=== PATIENT | male | born 1940 | race Caucasian/White ===

== ENCOUNTER 2017-07-15 12:56 | Inpatient (IN) | payer MEDICARE, OTHER, SELFPAY ==
[2017-07-15] VITALS (9 sets, daily range): BP systolic 109–180; BP diastolic 78–113; PULSE 48–106; RESP 16–20; TEMP 36.5–36.9; O2SAT 91–97; BMI 23.6; BMI 24.3
--- NOTE | 2017-07-15 13:27 | EKG12_ITS ---
Test Reason : EPIGASTRIC PAIN Blood Pressure : / mmHG Vent. Rate : 065 BPM Atrial Rate : 065 BPM P-R Int : 174 ms QRS Dur : 076 ms QT Int : 410 ms P-R-T Axes : 029 -06 023 degrees QTc Int : 426 ms Normal sinus rhythm Septal infarct , age undetermined Abnormal ECG Confirmed by KRISHNA HDEZ ([id number]), make up editor PAUL BEAUCHAMP ([id number]) on 07/29/2017 5:22:03 PM Referred By: ENDER/CHAVO Confirmed By:KRISHNA HDEZ
--- NOTE | 2017-07-15 13:27 | CT_ITS ---
STUDY: CT ANGIOGRAM OF THE ABDOMEN AND CT ANGIOGRAM OF THE PELVIS WITHOUT AND WITH IV CONTRAST. REASON FOR EXAM: Male, 76 years old. Severe abdominal pain. Nausea. History of coronary artery disease, hypertension, GERD, abdominal aortic aneurysm, cardiac stent. RADIATION DOSAGE (If Supplied By Facility): CTDIvol = ( 28.5+18.95 ) mGy, DLP = ( 998.86 ) mGycm. Thank you Individualized dose optimization techniques were used for this CT.? TECHNIQUE: Arterial phase contrast bolus Isovue 300 [address] mL. Thin slice helical [address] angiogram was performed from the lung bases through the ischial tuberosities with paracoronal and parasagittal 2-D MPR, and 3-D volume rendered and MIP reformatted images. COMPARISON: None. FINDINGS: Body wall soft tissues: No acute process. Osseous structures: No acute process. Mild lumbar scoliosis and multilevel mild lumbar degenerative disease without high-grade stenosis. Disc degeneration is most notable at L2-L3. Chronic appearing superior plate compression deformity likely associated with Schmorl's nodes at T11. Of note, the patient has transitional lumbosacral vertebral anatomy, as counted from the last rib-bearing vertebral body T12, hemisacralization of L5. Lung bases: Hyperlucency consistent with underlying COPD. There is a solid round pulmonary nodule at the right lung base medial basilar segment, in the sulcus, measuring approximately 8 mm. Nonspecific. Distal esophagus: Normal. Hepatobiliary: No acute process. Pancreas: There is acute inflammatory stranding and edema surrounding the head, body and majority of the proximal tail of the pancreas in a pattern most consistent with acute pancreatitis. Stranding extends downward into the root of the small bowel mesentery. This is associated with mild circumferential thickening of the 2nd and 3rd portion of duodenum, vicarious inflammation due to the pancreatitis. There is no focal suspicious pancreatic lesion. There is only very minimal ductal ectasia up to 3 mm. There are several scattered punctate calcifications of the pancreas suggesting sequela from prior inflammation. Spleen: Punctate calcifications consistent with old granulomatous disease. Adrenal glands: Normal. Urogenital: Symmetric nephrograms. No significant renal atrophy. Normal collecting systems, ureters. Urinary bladder is quite distended, extending upward in the abdomen, measuring up to 17.6 cm craniocaudal, 16.3 cm anterior-posterior, and 14.2 cm transverse. This could reflect partial bladder outlet obstruction. Correlate for appropriate urination. Urinary bladder wall is unremarkable. The prostate is mildly enlarged. Symmetric and normal seminal vesicles. Pelvic floor and sidewalls and retroperitoneum: No pelvic lymphadenopathy. Multiple partially confluent mildly enlarged lymph nodes are present left periaortic, just distal to the left renal vein, the largest individual lymph node measuring approximately 13 mm. These may be chronic but could also be acutely reactive in the setting of pancreatitis. Vasculature: There is mild to moderate atherosclerotic calcification of the wall of the abdominal aorta, iliac vessels and proximal femoral vessels without stenosis or dissection. There is fusiform aneurysmal ectasia of the infrarenal abdominal aorta measuring up to 4.4 x 4.2 cm. There is no evidence of retroperitoneal fibrosis, aortitis, or rupture. Stomach: No acute process. Small bowel and mesentery: Other than mild duodenal inflammation from the pancreatitis, the small bowel is unremarkable. Appendix: Normal. Large bowel: No acute process. There is mild sigmoid diverticulosis without diverticulitis. Normal rectum. CT/CTA Abdomen W/WO Contrast IMPRESSION: Acute pancreatitis. Abdominal aortic aneurysm without complication. Prominent distention of the urinary bladder requires clinical correlation. Electronically Signed: Jorge Nielson, at 15:23 EDT Tel , Service support ,
[2017-07-15] MEDS: Morphine 4 MG/ML Syringe IV (13:32)
[2017-07-15] MEDS: Ondansetron 4 MG/2 ML Vial IV (13:32)
[2017-07-15] MEDS: 0.9% Normal Saline 1,000 ML 1000 ML IV (13:32)
[2017-07-15 13:43] LABS: Basophil# 0.03 X10^3/uL; Basophil% 0.4 % (0-1); Eosinophil# 0.05 X10^3/uL; Eosinophils% 0.6 % (0-5); Hematocrit 38.9 % (40-54); Hemoglobin 13.3 g/dl (13.0-16.5); Lymphocyte % 12.8 % (19-41); Mean Corp Hgb Conc 34.2 g/gl (32-36); Mean Corpuscular Hgb 33.3 pg (27.0-32.0); Mean Corpuscular Volume 97.3 fL (80-94); Mean Platelet Vol. 9.1 fl (6.2-12.0); Neutrophil # 6.01 X10^3/uL (2.7-7.7); Neutrophil % 76.9 % (47-70); POSITIVE COUNT NO; POSITIVE DIFFERENTIAL NO; POSITIVE MORPHOLOGY NO; Platelet Count 253 K/mm3 (150-450); RBC Distribution Width CV 13.4 % (11.6-14.6); RBC Distribution Width SD 46.8 fl (35.1-43.9); White Blood Count 7.8 K/mm3 (4.4-11.0)
[2017-07-15 14:00] LABS: AST(SGOT) 21 U/L (15-37); Alanine Aminotransfer ALT/SGPT 16 U/L (16-61); Albumin, Serum 3.5 g/dL (3.2-5.0); Alkaline Phosphatase 80 U/L (45-117); Anion Gap 8 (5-15); BUN 16 mg/dL (7-18); BUN/Creat Ratio 14.3 RATIO (10-20); Bilirubin, Direct 0.13 mg/dL (0.00-0.30); Calcium,Total 9.2 mg/dL (8.5-10.1); Chloride 105 mmol/L (98-107); Creatinine, Serum 1.12 mg/dL (0.70-1.30); EST Glomerular Filtration Rate 68 mL/min (>60); Est Glom Filt Rate - Afr Amer 82 mL/min (>60); Estimated Creatinine Clearance 66.26 ml/min; Globulin 3.8 g/dL (2.2-4.2); Glucose 134 mg/dL (74-106); Lipase 19319 U/L (73-393); Potassium 4.1 mmol/L (3.5-5.1); Protein, Total 7.3 g/dL (6.4-8.2); Sodium Level 138 mmol/L (136-145)
[2017-07-15] MEDS: HYDROmorphone 0.5 MG/0.5 ML SYRINGE IV ×2 (14:23→16:21)
--- NOTE | 2017-07-15 15:18 | ED.VISSUMM ---
- ER Visit Summary Date of Service: 07/15/17 Chief Complaint: Abdominal pain, nausea History of Present Illness: The patient is a 76 M who noted upper abdominal pain and nausea that started around 10 AM this morning. He describes it as sharp and aching in sensation. He has not had diarrhea. He has not had fever. Patient does drink alcohol regularly and did drink last night. He has never had pancreatitis. Past history significant for coronary disease, hypertension, high cholesterol, and reflux disease. Past surgical history is significant only for cardiac stent. He has had no prior abdominal surgeries. does state the patient has an abdominal aneurysm that is been monitored to the [facility]. Physical Examination: Blood pressure is 109/83, temperature 97.7, heart rate 68, respiratory rate 18, pulse ox 97% on room air. Head and neck examination is unremarkable. Heart is regular rate and rhythm. Lung sounds are clear. Abdomen is soft with focal tenderness in epigastric region along with voluntary guarding. He has hypoactive bowel sounds throughout. Test Results: CBC and chemistry studies are unremarkable. LFTs normal. Lipase is 19,319. Troponin is less than 0.015. EKG is sinus at 65 with no sign of acute ischemia. CTA of the abdomen and pelvis reveals acute pancreatitis. There is a abdominal aortic aneurysm appreciated without complication. Emergency Department Course and Treatment: Patient was given morphine, Zofran, and IV fluids. He noted significant pain with no improvement with morphine. He was given 0.5 mg of IV Dilaudid. On repeat evaluation patient states pain was improved to about a 5, but is now starting to worsen again. He has had 2 L of IV fluid. Maintenance IV fluids will be run and he will receive an additional dose of Dilaudid. Hospitalist has been called for admission. As advised by nursing staff that patient has not been able to provide a urine sample. Bladder scan was performed at bedside and appears to have over a liter of urine. Order for Webber catheter has been placed. Treatment Plan: [] Disposition: Admit Impression: 1. Acute pancreatitis 2. Urinary retention This note was generated with [email or web address] dictation software. It may contain incorrect words, spelling, and punctuation that were not noted in review of the chart prior to signing ED Disposition - Plan for ED Patient: Chief Complaint: Abd Pain Referrals: Jaden Monterroso DO [Primary Care Provider] -
[2017-07-15] MEDS: 0.9% Normal Saline 1,000 ML 150 ML IV (15:24)
[2017-07-15] MEDS: 0.9% Normal Saline 1,000 ML 200 ML IV (16:21)
--- NOTE | 2017-07-15 16:29 | NURSING ---
DR ROWE FOR DR SANDHU
--- NOTE | 2017-07-15 16:38 | NURSING ---
PCU ABD PAIN PAINTSIL
--- NOTE | 2017-07-15 17:00 | PCM.HP.STD ---
Problem List (1) Acute pancreatitis Status: Acute Qualifiers: Pancreatitis type: alcohol induced Acute pancreatitis complication: no infection or necrosis Qualified Code(s): K85.20 - Alcohol induced acute pancreatitis without necrosis or infection (2) CAD (coronary artery disease) Status: Chronic Qualifiers: Coronary Disease-Associated Artery/Lesion type: [place] artery Associated angina: without angina (3) Hypertension Status: Chronic Qualifiers: Hypertension type: essential hypertension Qualified Code(s): I10 - Essential (primary) hypertension (4) Hyperlipidemia Status: Chronic Qualifiers: Hyperlipidemia type: unspecified Qualified Code(s): E78.5 - Hyperlipidemia, unspecified History of Present Illness Date of Admission: 07/15/17 Chief Complaint: Abdominal pain - 1 day The patient is a 76 year old M with past medical history of CAD status post stents, chronic abdominal aortic aneurysm, chronic alcohol abuse, comes in with complaints of abdominal pain of one day duration. He complains of gradual onset of abdominal discomfort that is described as sharp, nonradiating, associated with nausea but no vomiting. Pain was so severe more than 10 out of 10 that he had to come into the ED. He denied any diarrhea, dizziness, fever, chills, dysuria, hesitancy, strangury. In the ED show blood pressure 109/83, temperature of 97.7, heart rate of 68, SPO2 was 97% on room air. Admitting blood work was unremarkable except for elevated lipase of more than 19,000. CT scan of the abdomen and pelvis showed acute pancreatitis, abdominal aortic aneurysm without complication, prominent distention of the urinary bladder. Patient had a Webber catheter inserted in the ED and drained more than 1500mls of urine. Past Medical History Past Medical History (Chronic Problems): Chronic Problems CAD (coronary artery disease) (Chronic) Hypertension (Chronic) Hyperlipidemia (Chronic) Allergies erythromycin base Allergy (Verified 07/15/17 12:57) Unknown Sulfa (Sulfonamide Antibiotics) Allergy (Verified 07/15/17 12:57) Unknown Home Medications: Ambulatory Orders Medication Instructions Recorded Atorvastatin Calcium [Lipitor] 80 mg PO QHS 04/23/15 Clopidogrel Bisulfate [Clopidogrel] 75 mg PO DAILY 04/23/15 Flunisolide [Flunisolide] 2 sprays NASAL DAILY 04/23/15 Isosorbide Dinitrate 30 mg PO DAILY 04/23/15 Lisinopril [Lisinopril] 5 mg PO DAILY 04/23/15 Meloxicam [Meloxicam] 15 mg PO DAILY 04/23/15 Metoprolol Tartrate [Metoprolol 50 mg PO DAILY 04/23/15 Tartrate] Omeprazole [Omeprazole] 20 mg PO DAILY 04/23/15 Cholecalciferol (Vitamin D3) 2,000 unit PO DAILY 07/15/17 [Vitamin D3] Surgical History: tonsillectomy Psychiatric History: No pertinent psych hx Smoking Status: Heavy Smoker (>10/day) Tobacco Use: Cigarettes Alcohol: Heavy Drugs: None - *Family History Maternal History Items: Stroke - of stroke Paternal History Items: - - arthritis Sibling History Items: Heart Disease - s/p CABG in 2 brothers Review of Systems Constitutional: Reports: Anorexia. Denies: Chills, Fever, Night Sweats, Malaise, Weakness, Weight Change Eyes: Denies: Blurred vision, Cataracts, Conjunctivae Inflammation, Double vision, Pain, Redness, Vision Change HEENT: Denies: Difficulty Hearing, Difficulty Swallowing, Dysphasia, Head Aches, Hearing Changes, Sinus Congestion, Sinus Drainage Cardiovascular: Denies: Chest Pain, Claudication, Chest Pressure, Chest Tightness, Edema, Orthopnea, Palpitations, Paroxysmal Noc. Dyspnea, Syncope Respiratory: Denies: Cough, Hemoptysis, Pleuritic Pain, Shortness of Breath, Shortness of breath at rest, Shortness of breath upon exertion, Sputum production Gastrointestinal: Reports: Abdominal Pain - epigastric. Denies: Constipation, Hematochezia, Nausea, Vomiting Genitourinary: Denies: Dysuria, Frequency Musculoskeletal: Denies: Joint Pain, Joint stiffness, Joint swelling, Joint Tenderness Skin: Denies: Rash, Wounds Neurological: Denies: Difficulty swallowing, Focal weakness, Numbness, Tingling Psychiatric: Denies: Anxiety, Depression, Homicidal Ideations, Suicidal Ideations Endocrine: Denies: Change in Body Habitus, Heat/ Cold Intolerance, Polydipsia Hematologic/ Lymphatic: Denies: Easy Bruising, Easy Bleeding VTE Information - Inpt Only VTE Present on Admission: No VTE Pharm Prophylaxis ordered?: Yes Patient Problems: Active and Suspected Problems Acute pancreatitis (Acute) - Physical Exam General: Alert, Oriented x3, Cooperative HEENT: Atraumatic, PERRLA, EOMI, Normocephalic Oral: Moist Mucosa Neck: Supple Lungs: Clear to auscultation, Normal air movement Cardiovascular: Regular rate, Regular Rhythm, Normal S1, Normal S2, No murmurs Abdomen: Bowel Sounds Present, Soft, Non Tender, Non-Distended, No Hepato-splenomegaly Extremities: No edema Skin: No rashes, No breakdown Musculoskeletal: No Tenderness to Palpation of Joints or Extremities Lymphatic: No Cervical, Supraclavicular, or Inguinal Adenopathy Neurological: Cranial nerves II-XII grossly intact, Neuro grossly intact, Motor Exam 5/5 strength throughout Psych/Mental Status: Normal Affect, Appropriate Vital Signs Temp Pulse Resp BP Pulse Ox 97.7 F L 80 18 151/82 H 97 07/15/17 12:56 07/15/17 16:56 07/15/17 16:56 07/15/17 16:56 07/15/17 16:56 Oxygen Delivery Method Room Air Weight: 83.552 kg Body Mass Index (BMI) 23.6 Laboratory Tests Past 24 Hrs 07/15/17 07/15/17 13:25 13:25 WBC 7.8 RBC 4.00 L Hgb 13.3 Hct 38.9 L MCV 97.3 H MCH 33.3 H MCHC 34.2 RDW 13.4 RDW Differential 46.8 H Plt Count 253 MPV 9.1 Immature Gran % (Auto) 0.300 Neut % (Auto) 76.9 H Lymph % (Auto) 12.8 L [place] % (Auto) 9.0 Eos % (Auto) 0.6 Baso % (Auto) 0.4 Absolute Neuts (auto) 6.0 Absolute Lymphs (auto) 1.00 Total Counted Not Reportable Sodium 138 Potassium 4.1 Chloride 105 Carbon Dioxide 25.0 Anion Gap 8 BUN 16 Creatinine 1.12 Estim Creat Clear Calc 66.26 Est GFR (MDRD) Af Amer 82 Est GFR (MDRD) Non-Af 68 BUN/Creatinine Ratio 14.3 Glucose 134 H Calcium 9.2 Total Bilirubin 0.40 Direct Bilirubin 0.13 AST 21 ALT 16 Alkaline Phosphatase 80 Troponin I < 0.015 Total Protein 7.3 Albumin 3.5 Globulin 3.8 Lipase 47012 H Assessment/Plan Active and Suspected Problems Acute pancreatitis (Acute) 76 year old M with past medical history of CAD status post stents, chronic abdominal aortic aneurysm, chronic alcohol abuse, comes in with complaints of abdominal pain of one day duration. He complains of gradual onset of abdominal discomfort that is described as sharp, nonradiating, associated with nausea but no vomiting. 1. Acute pancreatitis, likely secondary to alcohol use, admitting lipase 19,319, admitting CT scan of abd/pelvis showed acute pancreatitis 2. CAD s/p stents, stable, on statin, plavix, isosorbide dinitrate, lisinopril, metoprolol 3. Abdominal aneurysm, CTA abd/pelvis showed 4.4 x 4.2cm, will control blood pressure aggressively. 4. Chronic alcohol abuse, heavy drinker, >4-5 bers daily, mixed drinks, liquor, will start on alcohol withdrawal with ativan prn. 5. Nicotine use disorder, will put on nicotine patch and gum. 6. DVT PPx - Heparin SC Code Visit Inpatient E&M: 15856 Init Hosp L3
--- NOTE | 2017-07-15 17:03 | HP.PCM_ITS ---
Problem List (1) Acute pancreatitis Status: Acute Qualifiers: Pancreatitis type: alcohol induced Acute pancreatitis complication: no infection or necrosis Qualified Code(s): K85.20 - Alcohol induced acute pancreatitis without necrosis or infection (2) CAD (coronary artery disease) Status: Chronic Qualifiers: Coronary Disease-Associated Artery/Lesion type: [place] artery Associated angina: without angina (3) Hypertension Status: Chronic Qualifiers: Hypertension type: essential hypertension Qualified Code(s): I10 - Essential (primary) hypertension (4) Hyperlipidemia Status: Chronic Qualifiers: Hyperlipidemia type: unspecified Qualified Code(s): E78.5 - Hyperlipidemia , unspecified History of Present Illness Date of Admission: 07/15/17 Chief Complaint: Abdominal pain - 1 day The patient is a 76 year old M with past medical history of CAD status post stents, chronic abdominal aortic aneurysm, chronic alcohol abuse, comes in with complaints of abdominal pain of one day duration. He complains of gradual onset of abdominal discomfort that is described as sharp, nonradiating, associated with nausea but no vomiting. Pain was so severe more than 10 out of 10 that he had to come into the ED. He denied any diarrhea, dizziness, fever, chills, dysuria, hesitancy, strangury. In the ED show blood pressure 109/83, temperature of 97.7, heart rate of 68, SPO2 was 97% on room air. Admitting blood work was unremarkable except for elevated lipase of more than 19,000. CT scan of the abdomen and pelvis showed acute pancreatitis, abdominal aortic aneurysm without complication, prominent distention of the urinary bladder. Patient had a Webber catheter inserted in the ED and drained more than 1500mls of urine. Past Medical History Past Medical History (Chronic Problems): Chronic Problems CAD (coronary artery disease) (Chronic) Hypertension (Chronic) Hyperlipidemia (Chronic) Allergies erythromycin base Allergy (Verified 07/15/17 12:57) Unknown Sulfa (Sulfonamide Antibiotics) Allergy (Verified 07/15/17 12:57) Unknown Home Medications: Ambulatory Orders Medication Instructions Recorded Atorvastatin Calcium [Lipitor] 80 mg PO QHS 04/23/15 Clopidogrel Bisulfate [Clopidogrel] 75 mg PO DAILY 04/23/15 Flunisolide [Flunisolide] 2 sprays NASAL DAILY 04/23/15 Isosorbide Dinitrate 30 mg PO DAILY 04/23/15 Lisinopril [Lisinopril] 5 mg PO DAILY 04/23/15 Meloxicam [Meloxicam] 15 mg PO DAILY 04/23/15 Metoprolol Tartrate [Metoprolol 50 mg PO DAILY 04/23/15 Tartrate] Omeprazole [Omeprazole] 20 mg PO DAILY 04/23/15 Cholecalciferol (Vitamin D3) 2,000 unit PO DAILY 07/15/17 [Vitamin D3] Surgical History: tonsillectomy Psychiatric History: No pertinent psych hx Smoking Status: Heavy Smoker (>10/day) Tobacco Use: Cigarettes Alcohol: Heavy Drugs: None - *Family History Maternal History Items: Stroke - of stroke Paternal History Items: - - arthritis Sibling History Items: Heart Disease - s/p CABG in 2 brothers Review of Systems Constitutional: Reports: Anorexia. Denies: Chills, Fever, Night Sweats, Malaise , Weakness, Weight Change Eyes: Denies: Blurred vision, Cataracts, Conjunctivae Inflammation, Double vision, Pain, Redness, Vision Change HEENT: Denies: Difficulty Hearing, Difficulty Swallowing, Dysphasia, Head Aches , Hearing Changes, Sinus Congestion, Sinus Drainage Cardiovascular: Denies: Chest Pain, Claudication, Chest Pressure, Chest Tightness, Edema, Orthopnea, Palpitations, Paroxysmal Noc. Dyspnea, Syncope Respiratory: Denies: Cough, Hemoptysis, Pleuritic Pain, Shortness of Breath, Shortness of breath at rest, Shortness of breath upon exertion, Sputum production Gastrointestinal: Reports: Abdominal Pain - epigastric. Denies: Constipation, Hematochezia, Nausea, Vomiting Genitourinary: Denies: Dysuria, Frequency Musculoskeletal: Denies: Joint Pain, Joint stiffness, Joint swelling, Joint Tenderness Skin: Denies: Rash, Wounds Neurological: Denies: Difficulty swallowing, Focal weakness, Numbness, Tingling Psychiatric: Denies: Anxiety, Depression, Homicidal Ideations, Suicidal Ideations Endocrine: Denies: Change in Body Habitus, Heat/ Cold Intolerance, Polydipsia Hematologic/ Lymphatic: Denies: Easy Bruising, Easy Bleeding VTE Information - Inpt Only VTE Present on Admission: No VTE Pharm Prophylaxis ordered?: Yes Patient Problems: Active and Suspected Problems Acute pancreatitis (Acute) - Physical Exam General: Alert, Oriented x3, Cooperative HEENT: Atraumatic, PERRLA, EOMI, Normocephalic Oral: Moist Mucosa Neck: Supple Lungs: Clear to auscultation, Normal air movement Cardiovascular: Regular rate, Regular Rhythm, Normal S1, Normal S2, No murmurs Abdomen: Bowel Sounds Present, Soft, Non Tender, Non-Distended, No Hepato- splenomegaly Extremities: No edema Skin: No rashes, No breakdown Musculoskeletal: No Tenderness to Palpation of Joints or Extremities Lymphatic: No Cervical, Supraclavicular, or Inguinal Adenopathy Neurological: Cranial nerves II-XII grossly intact, Neuro grossly intact, Motor Exam 5/5 strength throughout Psych/Mental Status: Normal Affect, Appropriate Vital Signs Temp Pulse Resp BP Pulse Ox 97.7 F L 80 18 151/82 H 97 07/15/17 12:56 07/15/17 16:56 07/15/17 16:56 07/15/17 16:56 07/15/17 16:56 Oxygen Delivery Method Room Air Weight: 83.552 kg Body Mass Index (BMI) 23.6 Laboratory Tests Past 24 Hrs 07/15/17 07/15/17 13:25 13:25 WBC 7.8 RBC 4.00 L Hgb 13.3 Hct 38.9 L MCV 97.3 H MCH 33.3 H MCHC 34.2 RDW 13.4 RDW Differential 46.8 H Plt Count 253 MPV 9.1 Immature Gran % (Auto) 0.300 Neut % (Auto) 76.9 H Lymph % (Auto) 12.8 L [place] % (Auto) 9.0 Eos % (Auto) 0.6 Baso % (Auto) 0.4 Absolute Neuts (auto) 6.0 Absolute Lymphs (auto) 1.00 Total Counted Not Reportable Sodium 138 Potassium 4.1 Chloride 105 Carbon Dioxide 25.0 Anion Gap 8 BUN 16 Creatinine 1.12 Estim Creat Clear Calc 66.26 Est GFR (MDRD) Af Amer 82 Est GFR (MDRD) Non-Af 68 BUN/Creatinine Ratio 14.3 Glucose 134 H Calcium 9.2 Total Bilirubin 0.40 Direct Bilirubin 0.13 AST 21 ALT 16 Alkaline Phosphatase 80 Troponin I < 0.015 Total Protein 7.3 Albumin 3.5 Globulin 3.8 Lipase 71852 H Assessment/Plan Active and Suspected Problems Acute pancreatitis (Acute) 76 year old M with past medical history of CAD status post stents, chronic abdominal aortic aneurysm, chronic alcohol abuse, comes in with complaints of abdominal pain of one day duration. He complains of gradual onset of abdominal discomfort that is described as sharp, nonradiating, associated with nausea but no vomiting. 1. Acute pancreatitis, likely secondary to alcohol use, admitting lipase 19,319 , admitting CT scan of abd/pelvis showed acute pancreatitis 2. CAD s/p stents, stable, on statin, plavix, isosorbide dinitrate, lisinopril, metoprolol 3. Abdominal aneurysm, CTA abd/pelvis showed 4.4 x 4.2cm, will control blood pressure aggressively. 4. Chronic alcohol abuse, heavy drinker, >4-5 bers daily, mixed drinks, liquor, will start on alcohol withdrawal with ativan prn. 5. Nicotine use disorder, will put on nicotine patch and gum. 6. DVT PPx - Heparin SC Code Visit Inpatient E&M: 58109 Init Hosp L3
--- NOTE | 2017-07-15 17:45 | US_ITS ---
STUDY: ABDOMINAL ULTRASOUND - RIGHT UPPER QUADRANT REASON FOR VISIT: Male, 76 years old. Epigastric pain and nausea, TECHNIQUE: Ultrasound evaluation of the right upper quadrant was performed with real-time and static tejada-scale imaging. TECHNICAL QUALITY: Adequate. COMPARISON: CT from earlier today FINDINGS: Liver: The liver measures 18.0 cm. There is normal echogenicity of the liver. The bile ducts are within normal limits. There is hepatic color flow. The direction of portal flow is hepatopetal. There is no demonstrated mass lesion. Gallbladder: Normal distended gallbladder. The gallbladder wall measures 2.9 mm. There is a negative sonographic Ojeda's sign. There is no pericholecystic fluid. There are no gallstones. Common Bile Duct (C.B.D.): The common bile duct measures 2.8 mm. Pancreas: Normal size of the head, body and tail of the pancreas. There is increased echogenicity of the pancreas. There is no demonstrated pancreatic mass or cyst. Right Kidney: Normal size of the right kidney. The right kidney measures 10.1 x 5.9 x 5.8 cm. Normal renal cortex. The right cortex measures 1.5 cm. There is no demonstrated renal mass or cyst. There is no right hydronephrosis. US/Gallbladder IMPRESSION: Mild hepatomegaly, no discrete lesion Nonspecific echogenic pancreas Sonographically normal gallbladder Electronically Signed: Glenn Corrigan MD at 23:23 EDT , Service support ,
[2017-07-15] MEDS: Morphine 4 MG/ML Syringe 1 MG IV (19:43)
--- NOTE | 2017-07-15 20:00 | NURSING ---
Pt. being taken off floor by [facility] to go for US gallbladder and prostate.
[2017-07-15] MEDS: Heparin Injection (Vial) 5,000 UNIT/ML VIAL 5000 UNIT SC (22:28)
[2017-07-15] MEDS: Famotidine 20 MG Tablet PO (22:28)
[2017-07-15] MEDS: Thiamine Hydrochloride 100 MG Tablet PO (22:28)
[2017-07-15] MEDS: HYDROmorphone 1 MG/ML Syringe IV (22:38)
[2017-07-15] MEDS: Lisinopril 5 MG Tablet 2.5 MG PO (22:38)
[2017-07-16] VITALS (13 sets, daily range): BP systolic 127–185; BP diastolic 74–103; PULSE 55–119; RESP 16–20; TEMP 36.7–37.4; O2SAT 92–94
[2017-07-16] MEDS: HYDROmorphone 1 MG/ML Syringe IV ×7 (03:23→21:53)
[2017-07-16] MEDS: 0.9% Normal Saline 1,000 ML 100 ML IV ×2 (03:44→12:53)
[2017-07-16] MEDS: hydrALAZINE 20 MG/ML Vial 10 MG IV (04:27)
[2017-07-16 05:35] LABS: Hematocrit 41.7 % (40-54); Hemoglobin 13.8 g/dl (13.0-16.5); Mean Corp Hgb Conc 33.1 g/gl (32-36); Mean Corpuscular Hgb 31.9 pg (27.0-32.0); Mean Corpuscular Volume 96.5 fL (80-94); Mean Platelet Vol. 8.9 fl (6.2-12.0); Platelet Count 208 K/mm3 (150-450); RBC Distribution Width CV 13.7 % (11.6-14.6); RBC Distribution Width SD 48.9 fl (35.1-43.9); Red Blood Count 4.32 M/mm3 (4.6-6.2); White Blood Count 8.7 K/mm3 (4.4-11.0)
[2017-07-16 06:13] LABS: Scan Indicated on CBC? Y/N NO
[2017-07-16 06:37] LABS: Anion Gap 10 (5-15); BUN 13 mg/dL (7-18); BUN/Creat Ratio 16.1 RATIO (10-20); Calcium,Total 8.8 mg/dL (8.5-10.1); Chloride 104 mmol/L (98-107); Creatinine, Serum 0.81 mg/dL (0.70-1.30); EST Glomerular Filtration Rate 99 mL/min (>60); Est Glom Filt Rate - Afr Amer 120 mL/min (>60); Estimated Creatinine Clearance 91.62 ml/min; Glucose 102 mg/dL (74-106); Lipase 6049 U/L (73-393); Potassium 4.1 mmol/L (3.5-5.1); Sodium Level 140 mmol/L (136-145)
--- NOTE | 2017-07-16 08:11 | PN_ITS ---
Patient Problems: Active and Suspected Problems Acute pancreatitis (Acute) Subjective: Mr. Ying is a 76-year-old male with a past medical history of coronary artery disease, PTCA with stents, abdominal aortic aneurysm, hyperlipidemia, hypertension, chronic alcohol abuse and tobacco dependence who presented to the emergency department at [facility] on 07/15/2017 complaining of abdominal pain. He had no vomiting. He takes meloxicam 15 mg daily. Vital signs upon presentation to the emergency room were temperature 97.7, pulse rate 68, blood pressure 109/83, respiratory rate 18 and he was 97% saturated on room air. CBC was unremarkable. BMP was unremarkable. Random blood sugar was 134 and he has no history of diabetes mellitus. LFTs were within normal limits. Lipase was 19,319. A CTA of the abdomen was done because of history of aortic aneurysm and it showed acute pancreatitis, infrarenal abdominal aortic aneurysm measuring 4.4 x 4.2 cm and a distended bladder. Gallbladder ultrasound showed mild hepatomegaly, nonspecific echogenic pancreas and a normal gallbladder with no cholelithiasis. There was a negative sonographic Ojeda sign. All events of the past 24 hours of been reviewed. Afebrile since admission. His last 2 heart rates were 112 119 bpm. Blood pressures have been high. Pulse ox is 91-97% on room air. He is on a CIWA protocol but has not received any Ativan. Fluid balance since admission is -100. All lab was personally reviewed. White blood cell count, hemoglobin and platelets remain within normal limits. Electrolytes are normal and the BUN is 13 with a creatinine of 0.81. Lipase is 6049 today. He denies any hx of pancreatitis in the past. No recent no medications or antibiotics. Pain started on Saturday. No vomiting. He admits to drinking beer....not every day but, 3-4 times a week. Also has mixed drinks at night but , not every day. No suspicious masses of the pancreas on the CT scan. Has not required any Ativan today. No hx of DT's. - Physical Exam General: Alert, Oriented x3, Cooperative, Well developed, Well nourished HEENT: Atraumatic, PERRLA, EOMI, Normocephalic Oral: No Gingival or Mucosal Lesions/ Ulcerations, Dry Mucosa Neck: Supple, No JVD, Negative Carotid Bruits, No Nuchal Rigidity, Trachea Midline Lungs: - - few persistent coarse crackles in the left base, rare wheeze. Cardiovascular: Normal S1, Normal S2, No murmurs, No rub noted, No Gallop, - - increased resting heart rate. Abdomen: Soft, Hypoactive Bowel Sounds, Distended - tucker in the upper abdomen, Tender - LUQ and the epigastric area Extremities: No clubbing, No cyanosis, No edema, No Calf Tenderness, Peripheral Pulses Normal Skin: No rashes, No breakdown Musculoskeletal: No Muscle Wasting Neurological: Cranial nerves II-XII grossly intact, Neuro grossly intact Psych/Mental Status: Normal Affect, Appropriate Vital Signs Temp Pulse Resp BP Pulse Ox 98.6 F 112 H 20 H 148/92 H 94 07/16/17 04:40 07/16/17 07:21 07/16/17 04:40 07/16/17 04:40 07/16/17 04:40 Oxygen Delivery Method Room Air Weight: 189 lb 13.088 oz Body Mass Index (BMI) 24.3 Intake and Output for Last 24 Hours 07/14/17 07/15/17 07/16/17 23:59 23:59 23:59 Intake Total 642 / 642 683 / 683 Output Total 1100 / 1100 325 / 325 Balance -458 / -458 358 / 358 Laboratory Tests Past 24 Hrs 07/16/17 07/16/17 05:02 05:02 WBC 8.7 RBC 4.32 L Hgb 13.8 Hct 41.7 MCV 96.5 H MCH 31.9 MCHC 33.1 RDW 13.7 RDW Differential 48.9 H Plt Count 208 MPV 8.9 Sodium 140 Potassium 4.1 Chloride 104 Carbon Dioxide 26.0 Anion Gap 10 BUN 13 Creatinine 0.81 Estim Creat Clear Calc 91.62 Est GFR (MDRD) Af Amer 120 Est GFR (MDRD) Non-Af 99 BUN/Creatinine Ratio 16.1 Glucose 102 Calcium 8.8 Lipase 6049 H Medical Necessity - Tobacco Use Smoking Status: Heavy Smoker (>10/day) Tobacco Use: Cigarettes Assessment/Plan Active and Suspected Problems Acute pancreatitis (Acute) Impressions 1. Acute severe pancreatitis -suspect secondary to alcohol 2. Nicotine dependence 3. Chronic alcohol abuse 4. Coronary artery disease with history of coronary artery stents 5. Abdominal aortic aneurysm-4.4 x 4.2 cm 6. Hypertension make him NPO except for sips and chips Start Protnoix 40 mg IV daily hold all the PO meds except the Metoprolol IV thiamine and folic acid Continue heparin for DVT prophylaxis Ambulate ad daniel. Continue IV Dilaudid for pain control-patient is requiring frequent medication. I suspect that he is narcotic tolerance is going to be increased secondary to the history of alcohol abuse. Check lab in the a.m. Code Visit Inpatient E&M: 08118 Subs Hosp L2
[2017-07-16] MEDS: Folic Acid 1 MG Tablet PO (09:40)
[2017-07-16] MEDS: Heparin Injection (Vial) 5,000 UNIT/ML VIAL 5000 UNIT SC ×2 (09:41→21:57)
[2017-07-16] MEDS: Multivitamins,Ther W-Minerals Tablet 1 TABLET PO (09:41)
[2017-07-16] MEDS: Thiamine Hydrochloride 100 MG Tablet PO ×2 (09:41→16:01)
[2017-07-16] MEDS: Famotidine 20 MG Tablet PO (09:42)
[2017-07-16] MEDS: Clopidogrel Bisulfate 75 MG Tablet PO (09:42)
[2017-07-16] MEDS: Pantoprazole Sodium 20 MG Tablet PO (09:42)
[2017-07-16] MEDS: Lisinopril 5 MG Tablet 2.5 MG PO (09:45)
[2017-07-16] MEDS: Metoprolol Tartrate 50 MG Tablet PO (09:45)
--- NOTE | 2017-07-16 11:51 | CASEMGMT ---
Face to Face with patient for initial transition planning/care coordination assessment. RN REYNA introduced self and role at [facility], pt voices understanding and consents to assessment at this time. Pt is sitting up in bed in no distress at this time. Pt is A/Ox 4 at this time and answers all questions appropriately at this time. Care providers, pharmacy, and demographics verified. See CM link. Pt voices no further concerns/needs at this time. Advised pt to ask for CM if any further questions/concerns/needs arise, voices understanding. CM to follow for any further discharge planning/needs. [place]
[2017-07-16] MEDS: Isosorbide Mononitrate 30 MG Tablet PO (16:01)
[2017-07-16] MEDS: 0.9% Normal Saline 1,000 ML 150 ML IV (19:48)
[2017-07-16] MEDS: Ondansetron 4 MG/2 ML Vial IV (21:54)
[2017-07-16] MEDS: Nitroglycerin Oint 1 INCH PACKET TRANSDERM. (22:00)
[2017-07-16] MEDS: 0.9% NaCl Peripheral Flush Adult/Peds IV (22:09)
[2017-07-17] VITALS (14 sets, daily range): BP systolic 114–147; BP diastolic 65–85; PULSE 71–115; RESP 16–18; TEMP 36.7–37.4; O2SAT 92–93
[2017-07-17] MEDS: HYDROmorphone 1 MG/ML Syringe IV ×6 (00:16→20:14)
[2017-07-17] MEDS: Enalaprilat 1.25 MG/ML Vial IV ×4 (00:17→18:05)
[2017-07-17] MEDS: 0.9% NaCl Peripheral Flush Adult/Peds IV ×4 (00:17→20:15)
[2017-07-17 06:12] LABS: Absolute Neutrophil Count 3.3 X10^3/uL (2.0-7.7); Basophil# 0.01 X10^3/uL; Basophil% 0.2 % (0-1); Eosinophil# 0.05 X10^3/uL; Eosinophils% 1.2 % (0-5); Hematocrit 36.7 % (40-54); Hemoglobin 11.9 g/dl (13.0-16.5); Lymphocyte % 9.6 % (19-41); Mean Corp Hgb Conc 32.4 g/gl (32-36); Mean Corpuscular Hgb 31.6 pg (27.0-32.0); Mean Corpuscular Volume 97.6 fL (80-94); Mean Platelet Vol. 9.2 fl (6.2-12.0); Monocyte% 9.6 % (0-10); Neutrophil # 3.29 X10^3/uL (2.7-7.7); Neutrophil % 79.4 % (47-70); Platelet Count 173 K/mm3 (150-450); RBC Distribution Width SD 50.2 fl (35.1-43.9); Red Blood Count 3.76 M/mm3 (4.6-6.2); White Blood Count 4.2 K/mm3 (4.4-11.0)
[2017-07-17] MEDS: 0.9% Normal Saline 1,000 ML 150 ML IV ×3 (06:17→22:25)
[2017-07-17 06:18] LABS: Differential Indicated SCAN CRITERIA MET; POSITIVE COUNT NO; POSITIVE DIFFERENTIAL YES; POSITIVE MORPHOLOGY NO
[2017-07-17] MEDS: Nitroglycerin Oint 1 INCH PACKET TRANSDERM. ×3 (06:18→22:22)
[2017-07-17 06:33] LABS: Anion Gap 9 (5-15); BUN 14 mg/dL (7-18); BUN/Creat Ratio 17.1 RATIO (10-20); Calcium,Total 7.9 mg/dL (8.5-10.1); Chloride 106 mmol/L (98-107); Creatinine, Serum 0.82 mg/dL (0.70-1.30); EST Glomerular Filtration Rate 98 mL/min (>60); Est Glom Filt Rate - Afr Amer 118 mL/min (>60); Glucose 74 mg/dL (74-106); Lipase 1636 U/L (73-393); Magnesium 1.5 mg/dL (1.6-2.6); Phosphorus 1.7 mg/dL (2.5-4.9); Sodium Level 141 mmol/L (136-145); Triglycerides 115 mg/dL
[2017-07-17 07:16] LABS: Differential Comment SCANNED
--- NOTE | 2017-07-17 07:46 | PCM.PROGNOTE ---
Patient Problems: Active and Suspected Problems Acute pancreatitis (Acute) Subjective: All events of the past 24 hours of been reviewed. T-max is 99.3. He is still mildly tachycardic with heart rate over the past 12 hours ranging from 96-115 bpm. He has been restarted on his beta-marianna. Blood pressure is now well controlled. Fluid balance since admission is +2073. CBC today shows a white blood cell count of 4.2 with 79% neutrophils. Hemoglobin is 11.9 and platelets are within normal limits. BMP is unremarkable. Phosphorus is low at 1.7 and magnesium is low at 1.5. Lipase continues to improve and today is 1636, down from 19,319 at admission. The pain is less today and he is taking less pain medication. Denies nausea and also has had no emesis. No CP and no SOB. No cough Objective: PHYSICAL EXAM: GENERAL: alert, oriented X 3, Cooperative, NAD ORAL: moist mucosa, no mucosal lesions NECK: No JVD, supple, trachea midline LUNGS: few coarse crackles in the left base only, no wheezing, symmetric chest expansion HEART: RRR, Normal S1 and S2, no rub, no gallop, No MM ABDOMEN: soft, mildly distended, low frequency BS's present, no guarding with palpation today, no back pain, mild tenderness in the upper mid abdomen EXTREMITIES: no edema, no cyanosis, no calf tenderness SKIN: No rashes, no breakdown NEUROLOGIC: no focal neurologic deficits PSYCH: appropriate, normal affect, pleasant - Physical Exam Vital Signs Temp Pulse Resp BP Pulse Ox 99.3 F H 110 H 16 125/70 H 92 07/17/17 04:00 07/17/17 07:30 07/17/17 04:00 07/17/17 06:18 07/17/17 04:00 Oxygen Flow Rate (L/min) 2 Oxygen Delivery Method Room Air Weight: 189 lb 13.088 oz Body Mass Index (BMI) 24.3 Intake and Output for Last 24 Hours 07/15/17 07/16/17 07/17/17 23:59 23:59 23:59 Intake Total 642 / 642 2742 / 2742 914 / 914 Output Total 1100 / 1100 925 / 925 200 / 200 Balance -458 / -458 1817 / 1817 714 / 714 Laboratory Tests Past 24 Hrs 07/17/17 07/17/17 05:25 05:25 WBC 4.2 L RBC 3.76 L Hgb 11.9 L Hct 36.7 L MCV 97.6 H MCH 31.6 MCHC 32.4 RDW 14.0 RDW Differential 50.2 H Plt Count 173 MPV 9.2 Immature Gran % (Auto) 0.000 Neut % (Auto) 79.4 H Lymph % (Auto) 9.6 L [place] % (Auto) 9.6 Eos % (Auto) 1.2 Baso % (Auto) 0.2 Absolute Neuts (auto) 3.3 Absolute Lymphs (auto) 0.40 L Total Counted Not Reportable Differential Comment SCANNED Sodium 141 Potassium 4.0 Chloride 106 Carbon Dioxide 26.0 Anion Gap 9 BUN 14 Creatinine 0.82 Estim Creat Clear Calc 90.50 Est GFR (MDRD) Af Amer 118 Est GFR (MDRD) Non-Af 98 BUN/Creatinine Ratio 17.1 Glucose 74 Calcium 7.9 L Phosphorus 1.7 L Magnesium 1.5 L Triglycerides 115 Lipase 1636 H Medical Necessity - Tobacco Use Smoking Status: Heavy Smoker (>10/day) Tobacco Use: Cigarettes Assessment/Plan All Active Problems Acute pancreatitis (Acute) Impressions 1. Acute severe pancreatitis -suspect secondary to alcohol. He does have calcifications in the pancreas that indicates that he has had pancreatitis in the past. 2. Nicotine dependence 3. Chronic alcohol abuse 4. Coronary artery disease with history of coronary artery stents 5. Abdominal aortic aneurysm-4.4 x 4.2 cm 6. Hypertension 7. Hypophosphatemia 8. Hypomagnesemia recheck the lab in the AM Advance the diet to clear liquids Code Visit Inpatient E&M: 60954 Subs Hosp L2
[2017-07-17] MEDS: Heparin Injection (Vial) 5,000 UNIT/ML VIAL 5000 UNIT SC ×2 (08:01→22:23)
[2017-07-17] MEDS: Metoprolol Tartrate 50 MG Tablet PO (08:01)
[2017-07-17] MEDS: Multivitamins,Ther W-Minerals Tablet 1 TABLET PO (08:02)
[2017-07-18] VITALS (9 sets, daily range): BP systolic 110–139; BP diastolic 70–81; PULSE 68–105; RESP 18; TEMP 36.8–37.1; O2SAT 92–94
[2017-07-18] MEDS: oxyCODONE 5 MG Tablet PO ×4 (00:29→16:19)
[2017-07-18] MEDS: Enalaprilat 1.25 MG/ML Vial IV ×3 (00:30→11:38)
[2017-07-18] MEDS: 0.9% NaCl Peripheral Flush Adult/Peds IV ×3 (00:30→11:39)
[2017-07-18] MEDS: 0.9% Normal Saline 1,000 ML 150 ML IV ×2 (00:36→06:36)
[2017-07-18] MEDS: Nitroglycerin Oint 1 INCH PACKET TRANSDERM. ×2 (06:28→13:20)
[2017-07-18 06:36] LABS: Absolute Lymphocyte Count 0.39 X10^3/ul (0.83-4.51); Absolute Neutrophil Count 3.1 X10^3/uL (2.0-7.7); Basophil# 0.01 X10^3/uL; Basophil% 0.2 % (0-1); Eosinophil# 0.13 X10^3/uL; Eosinophils% 3.1 % (0-5); Hematocrit 33.9 % (40-54); Lymphocyte # 0.39 X10^3/ul (4.0); Lymphocyte % 9.4 % (19-41); Mean Corp Hgb Conc 32.4 g/gl (32-36); Mean Corpuscular Volume 98.5 fL (80-94); Mean Platelet Vol. 9.2 fl (6.2-12.0); Monocyte# 0.48 X10^3/uL; Monocyte% 11.6 % (0-10); Neutrophil # 3.11 X10^3/uL (2.7-7.7); Neutrophil % 75.5 % (47-70); Platelet Count 148 K/mm3 (150-450); RBC Distribution Width CV 13.6 % (11.6-14.6); RBC Distribution Width SD 47.9 fl (35.1-43.9); Red Blood Count 3.44 M/mm3 (4.6-6.2); White Blood Count 4.1 K/mm3 (4.4-11.0)
[2017-07-18 06:37] LABS: Differential Indicated SCAN CRITERIA MET; POSITIVE COUNT NO; POSITIVE DIFFERENTIAL YES; POSITIVE MORPHOLOGY NO
[2017-07-18 06:42] LABS: ALB/GLOB Ratio 0.7 RATIO (0.9-2.4); AST(SGOT) 18 U/L (15-37); Alanine Aminotransfer ALT/SGPT 8 U/L (16-61); Albumin, Serum 2.4 g/dL (3.2-5.0); Alkaline Phosphatase 67 U/L (45-117); Anion Gap 10 (5-15); BUN 8 mg/dL (7-18); BUN/Creat Ratio 12.3 RATIO (10-20); Chloride 106 mmol/L (98-107); Creatinine, Serum 0.65 mg/dL (0.70-1.30); EST Glomerular Filtration Rate 126 mL/min (>60); Est Glom Filt Rate - Afr Amer 153 mL/min (>60); Estimated Creatinine Clearance 74.21 ml/min; Globulin 3.3 g/dL (2.2-4.2); Glucose 73 mg/dL (74-106); Lipase 158 U/L (73-393); Magnesium 2.3 mg/dL (1.6-2.6); Phosphorus 1.4 mg/dL (2.5-4.9); Potassium 3.6 mmol/L (3.5-5.1); Protein, Total 5.7 g/dL (6.4-8.2); Sodium Level 136 mmol/L (136-145)
[2017-07-18 06:58] LABS: Differential Comment SCANNED
[2017-07-18] MEDS: Multivitamins,Ther W-Minerals Tablet 1 TABLET PO (08:50)
[2017-07-18] MEDS: Metoprolol Tartrate 50 MG Tablet PO (08:51)
[2017-07-18] MEDS: Heparin Injection (Vial) 5,000 UNIT/ML VIAL 5000 UNIT SC (10:43)
--- NOTE | 2017-07-18 15:54 | PCM.DC ---
- Discharge Diagnoses Current Active Problems: Current Active and Chronic Problems Acute pancreatitis (Acute) CAD (coronary artery disease) (Chronic) Hypertension (Chronic) Hyperlipidemia (Chronic) You will use the following diet at home:: Other - low fat diet with no caffeine for the next 2 weeks. Your food should be the consistency of: Regular Your liquids should be the consistency of: Regular/Thin Discharge Activity: May not drive while taking narcotic pain medications. May resume sexual activity in: No Restrictions Call your doctor if you observe: Fever of 101 or Higher, Inability to urinate, Inability to have a bowel movement, Shortness of breath, Dizziness, Fainting spells, Chest pain, Uncontrolled pain, - - Nausea/vomiting/diarrhea Instructions: Understanding Pancreatitis Additional Instructions: 1. No Meloxicam for the next 2 weeks at least. 2. Take it easy with the diet and stick to bland low fat foods for at least a week. If you find that you are bloated or nauseated after eating you may nee to get a prescription for pancreatitic enzymes to take with meals from your PCP. 3. No Alcohol........it is likely the alcohol caused the pancreatitis. There were no masses in the pancreas on the CT scan and you do not have gallstones. There are calcifications within the pancreas did indicate that you have had pancreatitis in the past. Pancreatitis can become chronic if you continue to drink and have recurring episodes of acute pancreatitis. Pending Tests on Discharge: none Allergies/Adverse Reactions: Allergies erythromycin base Allergy (Verified 07/15/17 12:57) Unknown Sulfa (Sulfonamide Antibiotics) Allergy (Verified 07/15/17 12:57) Unknown Medications to take at Discharge Atorvastatin Calcium [Lipitor] 80 mg PO QHS 04/23/15 Clopidogrel Bisulfate [Clopidogrel] 75 mg PO DAILY 04/23/15 Flunisolide 2 sprays NASAL DAILY 04/23/15 Lisinopril 2.5 mg PO BID 04/23/15 Metoprolol Tartrate 50 mg PO DAILY 04/23/15 Omeprazole 20 mg PO DAILY 04/23/15 Cholecalciferol (Vitamin D3) [Vitamin D3] 2,000 unit PO DAILY 07/15/17 Isosorbide Mononitrate [Isosorbide Mononitrate ER] 30 mg PO DAILY 07/16/17 Oxycodone HCl/Acetaminophen [Percocet 10-325 mg Tablet] 1 tab PO Q6H PRN PRN 7 Days #28 tab 07/18/17 Potassium Phosphate,Monobasic [K-Phos Original] 500 mg PO BID #6 tablet.viviana 07/18/17 The following prescriptions were given: Oxycodone HCl/Acetaminophen [Percocet 10-325 mg Tablet] 1 tab PO Q6H PRN PRN 7 Days #28 tab PRN Reason: Pain Potassium Phosphate,Monobasic [K-Phos Original] 500 mg PO BID #6 tablet.viviana Primary Care Physician: Jaden Monterroso DO [Primary Care Provider] - Please follow up with your Primary Care Physician in: 1-2 weeks, sooner if you start to feel nauseated or have increasing pain Proposed Discharge Date: 07/18/17
--- NOTE | 2017-07-18 16:02 | PCM.DC.SUM ---
Discharge Date and Diagnosis Date of Admission: 07/15/17 Date of Discharge: 07/18/17 - Primary Discharge Diagnosis Active and Suspected Problems Acute pancreatitis (Acute) Hypophosphatemia (Acute) Hypomagnesemia (Acute) - Secondary Discharge Diagnosis Chronic Problems Nicotine dependence (Chronic) Status post coronary artery stent placement (Chronic) Abdominal aortic aneurysm (Chronic) Heavy alcohol consumption (Chronic) CAD (coronary artery disease) (Chronic) Hypertension (Chronic) Hyperlipidemia (Chronic) Hospital Course and Treatment Imaging Results: Clinical Impression(s) from Imaging Studies Abdomen CTA 07/15/17 13:27 IMPRESSION: Acute pancreatitis. Abdominal aortic aneurysm without complication. Prominent distention of the urinary bladder requires clinical correlation. Electronically Signed: Jorge Nielson at 15:23 EDT Tel , Service support , Pelvis CTA 07/15/17 13:27 IMPRESSION: Acute pancreatitis. Abdominal aortic aneurysm without complication. Prominent distention of the urinary bladder requires clinical correlation. Electronically Signed: Jorge Nielson at 15:20 EDT Tel , Service support , Gallbladder Ultrasound 07/15/17 17:45 IMPRESSION: Mild hepatomegaly, no discrete lesion Nonspecific echogenic pancreas Sonographically normal gallbladder Electronically Signed: Glenn Corrigan MD at 23:23 EDT , Service support , Laboratory Results - last 24 hr 07/18/17 07/18/17 05:30 05:30 WBC 4.1 L RBC 3.44 L Hgb 11.0 L Hct 33.9 L MCV 98.5 H MCH 32.0 MCHC 32.4 RDW 13.6 RDW Differential 47.9 H Plt Count 148 L MPV 9.2 Immature Gran % (Auto) 0.200 Neut % (Auto) 75.5 H Lymph % (Auto) 9.4 L [place] % (Auto) 11.6 H Eos % (Auto) 3.1 Baso % (Auto) 0.2 Absolute Neuts (auto) 3.1 Absolute Lymphs (auto) 0.39 L Total Counted Not Reportable Differential Comment SCANNED Sodium 136 Potassium 3.6 Chloride 106 Carbon Dioxide 20.0 L Anion Gap 10 BUN 8 Creatinine 0.65 L Estim Creat Clear Calc 74.21 Est GFR (MDRD) Af Amer 153 Est GFR (MDRD) Non-Af 126 BUN/Creatinine Ratio 12.3 Glucose 73 L Calcium 7.0 L Phosphorus 1.4 L Magnesium 2.3 Total Bilirubin 0.50 AST 18 ALT 8 L Alkaline Phosphatase 67 Total Protein 5.7 L Albumin 2.4 L Globulin 3.3 Albumin/Globulin Ratio 0.7 L Lipase 158 none Operations: None Summary of Care Provided: Mr. Ying is a 76-year-old male with a past medical history of coronary artery disease, PTCA with stents, abdominal aortic aneurysm, hyperlipidemia, hypertension, chronic alcohol abuse and tobacco dependence who presented to the emergency department at [facility] on 07/15/2017 complaining of abdominal pain. He had no vomiting. He takes meloxicam 15 mg daily. Vital signs upon presentation to the emergency room were temperature 97.7, pulse rate 68, blood pressure 109/83, respiratory rate 18 and he was 97% saturated on room air. CBC was unremarkable. BMP was unremarkable. Random blood sugar was 134 and he has no history of diabetes mellitus. LFTs were within normal limits. Lipase was 19,319. A CTA of the abdomen was done because of history of aortic aneurysm and it showed acute pancreatitis, infrarenal abdominal aortic aneurysm measuring 4.4 x 4.2 cm and a distended bladder. Gallbladder ultrasound showed mild hepatomegaly, nonspecific echogenic pancreas and a normal gallbladder with no cholelithiasis. There was a negative sonographic Ojeda sign. Discharge Activity: May not drive while taking narcotic pain medications. May resume sexual activity in: No Restrictions Call your doctor if you observe: Fever of 101 or Higher, Inability to urinate, Inability to have a bowel movement, Shortness of breath, Dizziness, Fainting spells, Chest pain, Uncontrolled pain, - - Nausea/vomiting/diarrhea Home Medications: Medications to take at Discharge Atorvastatin Calcium [Lipitor] 80 mg PO QHS 04/23/15 Clopidogrel Bisulfate [Clopidogrel] 75 mg PO DAILY 04/23/15 Flunisolide 2 sprays NASAL DAILY 04/23/15 Lisinopril 2.5 mg PO BID 04/23/15 Metoprolol Tartrate 50 mg PO DAILY 04/23/15 Omeprazole 20 mg PO DAILY 04/23/15 Cholecalciferol (Vitamin D3) [Vitamin D3] 2,000 unit PO DAILY 07/15/17 Isosorbide Mononitrate [Isosorbide Mononitrate ER] 30 mg PO DAILY 07/16/17 Finasteride [Proscar] 5 mg PO DAILY #30 tab 07/18/17 Oxycodone HCl/Acetaminophen [Percocet 10-325 mg Tablet] 1 tab PO Q6H PRN PRN 7 Days #28 tab 07/18/17 Potassium Phosphate,Monobasic [K-Phos Original] 500 mg PO BID #6 tablet.viviana 07/18/17 Tamsulosin HCl [Flomax] 0.4 mg PO DAILY #30 cap.er.24h 07/18/17 Following Prescrptions Were Given to Patient: Oxycodone HCl/Acetaminophen [Percocet 10-325 mg Tablet] 1 tab PO Q6H PRN PRN 7 Days #28 tab PRN Reason: Pain Finasteride [Proscar] 5 mg PO DAILY #30 tab Tamsulosin HCl [Flomax] 0.4 mg PO DAILY #30 cap.er.24h Potassium Phosphate,Monobasic [K-Phos Original] 500 mg PO BID #6 tablet.viviana Primary Care Physician: Jaden Monterroso DO [Primary Care Provider] - Please follow up with your Primary Care Physician in: 1-2 weeks, sooner if you start to feel nauseated or have increasing pain Patient Instructions: Understanding Pancreatitis Disposition: Home Minutes spent on discharge:: 30 Patient Condition:: Stable Medical Necessity - Tobacco Use Smoking Status: Heavy Smoker (>10/day) Tobacco Use: Cigarettes Meaningful Use Info Meaningful Use Diagnoses (Choose all that apply): None applicable Code Visit Inpatient E&M: 55656 Disch Hosp
== END 2017-07-18 18:05 | disposition home or self-care (01) | DRG 440 ==
LOC: ED 13:41 → PCU 16:43
PROVIDERS: Admitting Provider Internal Medicine; Emergency Provider Emergency Medicine; Family Provider Family Medicine; PCP Family Medicine; Visit Provider Internal Medicine
DX: K85.90 Acute pancreatitis without necrosis or infection, unspecified (principal); I71.4 Abdominal aortic aneurysm, without rupture; I25.10 Atherosclerotic heart disease of native coronary artery without angina pectoris; Z95.5 Presence of coronary angioplasty implant and graft; E78.5 Hyperlipidemia, unspecified; I10 Essential (primary) hypertension; F17.210 Nicotine dependence, cigarettes, uncomplicated; E83.42 Hypomagnesemia; E83.39 Other disorders of phosphorus metabolism; N32.89 Other specified disorders of bladder; Z79.899 Other long term (current) drug therapy; F10.10 Alcohol abuse, uncomplicated
CPT/HCPCS: 36415; 51702; 72191; 74175; 76705; 80048; 80053; 80076; 83690; 83735; 84100; 84478; 84484; 85025; 85027; 93005; 99285; 99406; J7030; J7040; Q9967; A4216; J2405; J3490

== ENCOUNTER 2017-07-26 14:12 | Observation (INO) | payer MEDICARE, OTHER, SELFPAY ==
--- NOTE | 2017-07-26 12:35 | EKG12_ITS ---
Test Reason : CP Blood Pressure : / mmHG Vent. Rate : 137 BPM Atrial Rate : 137 BPM P-R Int : 154 ms QRS Dur : 068 ms QT Int : 270 ms P-R-T Axes : 027 -01 049 degrees QTc Int : 407 ms Sinus tachycardia Septal infarct , age undetermined Abnormal ECG Confirmed by ARTHUR BILLINGSLEY, SUSHMA ([id number]), desk editor PAUL BEAUCHAMP ([id number]) on 07/31/2017 5:32:44 PM Referred By: NAOMY/EMY Confirmed By:SUSHMA GIBSON MD
--- NOTE | 2017-07-26 12:59 | EKG12_ITS ---
Test Reason : CP Blood Pressure : / mmHG Vent. Rate : 121 BPM Atrial Rate : 121 BPM P-R Int : 162 ms QRS Dur : 072 ms QT Int : 306 ms P-R-T Axes : 028 -11 041 degrees QTc Int : 434 ms Sinus tachycardia Septal MA, age undetermined, cannot be excluded Confirmed by CHERRIE BILLINGSLEY, SHAWN ([id number]), restaurant expeditor PAUL BEAUCHAMP ([id number]) on 08/02/2017 1:53:26 PM Referred By: Confirmed By:SHAWN GRIER MD
--- NOTE | 2017-07-26 14:25 | RAD_ITS ---
STUDY: X-RAY CHEST REASON FOR EXAM: Male, 76 years old. Chest pain TECHNIQUE: Portable upright COMPARISON: August 25, 2013 FINDINGS: There are right basilar streaky opacities. Normal size heart. Normal mediastinum and thuy. Normal visualized pulmonary arteries. There is atherosclerotic calcification of the aortic arch with tortuosity. Normal visualized thoracic spine. Normal visualized ribs, clavicles, and shoulders. There is no demonstrated abnormality of the visualized soft tissue structures of the upper abdomen. RAD/Chest 1 View (Portable) IMPRESSION: Right basilar streaky opacities likely reflects underlying atelectasis and/or scarring. Electronically Signed: Rose Chris MD at 16:47 EDT Tel , Service support ,
--- NOTE | 2017-07-26 15:34 | CT_ITS ---
STUDY: CTA CHEST REASON FOR EXAM: Male, 76 years old. Shortness of breath. Chest pain. PE. RADIATION DOSAGE (If Supplied By Facility): CTDIvol = ( 17.95 ) mGy, DLP = ( 612.26 ) mGycm TECHNIQUE: The examination was performed with the intravenous administration of 100ML ml of Isovue 370 contrast material. Post-processing of the angiographic images was performed, with multiplanar reformation and MIP reconstruction. Individualized dose optimization techniques were used for this CT. COMPARISON: None. FINDINGS: Normal enhancement of the main pulmonary artery and right and left pulmonary arteries. Normal enhancement of the bilateral peripheral pulmonary arteries. There is no demonstrated pulmonary embolism. Normal thoracic aorta and visualized great vessels. There is no demonstrated aortic dissection. Normal heart and pericardium. Normal mediastinum. Normal hilar regions. Normal visualized trachea and bronchi. The lungs are well expanded. Small subpleural cysts in the right lung apex. Few scattered centrilobular cysts in both lungs. No suspicious pulmonary nodules or infiltrates. Subsegmental atelectasis in the posterior aspect of the lower lobes. Small air-fluid level inside the subchondral cyst in the medial aspect of the right lower lobe. Normal pleura. Normal chest wall structures. Old anterior wedge compression fractures involving the upper T11 vertebral body and to a lesser degree the upper T7 vertebral body. No acute osseous abnormality. Normal visualized upper abdomen. CT/CTA Chest W/WO Contrast IMPRESSION: 1. No CTA evidence of pulmonary thromboemboli, thoracic aortic aneurysm or thoracic aortic dissection. 2. Small subpleural cysts in the right lung apex and few a scattered centrilobular cysts in both lungs. 3. Small air-fluid level inside the centrilobular cyst in the posterior medial aspect of the right lung base. Etiology is unknown. Electronically Signed: Igor Rodriguez MD at 13:24 EDT , Service support ,
--- NOTE | 2017-07-26 18:30 | DT_ITS ---
This patient was seen during an EMR downtime July 22, 2017 - July 29, 2017. This patient may have a combination of paper and electronic documentation or all paper documentation. All documentation is viewable within the e-chart portion of [facility] for each patient visit.
[2017-07-27 11:04] LABS: M R Staph aureus DNA By PCR Negative (Negative); Probe Check PASS; Specimen Processing Control PASS
--- NOTE | 2017-07-27 12:36 | EKG12_ITS ---
Test Reason : AM EKG Blood Pressure : / mmHG Vent. Rate : 091 BPM Atrial Rate : 091 BPM P-R Int : 170 ms QRS Dur : 068 ms QT Int : 350 ms P-R-T Axes : 028 -09 031 degrees QTc Int : 430 ms Normal sinus rhythm Septal infarct , age undetermined ,cannot be excluded Abnormal ECG Confirmed by CHERRIE BILLINGSLEY, SHAWN ([id number]), production editor PAUL BEAUCHAMP ([id number]) on 08/02/2017 1:51:10 PM Referred By: ANITRA Confirmed By:SHAWN GRIER MD
[2017-07-29 12:05] LABS: Hematocrit 39.4 % (40-54); Hemoglobin 13.1 g/dl (13.0-16.5); Mean Corp Hgb Conc 33.2 g/gl (32-36); Mean Corpuscular Hgb 31.9 pg (27.0-32.0); Mean Corpuscular Volume 95.9 fL (80-94); Red Blood Count 4.11 M/mm3 (4.6-6.2); White Blood Count 15.2 K/mm3 (4.4-11.0)
[2017-07-29 12:06] LABS: Absolute Lymphocyte Count 0.99 X10^3/ul (0.83-4.51); Absolute Neutrophil Count 13.8 X10^3/uL (2.0-7.7); Basophil# 0.02 X10^3/uL; Basophil% 0.1 % (0-1); Eosinophil# 0.06 X10^3/uL; Eosinophils% 0.4 % (0-5); Lymphocyte # 0.99 X10^3/ul (4.0); Lymphocyte % 6.5 % (19-41); Mean Platelet Vol. 8.6 fl (6.2-12.0); Monocyte# 0.26 X10^3/uL; Monocyte% 1.7 % (0-10); Neutrophil % 91.2 % (47-70); POSITIVE COUNT NO; POSITIVE DIFFERENTIAL NO; POSITIVE MORPHOLOGY NO; Platelet Count 476 K/mm3 (150-450)
[2017-07-29 22:00] LABS: BNP,B-Type NATRIURETIC PEPTIDE 23.3 pg/mL (0-100)
[2017-07-29 22:00] LABS: BUN 11 mg/dL (7-18); BUN/Creat Ratio 10.5 RATIO (10-20); Calcium,Total 9.3 mg/dL (8.5-10.1); Chloride 100 mmol/L (98-107); Creatinine, Serum 1.05 mg/dL (0.70-1.30); EST Glomerular Filtration Rate 73 mL/min (>60); Est Glom Filt Rate - Afr Amer 88 mL/min (>60); Glucose 156 mg/dL (74-106); Lipase 237 U/L (73-393); Potassium 4.2 mmol/L (3.5-5.1); Sodium Level 136 mmol/L (136-145)
[2017-07-29 22:01] LABS: Anion Gap 11 (5-15)
[2017-07-30 02:25] LABS: Protein, Total 6.5 g/dL (6.4-8.2)
[2017-07-30 02:26] LABS: AST(SGOT) 15 U/L (15-37); Alanine Aminotransfer ALT/SGPT 16 U/L (16-61); Albumin, Serum 2.6 g/dL (3.2-5.0); Alkaline Phosphatase 115 U/L (45-117); Bilirubin, Direct 0.13 mg/dL (0.00-0.30); Globulin 3.9 g/dL (2.2-4.2); Magnesium 1.5 mg/dL (1.6-2.6)
[2017-07-30 02:27] LABS: Thyroid Stim Hormone (TSH) 0.84 uIU/mL (0.358-3.74)
[2017-07-30 10:04] LABS: Anion Gap 10 (5-15); BUN 13 mg/dL (7-18); BUN/Creat Ratio 12.3 RATIO (10-20); Calcium,Total 9.2 mg/dL (8.5-10.1); Chloride 102 mmol/L (98-107); Creatinine, Serum 1.06 mg/dL (0.70-1.30); EST Glomerular Filtration Rate 72 mL/min (>60); Est Glom Filt Rate - Afr Amer 87 mL/min (>60); Glucose 103 mg/dL (74-106); Potassium 4.2 mmol/L (3.5-5.1); Sodium Level 138 mmol/L (136-145)
[2017-07-30 18:00] LABS: Hematocrit 36.6 % (40-54); International Normalized Ratio 1.1; Mean Corp Hgb Conc 32.8 g/gl (32-36); Mean Corpuscular Hgb 31.7 pg (27.0-32.0); Mean Corpuscular Volume 96.6 fL (80-94); Mean Platelet Vol. 8.7 fl (6.2-12.0); Partial Thromboplast Time 39.6 Seconds (24.1-36.2); Platelet Count 476 K/mm3 (150-450); Prothrombin Time (Protime)PT. 14.4 SECONDS (11.7-14.9); Red Blood Count 3.79 M/mm3 (4.6-6.2); Scan Indicated on CBC? Y/N NO; White Blood Count 13.9 K/mm3 (4.4-11.0)
== END 2017-07-27 13:38 | disposition home or self-care (01) ==
LOC: ED 18:15 → PCU 07-27 12:47
PROVIDERS: Admitting Provider Internal Medicine; Emergency Provider Emergency Medicine; Family Provider Family Medicine; PCP Family Medicine; Visit Provider Internal Medicine
DX: J85.2 Abscess of lung without pneumonia (principal); F17.200 Nicotine dependence, unspecified, uncomplicated; N39.0 Urinary tract infection, site not specified; R06.02 Shortness of breath; R00.0 Tachycardia, unspecified; C85.90 Non-Hodgkin lymphoma, unspecified, unspecified site; I25.10 Atherosclerotic heart disease of native coronary artery without angina pectoris; I10 Essential (primary) hypertension; E78.5 Hyperlipidemia, unspecified; N40.0 Benign prostatic hyperplasia without lower urinary tract symptoms; K21.9 Gastro-esophageal reflux disease without esophagitis; K86.0 Alcohol-induced chronic pancreatitis; Z95.5 Presence of coronary angioplasty implant and graft; Z79.02 Long term (current) use of antithrombotics/antiplatelets; Z79.82 Long term (current) use of aspirin; Z79.899 Other long term (current) drug therapy
CPT/HCPCS: 36415; 71045; 71275; 80048; 80076; 83690; 83735; 83880; 84443; 84484; 85025; 85027; 85610; 85730; 87040; 87086; 87088; 87186; 87641; 92610; 93005; 96365; 96366; 96367; 99218; 99285; J7050; Q9967; A4216; G0378; G8996; G8997; G8998

== ENCOUNTER → 2020-04-13 13:38 | Outpatient (CLI) | payer MEDICARE, OTHER, SELFPAY ==
[2019-10-06 11:18] VITALS: BMI 24.3
[2020-04-13 16:01] LABS: ALB/GLOB Ratio 1.1 RATIO (0.9-2.4); AST(SGOT) 20 U/L (15-37); Alanine Aminotransfer ALT/SGPT 20 U/L (16-61); Albumin, Serum 3.7 g/dL (3.2-5.0); Alkaline Phosphatase 90 U/L (45-117); Anion Gap 6 (5-15); BUN 17 mg/dL (7-18); BUN/Creat Ratio 12.1 RATIO (10-20); Calcium,Total 9.1 mg/dL (8.5-10.1); Chloride 107 mmol/L (98-107); Cholesterol 169 mg/dL (200); Creatinine, Serum 1.41 mg/dL (0.70-1.30); EST Glomerular Filtration Rate 52 mL/min (>60); Est Glom Filt Rate - Afr Amer 63 mL/min (>60); Globulin 3.3 g/dL (2.2-4.2); Glucose 98 mg/dL (74-106); High Density Lipoprotein 48 mg/dL; Potassium 4.4 mmol/L (3.5-5.1); Sodium Level 139 mmol/L (136-145); Triglycerides 429 mg/dL; Uric Acid 4.9 mg/dL (3.5-7.2)
== END ==
PROVIDERS: PCP Family Medicine; Referring Provider Family Medicine; Visit Provider Family Medicine
DX: I10 Essential (primary) hypertension (principal); I71.4 Abdominal aortic aneurysm, without rupture
CPT/HCPCS: 36415; 80053; 80061; 84550

== ENCOUNTER → 2020-08-31 13:36 | Outpatient (CLI) | payer MEDICARE, OTHER, SELFPAY ==
[2020-08-31 13:08] VITALS: BMI 24.3
[2020-08-31 15:01] LABS: Absolute Lymphocyte Count 0.96 X10^3/uL (0.83-4.51); Absolute Neutrophil Count 3.9 X10^3/uL (2.0-7.7); Basophil# 0.04 X10^3/uL; Basophil% 0.7 % (0-1); Eosinophil# 0.09 X10^3/uL; Eosinophils% 1.7 % (0-5); Hematocrit 37.1 % (40-54); Hemoglobin 11.8 g/dL (13.0-16.5); Lymphocyte # 0.96 X10^3/ul (0.83-4.51); Lymphocyte % 17.6 % (19-41); Mean Corp Hgb Conc 31.8 g/dL (32-36); Mean Corpuscular Hgb 32.8 pg (27.0-32.0); Mean Corpuscular Volume 103.1 fL (80-94); Mean Platelet Vol. 9.7 fl (6.2-12.0); Monocyte# 0.39 X10^3/uL; Monocyte% 7.2 % (0-10); NRBC Flagged by Analyzer 0 % (0-5); Neutrophil # 3.94 X10^3/uL (2.7-7.7); Neutrophil % 72.4 % (47-70); Platelet Count 243 K/mm3 (150-450); RBC Distribution Width CV 13.4 % (11.6-14.6); RBC Distribution Width SD 51.9 fl (35.1-43.9); White Blood Count 5.4 K/mm3 (4.4-11.0)
[2020-08-31 15:17] LABS: Vitamin B12 298 pg/mL (211-911)
[2020-08-31 15:26] LABS: Anion Gap 1 (5-15); BUN 15 mg/dL (7-18); BUN/Creat Ratio 10.9 RATIO (10-20); Calcium,Total 8.8 mg/dL (8.5-10.1); Chloride 108 mmol/L (98-107); Cholesterol 134 mg/dL (200); Creatinine, Serum 1.38 mg/dL (0.70-1.30); EST Glomerular Filtration Rate 53 mL/min (>60); Est Glom Filt Rate - Afr Amer 64 mL/min (>60); Ferritin 151 ng/mL (26-388); Glucose 92 mg/dL (74-106); High Density Lipoprotein 44 mg/dL; Iron 77 ug/dL (65-175); Iron Binding Capacity,Total 330 ug/dL (250-450); PERCENT IRON SATURATION 23.3 % (15.0-55.0); Potassium 4.6 mmol/L (3.5-5.1); Sodium Level 137 mmol/L (136-145); Triglycerides 359 mg/dL; Very Low Density Lipoprotein 72 mg/dL (5-40)
[2020-09-02 08:12] LABS: Transferrin 256 mg/dL (177-329)
== END ==
PROVIDERS: PCP Family Medicine; Referring Provider Physician Assistant; Visit Provider Physician Assistant
DX: D64.9 Anemia, unspecified (principal); E78.5 Hyperlipidemia, unspecified; I10 Essential (primary) hypertension; K85.20 Alcohol induced acute pancreatitis without necrosis or infection; C85.90 Non-Hodgkin lymphoma, unspecified, unspecified site; R53.83 Other fatigue
CPT/HCPCS: 36415; 80048; 80061; 82607; 82728; 82746; 83540; 83550; 84466; 85025

== ENCOUNTER → 2020-11-21 09:24 | Outpatient (CLI) | payer MEDICARE, OTHER, SELFPAY ==
--- NOTE | 2020-11-21 | IMM_PTH ---
PATIENT: DOUGIE COOPER LOC: [facility] U#:[id number] AGE/SX: 84/M ROOM: RE11/21/[address]: Dr. Joce Jc DO : [id number] BED: DIS: SPEC #: [id number] RECD: 11/22/20 12:19 STATUS: SLY REQ #: [id number] MORENITA: 11/21/20 00:[address]: Joce Jc DEPT: IMMUNOHISTOCHEMISTRY RECD BY: Shaunna Curtis ENTERED: 11/22/20 12:22 SP TYPE: IMMUNO OTHR DR: Dr. Jaden Monterroso, Tissues: Jaw, NOS Procedures: BCL-2 (add) BCL-6 (add) CD20 (add) CD45 (add) CD5 (add) CD79A (add) MUM1 (add) CD3 (initial) PHYSICIAN & INSTITUTION [place] [id number] SPECIMEN INFORMATION: Tissue Source: Left jaw mass, fine needle aspiration Clinical Info: Left jaw mass Specimen Number: [id number] CPT code: 71629, 40127 x7 METHODOLOGY: Deparaffinized sections of prefer/formalin-fixed tissue or PAP/DQ stained slides are incubated with monoclonal/polyclonal antibodies/oligonucleotide probes. Localization is made via biotin free immunoperoxidase method. Appropriate controls are performed and reacted as expected. Results on target cell population are indicated in the following table: RESULTS: ANTIBODY / CLONE RESULT CD3 (PS1) * CD5 (SP10) * CD20 (L26) positive CD45 (RP2/18) positive CD79a (11E3) positive BCL-2 (bcl-2/100/D5) positive BCL-6 (AJ407K/A8) negative MUM1 (MRQ-43) negative *?Small lymphocytes only. These tests were developed and their performance characteristics determined by [facility]. They may not have been cleared or approved by the U.S. Food and Drug Administration. The FDA has determined that such clearance or approval is not necessary. The above immunohistochemical/dualISH markers are ordered and reviewed by the Pathologist. INTERPRETATION: Left jaw mass, fine needle aspiration: Consistent with B-cell lymphoproliferative disorder. AM:edward 11/23/2020
--- NOTE | 2020-11-21 10:30 | ASPIG_PTH ---
PATIENT: DOUGIE COOPER LOC: [facility] U#:[id number] AGE/SX: 84/M ROOM: RE11/21/[address]: Dr. Joce Jc DO : 1940 BED: DIS: SPEC #: [id number] RECD: 11/21/20 11:00 STATUS: SLY REChi #: [id number] MORENITA: 11/21/20 10:[address]: Tino Fink DEPT: CYTOLOGY RECD BY: Tamara Tolliver ENTERED: 11/21/20 11:45 SP TYPE: ASP OUT OTHR DR: Dr. Jaden Monterroso, DO Dr. Joce Jc DO Tissues: Jaw, NOS Procedures: FNA Specimen Adequacy Special Stain Group II Surgery Specimen Level IV Cytology Other Comments: @ Ordering doctor for SSII edited from to @ by JULIENNE at 11/21/20 1507 @ Ordering doctor for SUIV edited from to DR.KMATHU Lewis by JULIENNE at 11/21/20 1507 @ Ordering doctor for CYOTHER edited from to DR.KMATHU Lewis by JULIENNE at 11/21/20 1507 @ Ordering doctor for FNASA edited from to DR.KMATHU Lewis by JULIENNE at 11/21/20 1507 @ Submitting doctor edited from to DR.KMATHU Lewis by RGOOD at 11/21/20 1507 HEADER OPERATION: Fine needle aspiration, left jaw mass PRE-OP DIAGNOSIS: Left jaw mass TISSUE SUBMITTED: Left jaw mass, FNA DIAGNOSIS CYTOLOGY Fine needle aspiration, left jaw mass (smears and cell block): Consistent with follicular center cell lymphoma. See comment. AM:edward 11/23/2020 COMMENT The specimen is evaluated at the time of FNA by Dr. Bernard. Immediate Evaluation = Atypical lymphocytes consistent with lymphoproliferative disorder. Immunohistochemistry ([id number]) supports the above diagnosis. Flow cytometry analysis from aspirate material reveals B-cell lymphoma that is CD10 positive and consistent with a follicular center lymphoma. Complete flow report is viewable in patient?s EMR. Case has been reviewed in consultation with Dr. Banks who concurs with the above diagnosis. IDC:SJ CYTOLOGY STUDY Slides are reviewed. CYTOLOGY GROSS Received is 0.25 ml of reddish fluid labeled with the patient's name, and designated left jaw mass. Four imprints and two paps are made from the submitted fluid and the rest is added to CytoLyt for cell block preparation. Submitted for cytology study. / AM:edward 11/21/2020 TC:0 CPT: 20183, 30608, 26590, 99296
== END ==
PROVIDERS: PCP Family Medicine; Referring Provider Internal Medicine Hematology & Oncology; Visit Provider Internal Medicine Hematology & Oncology
DX: C85.11 Unspecified B-cell lymphoma, lymph nodes of head, face, and neck (principal)
CPT/HCPCS: 10021; 88161; 88172; 88305; 88313; 88341; 88342

== ENCOUNTER → 2020-12-15 09:08 | Outpatient (CLI) | payer MEDICARE, OTHER, SELFPAY ==
[2020-12-15 09:20] VITALS: BP 140/85; PULSE 54; RESP 16; TEMP 36.7; O2SAT 96; BMI 25.7
== END | disposition home or self-care (01) ==
PROVIDERS: PCP Family Medicine; Referring Provider Internal Medicine Hematology & Oncology; Visit Provider Internal Medicine Hematology & Oncology
DX: C85.90 Non-Hodgkin lymphoma, unspecified, unspecified site (principal)
CPT/HCPCS: 36569

== ENCOUNTER 2020-12-23 15:01 | Emergency (ER) | payer MEDICARE, OTHER, SELFPAY ==
[2020-12-23 15:02] VITALS: BP 138/91; PULSE 131; RESP 18; TEMP 35.9; O2SAT 98; BMI 56.7
--- NOTE | 2020-12-23 15:50 | EKG12_ITS ---
Test Reason : CP Blood Pressure : / mmHG Vent. Rate : 123 BPM Atrial Rate : 123 BPM P-R Int : 140 ms QRS Dur : 074 ms QT Int : 330 ms P-R-T Axes : 069 018 094 degrees QTc Int : 472 ms Sinus tachycardia Otherwise normal ECG Confirmed by CHERRIE BILLINGSLEY, SHAWN ([id number]), telegraph editor DEL REY ([id number]) on 12/26/2020 10:51:58 AM Referred By: Confirmed By:SHAWN GRIER MD
--- NOTE | 2020-12-23 15:53 | EX.ED.DYSGE1 ---
HPI History of Present Illness Chief Complaint: Chest Pain Detail of Chief Complaint: Anterior superior left chest pain and upper abdominal pain Informant: patient Onset/Context/Timing Onset: Yesterday Context: Gradual Onset Timing: Continuous Quality: Nagging pain and sharp Location: Chest and upper abdomen Current Severity: 2/10 Maximum Severity: 4/10 Worsened by: Nothing Relieved by: Nothing Associated Symptoms Associated Symptoms: No associated symptoms or radiation Narrative Narrative: Patient is a 80-year-old male with history of coronary disease, pancreatitis, hypertension hyperlipidemia who was sent to the emergency room for evaluation of his anterior left chest pain and upper abdominal pain. This is not similar to his cardiac pain. He states he had a cardiac catheterization recently to evaluate shortness of breath and was discovered to have lymphoma. He has non-Hodgkin's lymphoma. He received chemotherapy 1 week ago. He denies fever, chills night sweats. He does report fatigue and lack of energy. He denies double vision, blurred vision or loss of vision. He complains of head pain that he localizes to the forehead and retro-orbital area. He does endorse tenderness. He states that is a chronic issue. Had no change in his hearing nor does he complain of ear pain or drainage from his ears. He denies cough, shortness of breath or pleuritic pain. He has a remote history of DVT. He denies history of PE. He does have history of abdominal aortic aneurysm. He states the vascular surgeon did not operate on him because the aorta is surrounded/encased with numerous lymph nodes. The aneurysm is between 4.9 and 5 cm. He denies back pain presently. He denies symptoms of claudication. He denies black or maroon-colored stool. He denies urinary symptoms. Prior similar symptoms: No Recent Illness/Hospitalization: Yes [facility] Medical History (Updated 12/23/20 @ 19:[address] Florentino Giles MD) Abdominal aortic aneurysm Acute pancreatitis CAD (coronary artery disease) GERD (gastroesophageal reflux disease) Gout Heavy alcohol consumption Hyperlipidemia Hypertension Hypomagnesemia Hypophosphatemia Nicotine dependence Non Hodgkin's lymphoma Home Medications flunisolide 2 spry NASAL DAILY 04/23/15 [History Last Taken Unknown] lisinopril 2.5 mg PO BID 04/23/15 [History Last Taken Unknown] metoprolol tartrate 50 mg PO DAILY 04/23/15 [History Last Taken Unknown] aspirin 81 mg tablet,delayed release 81 mg PO DAILY 10/06/18 [History Last Taken Unknown] nitroglycerin 0.4 mg sublingual tablet 0.4 mg SUBLINGUAL Q5-15M 10/06/18 [History Last Taken Unknown] icosapent ethyl 1 gram capsule 2 g PO BID #120 cap 04/20/20 [Rx Last Taken Unknown] rosuvastatin 20 mg tablet 20 mg PO DAILY #90 tab 06/22/20 [Rx Last Taken Unknown] omeprazole 20 mg capsule,delayed release 20 mg PO DAILY #90 cap 06/23/20 [Rx Last Taken Unknown] cyanocobalamin (vitamin B-12) 1,000 mcg capsule 1,000 mcg PO DAILY #90 cap 08/31/20 [Rx Last Taken Unknown] allopurinol 100 mg tablet 100 mg PO BID #60 tab 11/09/20 [Rx Last Taken Unknown] meloxicam 15 mg tablet 15 mg PO DAILY #90 tab 11/09/20 [Rx Last Taken Unknown] enoxaparin [Lovenox] 90 mg SUBCUT Q12H #60 ml 12/23/20 [Rx Last Taken Unknown] Allergy/AdvReac Type Severity Reaction Status Date / Time erythromycin base Allergy Unknown Verified 12/23/20 15:05 Sulfa (Sulfonamide Allergy Unknown Verified 12/23/20 15:05 Antibiotics) Family History Brother CAD (coronary artery disease) Surgical History H/O Mohs micrographic surgery for skin cancer S/P TURP Status post coronary artery stent placement Social History (Updated 12/23/20 @ 15:[address] Florentino Giles MD) household members: spouse Smoking Status: Never smoker alcohol intake: current alcohol intake frequency: a few times a week Alcohol type: wine substance use type: does not use ROS ROS ED Constitutional Constitutional ED: Denies chills, fever(s), subjective, sweats or weight loss Eyes Eyes: Denies blurry vision, change in vision or diplopia ENT ENT ED: Denies ear pain, rhinorrhea or sore throat Cardiovascular Cardiovascular: Reports chest pain; Denies orthopnea, palpitations, paroxysmal nocturnal dyspnea or racing heartbeat Respiratory/Chest Respiratory/Chest: Denies cough, dyspnea, dyspnea on exertion, orthopnea, paroxysmal nocturnal dyspnea or sputum Gastrointestinal Gastrointestinal: Reports abdominal pain; Denies constipation, diarrhea, melena, nausea or vomiting Genitourinary Genitourinary ED: Denies dysuria, hematuria or urinary frequency Musculoskeletal Musculoskeletal: Denies arthralgias, back pain, myalgias or neck pain Integumentary Denies rash Neurologic Neurologic: Reports headache(s); Denies paresthesias or weakness Endocrine Endocrinology: Denies polydipsia, polyphagia or polyuria Allergic/Immunologic Allergic/Immunologic ED: Denies mouth swelling or urticaria EXAM Physical Exam Const Vital Signs: 12/23/20 15:02 12/23/20 16:24 12/23/20 18:07 Temperature 96.7 F L Temperature Source Temporal Pulse Rate 131 H 98 94 Respiratory Rate 18 17 17 Blood Pressure 138/91 H 141/101 H 147/100 H Blood Pressure Mean 106 114 115 Pulse Ox 98 99 97 Oxygen Delivery Method Room Air Room Air Room Air 12/23/20 19:33 Temperature Temperature Source Pulse Rate 84 Respiratory Rate 15 Blood Pressure 153/88 H Blood Pressure Mean 109 Pulse Ox 97 Oxygen Delivery Method Room Air Positive well nourished and well developed General Appearance ED: well developed and NAD; Negative for cyanotic, diaphoretic or pallor HEENT HEENT Narrative: Head is atraumatic normocephalic. Ears normal. Nares patent. Posterior pharynx unremarkable. Eyes PERRL and EOMs intact bilaterally General Eye ED: Negative for pale conjunctiva or scleral icterus Neck no lymphadenopathy, supple and no JVD Chest Wall inspection of chest normal and palpation of chest normal Resp normal respiratory effort and clear to auscultation bilaterally Cardio regular rhythm, S1 normal heart sound, S2 normal heart sound and no murmurs Rate: tachycardic GI normal to inspection, nondistended, normoactive bowel sounds, non-tender and non-distended Palpation: soft Back/Spine no CVA tenderness Thoracic Spine / Upper Back: Negative for thoracic spinal tenderness or paraspinal muscle tenderness Lumbar Spine / Lower Back: Negative for lumbar spinal tenderness Extremity normal to inspection Extremity Narrative: There is no asymmetry, swelling, discoloration, leg vein distention, palpable cords or tenderness along the distribution of the deep venous system. General Extremety ED: Negative for edema General Extremity: Negative for edema Neuro oriented x3, CN's II-XII intact bilaterally and no sensory deficits noted Sensorium / Orientation: alert Motor Exam: strength 5/5 throughout Psych mental status grossly normal Skin no rashes or lesions noted and no wounds General Skin Exam: Negative for jaundice or pallor MDM MDM MDM Narrative Medical decision making narrative: Differential diagnosis would include cardiac versus noncardiac chest pain. Need to evaluate for potential pulmonary embolus if no other etiology is determined. The abdominal pain may be due to the non-Hodgkin's lymphoma. Doubt abdominal aortic aneurysm. With prior history of pancreatitis will obtain lipase. EKG was obtained to rule out cardiac ischemia. EKG reveals sinus tachycardia. There is no obvious reason why patient has sinus tachycardia. Chest x-ray was obtained to rule out pneumothorax, malignancy, pneumonia, effusion etc. I was contacted by the radiologist that there are nonocclusive thrombus in arteries of the left upper lobe. This is where patient complains of pain. Call is placed to Dr. Epstein. Plan is to place on anticoagulant and discharged home. Dr. Joce Jc recommended Lovenox. He will contact patient on Saturday and reassess his platelet count since it is 95,000. Lab Data Attestation: I reviewed the patient's lab results. Lab results narrative: Patient is neutropenic due to recent chemotherapy. He has mild anemic as well. Electrolyte panel reveals a normal GFR. Lactate normal. Liver enzymes are normal. Since he is tachycardic with chest pain history of cancer and recent immobilization he has a high pretest probability for PE. CTA was ordered. Labs: Laboratory Results - last 24 hr 12/23/20 12/23/20 12/23/20 14:17 14:17 14:17 WBC 1.9 L RBC 3.59 L Hgb 11.9 L Hct 34.9 L MCV 97.2 H MCH 33.1 H MCHC 34.1 RDW Std Deviation 45.9 H RDW Coeff of Jackelyn 12.8 Plt Count 95 L MPV 10.4 Immature Gran % (Auto) 4.900 H Neut % (Auto) 73.0 H Lymph % (Auto) 16.2 L [place] % (Auto) 2.7 Eos % (Auto) 1.6 Baso % (Auto) 1.6 H Absolute Neuts (auto) 1.4 L Absolute Lymphs (auto) 0.30 L Nucleated RBC % 0 Differential Comment Diff Path Review May foll Platelet Estimate MOD DEC RBC Morphology NORM C+C Sodium 138 Potassium 3.8 Chloride 105 Carbon Dioxide 27.0 Anion Gap 6 BUN 20 H Creatinine 1.26 Estim Creat Clear Calc 53.72 Est GFR (MDRD) Af Amer 71 Est GFR (MDRD) Non-Af 59 L BUN/Creatinine Ratio 15.9 Glucose 84 Lactic Acid 0.7 Calcium 8.3 L Total Bilirubin 0.70 AST 20 ALT 28 Alkaline Phosphatase 73 Troponin I High Sens 8 Total Protein 6.0 L Albumin 2.8 L Globulin 3.2 Albumin/Globulin Ratio 0.9 Radiography Chest X-Ray - ED: 2 View, Read by ED Physician (Chest x-ray was interpreted by me at 1630), Unchanged, Heart, Mediastinum, Bony Structures and Chronic Changes Diagnostic Testing: Clinical Impression(s) from Imaging Studies Chest X-Ray 12/23/20 16:14 IMPRESSION: No acute radiographic abnormalities. Electronically Signed: Emiliano Cottrell MD at 16:38 EDT Tel , Service support , Chest CTA 12/23/20 18:20 IMPRESSION: 1. Question small nonocclusive thrombus in peripheral branches of the left upper lobe. The pulmonary arteries are otherwise unremarkable. 2. Emphysematous changes lungs. 3. Atherosclerotic changes of the thoracic aorta without aneurysm or dissection. Electronically Signed: Tom Mauro DO at 18:50 EDT Tel [phone], Service support , ADDENDUM: 12/23/20 1906 IMPRESSION: 1. Question small nonocclusive thrombus in peripheral branches of the left upper lobe. The pulmonary arteries are otherwise unremarkable. 2. Emphysematous changes lungs. 3. Atherosclerotic changes of the thoracic aorta without aneurysm or dissection. N.B. : The above Results were Read Back by Tom Mauro DO to Dr. Chan MD, and understanding confirmed on 12/23/2020 18:59:16 (ET). Electronically Signed: Tom Mauro DO at 18:50 EDT Tel [phone], Service support , Discharge Plan Triage Chief Complaint: Chest Pain ED Provider: Florentino Giles Dx/Rx/DC Orders Clinical Impression: Pulmonary embolism on left, Abdominal pain of unknown etiology, Chemotherapy induced neutropenia, Chemotherapy-induced thrombocytopenia Instructions: Pulmonary Embolism Prescriptions: New enoxaparin [Lovenox] 100 mg/mL syringe 90 mg subcut Q12H Qty: 60 RF: 0 No Action nitroglycerin 0.4 mg tablet, sublingual 0.4 mg SUBLINGUAL Q5-15M RF: 0 aspirin [Adult Low Dose Aspirin] 81 mg tablet,delayed release (DR/EC) 81 mg PO DAILY RF: 0 rosuvastatin 20 mg tablet 20 mg PO DAILY Qty: 90 RF: 1 cyanocobalamin (vitamin B-12) 1,000 mcg capsule 1,000 mcg PO DAILY Qty: 90 RF: 0 flunisolide 25 ML spray,non-aerosol 2 spry NASAL DAILY RF: 0 metoprolol tartrate 50 MG tablet 50 mg PO DAILY RF: 0 lisinopril 5 MG tablet 2.5 mg PO BID RF: 0 icosapent ethyl [Vascepa] 1 gram capsule 2 g PO BID Qty: 120 RF: 3 omeprazole 20 mg capsule,delayed release(DR/EC) 20 mg PO DAILY Qty: 90 RF: 3 allopurinol 100 mg tablet 100 mg PO BID Qty: 60 RF: 4 meloxicam 15 mg tablet 15 mg PO DAILY Qty: 90 RF: 1 Primary Care Provider: Jaden Monterroso Referrals: Jaden Monterroso, DO [Primary Care Provider] - Activity Restrictions/Additional Instructions: Dr. Jc will contact you Saturday and repeat blood test to check your platelet count and blood count. If you develop black or maroon-colored stools, blood in your urine, bleeding from your gums or excessive bruising return to the emergency department immediately Disposition Disposition: Home, Self Care
--- NOTE | 2020-12-23 16:14 | RAD_ITS ---
INDICATION: Anterior left chest pain EXAMINATION/TECHNIQUE: X-RAY - XR Chest 1 View COMPARISON: 07/26/2017. FINDINGS: The lungs are clear. Tortuous and calcified thoracic aorta. The heart is not enlarged. No pleural effusion or pneumothorax. Degenerative changes of the thoracic spine. RAD/Chest 1 View (Portable) IMPRESSION: No acute radiographic abnormalities. Electronically Signed: Emiliano Cottrell MD at 16:38 EDT Tel , Service support ,
[2020-12-23 16:24] VITALS: BP 141/101; PULSE 98; RESP 17; O2SAT 99
[2020-12-23 16:37] LABS: Absolute Neutrophil Count 1.4 X10^3/uL (2.0-7.7); Basophil# 0.03 X10^3/uL; Basophil% 1.6 % (0-1); Eosinophil# 0.03 X10^3/uL; Eosinophils% 1.6 % (0-5); Hematocrit 34.9 % (40-54); Hemoglobin 11.9 g/dL (13.0-16.5); Lymphocyte % 16.2 % (19-41); Mean Corp Hgb Conc 34.1 g/dL (32-36); Mean Corpuscular Hgb 33.1 pg (27.0-32.0); Mean Corpuscular Volume 97.2 fL (80-94); Mean Platelet Vol. 10.4 fl (6.2-12.0); Monocyte# 0.05 X10^3/uL; Monocyte% 2.7 % (0-10); NRBC Flagged by Analyzer 0 % (0-5); Neutrophil # 1.35 X10^3/uL (2.7-7.7); POSITIVE COUNT YES; POSITIVE DIFFERENTIAL YES; POSITIVE MORPHOLOGY YES; Platelet Count 95 K/mm3 (150-450); RBC Distribution Width CV 12.8 % (11.6-14.6); RBC Distribution Width SD 45.9 fl (35.1-43.9); Red Blood Count 3.59 M/mm3 (4.6-6.2); White Blood Count 1.9 K/mm3 (4.4-11.0)
[2020-12-23 16:53] LABS: ALB/GLOB Ratio 0.9 RATIO (0.9-2.4); AST(SGOT) 20 U/L (15-37); Alanine Aminotransfer ALT/SGPT 28 U/L (16-61); Albumin, Serum 2.8 g/dL (3.2-5.0); Alkaline Phosphatase 73 U/L (45-117); Anion Gap 6 (5-15); BUN 20 mg/dL (7-18); BUN/Creat Ratio 15.9 RATIO (10-20); Calcium,Total 8.3 mg/dL (8.5-10.1); Chloride 105 mmol/L (98-107); Creatinine, Serum 1.26 mg/dL (0.70-1.30); EST Glomerular Filtration Rate 59 mL/min (>60); Est Glom Filt Rate - Afr Amer 71 mL/min (>60); Estimated Creatinine Clearance 53.72 ml/min; Globulin 3.2 g/dL (2.2-4.2); Glucose 84 mg/dL (74-106); Potassium 3.8 mmol/L (3.5-5.1); Sodium Level 138 mmol/L (136-145); Troponin-I HS 8 pg/mL (3.0-78.0)
[2020-12-23 17:01] LABS: Lactic Acid 0.7 mmol/L (0.4-1.9)
[2020-12-23 17:17] LABS: Differential Indicated SCAN CRITERIA MET
[2020-12-23 17:18] LABS: Platelet Estimate MOD DEC (ADEQ); Red Cell Morphology NORM C+C NORMAL (NORM C&C)
--- NOTE | 2020-12-23 17:21 | ED.RN ---
Dr Reed is aware the patient is allergic to PO med rx for bactrim and gets hives, per [place] at [facility]. Patient did not relay this when triaged but states this is accurate and [place] reports this occured with her last infection, this fall. States that is why she was on cipro. Await new order for rx atb to finish at home.
[2020-12-23 18:07] VITALS: BP 147/100; PULSE 94; RESP 17; O2SAT 97
[2020-12-23] MEDS: 0.9% Normal Saline 1,000 ML 150 ML IV (18:13)
[2020-12-23 18:15] VITALS: BMI 27.6
--- NOTE | 2020-12-23 18:20 | CT_ITS ---
We are attempting to reach an attending provider to discuss findings. An addendum with communication details will be sent when the communication is complete. STUDY: CTA CHEST REASON FOR EXAM: Male, 80 years old. Chest pain. Tachycardia. High pretest probability. RADIATION DOSAGE (If Supplied By Facility): CTDIvol = ( 13.68 ) mGy, DLP = ( 453.03 ) mGycm TECHNIQUE: The examination was performed with the intravenous administration of IV 100mL Isovue-370. Post-processing of the angiographic images was performed, with multiplanar reformation and 3D reconstruction. Individualized dose optimization techniques were used for this CT. COMPARISON: CTA of the chest, 07/26/2017. Chest, 12/23/2020. FINDINGS: Normal enhancement of the main pulmonary artery and right and left pulmonary arteries. Normal enhancement of the right peripheral pulmonary arteries. Requires no minimal nonocclusive thrombus in peripheral vessels on the left upper lobe. This is seen best on image 165 of series 2 and on image 145 of series 2. The remainder of the pulmonary arteries appear normal. Atherosclerotic tortuosity of the thoracic aorta without aneurysm. There is no demonstrated aortic dissection. Normal heart and pericardium. Normal mediastinum. Normal hilar regions. Normal visualized trachea and bronchi. The lungs are hyper expanded, with flattening of the hemidiaphragms. Emphysematous changes in lungs without infiltrate or mass. Normal pleura. Normal chest wall structures. Normal osseous structures. Normal visualized upper abdomen. CT/CTA Chest W/WO Contrast IMPRESSION: 1. Question small nonocclusive thrombus in peripheral branches of the left upper lobe. The pulmonary arteries are otherwise unremarkable. 2. Emphysematous changes lungs. 3. Atherosclerotic changes of the thoracic aorta without aneurysm or dissection. Electronically Signed: Tom Mauro DO at 18:50 EDT Tel [phone], Service support ,
[2020-12-23 19:33] VITALS: BP 153/88; PULSE 84; RESP 15; O2SAT 97
[2020-12-23] MEDS: Enoxaparin 100 MG/ML Syringe 90 MG SC (19:53)
--- NOTE | 2020-12-23 19:58 | ED.RN ---
PT SELF-ADMINISTER 90MCG DOSE OF LOVENOX IN LLQ OF ABD. INSTRUCTED TO ROTATE SITE. NOTIFY MD IMMEDIATELY IF HE NOTES ANY BLEEDING AT HOME. VERBALIZES UNDERSTANDING.
== END 2020-12-23 20:13 | disposition home or self-care (01) ==
PROVIDERS: Emergency Provider Emergency Medicine; PCP Family Medicine
DX: I26.99 Other pulmonary embolism without acute cor pulmonale (principal); T45.1X5A Adverse effect of antineoplastic and immunosuppressive drugs, initial encounter; D69.59 Other secondary thrombocytopenia; D70.1 Agranulocytosis secondary to cancer chemotherapy; C85.90 Non-Hodgkin lymphoma, unspecified, unspecified site; Z86.718 Personal history of other venous thrombosis and embolism; I25.10 Atherosclerotic heart disease of native coronary artery without angina pectoris; K21.9 Gastro-esophageal reflux disease without esophagitis; E78.5 Hyperlipidemia, unspecified; I10 Essential (primary) hypertension; Z79.899 Other long term (current) drug therapy
CPT/HCPCS: 71045; 71275; 80053; 83605; 84484; 85025; 93005; 96360; 96361; 96372; 99284; J7030; A4216

== ENCOUNTER 2020-12-27 09:23 | Inpatient (IN) | payer MEDICARE, OTHER, SELFPAY ==
[2020-12-27] VITALS (11 sets, daily range): BP systolic 112–143; BP diastolic 69–86; PULSE 97–151; RESP 14–34; TEMP 36.6–38.4; O2SAT 87–98; BMI 25.5; BMI 24.7
--- NOTE | 2020-12-27 09:28 | CT_ITS ---
We are attempting to reach an attending provider to discuss findings. An addendum with communication details will be sent when the communication is complete. EXAM: CT ABDOMEN AND PELVIS WITH INTRAVENOUS CONTRAST : 1940 CLINICAL INDICATION: aortic aneurysm TECHNIQUE: Helically acquired images were obtained of the abdomen and pelvis with intravenous contrast. This CT exam was performed using one or more of the following dose reduction techniques: automated exposure control, adjustment of the mA and/or kV according to patient size, and/or use of iterative reconstruction technique. This report was created using [employer] report [employer] technology. CONTRAST: IV 100ML ISOVUE 300 COMPARISON: July 07, 2017 FINDINGS: LOWER THORAX: Stable 12 mm right lower lobe fat containing pulmonary nodule. No cardiomegaly. No significant pericardial effusion. ABDOMEN: LIVER: Unremarkable. Homogeneous. No focal mass. GALLBLADDER AND BILE DUCTS: Unremarkable. No calcified gallstones. No gallbladder distention or wall edema. No intra- or extrahepatic biliary ductal dilation. PANCREAS: Unremarkable. No focal cystic or solid mass. SPLEEN: Unremarkable. Normal size without focal cystic or solid mass. ADRENALS: Unremarkable. No nodules. KIDNEYS AND URETERS: Unremarkable. Normal renal size and position. No hydronephrosis. STOMACH AND BOWEL: Colon diverticulosis noted without evidence of acute diverticulitis. Sigmoid colon is redundant. No stomach or bowel distention. PELVIS: APPENDIX: Appendix is visualised and normal in appearance. BLADDER: A Webber catheter in place within a decompressed urinary bladder. REPRODUCTIVE: Unremarkable as visualized. No mass. ABDOMEN and PELVIS: INTRAPERITONEAL SPACE: Unremarkable. No ascites or other fluid collection. No free air. BONES/JOINTS: Unremarkable. No suspicious lytic or blastic abnormality. VASCULATURE: Infrarenal abdominal aortic aneurysm has increased in size now measuring 5.7 cm in maximum AP dimension from prior measurement of 4.6 cm. Aneurysm is now partially thrombosed. There is soft tissue thickening along the infrarenal abdominal aorta which may represent chronic aneurysm leakage. LYMPH NODES: Unremarkable. No enlarged lymph nodes. CT/Abdomen/Pelvis W IV Cont ONLY IMPRESSION: 1. Interval increase in the infrarenal abdominal aortic aneurysm now measuring 5.7 cm in maximum diameter. Soft tissue thickening along the aorta suggests chronic leakage. 2. Diverticulosis coli. Individualized dose optimization techniques were used for this CT. at 1054 Reported and signed by: Danny Watson MD Electronically Signed: Danny Watson MD at 10:53 EST Tel , Service support ,
--- NOTE | 2020-12-27 09:28 | RAD_ITS ---
History: cad EXAMINATION/TECHNIQUE: XR Chest 1 View: Portable COMPARISON: December 23, 2020 FINDINGS: LINES/DEVICES: None. LUNGS: No consolidation, edema or effusion. No pneumothorax. MEDIASTINUM AND CARDIOVASCULAR STRUCTURES: Cardiac silhouette not enlarged. Central airways and mediastinal contour are unremarkable. BONES AND SOFT TISSUES: Unremarkable. RAD/Chest 1 View (Portable) IMPRESSION: No radiographic evidence of acute cardiopulmonary disease. No interval change. at 1103 Reported and signed by: Danny Watson MD Electronically Signed: Danny Watson MD at 11:02 EST Tel , Service support ,
--- NOTE | 2020-12-27 09:28 | EKG12_ITS ---
Test Reason : Blood Pressure : / mmHG Vent. Rate : 147 BPM Atrial Rate : 147 BPM P-R Int : 076 ms QRS Dur : 118 ms QT Int : 282 ms P-R-T Axes : 109 031 072 degrees QTc Int : 441 ms Wide complex tachycardia Low voltage QRS Borderline ECG Confirmed by CHERRIE BILLINGSLEY, SHAWN ([id number]), editor dictionary DEL REY ([id number]) on 12/28/2020 9:27:00 AM Referred By: SHERMAN Confirmed By:SHAWN GRIER MD
--- NOTE | 2020-12-27 09:30 | EX.ED.DYSGE1 ---
HPI History of Present Illness Chief Complaint: Abd Pain Informant: patient and spouse/S.O. Narrative Narrative: 80-year-old male with a history of a low-grade non-Hodgkin's lymphoma currently undergoing chemotherapy with Dr. Jc. His last chemotherapy was last week. He notes that for the past 4 days has had a pain in his abdomen and notes that he has been urinating frequently but only small amounts. He was at the emergency room last week was diagnosed with a small PE and started on Lovenox. He has a history of an abdominal aortic aneurysm about 5 cm that they are waiting to fix due to the chemotherapy. Reportedly the aneurysm was encased in lymph nodes. The patient reports that he was at his oncologist office and they wanted him to come to emergency as he was not appearing well. [facility] Medical History (Updated 12/27/20 @ 12:[address] Jean Carlos Reed, ) Abdominal aortic aneurysm Acute pancreatitis CAD (coronary artery disease) GERD (gastroesophageal reflux disease) Gout Heavy alcohol consumption Hyperlipidemia Hypertension Hypomagnesemia Hypophosphatemia Nicotine dependence Non Hodgkin's lymphoma Home Medications flunisolide 2 spry NASAL DAILY 04/23/15 [History Last Taken Unknown] lisinopril 2.5 mg PO BID 04/23/15 [History Last Taken Unknown] metoprolol tartrate 50 mg PO DAILY 04/23/15 [History Last Taken Unknown] aspirin 81 mg tablet,delayed release 81 mg PO DAILY 10/06/18 [History Last Taken Unknown] nitroglycerin 0.4 mg sublingual tablet 0.4 mg SUBLINGUAL Q5-15M 10/06/18 [History Last Taken Unknown] icosapent ethyl 1 gram capsule 2 g PO BID #120 cap 04/20/20 [Rx Last Taken Unknown] rosuvastatin 20 mg tablet 20 mg PO DAILY #90 tab 06/22/20 [Rx Last Taken Unknown] omeprazole 20 mg capsule,delayed release 20 mg PO DAILY #90 cap 06/23/20 [Rx Last Taken Unknown] cyanocobalamin (vitamin B-12) 1,000 mcg capsule 1,000 mcg PO DAILY #90 cap 08/31/20 [Rx Last Taken Unknown] allopurinol 100 mg tablet 100 mg PO BID #60 tab 11/09/20 [Rx Last Taken Unknown] meloxicam 15 mg tablet 15 mg PO DAILY #90 tab 11/09/20 [Rx Last Taken Unknown] enoxaparin [Lovenox] 90 mg SUBCUT Q12H #60 ml 12/23/20 [Rx Last Taken Unknown] Allergy/AdvReac Type Severity Reaction Status Date / Time erythromycin base Allergy Unknown Verified 12/27/20 09:31 Sulfa (Sulfonamide Allergy Unknown Verified 12/27/20 09:31 Antibiotics) Family History Brother CAD (coronary artery disease) Surgical History H/O Mohs micrographic surgery for skin cancer S/P TURP Status post coronary artery stent placement Social History household members: spouse Smoking Status: Former smoker quit date: 02/18/18 alcohol intake: current alcohol intake frequency: a few times a week Alcohol type: wine substance use type: does not use ROS ROS ED Constitutional Constitutional ED: Denies chills, fever(s) or weight loss Eyes Eyes: Denies change in vision or diplopia ENT ENT ED: Denies ear pain, rhinorrhea or sore throat Cardiovascular Cardiovascular: Reports palpitations and racing heartbeat; Denies chest pain or orthopnea Respiratory/Chest Respiratory/Chest: Denies cough, dyspnea or orthopnea Gastrointestinal Gastrointestinal: Reports abdominal pain; Denies diarrhea, nausea or vomiting Genitourinary Genitourinary ED: Reports urinary frequency; Denies dysuria or hematuria Musculoskeletal Musculoskeletal: Denies arthralgias or myalgias Integumentary Reports rash; Denies abscess Neurologic Neurologic: Denies headache(s) or weakness Psychiatric Psychiatric: Denies anxiety, depression, suicidal ideation or suicidal thoughts Endocrine Endocrinology: Denies polydipsia, polyphagia or polyuria Allergic/Immunologic Allergic/Immunologic ED: Denies mouth swelling, tongue swelling or urticaria EXAM Physical Exam Const Vital Signs: 12/27/20 09:24 12/27/20 09:28 12/27/20 09:34 Temperature 97.9 F 97.9 F 98.4 F Temperature Source Oral Oral Oral Pulse Rate 151 H 147 H 149 H Respiratory Rate 28 H 19 H 34 H Blood Pressure 143/79 H 143/79 H 114/76 Blood Pressure Mean 100 100 88 Pulse Ox 87 95 91 Oxygen Delivery Method Room Air Room Air Room Air 12/27/20 10:28 12/27/20 11:33 Temperature 98 F 99.1 F Temperature Source Temporal Temporal Pulse Rate 130 H 123 H Respiratory Rate 24 H 20 H Blood Pressure 112/78 112/75 Blood Pressure Mean 89 87 Pulse Ox 92 93 Oxygen Delivery Method Room Air Positive well nourished and well developed General Appearance ED: well developed HEENT Reports normocephalic, head/scalp atraumatic, TM's clear and moist mucous membranes Negative for trauma or tenderness Tympanic Membrane ED: Yes TM's clear Eyes PERRL and EOMs intact bilaterally Neck no lymphadenopathy, supple and no JVD Resp normal respiratory effort and clear to auscultation bilaterally Cardio regular rate and no murmurs Rate: tachycardic GI non-tender Palpation: soft and tender suprapubic Back/Spine no CVA tenderness and normal ROM Extremity Extremity Narrative: There is mottling of the lower extremities from waist inferiorly General Extremety ED: Negative for edema or tenderness General Extremity: Negative for edema Neuro oriented x3 and CN's II-XII intact bilaterally Sensorium / Orientation: alert Motor Exam: strength 5/5 throughout Psych mental status grossly normal Mood & Affect: Negative for depressed or tearful Skin no wounds MDM MDM MDM Narrative Medical decision making narrative: On bedside ultrasound the patient's. Bladder is above his umbilicus. Webber catheter was placed with about 2000 cc removed. White count returns at 0.6 with a hemoglobin of 11.8. Creatinine 1.64 lactic acid is 3. Urinalysis is negative. My interpretation of the chest x-ray is no acute process. CT of the abdomen pelvis demonstrates an enlargement in the aortic aneurysm to 5.7 with what appears to be chronic leak of blood. The aneurysm is now partially thrombosed. However on prior CT imaging through the clinic his aneurysm was 5.7 cm. It appeared that the soft tissue density is better and it was felt by vascular surgery to represent lymph nodes encasing the aneurysm. This was partially the reason why surgery has been deferred. Repeat examination after IV fluids shows the patient to be significantly better. His abdomen is benign now. The mottling of the legs is now resolved. Heart rate is down to around 114. I reviewed the case with the patient's oncologist Dr. Jc. He has requested the patient receive a dose of Granix. At the current time it does not appear that patient would be getting a bed at a tertiary care center within the next few days so we will plan on admitting here. Lab Data Attestation: I reviewed the patient's lab results. Labs: Laboratory Results - last 24 hr 12/27/20 12/27/20 12/27/20 09:40 09:40 09:40 WBC 0.6 L* RBC 3.59 L Hgb 11.8 L Hct 35.1 L MCV 97.8 H MCH 32.9 H MCHC 33.6 RDW Std Deviation 46.8 H RDW Coeff of Jackelyn 13.1 Plt Count 151 MPV 10.2 Immature Gran % (Auto) 1.700 H Neut % (Auto) 24.2 L Lymph % (Auto) 22.4 [place] % (Auto) 50.0 H Eos % (Auto) 1.7 Baso % (Auto) 0.0 Absolute Neuts (auto) 0.1 L Absolute Lymphs (auto) 0.13 L Nucleated RBC % 0 Diff Path Review May foll Platelet Estimate ADEQUATE RBC Morphology NORM C+C PT 12.4 INR 1.0 APTT 35.7 Sodium 131 L Potassium 4.1 Chloride 98 Carbon Dioxide 22.0 Anion Gap 11 BUN 18 Creatinine 1.64 H Estim Creat Clear Calc 41.28 Est GFR (MDRD) Af Amer 52 L Est GFR (MDRD) Non-Af 43 L BUN/Creatinine Ratio 11.0 Glucose 151 H Lactic Acid Calcium 8.6 Total Bilirubin 0.70 AST 38 H ALT 37 Alkaline Phosphatase 95 Total Creatine Kinase 22 L Troponin I High Sens 24 Total Protein 7.1 Albumin 2.8 L Globulin 4.3 H Albumin/Globulin Ratio 0.7 L Urine Color Urine Clarity Urine pH Ur Specific [place] Urine Protein Urine Glucose (UA) Urine Ketones Urine Occult Blood Urine Nitrite Urine Bilirubin Urine Urobilinogen Ur Leukocyte Esterase Urine RBC Urine WBC Ur Squamous Epith Cells Urine Bacteria Urine Mucus 12/27/20 12/27/20 09:40 09:55 WBC RBC Hgb Hct MCV MCH MCHC RDW Std Deviation RDW Coeff of Jackelyn Plt Count MPV Immature Gran % (Auto) Neut % (Auto) Lymph % (Auto) [place] % (Auto) Eos % (Auto) Baso % (Auto) Absolute Neuts (auto) Absolute Lymphs (auto) Nucleated RBC % Diff Path Review Platelet Estimate RBC Morphology PT INR APTT Sodium Potassium Chloride Carbon Dioxide Anion Gap BUN Creatinine Estim Creat Clear Calc Est GFR (MDRD) Af Amer Est GFR (MDRD) Non-Af BUN/Creatinine Ratio Glucose Lactic Acid 3.0 H* Calcium Total Bilirubin AST ALT Alkaline Phosphatase Total Creatine Kinase Troponin I High Sens Total Protein Albumin Globulin Albumin/Globulin Ratio Urine Color Yellow Urine Clarity Clear Urine pH 7.0 Ur Specific [place] 1.005 Urine Protein 15 H Urine Glucose (UA) Normal Urine Ketones Negative Urine Occult Blood Negative Urine Nitrite Negative Urine Bilirubin Negative Urine Urobilinogen Normal Ur Leukocyte Esterase Negative Urine RBC 0 SEEN Urine WBC 0-5 SEEN Ur Squamous Epith Cells 0-5 SEEN Urine Bacteria RARE Urine Mucus 0 SEEN Radiography Diagnostic Testing: Clinical Impression(s) from Imaging Studies Abdomen/Pelvis CT 12/27/20 09:28 IMPRESSION: 1. Interval increase in the infrarenal abdominal aortic aneurysm now measuring 5.7 cm in maximum diameter. Soft tissue thickening along the aorta suggests chronic leakage. 2. Diverticulosis coli. Individualized dose optimization techniques were used for this CT. at 1054 Reported and signed by: Danny Watson MD Electronically Signed: Danny Watson MD at 10:53 EST Tel , Service support , ADDENDUM: 12/27/20 1109 IMPRESSION: 1. Interval increase in the infrarenal abdominal aortic aneurysm now measuring 5.7 cm in maximum diameter. Soft tissue thickening along the aorta suggests chronic leakage. 2. Diverticulosis coli. Individualized dose optimization techniques were used for this CT. at 1054 Reported and signed by: Danny Watson MD N.B. : The above Results were Read Back by Danny Wtason MD to Jean Carlos Reed;[phone], and understanding confirmed on 12/27/2020 11:01:38 (ET). Electronically Signed: Danny Watson MD at 10:53 EST Tel , Service support , Chest X-Ray 12/27/20 09:28 IMPRESSION: No radiographic evidence of acute cardiopulmonary disease. No interval change. at 1103 Reported and signed by: Danny Watson MD Electronically Signed: Danny Watson MD at 11:02 EST Tel , Service support , EKG Initial EKG: Attestation: I personally reviewed and interpreted this EKG as follows: Discharge Plan Dx/Rx/DC Orders Clinical Impression: Non Hodgkin's lymphoma, Neutropenia, Acute urinary retention, Elevated lactic acid level Disposition Disposition: Acute Care [facility]
[2020-12-27] MEDS: 0.9% Normal Saline 1,000 ML 999 ML IV (09:52)
[2020-12-27 09:56] LABS: Absolute Lymphocyte Count 0.13 X10^3/uL (0.83-4.51); Absolute Neutrophil Count 0.1 X10^3/uL (2.0-7.7); Eosinophil# 0.01 X10^3/uL; Eosinophils% 1.7 % (0-5); Hematocrit 35.1 % (40-54); Hemoglobin 11.8 g/dL (13.0-16.5); Lymphocyte # 0.13 X10^3/ul (0.83-4.51); Lymphocyte % 22.4 % (19-41); Mean Corp Hgb Conc 33.6 g/dL (32-36); Mean Corpuscular Hgb 32.9 pg (27.0-32.0); Mean Corpuscular Volume 97.8 fL (80-94); Mean Platelet Vol. 10.2 fl (6.2-12.0); Monocyte# 0.29 X10^3/uL; NRBC Flagged by Analyzer 0 % (0-5); Neutrophil # 0.14 X10^3/uL (2.7-7.7); Neutrophil % 24.2 % (47-70); POSITIVE COUNT YES; POSITIVE DIFFERENTIAL YES; POSITIVE MORPHOLOGY YES; Platelet Count 151 K/mm3 (150-450); RBC Distribution Width CV 13.1 % (11.6-14.6); RBC Distribution Width SD 46.8 fl (35.1-43.9); Red Blood Count 3.59 M/mm3 (4.6-6.2)
[2020-12-27 10:01] LABS: Mucous, Urine 0 SEEN /hpf (<or=2+); Red Blood Cells-Urine 0 SEEN /hpf (0-5)
[2020-12-27 10:05] LABS: Color, Urine Yellow (Yellow); Glucose, Dipstick Normal (Normal); Ketone-Dipstick Negative (Negative); Leukocyte Esterase-Dipstick Negative /ul (Negative); Nitrite-Dipstick Negative (Negative); Occult Blood-Urine Negative /ul (Negative); Protein-Dipstick 15 mg/dl (Negative); Specific Gravity, Urine 1.005 (1.002-1.030); Urine Bilirubin Dipstick Negative (Negative); Urine Clarity Clear (Clear); Urine Urobilinogen Normal (Normal)
[2020-12-27 10:09] LABS: Differential Indicated SCAN CRITERIA MET; Prothrombin Time (Protime)PT. 12.4 SECONDS (11.7-14.9); White Blood Count 0.6 K/mm3 (4.4-11.0)
[2020-12-27 10:10] LABS: Partial Thromboplast Time 35.7 Seconds (24.1-36.2)
[2020-12-27 10:11] LABS: ALB/GLOB Ratio 0.7 RATIO (0.9-2.4); AST(SGOT) 38 U/L (15-37); Alanine Aminotransfer ALT/SGPT 37 U/L (16-61); Albumin, Serum 2.8 g/dL (3.2-5.0); Alkaline Phosphatase 95 U/L (45-117); Anion Gap 11 (5-15); BUN 18 mg/dL (7-18); CPK Total, Creatine Kinase 22 U/L (39-308); Calcium,Total 8.6 mg/dL (8.5-10.1); Chloride 98 mmol/L (98-107); Creatinine, Serum 1.64 mg/dL (0.70-1.30); EST Glomerular Filtration Rate 43 mL/min (>60); Est Glom Filt Rate - Afr Amer 52 mL/min (>60); Estimated Creatinine Clearance 41.28 ml/min; Globulin 4.3 g/dL (2.2-4.2); Glucose 151 mg/dL (74-106); Potassium 4.1 mmol/L (3.5-5.1); Protein, Total 7.1 g/dL (6.4-8.2); Sodium Level 131 mmol/L (136-145); Troponin-I HS 24 pg/mL (3.0-78.0)
[2020-12-27 10:31] LABS: Squamous Epithelial Cells - UA 0-5 SEEN /hpf (0-5); White Blood Cells 0-5 SEEN /hpf (0-5)
[2020-12-27 10:32] LABS: Bacteria RARE /hpf (None Seen)
[2020-12-27 10:39] LABS: Platelet Estimate ADEQUATE (ADEQ); Red Cell Morphology NORM C+C NORMAL (NORM C&C)
[2020-12-27] MEDS: Enoxaparin 100 MG/ML Syringe 90 MG SC ×2 (12:19→21:17)
--- NOTE | 2020-12-27 12:19 | NURSING ---
PCU NUAMAH NEUTROPENIC ELEVATED LACTATE
[2020-12-27] MEDS: TBO-FILGRASTIM 480 MCG/0.8 ML ML SC (12:20)
[2020-12-27 13:49] LABS: Reflex Lactate? Y
[2020-12-27] MEDS: 0.9% Normal Saline 1,000 ML 125 ML IV (14:14)
[2020-12-27 15:15] LABS: Lactic Acid 1.2 mmol/L (0.4-1.9)
[2020-12-27] MEDS: Allopurinol 100 MG Tablet PO (17:14)
--- NOTE | 2020-12-27 17:19 | PCM.HP.STD ---
HPI - General General Date of Admission: 12/27/20 Date of Service: 12/27/20 Chief Complaint: Abdominal pain, fever-1 day HPI Narrative DOUGIE COOPER, is a 80 M who presents with the above that started a day before admission. Patient has history of non-Hodgkin's lymphoma undergoing chemotherapy with Dr. Jc, history of abdominal aortic aneurysm. He last had chemotherapy last week. He has had problems urinating. He has history of BP H status post surgery. He admits to abdominal pain that started on the day of admission. He admits to fever that also started a day before admission with chills. Patient presented to his oncology office with abdominal pain and was asked to come to the emergency room. In the emergency room, patient was found to have a distended bladder. Webber catheter was placed and 2 L of fluid were removed. Was also found to be neutropenic. CT of the abdomen and pelvis showed enlargement and aortic aneurysm same and was reported a chronic leak of flat with the aneurysm partially thrombosed. Upon discussion with the patient's oncologist comparison with imaging in the [facility] system, this aneurysm size is about the same. [facility] Medical History (Updated 12/27/20 @ 17:[address] Azeb Alvarado MD) Abdominal aortic aneurysm Acute pancreatitis CAD (coronary artery disease) GERD (gastroesophageal reflux disease) Gout Heavy alcohol consumption Hyperlipidemia Hypertension Hypomagnesemia Hypophosphatemia Nicotine dependence Non Hodgkin's lymphoma Home Medications flunisolide 2 spry NASAL DAILY 04/23/15 [History Last Taken Unknown] lisinopril 2.5 mg PO BID 04/23/15 [History Last Taken Unknown] metoprolol tartrate 50 mg PO DAILY 04/23/15 [History Last Taken Unknown] aspirin 81 mg tablet,delayed release 81 mg PO DAILY 10/06/18 [History Last Taken Unknown] nitroglycerin 0.4 mg sublingual tablet 0.4 mg SUBLINGUAL Q5-15M 10/06/18 [History Last Taken Unknown] icosapent ethyl 1 gram capsule 2 g PO BID #120 cap 04/20/20 [Rx Last Taken Unknown] rosuvastatin 20 mg tablet 20 mg PO DAILY #90 tab 06/22/20 [Rx Last Taken Unknown] omeprazole 20 mg capsule,delayed release 20 mg PO DAILY #90 cap 06/23/20 [Rx Last Taken Unknown] cyanocobalamin (vitamin B-12) 1,000 mcg capsule 1,000 mcg PO DAILY #90 cap 08/31/20 [Rx Last Taken Unknown] allopurinol 100 mg tablet 100 mg PO BID #60 tab 11/09/20 [Rx Last Taken Unknown] meloxicam 15 mg tablet 15 mg PO DAILY #90 tab 11/09/20 [Rx Last Taken Unknown] enoxaparin [Lovenox] 90 mg SUBCUT Q12H #60 ml 12/23/20 [Rx Last Taken Unknown] Allergy/AdvReac Type Severity Reaction Status Date / Time erythromycin base Allergy Unknown Verified 12/27/20 09:31 Sulfa (Sulfonamide Allergy Unknown Verified 12/27/20 09:31 Antibiotics) Family History (Updated 12/27/20 @ 17:[address] Azeb Alvarado MD) Brother CAD (coronary artery disease) Mother Heart disease Father Heart disease Surgical History H/O Mohs micrographic surgery for skin cancer S/P TURP Status post coronary artery stent placement Social History household members: spouse Smoking Status: Former smoker quit date: 02/18/18 alcohol intake: current alcohol intake frequency: a few times a week Alcohol type: wine substance use type: does not use ROS ROS Narrative Constitutional: Reports: Malaise, Weakness, Fatigue. Denies: Anorexia, Chills, Fever, Night Sweats, Weight Change Eyes: Denies: Blurred vision, Cataracts, Conjunctivae Inflammation, Pain, Redness, Vision Change HEENT: Denies: Difficulty Hearing, Difficulty Swallowing, Head Aches, Hearing Changes, Sinus Congestion, Sinus Drainage Cardiovascular: Denies: Chest Pain, Orthopnea, Palpitations Respiratory: Denies: Cough, Shortness of breath at rest, Sputum production Gastrointestinal: Denies: Abdominal Pain, Nausea, Vomiting Genitourinary: Admits to frequency, urgency denies: Dysuria Musculoskeletal: Denies: Joint Pain, Joint stiffness, Joint swelling, Joint Tenderness Skin: Denies: Rash, Wounds Neurological: Denies: Numbness, Tingling, Focal weakness Vital Signs Vital Signs Vital Signs: 12/27/20 09:24 12/27/20 09:28 12/27/20 09:34 Temperature 97.9 F 97.9 F 98.4 F Temperature Source Oral Oral Oral Pulse Rate 151 H 147 H 149 H Respiratory Rate 28 H 19 H 34 H Blood Pressure 143/79 H 143/79 H 114/76 Blood Pressure Mean 100 100 88 Pulse Ox 87 95 91 Oxygen Delivery Method Room Air Room Air Room Air 12/27/20 10:28 12/27/20 11:33 12/27/20 12:22 Temperature 98 F 99.1 F 99.1 F Temperature Source Temporal Temporal Temporal Pulse Rate 130 H 123 H 123 H Respiratory Rate 24 H 20 H 20 H Blood Pressure 112/78 112/75 112/75 Blood Pressure Mean 89 87 87 Pulse Ox 92 93 93 Oxygen Delivery Method Room Air Room Air 12/27/20 13:30 12/27/20 14:04 12/27/20 17:06 Temperature 101.1 F H 100.8 F H Temperature Source Oral Oral Pulse Rate 97 100 Respiratory Rate 14 Blood Pressure 143/86 H Blood Pressure Mean 105 Pulse Ox 98 Oxygen Delivery Method Room Air Weight Weight: 85.3 kg Body Mass Index (BMI) 24.7 Physical Exam Narrative Physical exam: General: Alert, Oriented x3, Cooperative, No apparent distress, Well developed HEENT: Atraumatic Oral: Moist Mucosa Neck: Supple Lungs: Clear to auscultation Cardiovascular: HS I+II, regular, no murmurs Abdomen: Bowel Sounds Present, Soft, Non Tender Extremities: No edema Results Medical Records Data Medical Nutrition Assessment Dietitian: Malnutrition Criteria Met Start: 12/27/20 17:12 Freq: Status: Active Protocol: Document 12/27/20 17:13 RMA (Rec: 12/27/20 17:13 RMA [id number]) Nutrition Malnutrition Evidence of Malnutrition Exists Yes Malnutrition (severe): Acute Illness/Injury Evidenced By Suboptimal Energy Intake ( Severe),Weight Loss (Severe) Clinical Problem Acute Disease or Injury Related Malnutrition Etiology Severe protein-calorie malnutrition in the context of acute illness related to decreased appetite and inadequate oral intake Signs/Symptoms as evidenced by 3-4% wt loss x past 1 week and PO meeting less than 50% estimated nutrition needs. Status Active Problem Recommendation Dietitian Recommendations/Changes Continue regular diet as ordered. Will add 240ml ensure enlive ( chocolate flavor) for extra 700 kcal and 40gm pro in addition to meal intake. Adjust ONS as needed once PO established w/ meals. Lab / Micro Data Result Diagrams: 12/27/20 09:40 12/27/20 09:40 Labs: Laboratory Results - last 24 hr 12/27/20 09:40: WBC 0.6 L*, RBC 3.59 L, Hgb 11.8 L, Hct 35.1 L, MCV 97.8 H, MCH 32.9 H, MCHC 33.6, RDW Std Deviation 46.8 H, RDW Coeff of Jackelyn 13.1, Plt Count 151, MPV 10.2, Immature Gran % (Auto) 1.700 H, Neut % (Auto) 24.2 L, Lymph % (Auto) 22.4, [place] % (Auto) 50.0 H, Eos % (Auto) 1.7, Baso % (Auto) 0.0, Absolute Neuts (auto) 0.1 L, Absolute Lymphs (auto) 0.13 L, Nucleated RBC % 0, Diff Path Review June, Platelet Estimate ADEQUATE, RBC Morphology NORM C+C 12/27/20 09:40: PT 12.4, INR 1.0, APTT 35.7 12/27/20 09:40: Sodium 131 L, Potassium 4.1, Chloride 98, Carbon Dioxide 22.0, Anion Gap 11, BUN 18, Creatinine 1.64 H, Estim Creat Clear Calc 41.28, Est GFR (MDRD) Af Amer 52 L, Est GFR (MDRD) Non-Af 43 L, BUN/Creatinine Ratio 11.0, Glucose 151 H, Calcium 8.6, Total Bilirubin 0.70, AST 38 H, ALT 37, Alkaline Phosphatase 95, Total Creatine Kinase 22 L, Troponin I High Sens 24, Total Protein 7.1, Albumin 2.8 L, Globulin 4.3 H, Albumin/Globulin Ratio 0.7 L 12/27/20 09:40: Lactic Acid 3.0 H* 12/27/20 09:55: Urine Color Yellow, Urine Clarity Clear, Urine pH 7.0, Ur Specific [place] 1.005, Urine Protein 15 H, Urine Glucose (UA) Normal, Urine Ketones Negative, Urine Occult Blood Negative, Urine Nitrite Negative, Urine Bilirubin Negative, Urine Urobilinogen Normal, Ur Leukocyte Esterase Negative, Urine RBC 0 SEEN, Urine WBC 0-5 SEEN, Ur Squamous Epith Cells 0-5 SEEN, Urine Bacteria RARE, Urine Mucus 0 SEEN 12/27/20 14:26: Lactic Acid 1.2 Micro: Microbiology 12/27/20 13:25 Nasal Secretion SARS-CoV-2 Antigen (Rapid) - Final Radiology Impression Abdomen/Pelvis CT 12/27/20 09:28 IMPRESSION: 1. Interval increase in the infrarenal abdominal aortic aneurysm now measuring 5.7 cm in maximum diameter. Soft tissue thickening along the aorta suggests chronic leakage. 2. Diverticulosis coli. Individualized dose optimization techniques were used for this CT. at 1054 Reported and signed by: Danny Watson MD Electronically Signed: Danny Watson MD at 10:53 EST Tel , Service support , ADDENDUM: 12/27/20 1109 IMPRESSION: 1. Interval increase in the infrarenal abdominal aortic aneurysm now measuring 5.7 cm in maximum diameter. Soft tissue thickening along the aorta suggests chronic leakage. 2. Diverticulosis coli. Individualized dose optimization techniques were used for this CT. at 1054 Reported and signed by: Danny Watson MD N.B. : The above Results were Read Back by Danny Watson MD to Jean Carlos Reed;[phone], and understanding confirmed on 12/27/2020 11:01:38 (ET). Electronically Signed: Danny Watson MD at 10:53 EST Tel , Service support , Chest X-Ray 12/27/20 09:28 IMPRESSION: No radiographic evidence of acute cardiopulmonary disease. No interval change. at 1103 Reported and signed by: Danny Watson MD Electronically Signed: Danny Watson MD at 11:02 EST Tel , Service support , Assessment & Plan Assessment/Plan (1) Neutropenic fever: (2) Chemotherapy induced neutropenia: (3) Acute urinary retention: PLAN: 1. Acute neutropenic fever, patient on chemotherapy for non-Hodgkin's lymphoma Admitting WBC count is 0.6, absolute neutrophil count is 100 UA is unremarkable, admitting chest x-ray is unremarkable. COVID-19 antigen is negative Started on vancomycin and Zosyn and Granix Will continue on IV Zosyn, neutropenic precautions Continue on Granix for 80 mg daily Repeat blood work in a.m. Follow-up on blood cultures 2. Hyponatremia secondary to dehydration, repeat BMP 3. CKD stage IIIa, Cr slightly higher than his baseline Repeat BMP in am 4. Recent PE, continue on Lovenox subcu twice daily 5. Rest of chronic medical conditions are stable - CAD, GERD, Hypertension, Hyperlipidemia 6. DVT prophylaxis?Lovenox subcu 7. CODE STATUS: Full code I discussed and explained in details the various types of CODE STATUS-full code, DNR CCA, DNR CC. Patient chose Full code. He wants everything done to keep him alive. Time spent discussing CODE STATUS 16 minutes Charges/Coding Visit Charges Inpatient E&M: 08597 Subs Hosp L3 Procedures Hospitalists Procedures: 35186 Advncd Care Plan 30 Min
[2020-12-27] MEDS: Lisinopril 2.5 MG Tablet PO (21:17)
[2020-12-28] VITALS (12 sets, daily range): BP systolic 101–125; BP diastolic 58–97; PULSE 67–117; RESP 16–18; TEMP 36.7–37.1; O2SAT 94–97
[2020-12-28] MEDS: 0.9% Normal Saline 1,000 ML 125 ML IV ×3 (00:33→17:14)
[2020-12-28 06:12] LABS: Absolute Lymphocyte Count 0.17 X10^3/uL (0.83-4.51); Absolute Neutrophil Count 1.1 X10^3/uL (2.0-7.7); Basophil# 0.01 X10^3/uL; Basophil% 0.6 % (0-1); Eosinophil# 0.02 X10^3/uL; Eosinophils% 1.1 % (0-5); Hematocrit 30.3 % (40-54); Hemoglobin 10.3 g/dL (13.0-16.5); Lymphocyte # 0.17 X10^3/ul (0.83-4.51); Lymphocyte % 9.6 % (19-41); Mean Corpuscular Hgb 32.8 pg (27.0-32.0); Mean Corpuscular Volume 96.5 fL (80-94); Mean Platelet Vol. 9.8 fl (6.2-12.0); Monocyte# 0.46 X10^3/uL; Monocyte% 25.8 % (0-10); NRBC Flagged by Analyzer 0 % (0-5); Neutrophil # 1.08 X10^3/uL (2.7-7.7); Neutrophil % 60.7 % (47-70); POSITIVE DIFFERENTIAL YES; POSITIVE MORPHOLOGY YES; Platelet Count 141 K/mm3 (150-450); RBC Distribution Width CV 13.2 % (11.6-14.6); RBC Distribution Width SD 46.9 fl (35.1-43.9); Red Blood Count 3.14 M/mm3 (4.6-6.2); White Blood Count 1.8 K/mm3 (4.4-11.0)
[2020-12-28 06:19] LABS: Differential Indicated SCAN CRITERIA MET
[2020-12-28 06:31] LABS: Differential Comment SCANNED
--- NOTE | 2020-12-28 07:29 | CON.PCM_ITS ---
Consult Date of Consult: 12/28/[address] Murdock with neutropenic fever and urinary retention. My final recommendation will be communicated by electronic medical records HPI: 80 M who presents with urinary retention for 2 days. 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 He has had problems urinating for several days. He has history of BP H status post surgery 15 years ago. He admits to abdominal pain that started on the day of admission. He admits to fever that also started a day before admission with chills. During this admission, he developed fever 101, and he was neutropenic. He was placed on a spectrum antibiotic, Zosyn. In the emergency room, patient was found to have a distended bladder yesterday. Webber catheter was placed and 2 L of fluid were removed. CT of the abdomen and pelvis showed enlargement and aortic aneurysm same and was reported a chronic leak of flat with the aneurysm partially thrombosed. Last weekend he had chest pain and shortness of breath and was diagnosed with acute pulmonary embolism and was placed on Lovenox injection. PFSH Medical History Abdominal aortic aneurysm Acute pancreatitis CAD (coronary artery disease) GERD (gastroesophageal reflux disease) Gout Heavy alcohol consumption Hyperlipidemia Hypertension Hypomagnesemia Hypophosphatemia Nicotine dependence Non Hodgkin's lymphoma Home Medications flunisolide 2 spry NASAL DAILY 04/23/15 [History Last Taken Unknown] lisinopril 2.5 mg PO BID 04/23/15 [History Last Taken Unknown] metoprolol tartrate 50 mg PO DAILY 04/23/15 [History Last Taken Unknown] aspirin 81 mg tablet,delayed release 81 mg PO DAILY 10/06/18 [History Last Taken Unknown] nitroglycerin 0.4 mg sublingual tablet 0.4 mg SUBLINGUAL Q5-15M 10/06/18 [History Last Taken Unknown] icosapent ethyl 1 gram capsule 2 g PO BID #120 cap 04/20/20 [Rx Last Taken Unknown] rosuvastatin 20 mg tablet 20 mg PO DAILY #90 tab 06/22/20 [Rx Last Taken Unknown] omeprazole 20 mg capsule,delayed release 20 mg PO DAILY #90 cap 06/23/20 [Rx Last Taken Unknown] cyanocobalamin (vitamin B-12) 1,000 mcg capsule 1,000 mcg PO DAILY #90 cap 08/31/20 [Rx Last Taken Unknown] allopurinol 100 mg tablet 100 mg PO BID #60 tab 11/09/20 [Rx Last Taken Unknown] meloxicam 15 mg tablet 15 mg PO DAILY #90 tab 11/09/20 [Rx Last Taken Unknown] enoxaparin [Lovenox] 90 mg SUBCUT Q12H #60 ml 12/23/20 [Rx Last Taken Unknown] Allergy/AdvReac Type Severity Reaction Status Date / Time erythromycin base Allergy Unknown Verified 12/27/20 09:31 Sulfa (Sulfonamide Allergy Unknown Verified 12/27/20 09:31 Antibiotics) Family History (Updated 12/27/20 @ 17:[address] Azeb Alvarado MD) Brother CAD (coronary artery disease) Mother Heart disease Father Heart disease Surgical History H/O Mohs micrographic surgery for skin cancer S/P TURP Status post coronary artery stent placement Social History household members: spouse Smoking Status: Former smoker quit date: 02/18/18 alcohol intake: current alcohol intake frequency: a few times a week Alcohol type: wine substance use type: does not use ROS ROS Narrative Constitutional: Reports: Malaise, Weakness, Fatigue. Denies: Anorexia, Chills, Fever, Night Sweats, Weight Change Eyes: Denies: Blurred vision, Cataracts, Conjunctivae Inflammation, Pain, Redness, Vision Change HEENT: Denies: Difficulty Hearing, Difficulty Swallowing, Head Aches, Hearing Changes, Sinus Congestion, Sinus Drainage Cardiovascular: Denies: Chest Pain, Orthopnea, Palpitations Respiratory: Denies: Cough, Shortness of breath at rest, Sputum production Gastrointestinal: Denies: Abdominal Pain, Nausea, Vomiting Genitourinary: Admits to frequency, urgency denies: Dysuria Musculoskeletal: Denies: Joint Pain, Joint stiffness, Joint swelling, Joint Tenderness Skin: Denies: Rash, Wounds Neurological: Denies: Numbness, Tingling, Focal weakness Temperature 101 Respiratory Rate 14 Blood Pressure 143/86 H Blood Pressure Mean 105 Pulse Ox 98 Oxygen Delivery Method Room Air Weight Weight: 85.3 kg Body Mass Index (BMI) 24.7 Physical Exam Narrative Physical exam: General: Alert, Oriented x3, Cooperative, No apparent distress, Well developed HEENT: Atraumatic Oral: Moist Mucosa Neck: Supple Lungs: Clear to auscultation Cardiovascular: HS I+II, regular, no murmurs Abdomen: Bowel Sounds Present, Soft, Non Tender Extremities: No edema Assessment & Plan Assessment/Plan (1) Neutropenic fever: (2) history of follicular lymphoma with chemotherapy induced neutropenia: carolann (3) Acute urinary retention: (4) pulmonary emboli Assessment & Plan Assessment/Plan (1) Neutropenic fever: PLAN: -Neutropenia improved, and awaiting blood and urine culture results. -Continue broad-spectrum antibiotic, Zosyn until blood cultures is negative -May discontinue antibiotic in 48 hours if all cultures are negative -Add Neulasta with subsequent cycle of chemotherapy. (2) Pulmonary embolism on left: PLAN: -Continue Lovenox 1mg/kg subcu every 12 hours (3) Acute urinary retention: PLAN: -Consult urology (4) Non Hodgkin's lymphoma: QUALIFIERS: Non-Hodgkin lymphoma type: unspecified type PLAN: -Follow-up with Dr. Jc next week after discharge.
[2020-12-28 08:20] LABS: ALB/GLOB Ratio 0.6 RATIO (0.9-2.4); AST(SGOT) 21 U/L (15-37); Alanine Aminotransfer ALT/SGPT 26 U/L (16-61); Albumin, Serum 2.2 g/dL (3.2-5.0); Alkaline Phosphatase 74 U/L (45-117); Anion Gap 7 (5-15); BUN 13 mg/dL (7-18); BUN/Creat Ratio 10.3 RATIO (10-20); Calcium,Total 8.1 mg/dL (8.5-10.1); Chloride 104 mmol/L (98-107); Creatinine, Serum 1.26 mg/dL (0.70-1.30); EST Glomerular Filtration Rate 59 mL/min (>60); Est Glom Filt Rate - Afr Amer 71 mL/min (>60); Estimated Creatinine Clearance 53.72 ml/min; Globulin 3.8 g/dL (2.2-4.2); Glucose 104 mg/dL (74-106); Potassium 3.4 mmol/L (3.5-5.1); Sodium Level 135 mmol/L (136-145)
[2020-12-28] MEDS: Atorvastatin Calcium 40 MG Tablet PO (09:10)
[2020-12-28] MEDS: Pantoprazole Sodium 20 MG Tablet PO (09:10)
[2020-12-28] MEDS: Cyanocobalamin 500 MCG Tablet 1000 MCG PO (09:10)
[2020-12-28] MEDS: Enoxaparin 100 MG/ML Syringe 90 MG SC ×2 (09:11→21:14)
[2020-12-28] MEDS: NYSTATIN 500,000 UNIT/5 ML UDC 500000 UNIT PO ×4 (09:11→21:14)
[2020-12-28] MEDS: Allopurinol 100 MG Tablet PO ×2 (09:11→17:15)
[2020-12-28] MEDS: Fluticasone 0.05% 1 SPRAY NASAL.SRY 2 SPRAY NASAL (09:11)
[2020-12-28] MEDS: Lisinopril 2.5 MG Tablet PO ×2 (09:11→21:14)
[2020-12-28] MEDS: Metoprolol Tartrate 50 MG Tablet PO (09:11)
[2020-12-28] MEDS: Aspirin E.C. 81 MG Tablet PO (09:11)
[2020-12-28] MEDS: TBO-FILGRASTIM 480 MCG/0.8 ML ML SC (09:12)
--- NOTE | 2020-12-28 11:05 | CASEMGMT ---
FABIO ORELLANA assessment: Face to Face with patient for initial transition planning/care coordination assessment. RN REYNA introduced self and role at [facility], pt voices understanding and consents to assessment. Pt is sitting up in chair in no distress on room air. Pt is A/Ox4 and answers all questions appropriately. Pt's is at bedside during assessment. Pt is currently getting chemo treatments every 3 weeks. Care providers, pharmacy, and demographics verified. Presentation: Abd pain, shivering Admitting dx: Neutropenic sepsis PCP: Loc Specialists: Kait cardio at [facility]; Hosea, onc; Juan vasc at [facility] Preferred Pharmacy: [facility]-pt states was recently placed on Lovenox d/t blood clots and cost was $418 at [facility]-this FABIO CM to check into cost/coverage for pt Insurance: MCR A/B, AARP Prescription Benefit: MCR D-[employer] Living Will/HPOA: Pt has LW/HPOA and is aware that they are not on file at [facility]. Pt states is , Fouzia Ying, is HPOA. LNOK: Fouzia Ying, Living Arrangements: Pt lives with 1 story home with steps in and states no concerns at home. Pt is independent with ADL's. Transportation: Pt states drives self and states no transportation concerns. DME/HHC: Pt states no current DME or need for any further DME. Pt states no hx HHC or SNF. Pt states no concerns with going home at time of discharge. 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 Pt states no hx of smoking cigarettes but does drink 1-2 glasses of wine, 2-3x/week. Pt voices no further concerns/needs. CM to follow for any further discharge planning/needs. Advised pt to ask for CM if any further questions/concerns/needs arise, voices understanding. Pt Goal: Home Plan[place] FABIO ORELLANA
[2020-12-28] MEDS: Ondansetron 4 MG/2 ML Vial IV (11:45)
[2020-12-28 12:55] LABS: Pathologist Review Reviewed
[2020-12-28 13:07] LABS: Pathologist Review Reviewed
--- NOTE | 2020-12-28 13:57 | CASEMGMT ---
Call to [facility] and per pharmacist, the $418 was all applied to deductible and pt only has $27.62 left of deductible so Lovenox cost should be less at this time. Pt/ updated, voice understanding. does state that Dr. Jc's office was also looking into this as well. Catherine MCCARTHY CM
[2020-12-28] MEDS: Tamsulosin HCl 0.4 MG Capsule PO (17:15)
[2020-12-28] MEDS: Acetaminophen 325 MG Tablet 650 MG PO (18:12)
--- NOTE | 2020-12-28 18:40 | PN.HOSP_ITS ---
Subjective Subjective Follow-up on neutropenic sepsis: Patient was seen and examined. He complained of nausea and back pain. Overall, feels better. No acute events overnight Objective Data Objective Data Vital Signs: Vital Signs Temp Pulse Resp BP Pulse Ox 98.7 F 73 16 101/67 94 12/28/20 15:37 12/28/20 15:37 12/28/20 15:37 12/28/20 15:37 12/28/20 15:37 Oxygen Delivery Method Room Air Weight: 85.3 kg Body Mass Index (BMI) 24.7 Intake & Output: Intake and Output for Last 24 Hours 12/26/20 12/27/20 12/28/20 23:59 23:59 23:59 Intake Total 1692.08 / 2621.25 3716.67 / 3716.67 Output Total 650 / 650 1625 / 1625 Balance 1042. / 1970. 209. / 2090. Medical Nutrition Assessment Dietitian: Malnutrition Criteria Met Start: 12/27/20 17:12 Freq: Status: Active Protocol: Document 12/27/20 17:13 RMA (Rec: 12/27/20 17:13 RMA [id number]) Nutrition Malnutrition Evidence of Malnutrition Exists Yes Malnutrition (severe): Acute Illness/Injury Evidenced By Suboptimal Energy Intake ( Severe),Weight Loss (Severe) Clinical Problem Acute Disease or Injury Related Malnutrition Etiology Severe protein-calorie malnutrition in the context of acute illness related to decreased appetite and inadequate oral intake Signs/Symptoms as evidenced by 3-4% wt loss x past 1 week and PO meeting less than 50% estimated nutrition needs. Status Active Problem Recommendation Dietitian Recommendations/Changes Continue regular diet as ordered. Will add 240ml ensure enlive ( chocolate flavor) for extra 700 kcal and 40gm pro in addition to meal intake. Adjust ONS as needed once PO established w/ meals. Lab / Micro Data Result Diagrams: 12/28/20 05:44 12/28/20 05:44 Labs: Laboratory Results - last 24 hr 12/27/20 09:40: Diff Path Review Reviewed 12/28/20 05:44: WBC 1.8 L, RBC 3.14 L, Hgb 10.3 L, Hct 30.3 L, MCV 96.5 H, MCH 32.8 H, MCHC 34.0, RDW Std Deviation 46.9 H, RDW Coeff of Jackelyn 13.2, Plt Count 141 L, MPV 9.8, Immature Gran % (Auto) 2.200 H, Neut % (Auto) 60.7, Lymph % (Aut o) 9.6 L, [place] % (Auto) 25.8 H, Eos % (Auto) 1.1, Baso % (Auto) 0.6, Absolute Neuts (auto) 1.1 L, Absolute Lymphs (auto) 0.17 L, Nucleated RBC % 0, Differential Comment SCANNED, Diff Path Review Reviewed 12/28/20 05:44: Sodium 135 L, Potassium 3.4 L, Chloride 104, Carbon Dioxide 24.0, Anion Gap 7, BUN 13, Creatinine 1.26, Estim Creat Clear Calc 53.72, Est GFR (MDRD) Af Amer 71, Est GFR (MDRD) Non-Af 59 L, BUN/Creatinine Ratio 10.3, Glucose 104, Calcium 8.1 L, Total Bilirubin 0.50, AST 21, ALT 26, Alkaline Phosphatase 74, Total Protein 6.0 L, Albumin 2.2 L, Globulin 3.8, Albumin/Globulin Ratio 0.6 L Micro: Microbiology 12/27/20 09:55 Urine, Catheterized Urine Culture - Preliminary Culture exhibits no growth. 12/27/20 13:25 Nasal Secretion SARS-CoV-2 Antigen (Rapid) - Final Physical Exam Narrative Physical exam: General: Alert, Oriented x3, Cooperative, No apparent distress, Well developed HEENT: Atraumatic Oral: Moist Mucosa Neck: Supple Lungs: Clear to auscultation Cardiovascular: HS I+II, regular, no murmurs Abdomen: Bowel Sounds Present, Soft, Non Tender Extremities: No edema Assessment & Plan Assessment/Plan (1) Neutropenic fever: (2) Chemotherapy induced neutropenia: (3) Acute urinary retention: PLAN: 1. Acute neutropenic fever, patient on chemotherapy for non- Hodgkin's lymphoma, improving Admitting WBC count was 0.6, absolute neutrophil count was 100 WBC and ANC now improving UA is unremarkable, admitting chest x-ray is unremarkable Continue on IV Zosyn, Granix 480mg daily, neutropenic precautions Repeat blood work in a.m. Follow-up on blood cultures 2. Hyponatremia secondary to dehydration,improved, trend BMP in am 3. CKD stage IIIa, Cr improved, now 1.26 from 1.64 Continue IVF Repeat BMP in am 4. Recent PE, continue on Lovenox subcu twice daily 5. Rest of chronic medical conditions are stable - CAD, GERD, Hypertension, Hyperlipidemia 6. DVT prophylaxis?Lovenox subcu Charges/Coding Visit Charges Inpatient E&M: 04705 Subs Hosp L2
[2020-12-28] MEDS: Potassium Chloride 10mEq/100mL 10 MEQ/100 ML IV.SOLN. 100 MEQ IV BOLUS ×4 (20:10→23:07)
--- NOTE | 2020-12-28 23:35 | PCS.PANDOC ---
PANDEMIC DOCUMENTATION INITIATED: Date: 10/03/2020 Time: 190
[2020-12-29] VITALS (11 sets, daily range): BP systolic 105–121; BP diastolic 72–82; PULSE 64–102; RESP 16–18; TEMP 36.6–37.1; O2SAT 93–99
[2020-12-29] MEDS: Acetaminophen 325 MG Tablet 650 MG PO ×2 (03:57→22:32)
[2020-12-29] MEDS: 0.9% Normal Saline 1,000 ML 75 ML IV ×2 (04:00→18:03)
[2020-12-29] MEDS: 0.9% Saline Lock 10 ML Syringe IV (06:14)
--- NOTE | 2020-12-29 07:14 | PN_ITS ---
Subjective Subjective Patient complained of back pain and abdominal distention with nausea this morning. He had no bowel movement since yesterday. Objective Data Objective Data Vital Signs: Vital Signs Temp Pulse Resp BP Pulse Ox 98.8 F 89 16 121/74 H 93 12/29/20 03:37 12/29/20 03:37 12/29/20 03:37 12/29/20 03:37 12/29/20 03:37 Oxygen Delivery Method Room Air Weight: 188 lb 0.869 oz Body Mass Index (BMI) 24.7 Intake & Output: Intake and Output for Last 24 Hours 12/27/20 12/28/20 12/29/20 23:59 23:59 23:59 Intake Total 1692.08 / 2621.25 4220.84 / 4220.84 830 / 830 Output Total 650 / 650 1625 / 1625 650 / 650 Balance 1042.08 / 1971.25 2595.84 / 2595.84 180 / 180 Medical Nutrition Assessment Dietitian: Malnutrition Criteria Met Start: 12/27/20 1 7:12 Freq: Status: Active Protocol: Document 12/27/20 17:13 RMA (Rec: 12/27/20 17:13 RMA [id number]) Nutrition Malnutrition Evidence of Malnutrition Exists Yes Malnutrition (severe): Acute Illness/Injury Evidenced By Suboptimal Energy Intake ( Severe),Weight Loss (Severe) Clinical Problem Acute Disease or Injury Related Malnutrition Etiology Severe protein-calorie malnutrition in the context of acute illness related to decreased appetite and inadequate oral intake Signs/Symptoms as evidenced by 3-4% wt loss x past 1 week and PO meeting less than 50% estimated nutrition needs. Status Active Problem Recommendation Dietitian Recommendations/Changes Continue regular diet as ordered. Will add 240ml ensure enlive ( chocolate flavor) for extra 700 kcal and 40gm pro in addition to meal intake. Adjust ONS as needed once PO established w/ meals. Lab / Micro Data Result Diagrams: 12/28/20 05:44 12/28/20 05:44 Labs: Laboratory Results - last 24 hr 12/27/20 09:40: Diff Path Review Reviewed 12/28/20 05:44: Diff Path Review Reviewed 12/28/20 05:44: Sodium 135 L, Potassium 3.4 L, Chloride 104, Carbon Dioxide 24.0, Anion Gap 7, BUN 13, Creatinine 1.26, Estim Creat Clear Calc 53.72, Est GFR (MDRD) Af Amer 71, Est GFR (MDRD) Non-Af 59 L, BUN/Creatinine Ratio 10.3, Glucose 104, Calcium 8.1 L, Total Bilirubin 0.50, AST 21, ALT 26, Alkaline Phosphatase 74, Total Protein 6.0 L, Albumin 2.2 L, Globulin 3.8, Albumin/Globulin Ratio 0.6 L Micro: Microbiology 12/27/20 09:55 Urine, Catheterized Urine Culture - Preliminary Culture exhibits no growth. 12/27/20 13:25 Nasal Secretion SARS-CoV-2 Antigen (Rapid) - Final Physical Exam Const alert and oriented x3 Resp normal respiratory effort Cardio regular rate and regular rhythm GI GI Narrative: Distended. Assessment & Plan Assessment/Plan (1) Abdominal pain of unknown etiology: PLAN: Abdomen is distended today -KUB flat and upright (2) Neutropenic fever: PLAN: Afebrile & no longer neutropenic Awaiting blood culture results -Stop Granix -Possible stopping antibiotic tomorrow if all cultures remain negative (3) Acute urinary retention: PLAN: Webber catheter in place -Awaiting urology evaluation (4) Non Hodgkin's lymphoma: QUALIFIERS: Non-Hodgkin lymphoma type: unspecified type PLAN: S/p first cycle of R-CVP stable -Follow-up with Dr. Jc next week regarding further treatment for his lymphoma
[2020-12-29 07:15] LABS: ALB/GLOB Ratio 0.6 RATIO (0.9-2.4); AST(SGOT) 18 U/L (15-37); Alanine Aminotransfer ALT/SGPT 20 U/L (16-61); Alkaline Phosphatase 68 U/L (45-117); Anion Gap 5 (5-15); BUN 12 mg/dL (7-18); BUN/Creat Ratio 11.2 RATIO (10-20); Chloride 105 mmol/L (98-107); Creatinine, Serum 1.07 mg/dL (0.70-1.30); EST Glomerular Filtration Rate 71 mL/min (>60); Est Glom Filt Rate - Afr Amer 86 mL/min (>60); Estimated Creatinine Clearance 63.26 ml/min; Globulin 3.4 g/dL (2.2-4.2); Glucose 97 mg/dL (74-106); Magnesium 1.5 mg/dL (1.6-2.6); Potassium 3.8 mmol/L (3.5-5.1); Protein, Total 5.4 g/dL (6.4-8.2); Sodium Level 133 mmol/L (136-145)
--- NOTE | 2020-12-29 07:45 | RAD_ITS ---
STUDY: X-RAY - ABDOMEN/PELVIS REASON FOR EXAM: Male, 80 years old. Abdominal pain and distention TECHNIQUE: AP supine and upright views of the abdomen and pelvis. COMPARISON: None. FINDINGS: Mild increased markings at the left lung base suggestive of left basilar atelectasis. Air-fluid levels are seen within the multiple small bowel loops. Mild gaseous distention of the colon. This most likely represents an ileus pattern. There is no demonstrated free abdominal air. The visualized liver, spleen and kidneys are grossly normal in size and morphology. Normal soft tissue structures. There are diffuse degenerative changes of the visualized lumbar spine. RAD/Abd Decub and/or Erect(Portabl IMPRESSION: Findings suggestive of an ileus bowel pattern. Electronically Signed: Praveen Oviedo MD at 13:52 EST , Service support ,
[2020-12-29 07:55] LABS: Absolute Lymphocyte Count 0.31 X10^3/uL (0.83-4.51); Absolute Neutrophil Count 4.9 X10^3/uL (2.0-7.7); Basophil# 0.07 X10^3/uL; Basophil% 1.2 % (0-1); Eosinophil# 0.02 X10^3/uL; Eosinophils% 0.3 % (0-5); Hematocrit 27.7 % (40-54); Hemoglobin 9.1 g/dL (13.0-16.5); Lymphocyte # 0.31 X10^3/ul (0.83-4.51); Lymphocyte % 5.1 % (19-41); Mean Corp Hgb Conc 32.9 g/dL (32-36); Mean Corpuscular Hgb 32.5 pg (27.0-32.0); Mean Corpuscular Volume 98.9 fL (80-94); Mean Platelet Vol. 10.8 fl (6.2-12.0); Monocyte# 0.68 X10^3/uL; Monocyte% 11.2 % (0-10); NRBC Flagged by Analyzer 0 % (0-5); Neutrophil # 4.93 X10^3/uL (2.7-7.7); POSITIVE DIFFERENTIAL YES; POSITIVE MORPHOLOGY YES; Platelet Count 177 K/mm3 (150-450); RBC Distribution Width CV 13.3 % (11.6-14.6); RBC Distribution Width SD 47.8 fl (35.1-43.9); White Blood Count 6.1 K/mm3 (4.4-11.0)
[2020-12-29 07:57] LABS: Differential Indicated SCAN CRITERIA MET
[2020-12-29] MEDS: Metoprolol Tartrate 50 MG Tablet PO (09:36)
[2020-12-29] MEDS: Enoxaparin 100 MG/ML Syringe 90 MG SC ×2 (09:36→21:21)
[2020-12-29] MEDS: Lisinopril 2.5 MG Tablet PO ×2 (09:37→21:21)
[2020-12-29] MEDS: Cyanocobalamin 500 MCG Tablet 1000 MCG PO (09:37)
[2020-12-29] MEDS: Aspirin E.C. 81 MG Tablet PO (09:37)
[2020-12-29] MEDS: Allopurinol 100 MG Tablet PO ×2 (09:37→18:00)
[2020-12-29] MEDS: Pantoprazole Sodium 20 MG Tablet PO (09:37)
[2020-12-29] MEDS: Atorvastatin Calcium 40 MG Tablet PO (09:38)
[2020-12-29] MEDS: Fluticasone 0.05% 1 SPRAY NASAL.SRY 2 SPRAY NASAL (09:38)
[2020-12-29] MEDS: NYSTATIN 500,000 UNIT/5 ML UDC 500000 UNIT PO ×4 (09:39→21:21)
[2020-12-29] MEDS: Bisacodyl 10 MG Suppository RC (09:53)
--- NOTE | 2020-12-29 11:05 | CASEMGMT ---
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 Patient is aware they are not on file. Patient's , Fouzia is his Healthcare POA. Brandi PACHECO
--- NOTE | 2020-12-29 11:36 | PN.HOSP_ITS ---
Subjective Subjective Follow-up on neutropenic fever: Patient was seen and examined. He has not had any bowel movement including flatus. He admits to abdominal distention. KUB shows ileus. Objective Data Objective Data Vital Signs: Vital Signs Temp Pulse Resp BP Pulse Ox 97.8 F 102 H 18 116/75 98 12/29/20 09:29 12/29/20 09:36 12/29/20 09:29 12/29/20 09:29 12/29/20 09:29 Oxygen Delivery Method Room Air Weight: 85.3 kg Body Mass Index (BMI) 24.7 Intake & Output: Intake and Output for Last 24 Hours 12/27/20 12/28/20 12/29/20 23:59 23:59 23:59 Intake Total 1692.08 / 2621.25 4220.84 / 4220.84 880 / 880 Output Total 650 / 650 1625 / 1625 650 / 650 Balance 1042.08 / 1971.25 2595.84 / 2595.84 230 / 230 Medical Nutrition Assessment Dietitian: Malnutrition Criteria Met Start: 12/27/20 17:12 Freq: Status: Active Protocol: Document 12/27/20 17:13 RMA (Rec: 12/27/20 17:13 RMA [id number]) Nutrition Malnutrition Evidence of Malnutrition Exists Yes Malnutrition (severe): Acute Illness/Injury Evidenced By Suboptimal Energy Intake ( Severe),Weight Loss (Severe) Clinical Problem Acute Disease or Injury Related Malnutrition Etiology Severe protein-calorie malnutrition in the context of acute illness related to decreased appetite and inadequate oral intake Signs/Symptoms as evidenced by 3-4% wt loss x past 1 week and PO meeting less than 50% estimated nutrition needs. Status Active Problem Recommendation Dietitian Recommendations/Changes Continue regular diet as ordered. Will add 240ml ensure enlive ( chocolate flavor) for extra 700 kcal and 40gm pro in addition to meal intake. Adjust ONS as needed once PO established w/ meals. Lab / Micro Data Result Diagrams: 12/29/20 05:34 12/29/20 05:34 Labs: Laboratory Results - last 24 hr 12/27/20 09:40: Diff Path Review Reviewed 12/28/20 05:44: Diff Path Review Reviewed 12/29/20 05:34: Sodium 133 L, Potassium 3.8, Chloride 105, Carbon Dioxide 23.0, Anion Gap 5, BUN 12, Creatinine 1.07, Estim Creat Clear Calc 63.26, Est GFR (MDRD) Af Amer 86, Est GFR (MDRD) Non-Af 71, BUN/Creatinine Ratio 11.2, Glucose 97, Calcium 8.0 L, Magnesium 1.5 L, Total Bilirubin 0.60, AST 18, ALT 20, Alkaline Phosphatase 68, Total Protein 5.4 L, Albumin 2.0 L, Globulin 3.4, Albumin/Globulin Ratio 0.6 L 12/29/20 05:34: WBC 6.1, RBC 2.80 L, Hgb 9.1 L, Hct 27.7 L, MCV 98.9 H, MCH 32.5 H, MCHC 32.9, RDW Std Deviation 47.8 H, RDW Coeff of Jackelyn 13.3, Plt Count 177, MPV 10.8, Immature Gran % (Auto) 1.200 H, Neut % (Auto) 81.0 H, Lymph % (Auto) 5.1 L, [place] % (Auto) 11.2 H, Eos % (Auto) 0.3, Baso % (Auto) 1.2 H, Absolute Melinda ts (auto) 4.9, Absolute Lymphs (auto) 0.31 L, Nucleated RBC % 0 Micro: Microbiology 12/27/20 09:55 Urine, Catheterized Urine Culture - Final Culture exhibits no growth. 12/27/20 10:03 Blood Culture (Wb) - Right Forearm Blood Culture - Preliminary No growth in 48 hours. 12/27/20 09:40 Blood Culture (Wb) - Anticubital Right Blood Culture - Prel iminary No growth in 48 hours. 12/27/20 13:25 Nasal Secretion SARS-CoV-2 Antigen (Rapid) - Final Physical Exam Narrative Physical exam: General: Alert, Oriented x3, Cooperative, No apparent distress, Well developed HEENT: Atraumatic Oral: Moist Mucosa Neck: Supple Lungs: Clear to auscultation Cardiovascular: HS I+II, regular, no murmurs Abdomen: Bowel Sounds hypoactive, Soft, Non Tender, no palpable organs Extremities: No edema Assessment & Plan Assessment/Plan (1) Neutropenic fever: (2) Chemotherapy induced neutropenia: (3) Acute urinary retention: PLAN: 1. Acute neutropenic fever, patient on chemotherapy for non- Hodgkin's lymphoma, resolved Admitting WBC count was 0.6, absolute neutrophil count was 100 WBC now is 6.1 UA is unremarkable, admitting chest x-ray is unremarkable Continue on IV Zosyn, discontinue Granix Repeat blood work in a.m. Follow-up on blood cultures 2. Ileus, KUB shows ileus, will keep n.p.o., IV fluids, replace electrolytes, encourage ambulation 3. Hypomagnesemia, Mg 1.5, replaced, recheck in a.m. 4. Hyponatremia secondary to dehydration, remains about the same 5. CKD stage IIIa, Cr improved, Cr is 1.07, continue IVF Repeat BMP in am 6. Recent PE, continue on Lovenox subcu twice daily 7. Rest of chronic medical conditions are stable - CAD, GERD, Hypertension, Hyperlipidemia 8. DVT prophylaxis?Lovenox subcu Charges/Coding Visit Charges Inpatient E&M: 09611 Subs Hosp L3
--- NOTE | 2020-12-29 17:06 | EX.PCM.CON.S ---
Assessment & Plan Assessment/Plan (1) Ileus: PLAN: This is a 80-year-old male on concurrent chemotherapy for diagnosis of non-Hodgkin's lymphoma to whom I am consulted for evaluation of an ileus. Just prior to my arrival the patient had 2 loose bowel movements and his symptoms are significantly improved. He confirms that he continues to pass flatus beyond these bowel movements. He has had minimal surgical history but did have a bowel obstruction in 2009 that resolved with conservative management. His imaging is reviewed for this admission and CT is unremarkable for any significant bowel patterns on intake. His abdominal x-ray imaging was notable for some mild bowel distention and diffuse air-fluid levels but agree with radiology this was consistent with a ileus. I have advised the patient to stick to sips of clear liquid diet this evening and as long as he tolerates this with ongoing bowel function, it would be reasonable to advance him as tolerated starting tomorrow. HPI Consult Data Date of Consult: 12/29/20 HPI Narrative HPI Narrative: DOUGIE YING, is a 80 M with a complex past medical history inclusive of non-Hodgkin's lymphoma currently on chemotherapy and abdominal aortic aneurysm (maximal aneurysmal diameter 5.7 cm) who presented to [facility] on 12/27/2020 after a day of acute?onset abdominal pain. Noted with neutropenic fever and started on broad-spectrum antibiotics, but was ultimately diagnosed with urinary retention and had 2 L of urine drained from his bladder after insertion of a Webber catheter. He and his both provide the history for this encounter, but they state he initially experienced some relief of his abdominal pain and had experienced loose bowel movements the day of his admission. Then over the last 24 hours, he stopped passing gas and experienced more abdominal distention. KUB was obtained that showed evidence of ileus. Surgery was consulted following this presentation and radiographic result. However, prior to my visit Mr. Ying states that he resumed passage of flatus and has experienced 2 loose bowel movements. This is resulted in significant improvement in his symptoms of abdominal pain and distention. Regarding patient's past surgical history, his only abdominal surgery was the umbilical hernia repair approximately 60 years ago. He was admitted in 2009 with a small bowel obstruction but this resolved spontaneously with placement of a nasogastric tube. Then according to the record, he was diagnosed with acute pancreatitis in 2018 but this, too, resolved with conservative management. Lastly he reports consistent screening colonoscopies and states his last colonoscopy was unremarkable for its findings and was performed winter 2019. [facility] Medical History (Updated 12/29/20 @ 17:[address] Elvin Torres MD) Abdominal aortic aneurysm Acute pancreatitis CAD (coronary artery disease) GERD (gastroesophageal reflux disease) Gout Heavy alcohol consumption Hyperlipidemia Hypertension Hypomagnesemia Hypophosphatemia Nicotine dependence Non Hodgkin's lymphoma Home Medications flunisolide 2 spry NASAL DAILY 04/23/15 [History Last Taken Unknown] lisinopril 2.5 mg PO BID 04/23/15 [History Last Taken Unknown] metoprolol tartrate 50 mg PO DAILY 04/23/15 [History Last Taken Unknown] aspirin 81 mg tablet,delayed release 81 mg PO DAILY 10/06/18 [History Last Taken Unknown] nitroglycerin 0.4 mg sublingual tablet 0.4 mg SUBLINGUAL Q5-15M 10/06/18 [History Last Taken Unknown] icosapent ethyl 1 gram capsule 2 g PO BID #120 cap 04/20/20 [Rx Last Taken Unknown] rosuvastatin 20 mg tablet 20 mg PO DAILY #90 tab 06/22/20 [Rx Last Taken Unknown] omeprazole 20 mg capsule,delayed release 20 mg PO DAILY #90 cap 06/23/20 [Rx Last Taken Unknown] cyanocobalamin (vitamin B-12) 1,000 mcg capsule 1,000 mcg PO DAILY #90 cap 08/31/20 [Rx Last Taken Unknown] allopurinol 100 mg tablet 100 mg PO BID #60 tab 11/09/20 [Rx Last Taken Unknown] meloxicam 15 mg tablet 15 mg PO DAILY #90 tab 11/09/20 [Rx Last Taken Unknown] enoxaparin [Lovenox] 90 mg SUBCUT Q12H #60 ml 12/23/20 [Rx Last Taken Unknown] Allergy/AdvReac Type Severity Reaction Status Date / Time erythromycin base Allergy Unknown Verified 12/27/20 09:31 Sulfa (Sulfonamide Allergy Unknown Verified 12/27/20 09:31 Antibiotics) Family History (Updated 12/27/20 @ 17:[address] Azeb Alvarado MD) Brother CAD (coronary artery disease) Mother Heart disease Father Heart disease Surgical History H/O Mohs micrographic surgery for skin cancer S/P TURP Status post coronary artery stent placement Social History household members: spouse Smoking Status: Former smoker quit date: 02/18/18 alcohol intake: current alcohol intake frequency: a few times a week Alcohol type: wine substance use type: does not use Physical Exam Const alert, oriented x3 and no apparent distress General Appearance: cooperative GI GI Narrative: Umbilical scar present. Minor abdominal distention. Patient nontender to palpation x4 quadrants. Patient mildly tympanic in the left upper quadrant percussion. Inspection: scar Medical Records Data Medical Nutrition Assessment Dietitian: Malnutrition Criteria Met Start: 12/27/20 17:12 Freq: Status: Active Protocol: Document 12/27/20 17:13 RMA (Rec: 12/27/20 17:13 RMA [id number]) Nutrition Malnutrition Evidence of Malnutrition Exists Yes Malnutrition (severe): Acute Illness/Injury Evidenced By Suboptimal Energy Intake ( Severe),Weight Loss (Severe) Clinical Problem Acute Disease or Injury Related Malnutrition Etiology Severe protein-calorie malnutrition in the context of acute illness related to decreased appetite and inadequate oral intake Signs/Symptoms as evidenced by 3-4% wt loss x past 1 week and PO meeting less than 50% estimated nutrition needs. Status Active Problem Recommendation Dietitian Recommendations/Changes Continue regular diet as ordered. Will add 240ml ensure enlive ( chocolate flavor) for extra 700 kcal and 40gm pro in addition to meal intake. Adjust ONS as needed once PO established w/ meals. Lab / Micro Data Result Diagrams: 12/29/20 05:34 12/29/20 05:34 Labs: Laboratory Results - last 24 hr 12/29/20 05:34: Sodium 133 L, Potassium 3.8, Chloride 105, Carbon Dioxide 23.0, Anion Gap 5, BUN 12, Creatinine 1.07, Estim Creat Clear Calc 63.26, Est GFR (MDRD) Af Amer 86, Est GFR (MDRD) Non-Af 71, BUN/Creatinine Ratio 11.2, Glucose 97, Calcium 8.0 L, Magnesium 1.5 L, Total Bilirubin 0.60, AST 18, ALT 20, Alkaline Phosphatase 68, Total Protein 5.4 L, Albumin 2.0 L, Globulin 3.4, Albumin/Globulin Ratio 0.6 L 12/29/20 05:34: WBC 6.1, RBC 2.80 L, Hgb 9.1 L, Hct 27.7 L, MCV 98.9 H, MCH 32.5 H, MCHC 32.9, RDW Std Deviation 47.8 H, RDW Coeff of Jackelyn 13.3, Plt Count 177, MPV 10.8, Immature Gran % (Auto) 1.200 H, Neut % (Auto) 81.0 H, Lymph % (Auto) 5.1 L, [place] % (Auto) 11.2 H, Eos % (Auto) 0.3, Baso % (Auto) 1.2 H, Absolute Neuts (auto) 4.9, Absolute Lymphs (auto) 0.31 L, Nucleated RBC % 0 Micro: Microbiology 12/27/20 09:55 Urine, Catheterized Urine Culture - Final Culture exhibits no growth. 12/27/20 10:03 Blood Culture (Wb) - Right Forearm Blood Culture - Preliminary No growth in 48 hours. 12/27/20 09:40 Blood Culture (Wb) - Anticubital Right Blood Culture - Preliminary No growth in 48 hours. Radiology Impression Abdomen X-Ray 12/29/20 07:45 IMPRESSION: Findings suggestive of an ileus bowel pattern. Electronically Signed: Praveen Oviedo MD at 13:52 EST , Service support , Charges/Coding Visit Charges Inpatient E&M: 81915 Init Hosp L2
[2020-12-29] MEDS: Tamsulosin HCl 0.4 MG Capsule PO (18:01)
[2020-12-30 03:00] VITALS: BP 124/68; PULSE 64; PULSE 80; RESP 18; TEMP 36.9; O2SAT 94
[2020-12-30] MEDS: Acetaminophen 325 MG Tablet 650 MG PO (05:05)
[2020-12-30 06:57] VITALS: PULSE 89
--- NOTE | 2020-12-30 08:55 | PN.SURG_ITS ---
Subjective Subjective Patient seen and examined during AM rounds. He reports that he continues to pass some gas but had no further bowel movements overnight. He states that he tolerated his advancement to a clear liquid diet without any subsequent nausea. He states he may be mildly distended but is nearing his baseline abdominal prof ile. Objective Data Objective Data Vital Signs: Vital Signs Temp Pulse Resp BP Pulse Ox 98.5 F 89 18 124/68 H 94 12/30/20 03:00 12/30/20 06:57 12/30/20 03:00 12/30/20 03:00 12/30/20 03:00 Oxygen Delivery Method Room Air Weight: 188 lb 0.869 oz Body Mass Index (BMI) 24.7 Intake & Output: Intake and Output for Last 24 Hours 12/28/20 12/29/20 12/30/20 23:59 23:59 23:59 Intake Total 4220.84 / 4220.84 2514 / 2514 50 / 50 Output Total 1625 / 1625 1425 / 1425 775 / 775 Balance 2595.84 / 2595.84 1089 / 1089 -725 / -725 Medical Nutrition Assessment Dietitian: Malnutrition Criteria Met Start: 12/27/20 17:12 Freq: Status: Active Protocol: Document 12/27/20 17:13 RMA (Rec: 12/27/20 17:13 RMA [id number]) Nutrition Malnutrition Evidence of Malnutrition Exists Yes Malnutrition (severe): Acute Illness/Injury Evidenced By Suboptimal Energy Intake ( Severe),Weight Loss (Severe) Clinical Problem Acute Disease or Injury Related Malnutrition Etiology Severe protein-calorie malnutrition in the context of acute illness related to decreased appetite and inadequate oral intake Signs/Symptoms as evidenced by 3-4% wt loss x past 1 week and PO meeting less than 50% estimated nutrition needs. Status Active Problem Recommendation Dietitian Recommendations/Changes Continue regular diet as ordered. Will add 240ml ensure enlive ( chocolate flavor) for extra 700 kcal and 40gm pro in addition to meal intake. Adjust ONS as needed once PO established w/ meals. Lab / Micro Data Result Diagrams: 12/29/20 05:34 12/29/20 05:34 Micro: Microbiology 12/27/20 09:55 Urine, Catheterized Urine Culture - Final Culture exhibits no growth. 12/27/20 10:03 Blood Culture (Wb) - Right Forearm Blood Culture - Preliminary No growth in 48 hours. 12/27/20 09:40 Blood Culture (Wb) - Anticubital Right Blood Culture - Preliminary No growth in 48 hours. 12/27/20 13:25 Nasal Secretion SARS-CoV-2 Antigen (Rapid) - Final Radiography Diagnostic Testing: Radiology Impression Abdomen X-Ray 12/29/20 07:45 IMPRESSION: Findings suggestive of an ileus bowel pattern. Electronically Signed: Praveen Oviedo MD at 13:52 EST , Service support , Physical Exam Const no apparent distress Resp normal respiratory effort GI GI Narrative: Mild abdominal distention, nontender to palpation x4 quadrants Assessment & Plan Assessment/Plan (1) Ileus: PLAN: Patient admitted for neutropenic fever with urinary retention who subsequently developed a ileus. Ileus now resolving with 2 bowel movements yesterday and ongoing bowel function. Tolerating clear liquid diet yesterday. Okay to advance diet as tolerated today. Charges/Coding Visit Charges Inpatient E&M: 77170 Subs Hosp L2
[2020-12-30 09:26] LABS: Absolute Neutrophil Count 9.2 X10^3/uL (2.0-7.7); Basophil# 0.05 X10^3/uL; Eosinophil# 0.02 X10^3/uL; Hematocrit 30.5 % (40-54); Mean Corp Hgb Conc 32.8 g/dL (32-36); Mean Corpuscular Hgb 32.4 pg (27.0-32.0); Mean Corpuscular Volume 98.7 fL (80-94); Mean Platelet Vol. 9.8 fl (6.2-12.0); Monocyte# 0.64 X10^3/uL; NRBC Flagged by Analyzer 0 % (0-5); POSITIVE DIFFERENTIAL YES; POSITIVE MORPHOLOGY YES; Platelet Count 230 K/mm3 (150-450); RBC Distribution Width CV 13.4 % (11.6-14.6); RBC Distribution Width SD 48.7 fl (35.1-43.9); Red Blood Count 3.09 M/mm3 (4.6-6.2); White Blood Count 10.5 K/mm3 (4.4-11.0)
[2020-12-30 09:32] LABS: Differential Indicated SCAN CRITERIA MET
[2020-12-30 09:43] VITALS: BP 133/80; PULSE 98; RESP 16; TEMP 36.4; O2SAT 97
[2020-12-30] MEDS: Aspirin E.C. 81 MG Tablet PO (09:45)
[2020-12-30] MEDS: Atorvastatin Calcium 40 MG Tablet PO (09:45)
[2020-12-30] MEDS: Pantoprazole Sodium 20 MG Tablet PO (09:45)
[2020-12-30 09:46] VITALS: PULSE 98
[2020-12-30] MEDS: Allopurinol 100 MG Tablet PO ×2 (09:46→16:38)
[2020-12-30] MEDS: Lisinopril 2.5 MG Tablet PO (09:46)
[2020-12-30] MEDS: Metoprolol Tartrate 50 MG Tablet PO (09:46)
[2020-12-30] MEDS: Cyanocobalamin 500 MCG Tablet 1000 MCG PO (09:46)
[2020-12-30] MEDS: NYSTATIN 500,000 UNIT/5 ML UDC 500000 UNIT PO (09:47)
[2020-12-30] MEDS: Fluticasone 0.05% 1 SPRAY NASAL.SRY 2 SPRAY NASAL (09:47)
[2020-12-30] MEDS: Enoxaparin 100 MG/ML Syringe 90 MG SC (09:47)
[2020-12-30 10:01] LABS: ALB/GLOB Ratio 0.6 RATIO (0.9-2.4); AST(SGOT) 27 U/L (15-37); Alanine Aminotransfer ALT/SGPT 22 U/L (16-61); Albumin, Serum 2.4 g/dL (3.2-5.0); Alkaline Phosphatase 89 U/L (45-117); Anion Gap 8 (5-15); BUN 10 mg/dL (7-18); BUN/Creat Ratio 8.8 RATIO (10-20); Calcium,Total 8.7 mg/dL (8.5-10.1); Chloride 105 mmol/L (98-107); Creatinine, Serum 1.14 mg/dL (0.70-1.30); EST Glomerular Filtration Rate 66 mL/min (>60); Est Glom Filt Rate - Afr Amer 80 mL/min (>60); Estimated Creatinine Clearance 59.38 ml/min; Glucose 148 mg/dL (74-106); Potassium 4.2 mmol/L (3.5-5.1); Protein, Total 6.4 g/dL (6.4-8.2); Sodium Level 135 mmol/L (136-145)
[2020-12-30 10:16] LABS: Lymphocyte 5 % (19-41); Metamyelocyte 4 % (0-1); Monocyte 2 % (0-10); Myelocyte 2 % (0-0); Neutrophil-Band 10 % (0-5); Neutrophil-Segmented 77 % (47-70); Platelet Estimate ADEQUATE (ADEQ); Red Cell Morphology NORM C+C NORMAL (NORM C&C); Total Cells Counted 100 (MANUAL DIFF)
[2020-12-30 10:17] LABS: Scan Smear per Review Criteria MANUAL DIFF
[2020-12-30 10:18] LABS: Neutrophil # 9.15 X10^3/uL (2.7-7.7)
[2020-12-30 10:19] LABS: Absolute Lymphocyte Count 0.52 X10^3/uL (0.83-4.51); Lymphocyte # 0.52 X10^3/ul (0.83-4.51)
--- NOTE | 2020-12-30 12:22 | PCM.DC ---
Discharge Instructions Diet Discharge Diet: No restrictions Activity Discharge Activity: Return to Normal Activity Follow Up Care Test Results: Test results from this visit will be discussed in further detail at your follow-up appointment, if applicable. Discharge Plan Admission Admit Date/Time: 12/27/20 12:11 Primary Reason for Your Visit: Acute neutropenic fever Attending Provider: Azeb Alvarado Primary Care Provider: Jaden Monterroso Consulting Providers: Nicanor Luu ; Elvin Torres Instructions Additional Instructions / Restrictions: Continue on a regular diet. Continue to keep yourself hydrated. Follow-up with Dr. Jc as scheduled. Discharge Orders/Prescriptions Prescriptions: No Action nitroglycerin 0.4 mg tablet, sublingual 0.4 mg SUBLINGUAL Q5-15M RF: 0 aspirin [Adult Low Dose Aspirin] 81 mg tablet,delayed release (DR/EC) 81 mg PO DAILY RF: 0 rosuvastatin 20 mg tablet 20 mg PO DAILY Qty: 90 RF: 1 cyanocobalamin (vitamin B-12) 1,000 mcg capsule 1,000 mcg PO DAILY Qty: 90 RF: 0 flunisolide 25 ML spray,non-aerosol 2 spry NASAL DAILY RF: 0 metoprolol tartrate 50 MG tablet 50 mg PO DAILY RF: 0 lisinopril 5 MG tablet 2.5 mg PO BID RF: 0 enoxaparin [Lovenox] 100 mg/mL syringe 90 mg subcut Q12H Qty: 60 RF: 0 icosapent ethyl [Vascepa] 1 gram capsule 2 g PO BID Qty: 120 RF: 3 omeprazole 20 mg capsule,delayed release(DR/EC) 20 mg PO DAILY Qty: 90 RF: 3 allopurinol 100 mg tablet 100 mg PO BID Qty: 60 RF: 4 meloxicam 15 mg tablet 15 mg PO DAILY Qty: 90 RF: 1 Referrals / Follow Up: Jaden Monterroso DO [Primary Care Provider] - Within 2 Weeks Joce Jc DO [STAFF PHYSICIAN] - Within 2 Weeks Disposition Disposition (needs filled in before D/C Order can be placed): Home, Self Care
--- NOTE | 2020-12-30 12:26 | DS.PCM_ITS ---
Providers Date of Admission: 12/27/20 Primary Care Physician: Dr. Jaden Monterroso, Consultations 12/27/20 17:50 Consult: Oncology/Hematology Routine Consulting Provider: Nicanor Luu Reason for Consult: Neutropenic fever EMERGENT Consult: No MD Notified: Yes Date Notified: 12/27/20 Time Notified: 18:22 Method of Notification: telephone 12/29/20 16:33 Consult: General Surgery Routine Consulting Provider: Elvin Torres Reason for Consult: Ileus EMERGENT Consult: No Notified: Yes Date Notified: 12/29/20 Time Notified: 16:40 Method of Notification: Text Reason For Visit: NEUTROENIC SEPSIS Diagnosis Discharge Diagnosis (1) Ileus: Status: Resolved Code(s): K56.7 - Ileus, unspecified (2) Neutropenic fever: Status: Resolved Code(s): D70.9 - Neutropenia, unspecified; R50.81 - Fever presenting with conditions classified elsewhere (3) Neutropenia: Status: Resolved Code(s): D70.9 - Neutropenia, unspecified (4) Elevated lactic acid level: Status: Resolved Code(s): R79.89 - Other specified abnormal findings of blood chemistry (5) Acute urinary retention: Status: Resolved Code(s): R33.8 - Other retention of urine Medications at Discharge Home Medications flunisolide 2 spry NASAL DAILY 04/23/15 lisinopril 2.5 mg PO BID 04/23/15 metoprolol tartrate 50 mg PO DAILY 04/23/15 aspirin 81 mg tablet,delayed release 81 mg PO DAILY 10/06/18 nitroglycerin 0.4 mg sublingual tablet 0.4 mg SUBLINGUAL Q5-15M 10/06/18 icosapent ethyl 1 gram capsule 2 g PO BID #120 cap 04/20/20 rosuvastatin 20 mg tablet 20 mg PO DAILY #90 tab 06/22/20 omeprazole 20 mg capsule,delayed release 20 mg PO DAILY #90 cap 06/23/20 cyanocobalamin (vitamin B-12) 1,000 mcg capsule 1,000 mcg PO DAILY #90 cap 08/31/20 allopurinol 100 mg tablet 100 mg PO BID #60 tab 11/09/20 meloxicam 15 mg tablet 15 mg PO DAILY #90 tab 11/09/20 enoxaparin [Lovenox] 90 mg SUBCUT Q12H #60 ml 12/23/20 nystatin 500,000 unit PO 4X/DAY 7 Days #140 ml 12/30/20 tamsulosin 0.4 mg PO DAILY@1730 30 Days #30 cap 12/30/20 Hospital Course Operations None Procedures None Summary of Care Provided Minutes Spent on Discharge: 45 Hospital Course: 80-year-old male with past medical history of non-Hodgkin's lymphoma undergoing chemotherapy with Dr. Jc who comes in with abdominal pain and fever. Patient has history of BPH status post TURP. He also has history of recent PE and is on therapeutic Lovenox. In the emergency department, he was found to have a distended bladder. Webber catheter placement had 2 L of urine removed. Patient was also found to have severe pancytopenia, WBC count was 0.6, followed neutrophil count 600. The rest of his admitting work-up was unremarkable. He was started on Granix and IV Zosyn. His white cell count gradually improved. He was normal at discharge During the course of the hospital stay, patient developed ileus confirmed with KUB. He was kept n.p.o. electrolytes were replaced, he was ambulated. General surgery were consulted in the hospital stay. Ileus resolved. He tolerated advancement in his diet. Patient was also started on Flomax. Voiding trial on the day of discharge was unsuccessful. He was discharged with an Webber catheter and leg bag and asked to follow-up with Dr. Gonzalez in the outpatient within a week or two. Patient knows to follow-up with Dr. Jc as scheduled. Physical Exam Narrative Physical exam: General: Alert, Oriented x3, Cooperative, No apparent distress, Well developed HEENT: Atraumatic Oral: Moist Mucosa Neck: Supple Lungs: Clear to auscultation Cardiovascular: HS I+II, regular, no murmurs Abdomen: Bowel Sounds active, Soft, Non Tender, no palpable organs Extremities: No edema Medical Records Data Medical Nutrition Assessment Dietitian: Malnutrition Criteria Met Start: 12/27/20 17:12 Freq: Status: Active Protocol: Document 12/27/20 17:13 RMA (Rec: 12/27/20 17:13 RMA [id number]) Nutrition Malnutrition Evidence of Malnutrition Exists Yes Malnutrition (severe): Acute Illness/Injury Evidenced By Suboptimal Energy Intake ( Severe),Weight Loss (Severe) Clinical Problem Acute Disease or Injury Related Malnutrition Etiology Severe protein-calorie malnutrition in the context of acute illness related to decreased appetite and inadequate oral intake Signs/Symptoms as evidenced by 3-4% wt loss x past 1 week and PO meeting less than 50% estimated nutrition needs. Status Active Problem Recommendation Dietitian Recommendations/Changes Continue regular diet as ordered. Will add 240ml ensure enlive ( chocolate flavor) for extra 700 kcal and 40gm pro in addition to meal intake. Adjust ONS as needed once PO established w/ meals. Weight / BMI Weight Weight: 85.3 kg Body Mass Index (BMI) 24.7 ABG / Lab / Microbiology Data Result Diagrams: 12/30/20 09:10 12/30/20 09:10 Laboratory: Laboratory Results - last 24 hr 12/30/20 09:10: WBC 10.5, RBC 3.09 L, Hgb 10.0 L, Hct 30.5 L, MCV 98.7 H, MCH 32.4 H, MCHC 32.8, RDW Std Deviation 48.7 H, RDW Coeff of Jackelyn 13.4, Plt Count 230, MPV 9.8, Immature Gran % (Auto) BUSINESS CHANGE MANAGER, Neut % (Auto) BUSINESS CHANGE MANAGER, Lymph % (Auto) BUSINESS CHANGE MANAGER, [place] % (Auto) BUSINESS CHANGE MANAGER, Eos % (Auto) BUSINESS CHANGE MANAGER, Baso % (Auto) BUSINESS CHANGE MANAGER, Absolute Neuts (auto) 9.2 H , Absolute Lymphs (auto) 0.52 L, Total Counted 100, Neutrophils % (Manual) 77 H, Band Neutrophils % 10 H, Lymphocytes % (Manual) 5 L, Monocytes % (Manual) 2, Metamyelocytes % 4 H, Myelocytes % 2 H, Nucleated RBC % 0, Diff Path Review May foll, Platelet Estimate ADEQUATE, RBC Morphology NORM C+C 12/30/20 09:10: Sodium 135 L, Potassium 4.2, Chloride 105, Carbon Dioxide 22.0, Anion Gap 8, BUN 10, Creatinine 1.14, Estim Creat Clear Calc 59.38, Est GFR (MDRD) Af Amer 80, Est GFR (MDRD) Non-Af 66, BUN/Creatinine Ratio 8.8 L, Glucose 148 H, Calcium 8.7, Magnesium 2.0, Total Bilirubin 0.50, AST 27, ALT 22, Alkaline Phosphatase 89, Total Protein 6.4, Albumin 2.4 L, Globulin 4.0, Albumin/Globulin Ratio 0.6 L Microbiology: Microbiology 12/27/20 09:55 Urine, Catheterized Urine Culture - Final Culture exhibits no growth. 12/27/20 10:03 Blood Culture (Wb) - Right Forearm Blood Culture - Preliminary No growth in 48 hours. 12/27/20 09:40 Blood Culture (Wb) - Anticubital Right Blood Culture - Preliminary No growth in 48 hours. 12/27/20 13:25 Nasal Secretion SARS-CoV-2 Antigen (Rapid) - Final Radiography Diagnostic Testing: Radiology Impression Abdomen X-Ray 12/29/20 07:45 IMPRESSION: Findings suggestive of an ileus bowel pattern. Electronically Signed: Praveen Oviedo MD at 13:52 EST , Service support , D/C Instructions Discharge Diet: No restrictions Meaningful Use Info Meaningful Use Diagnoses (Choose all that apply): None applicable Discharge Plan Admission Admit Date/Time: 12/27/20 12:11 Primary Reason for Your Visit: Acute neutropenic fever Attending Provider: Azeb Alvarado Primary Care Provider: Jaden Monterroso Consulting Providers: Nicanor Luu ; Elvin Torres Instructions Additional Instructions / Restrictions: Continue on a regular diet. Continue to keep yourself hydrated. Follow-up with Dr. Jc as scheduled. Discharge Orders/Prescriptions Prescriptions: New nystatin 100,000 unit/mL Suspension 500,000 unit PO 4X/DAY 7 Days Qty: 140 RF: 0 tamsulosin 0.4 mg Capsule 0.4 mg PO DAILY@1730 30 Days Qty: 30 RF: 0 Continued nitroglycerin 0.4 mg tablet, sublingual 0.4 mg SUBLINGUAL Q5-15M RF: 0 aspirin [Adult Low Dose Aspirin] 81 mg tablet,delayed release (DR/EC) 81 mg PO DAILY RF: 0 rosuvastatin 20 mg tablet 20 mg PO DAILY Qty: 90 RF: 1 cyanocobalamin (vitamin B-12) 1,000 mcg capsule 1,000 mcg PO DAILY Qty: 90 RF: 0 flunisolide 25 ML spray,non-aerosol 2 spry NASAL DAILY RF: 0 metoprolol tartrate 50 MG tablet 50 mg PO DAILY RF: 0 lisinopril 5 MG tablet 2.5 mg PO BID RF: 0 enoxaparin [Lovenox] 100 mg/mL syringe 90 mg subcut Q12H Qty: 60 RF: 0 icosapent ethyl [Vascepa] 1 gram capsule 2 g PO BID Qty: 120 RF: 3 omeprazole 20 mg capsule,delayed release(DR/EC) 20 mg PO DAILY Qty: 90 RF: 3 allopurinol 100 mg tablet 100 mg PO BID Qty: 60 RF: 4 meloxicam 15 mg tablet 15 mg PO DAILY Qty: 90 RF: 1 Referrals / Follow Up: Jaden Monterroso DO [Primary Care Provider] - 01/05/21 10:30 am Dung Gonzalez MD [STAFF PHYSICIAN] - Within 1 Week (OFFICE CURRENTLY CL OSED. PLEASE CALL SATURDAY FOR A FOLLOW UP APPOINTMENT. ) Joce Jc DO [STAFF PHYSICIAN] - 01/03/21 10:50 am Disposition Disposition (needs filled in before D/C Order can be placed): Home, Self Care Charges/Coding Visit Charges Inpatient E&M: 96901 Disch Hosp
[2020-12-30 13:48] VITALS: BP 125/78; PULSE 55; RESP 16; TEMP 36.5; O2SAT 100
--- NOTE | 2020-12-30 14:15 | NURSING ---
Read and reviewed SN documentation
[2020-12-30 14:51] VITALS: PULSE 57
[2020-12-30] MEDS: Tamsulosin HCl 0.4 MG Capsule PO ×2 (16:37→16:38)
--- NOTE | 2020-12-30 17:00 | NURSING ---
Webber catheter inserted. 950ml of immediate urine return. Leg bag connected and pt given instructions on leg bag.
[2021-01-02 10:12] LABS: Pathologist Review Reviewed
--- NOTE | 2021-01-02 13:36 | CASEMGMT ---
FABIO ORELLANA Discharge Follow-up Phone Call: DANIEL: Ken Strata: 3 Call Date: 01/02/21 Discharge Date: 12/30/20 Time of Call: 1330 Duration: 5 min Admitting Diagnosis: Neutropenic sepsis RN REYNA completed follow-up phone call after recent hospitalization. , Fouzia, answered phone and states patient is doing okay. did not have any questions or concerns regarding discharge instructions. aware of follow-up appts. Patient was able to fill prescriptions without any issues. had no further questions at this time.
== END 2020-12-30 18:01 | disposition home or self-care (01) | DRG 808 ==
LOC: ED 12:05 → PCU 12:25
PROVIDERS: Admitting Provider Internal Medicine; Emergency Provider Emergency Medicine; PCP Family Medicine; Visit Provider Internal Medicine
DX: D70.1 Agranulocytosis secondary to cancer chemotherapy (principal); E43 Unspecified severe protein-calorie malnutrition; I26.99 Other pulmonary embolism without acute cor pulmonale; C82.10 Follicular lymphoma grade II, unspecified site; E87.1 Hypo-osmolality and hyponatremia; K56.7 Ileus, unspecified; T45.1X5A Adverse effect of antineoplastic and immunosuppressive drugs, initial encounter; R50.81 Fever presenting with conditions classified elsewhere; I71.4 Abdominal aortic aneurysm, without rupture; N40.1 Benign prostatic hyperplasia with lower urinary tract symptoms; R33.8 Other retention of urine; E86.0 Dehydration; N18.31 Chronic kidney disease, stage 3a; I12.9 Hypertensive chronic kidney disease with stage 1 through stage 4 chronic kidney disease, or unspecified chronic kidney disease; E78.5 Hyperlipidemia, unspecified; I25.10 Atherosclerotic heart disease of native coronary artery without angina pectoris; K21.9 Gastro-esophageal reflux disease without esophagitis; Z79.891 Long term (current) use of opiate analgesic; Z79.899 Other long term (current) drug therapy; Z79.02 Long term (current) use of antithrombotics/antiplatelets; E83.42 Hypomagnesemia
CPT/HCPCS: 36415; 51702; 71045; 74019; 74177; 80053; 81001; 82550; 83605; 83735; 84484; 85025; 85610; 85730; 87040; 87086; 87426; 93005; 97802; 99285; J7030; J7040; Q9967; A4216; J1447; J2405

== ENCOUNTER 2021-02-21 14:37 | Emergency (ER) | payer MEDICARE, OTHER, SELFPAY ==
[2021-02-21 14:37] VITALS: BP 131/92; PULSE 122; RESP 20; TEMP 36.1; O2SAT 95; BMI 26.4
--- NOTE | 2021-02-21 15:38 | CT_ITS ---
EXAM: CT ANGIOGRAPHY CHEST, ABDOMEN AND PELVIS WITH INTRAVENOUS CONTRAST CLINICAL INDICATION: covid, dyspnea, AAA/PE TECHNIQUE: Helically acquired angiography images were obtained of the chest, abdomen and pelvis with intravenous contrast. This CT exam was performed using one or more of the following dose reduction techniques: automated exposure control, adjustment of the mA and/or kV according to patient size, and/or use of iterative reconstruction technique. This report was created using [email or web address] report generation technology. MIP reconstructed images were created and reviewed. CONTRAST: IV 100mL Isovue-300 COMPARISON: CTA chest 12/23/2020 FINDINGS: VASCULATURE: AORTA: 5.2 x 5.4 cm infrarenal fusiform abdominal aortic aneurysm. There is ill-defined soft tissue density along the proximal margin of the aneurysm (between the renal arteries and top of aneurysm) as seen on image 142 series 602 and image 141 series 2. No dissection. PULMONARY ARTERIES: Unremarkable. Normal in caliber. No obvious central pulmonary embolism although this study was not performed with the pulmonary embolism protocol. GREAT VESSELS OF AORTIC ARCH: Unremarkable. Normal in caliber. No dissection. CELIAC TRUNK AND MESENTERIC ARTERIES: No acute findings. No occlusion or significant stenosis. No dissection. RENAL ARTERIES: No acute findings. No occlusion or significant stenosis. No dissection. ILIAC ARTERIES: No acute findings. No occlusion or significant stenosis. No dissection. CHEST: LUNGS AND PLEURAL SPACES: Scattered centrilobular emphysematous changes. Focal hyperlucency of the medial right lower lobe with tubular structures of the segment compatible with sequestration. No mass. No pleural effusion or thickening. No pneumothorax. HEART: Coronary artery atherosclerosis. Heart size is normal. No pericardial effusion. MEDIASTINUM: Unremarkable. No mediastinal or hilar adenopathy. Esophagus is unremarkable. No hiatal hernia. THYROID: Unremarkable. No thyroid lesions. ABDOMEN: LIVER: Unremarkable. Homogeneous. No focal mass. GALLBLADDER AND BILE DUCTS: Unremarkable. No calcified gallstones. No gallbladder distention or wall edema. No intra- or extrahepatic biliary ductal dilation. PANCREAS: Unremarkable. No focal cystic or solid mass. SPLEEN: Granulomatous calcifications of the spleen. ADRENALS: Unremarkable. No nodules. KIDNEYS AND URETERS: Unremarkable. Normal renal size and position. No hydronephrosis. STOMACH AND BOWEL: Extensive colonic diverticulosis. No stomach or bowel distention. No focal inflammatory change. PELVIS: APPENDIX: No evidence of acute appendicitis. BLADDER: Distended urinary bladder but no bladder wall thickening. REPRODUCTIVE: Unremarkable as visualized. No mass. CHEST, ABDOMEN and PELVIS: INTRAPERITONEAL SPACE: Unremarkable. No ascites or other fluid collection. No free air. BONES/JOINTS: Degenerative changes of the thoracic and lumbar spine. Chronic compression fractures T6 and T10. No suspicious lytic or blastic abnormality. SOFT TISSUES: Unremarkable. No discrete abdominal or pelvic wall hernia. LYMPH NODES: Unremarkable. No enlarged lymph nodes. CT/CTA Chst, Abd, Pel W and/or WO IMPRESSION: 1. Infrarenal fusiform abdominal aortic aneurysm measuring up to 5.4 cm. Mild periaortic thickening could represent focal aortitis or chronic aneurysm leaking, however, no extravasation or focal fluid seen in the retroperitoneum. No prior comparison studies. Recommend surgical consultation. 2. No central or segmental pulmonary embolism. 3. No airspace consolidation or pleural effusion. Electronically Signed: Ted Perkins MD ([place]) at 17:11 EST , Service support ,
[2021-02-21 15:43] VITALS: BP 138/87; PULSE 97; RESP 14; RESP 18; TEMP 36.7; O2SAT 95; O2SAT 96
--- NOTE | 2021-02-21 15:50 | EDS_ITS ---
HPI History of Present Illness Chief Complaint: Shortness of Breath Informant: patient and spouse/S.O. Onset/Context/Timing Onset: Days Narrative Narrative: Patient present secondary to shortness of breath, cough, dizziness and feeling generalized weakness. He initially tells me symptoms started today but states he was feeling dizzy over the weekend. No fever has been noted. Patient denies chest pain. He is currently undergoing treatment for non- Hodgkin's lymphoma. He also has a known abdominal aortic aneurysm. feels that his abdomen is more distended than normal but patient denies significant pain. [facility] Medical History Abdominal aortic aneurysm Acute pancreatitis BPH (benign prostatic hyperplasia) CAD (coronary artery disease) GERD (gastroesophageal reflux disease) Gout Heavy alcohol consumption Hyperlipidemia Hypertension Hypertriglyceridemia Hypomagnesemia Hypophosphatemia Ileus Nicotine dependence Non Hodgkin's lymphoma Home Medications flunisolide 2 spry NASAL DAILY 04/23/15 [History Last Taken Unknown] lisinopril 2.5 mg PO BID 04/23/15 [History Last Taken Unknown] metoprolol tartrate 50 mg PO DAILY 04/23/15 [History Last Taken Unknown] nitroglycerin 0.4 mg sublingual tablet 0.4 mg SUBLINGUAL Q5-15M 10/06/18 [History Last Taken Unknown] icosapent ethyl 1 gram capsule 2 g PO BID #120 cap 04/20/20 [Rx Last Taken Unknown] rosuvastatin 20 mg tablet 20 mg PO DAILY #90 tab 06/22/20 [Rx Last Taken Unknown] omeprazole 20 mg capsule,delayed release 20 mg PO DAILY #90 cap 06/23/20 [Rx Last Taken Unknown] meloxicam 15 mg tablet 15 mg PO DAILY #90 tab 11/09/20 [Rx Last Taken Unknown] nystatin 500,000 unit PO 4X/DAY 7 Days #140 ml 12/30/20 [Rx Last Taken Unknown] tamsulosin 0.4 mg PO DAILY@1730 30 Days #30 cap 12/30/20 [Rx Last Taken Unknown] allopurinol 100 mg tablet 100 mg PO BID #60 tab 01/09/21 [Rx Last Taken Unknown] rivaroxaban 20 mg tablet 20 mg PO DAILY #90 tab 01/17/21 [Rx Last Taken Unknown] cyanocobalamin (vitamin B-12) 1,000 mcg capsule 1,000 mcg PO DAILY #90 cap 02/02/21 [Rx Last Taken Unknown] Allergy/AdvReac Type Severity Reaction Status Date / Time erythromycin base Allergy Unknown Verified 02/21/21 14:39 Sulfa (Sulfonamide Allergy Unknown Verified 02/21/21 14:39 Antibiotics) Family History Brother CAD (coronary artery disease) Mother Heart disease Father Heart disease Surgical History H/O Mohs micrographic surgery for skin cancer S/P TURP Status post coronary artery stent placement Social History household members: spouse Smoking Status: Former smoker quit date: 02/18/18 alcohol intake: current alcohol intake frequency: a few times a week Alcohol type: wine substance use type: does not use ROS ROS ED Constitutional Constitutional ED: Denies chills or fever(s) Eyes Eyes: Denies blurry vision ENT ENT ED: Denies ear pain or rhinorrhea Cardiovascular Cardiovascular: Reports chest pain Respiratory/Chest Respiratory/Chest: Reports cough and dyspnea Gastrointestinal Gastrointestinal: Denies abdominal pain, diarrhea, nausea or vomiting Genitourinary Genitourinary ED: Denies dysuria Integumentary Denies rash Neurologic Neurologic: Reports weakness; Denies headache(s) Psychiatric Psychiatric: Denies anxiety or depression Endocrine Endocrinology: Denies polydipsia or polyuria Allergic/Immunologic Allergic/Immunologic ED: Denies urticaria EXAM Physical Exam Const Vital Signs: 02/21/21 14:37 02/21/21 15:43 02/21/21 17:22 Temperature 97 F L 98.0 F 98.0 F Temperature Source Temporal Oral Oral Pulse Rate 122 H 97 94 Respiratory Rate 20 H 18 20 H Respiratory Effort Short of Breath Labored Respiratory Depth Normal Respiratory Pattern Normal Blood Pressure 131/92 H 138/87 H 170/98 H Blood Pressure Mean 105 104 122 Pulse Ox 95 95 96 Oxygen Delivery Method Room Air Room Air Room Air Positive well nourished and well developed General Appearance ED: well developed HEENT Reports moist mucous membranes Eyes PERRL and EOMs intact bilaterally Neck supple Chest Wall inspection of chest normal and palpation of chest normal Resp normal respiratory effort and clear to auscultation bilaterally Cardio regular rate and regular rhythm GI non-tender Palpation: soft Extremity normal to inspection Neuro oriented x3 Sensorium / Orientation: alert Skin no rashes or lesions noted MDM MDM MDM Narrative Medical decision making narrative: Lab work obtained along with CTA of the chest. Rapid Covid test obtained in triage and positive. Lab Data Attestation: I reviewed the patient's lab results. Labs: Laboratory Results - last 24 hr 02/21/21 02/21/21 15:50 15:50 WBC 3.0 L RBC 3.63 L Hgb 11.9 L Hct 35.7 L MCV 98.3 H MCH 32.8 H MCHC 33.3 RDW Std Deviation 54.6 H RDW Coeff of Jackelyn 15.0 H Plt Count 154 MPV 10.1 Immature Gran % (Auto) 0.300 Neut % (Auto) 65.4 Lymph % (Auto) 22.1 [place] % (Auto) 11.6 H Eos % (Auto) 0.3 Baso % (Auto) 0.3 Absolute Neuts (auto) 2.0 Absolute Lymphs (auto) 0.67 L Nucleated RBC % 0 Sodium 135 L Potassium 4.2 Chloride 102 Carbon Dioxide 24.0 Anion Gap 9 BUN 18 Creatinine 1.46 H Estim Creat Clear Calc 45.03 Est GFR (MDRD) Af Amer 60 Est GFR (MDRD) Non-Af 50 L BUN/Creatinine Ratio 12.3 Glucose 101 Calcium 8.6 Rapid Covid: Positive Radiography Diagnostic Testing: Clinical Impression(s) from Imaging Studies Chest/Abdomen/Pelvis CTA 02/21/21 15:38 IMPRESSION: 1. Infrarenal fusiform abdominal aortic aneurysm measuring up to 5.4 cm. Mild periaortic thickening could represent focal aortitis or chronic aneurysm leaking, however, no extravasation or focal fluid seen in the retroperitoneum. No prior comparison studies. Recommend surgical consultation. 2. No central or segmental pulmonary embolism. 3. No airspace consolidation or pleural effusion. Electronically Signed: Ted Perkins MD ([place]) at 17:11 EST , Service support , ADDENDUM: 02/21/21 1752 Comparison study has become available dated 12/27/2020. The infrarenal abdominal aortic aneurysm and adjacent soft tissue density along the abdominal aorta and aneurysm is UNCHANGED. The soft tissue component could represent, chronic leakage, inflammatory aneurysm and/or retroperitoneal fibrosis. Treatment and Re-Evaluation Comments:: Test results discussed with patient and at bedside. Lab work unremarkable other than a mild bump in creatinine. CTA of the chest abdomen pelvis obtained. No evidence of PE. Infrarenal aneurysm unchanged when compared to prior study. I did discuss monoclonal antibody treatment with the patient and . He is interested in this. Order will be sent. Return instructions provided. The following information was communicated to the patient or caregiver: Monoclonal antibody infusion is not an FDA approved drug. The FDA has authorized the emergency use of monoclonal antibody therapy. The patient had the option to refuse or accept treatment with monoclonal antibody therapy. The patient was informed that the number of people treated with monoclonal antibody therapy at this time is small. The potential benefits and the potential risks of monoclonal antibody therapy are not fully known. Potential benefits of monoclonal antibody include a reduced risk of progressing to severe COVID-19 infection. Potential risks or side effects of monoclonal antibody therapy include allergic reactions, side effects from injection including brief pain, bleeding, bruising of the skin, soreness, swelling, possible infection at the infusion site. The patient stated understanding of this information communicated and wished to proceed with monoclonal antibody infusion therapy. The patient is appropriate for the Monoclonal Antibody Infusion. The patient states understanding of this information communicated and wishes to proceed with monoclonal antibody infusion therapy. Patient agrees to receive either Balanivimab/Etesvimab or Casirivimab/Imdevimab upon availability. Discharge Plan Triage Chief Complaint: Shortness of Breath ED Provider: Tiffanie Kimbrough Dx/Rx/DC Orders Clinical Impression: COVID-19 Instructions: Coronavirus Disease 2019 (COVID-19): Overview, Coronavirus Disease 2019 (COVID-19): Caring for Yourself or Others Prescriptions: No Action nitroglycerin 0.4 mg tablet, sublingual 0.4 mg SUBLINGUAL Q5-15M RF: 0 rosuvastatin 20 mg tablet 20 mg PO DAILY Qty: 90 RF: 1 flunisolide 25 ML spray,non-aerosol 2 spry NASAL DAILY RF: 0 metoprolol tartrate 50 MG tablet 50 mg PO DAILY RF: 0 lisinopril 5 MG tablet 2.5 mg PO BID RF: 0 nystatin 100,000 unit/mL Suspension 500,000 unit PO 4X/DAY 7 Days Qty: 140 RF: 0 tamsulosin 0.4 mg Capsule 0.4 mg PO DAILY@1730 30 Days Qty: 30 RF: 0 icosapent ethyl [Vascepa] 1 gram capsule 2 g PO BID Qty: 120 RF: 3 omeprazole 20 mg capsule,delayed release(DR/EC) 20 mg PO DAILY Qty: 90 RF: 3 meloxicam 15 mg tablet 15 mg PO DAILY Qty: 90 RF: 1 allopurinol 100 mg tablet 100 mg PO BID Qty: 60 RF: 4 Xarelto 20 mg tablet 20 mg PO DAILY Qty: 90 RF: 2 cyanocobalamin (vitamin B-12) 1,000 mcg capsule 1,000 mcg PO DAILY Qty: 90 RF: 1 Stand Alone Forms: Monoclonal Antibody Referral Primary Care Provider: Jaden Monterroso Referrals: Jaden Monterroso, [Primary Care Provider] - 1-2 Weeks Disposition Disposition: Home, Self Care
[2021-02-21 16:22] LABS: Absolute Lymphocyte Count 0.67 X10^3/uL (0.83-4.51); Basophil# 0.01 X10^3/uL; Basophil% 0.3 % (0-1); Eosinophil# 0.01 X10^3/uL; Eosinophils% 0.3 % (0-5); Hematocrit 35.7 % (40-54); Hemoglobin 11.9 g/dL (13.0-16.5); Lymphocyte # 0.67 X10^3/ul (0.83-4.51); Lymphocyte % 22.1 % (19-41); Mean Corp Hgb Conc 33.3 g/dL (32-36); Mean Corpuscular Hgb 32.8 pg (27.0-32.0); Mean Corpuscular Volume 98.3 fL (80-94); Mean Platelet Vol. 10.1 fl (6.2-12.0); Monocyte# 0.35 X10^3/uL; Monocyte% 11.6 % (0-10); NRBC Flagged by Analyzer 0 % (0-5); Neutrophil # 1.98 X10^3/uL (2.7-7.7); Neutrophil % 65.4 % (47-70); Platelet Count 154 K/mm3 (150-450); RBC Distribution Width SD 54.6 fl (35.1-43.9); Red Blood Count 3.63 M/mm3 (4.6-6.2)
[2021-02-21 16:38] LABS: Anion Gap 9 (5-15); BUN 18 mg/dL (7-18); BUN/Creat Ratio 12.3 RATIO (10-20); Calcium,Total 8.6 mg/dL (8.5-10.1); Chloride 102 mmol/L (98-107); Creatinine, Serum 1.46 mg/dL (0.70-1.30); EST Glomerular Filtration Rate 50 mL/min (>60); Est Glom Filt Rate - Afr Amer 60 mL/min (>60); Estimated Creatinine Clearance 45.03 ml/min; Glucose 101 mg/dL (74-106); Potassium 4.2 mmol/L (3.5-5.1); Sodium Level 135 mmol/L (136-145)
[2021-02-21 17:22] VITALS: BP 170/98; PULSE 94; RESP 20; TEMP 36.7; O2SAT 96
[2021-02-21 18:10] VITALS: BP 151/107; PULSE 93; RESP 16; O2SAT 94
== END 2021-02-21 18:10 | disposition home or self-care (01) ==
PROVIDERS: Emergency Provider Emergency Medicine; PCP Family Medicine; Visit Provider Emergency Medicine
DX: U07.1 COVID-19 (principal); C85.90 Non-Hodgkin lymphoma, unspecified, unspecified site; I25.10 Atherosclerotic heart disease of native coronary artery without angina pectoris; I10 Essential (primary) hypertension; E78.5 Hyperlipidemia, unspecified; N40.0 Benign prostatic hyperplasia without lower urinary tract symptoms; M10.9 Gout, unspecified; Z79.1 Long term (current) use of non-steroidal anti-inflammatories (NSAID); Z79.01 Long term (current) use of anticoagulants; Z87.891 Personal history of nicotine dependence
CPT/HCPCS: 94760; 99283; 71275; 74174; 80048; 85025; 87426; J7030; Q9967

== ENCOUNTER 2021-02-24 11:26 | Inpatient (IN) | payer MEDICARE, OTHER, SELFPAY ==
[2021-02-24] VITALS (7 sets, daily range): BP systolic 111–135; BP diastolic 65–92; PULSE 59–106; RESP 13–24; TEMP 36.3–36.7; O2SAT 83–100; BMI 26.4; BMI 25.2
--- NOTE | 2021-02-24 11:41 | EKG12_ITS ---
Test Reason : SOB Blood Pressure : / mmHG Vent. Rate : 076 BPM Atrial Rate : 076 BPM P-R Int : 172 ms QRS Dur : 072 ms QT Int : 402 ms P-R-T Axes : 011 005 014 degrees QTc Int : 452 ms Normal sinus rhythm Septal infarct , age undetermined Abnormal ECG Confirmed by CHERRIE BILLINGSLEY, SHAWN ([id number]), editorial director DEL REY ([id number]) on 03/01/2021 11:17:28 AM Referred By: CLARITZA Confirmed By:SHAWN GRIER MD
[2021-02-24] MEDS: dexAMETHasone 4 MG/ML Vial 6 MG IV (11:54)
[2021-02-24 11:58] LABS: Absolute Lymphocyte Count 0.76 X10^3/uL (0.83-4.51); Absolute Neutrophil Count 2.2 X10^3/uL (2.0-7.7); Basophil# 0.01 X10^3/uL; Basophil% 0.3 % (0-1); Eosinophil# 0.02 X10^3/uL; Eosinophils% 0.6 % (0-5); Hematocrit 34.5 % (40-54); Hemoglobin 11.4 g/dL (13.0-16.5); Lymphocyte # 0.76 X10^3/ul (0.83-4.51); Lymphocyte % 22.6 % (19-41); Mean Corpuscular Hgb 32.1 pg (27.0-32.0); Mean Corpuscular Volume 97.2 fL (80-94); Mean Platelet Vol. 10.2 fl (6.2-12.0); Monocyte# 0.41 X10^3/uL; Monocyte% 12.2 % (0-10); NRBC Flagged by Analyzer 0 % (0-5); Neutrophil # 2.16 X10^3/uL (2.7-7.7); Platelet Count 168 K/mm3 (150-450); RBC Distribution Width CV 14.6 % (11.6-14.6); RBC Distribution Width SD 53.1 fl (35.1-43.9); Red Blood Count 3.55 M/mm3 (4.6-6.2); White Blood Count 3.4 K/mm3 (4.4-11.0)
--- NOTE | 2021-02-24 11:58 | ED.VIS.DYS ---
HPI History of Present Illness Chief Complaint: Shortness of Breath Informant: patient and spouse/S.O. Narrative Narrative: Patient presents with worsening weakness and dyspnea with Covid. He started symptoms about 5 days ago. He was diagnosed about 3 days ago. He was seen here already. He did have CTA of his chest as well as abdomen. No pulmonary embolus was seen. Patient has prior history of heart disease and stents but no pulmonary disease. He states he tried to walk across the room today but he got up he felt so short of breath he just sat back down. He did not fall. He was not syncopal. He is able to check his oxygen saturations at home and it was 80% last night. He feels little worse now. He is not on oxygen. His med list shows Xarelto. However, he had denied blood thinners. We will have to clarify this. Patient also has been diagnosed with what sounds like a lymphoma. He had 3 chemotherapeutic type treatments. The last was about 3 weeks ago. He is then set to have regular treatments over the next couple years. The details of this are not completely clear. However, he is somewhat immunosuppressed. [facility] Medical History Abdominal aortic aneurysm Acute pancreatitis BPH (benign prostatic hyperplasia) CAD (coronary artery disease) GERD (gastroesophageal reflux disease) Gout Heavy alcohol consumption Hyperlipidemia Hypertension Hypertriglyceridemia Hypomagnesemia Hypophosphatemia Ileus Nicotine dependence Non Hodgkin's lymphoma Home Medications flunisolide 2 spry NASAL DAILY 04/23/15 [History Last Taken Unknown] lisinopril 2.5 mg PO BID 04/23/15 [History Last Taken Unknown] metoprolol tartrate 50 mg PO DAILY 04/23/15 [History Last Taken Unknown] nitroglycerin 0.4 mg sublingual tablet 0.4 mg SUBLINGUAL Q5-15M 10/06/18 [History Last Taken Unknown] icosapent ethyl 1 gram capsule 2 g PO BID #120 cap 04/20/20 [Rx Last Taken Unknown] rosuvastatin 20 mg tablet 20 mg PO DAILY #90 tab 06/22/20 [Rx Last Taken Unknown] omeprazole 20 mg capsule,delayed release 20 mg PO DAILY #90 cap 06/23/20 [Rx Last Taken Unknown] meloxicam 15 mg tablet 15 mg PO DAILY #90 tab 11/09/20 [Rx Last Taken Unknown] nystatin 500,000 unit PO 4X/DAY 7 Days #140 ml 12/30/20 [Rx Last Taken Unknown] tamsulosin 0.4 mg PO DAILY@1730 30 Days #30 cap 12/30/20 [Rx Last Taken Unknown] allopurinol 100 mg tablet 100 mg PO BID #60 tab 01/09/21 [Rx Last Taken Unknown] rivaroxaban 20 mg tablet 20 mg PO DAILY #90 tab 01/17/21 [Rx Last Taken Unknown] cyanocobalamin (vitamin B-12) 1,000 mcg capsule 1,000 mcg PO DAILY #90 cap 02/02/21 [Rx Last Taken Unknown] Allergy/AdvReac Type Severity Reaction Status Date / Time erythromycin base Allergy Unknown Verified 02/24/21 11:35 Sulfa (Sulfonamide Allergy Unknown Verified 02/24/21 11:35 Antibiotics) Family History Brother CAD (coronary artery disease) Mother Heart disease Father Heart disease Surgical History H/O Mohs micrographic surgery for skin cancer S/P TURP Status post coronary artery stent placement Social History household members: spouse Smoking Status: Former smoker quit date: 02/18/18 alcohol intake: current alcohol intake frequency: a few times a week Alcohol type: wine substance use type: does not use ROS ROS ED Constitutional Constitutional ED: Reports chills and fever(s) Eyes Eyes: Denies blurry vision ENT ENT ED: Reports rhinorrhea; Denies sore throat Cardiovascular Cardiovascular: Denies chest pain or palpitations Respiratory/Chest Respiratory/Chest: Reports cough, dyspnea, sputum and other Details: Slight clear sputum. No hemoptysis. Gastrointestinal Gastrointestinal: Reports diarrhea, nausea and other Details: [employer] ; Denies abdominal pain or vomiting Genitourinary Genitourinary ED: Denies dysuria Musculoskeletal Musculoskeletal: Denies myalgias Integumentary Denies rash Neurologic Neurologic: Reports headache(s); Denies weakness Endocrine Endocrinology: Denies polydipsia or polyuria Hematologic/Lymphatic Hematologic/Lymphatic: Denies easy bleeding or easy bruising Allergic/Immunologic Allergic/Immunologic ED: Denies mouth swelling or urticaria EXAM Physical Exam Const Vital Signs: 02/24/21 11:27 02/24/21 11:37 02/24/21 12:39 Temperature 97.6 F L 97.6 F L Temperature Source Temporal Temporal Pulse Rate 106 H 87 61 Respiratory Rate 24 H 13 19 H Respiratory Effort Short of Breath Respiratory Depth Normal Respiratory Pattern Normal Blood Pressure 126/82 H 135/92 H 119/65 Blood Pressure Mean 96 106 83 Pulse Ox 83 99 100 Oxygen Delivery Method Room Air Nasal Cannula Oxygen Flow Rate (L/min) 3 Patient was 83% sat when he walked through the door. However, when I see him he is on 3 L at 94% saturation. He looks more comfortable now. Positive well nourished and well developed General Appearance ED: well developed and NAD HEENT HEENT Narrative: Well-healed scalp incision/laceration. atraumatic Eyes PERRL Eyes Narrative: Pupils are about 2 to 2-1/2 mm and equal bilaterally. Neck supple Resp normal respiratory effort Auscultation: rhonchi; Negative for rales or wheezes Cardio regular rate, regular rhythm and no murmurs GI non-tender Palpation: soft Back/Spine no CVA tenderness Extremity General Extremety ED: Negative for edema or tenderness General Extremity: Negative for edema Neuro oriented x3 Sensorium / Orientation: alert Skin Rashes: no rashes MDM MDM MDM Narrative Medical decision making narrative: Patient's blood work does show low white count at 3.4. Mild anemia. He does have some slight worsening of his renal function that is progressive. Lactate is normal. Liver function tests are overall normal. X-ray does not show any marked abnormalities. However, this patient is getting weaker. He has been desatting at home and we documented desaturation to 83% here. He felt too weak to walk across the room. I do not think this is a person who would do well at home. I discussed case with hospitalist. Lab Data Attestation: I reviewed the patient's lab results. Labs: Laboratory Results - last 24 hr 02/24/21 02/24/21 02/24/21 11:45 11:45 11:45 WBC 3.4 L RBC 3.55 L Hgb 11.4 L Hct 34.5 L MCV 97.2 H MCH 32.1 H MCHC 33.0 RDW Std Deviation 53.1 H RDW Coeff of Jackelyn 14.6 Plt Count 168 MPV 10.2 Immature Gran % (Auto) 0.300 Neut % (Auto) 64.0 Lymph % (Auto) 22.6 [place] % (Auto) 12.2 H Eos % (Auto) 0.6 Baso % (Auto) 0.3 Absolute Neuts (auto) 2.2 Absolute Lymphs (auto) 0.76 L Nucleated RBC % 0 Sodium 133 L Potassium 4.2 Chloride 101 Carbon Dioxide 22.0 Anion Gap 10 BUN 23 H Creatinine 1.78 H Estim Creat Clear Calc 36.94 Est GFR (MDRD) Af Amer 48 L Est GFR (MDRD) Non-Af 39 L BUN/Creatinine Ratio 12.9 Glucose 104 Lactic Acid 1.0 Calcium 8.8 Total Bilirubin 0.50 AST 32 ALT 21 Alkaline Phosphatase 103 Troponin I High Sens 13 Total Protein 7.2 Albumin 3.1 L Globulin 4.1 Albumin/Globulin Ratio 0.8 L Radiography Diagnostic Testing: Clinical Impression(s) from Imaging Studies Chest X-Ray 02/24/21 12:00 IMPRESSION: No acute abnormality seen. Electronically Signed: Praveen Oviedo MD at 12:26 EST , Service support , EKG Initial EKG: Comments: EKG done for dyspnea read by me shows a normal sinus rhythm with a rate of 76. No ventricular ectopy. Diffuse nonspecific changes. No sign of acute infarct or ischemia with ST elevation or depression. VA interval, QRS duration and QTc normal. Discharge Plan Dx/Rx/DC Orders Clinical Impression: Respiratory failure with hypoxia, Pneumonia due to 2019 novel coronavirus, Acute kidney injury Disposition Disposition: Acute Care [facility]
--- NOTE | 2021-02-24 12:00 | RAD_ITS ---
STUDY: X-RAY CHEST REASON FOR EXAM: Male, 80 years old. SOb TECHNIQUE: Single AP portable view of the chest. COMPARISON: Comparison is made with prior study of 12/27/2020. FINDINGS: EKG electrodes are seen. The lungs are clear and expanded. There is no demonstrated pleural abnormality. Normal size heart. Normal mediastinum and thuy. Normal visualized pulmonary arteries. There is atherosclerotic calcification of the aortic arch with tortuosity. There are diffuse degenerative changes of the visualized thoracic spine. Normal visualized ribs, clavicles, and shoulders. There is no demonstrated abnormality of the visualized soft tissue structures of the upper abdomen. RAD/Chest 1 View (Portable) IMPRESSION: No acute abnormality seen. Electronically Signed: Praveen Oviedo MD at 12:26 EST , Service support ,
[2021-02-24 12:29] LABS: ALB/GLOB Ratio 0.8 RATIO (0.9-2.4); AST(SGOT) 32 U/L (15-37); Alanine Aminotransfer ALT/SGPT 21 U/L (16-61); Albumin, Serum 3.1 g/dL (3.2-5.0); Alkaline Phosphatase 103 U/L (45-117); Anion Gap 10 (5-15); BUN 23 mg/dL (7-18); BUN/Creat Ratio 12.9 RATIO (10-20); Calcium,Total 8.8 mg/dL (8.5-10.1); Chloride 101 mmol/L (98-107); Creatinine, Serum 1.78 mg/dL (0.70-1.30); EST Glomerular Filtration Rate 39 mL/min (>60); Est Glom Filt Rate - Afr Amer 48 mL/min (>60); Estimated Creatinine Clearance 36.94 ml/min; Globulin 4.1 g/dL (2.2-4.2); Glucose 104 mg/dL (74-106); Potassium 4.2 mmol/L (3.5-5.1); Protein, Total 7.2 g/dL (6.4-8.2); Sodium Level 133 mmol/L (136-145); Troponin-I HS 13 pg/mL (3.0-78.0)
--- NOTE | 2021-02-24 14:14 | HP.PCM.HOS_ITS ---
HPI - General General Date of Admission: 02/24/21 Date of Service: 02/24/21 Chief Complaint: COVID, worsening, hypoxia. HPI Narrative The patient is a 80 y/o M w/ PMHx: Chronic anemia, Hx AAA, BPH s/p TURP, CAD s/p PCI, GERD, HTN, HLD, Tobacco use, Non-hodgkins lymphoma, Heavy EtOH use (2 large glasses of wine each night, notes he puts ice on them), Former Tobacco use who presents to the [facility] ED on 02/24/21 with history of onset COVID type symptoms 5 days prior with confirmed diagnosis 3 days prior to current presentation with ED evaluation with at that time CTA of his chest and abdomen with no evidence of PE with significantly worsening chills, headache, sore throat, nausea without emesis, loose stools, dyspnea with cough, malaise, fatigue, unable to even ambulate secondary to the severity of his shortness of breath with home oxy genation levels noted to be in the low 80s prompting ED evaluation. Patient was vaccinated against COVID with [employer] but states he was unable to get the booster, both he and his despite calling several pharmacies in the region. Patient's has also been feeling poorly with increased fatigue and malaise today for the first time. Work-up in the ED included T97.6, heart rate 106, BP 126/82, respiratory rate 24, initially 83% on room air with improvement to 99% on 3 L nasal cannula, CBC with WBC 3.4, hemoglobin 11.4, platelet 168 with lymphopenia, CMP with sodium 133, BUN/creatinine 23/1.78, unremarkable hepatic profile, lactic acid 1.0, high-sensitivity troponin 13, chest x-ray with no acute cardiopulmonary findings. In the ED patient ministered Decadron 6 mg IV x1. [facility] Medical History (Updated 02/24/21 @ 14:[address] Tia Kelsey MD) Abdominal aortic aneurysm Acute pancreatitis BPH (benign prostatic hyperplasia) CAD (coronary artery disease) GERD (gastroesophageal reflux disease) Gout Heavy alcohol consumption Hyperlipidemia Hypertension Hypertriglyceridemia Hypomagnesemia Hypophosphatemia Ileus Nicotine dependence Non Hodgkin's lymphoma Home Medications flunisolide 2 spry NASAL DAILY 04/23/15 [History Last Taken Unknown] lisinopril 2.5 mg PO BID 04/23/15 [History Last Taken Unknown] metoprolol tartrate 50 mg PO DAILY 04/23/15 [History Last Taken Unknown] nitroglycerin 0.4 mg sublingual tablet 0.4 mg SUBLINGUAL Q5-15M 10/06/18 [History Last Taken Unknown] icosapent ethyl 1 gram capsule 2 g PO BID #120 cap 04/20/20 [Rx Last Taken Unknown] rosuvastatin 20 mg tablet 20 mg PO DAILY #90 tab 06/22/20 [Rx Last Taken Unknown] omeprazole 20 mg capsule,delayed release 20 mg PO DAILY #90 cap 06/23/20 [Rx Last Taken Unknown] meloxicam 15 mg tablet 15 mg PO DAILY #90 tab 11/09/20 [Rx Last Taken Unknown] nystatin 500,000 unit PO 4X/DAY 7 Days #140 ml 12/30/20 [Rx Last Taken Unknown] tamsulosin 0.4 mg PO DAILY@1730 30 Days #30 cap 12/30/20 [Rx Last Taken Unknown] allopurinol 100 mg tablet 100 mg PO BID #60 tab 01/09/21 [Rx Last Taken Unknown] rivaroxaban 20 mg tablet 20 mg PO DAILY #90 tab 01/17/21 [Rx Last Taken Unknown] cyanocobalamin (vitamin B-12) 1,000 mcg capsule 1,000 mcg PO DAILY #90 cap 02/02/21 [Rx Last Taken Unknown] Allergy/AdvReac Type Severity Reaction Status Date / Time erythromycin base Allergy Unknown Verified 02/24/21 11:35 Sulfa (Sulfonamide Allergy Unknown Verified 02/24/21 11:35 Antibiotics) Family History Brother CAD (coronary artery disease) Mother Heart disease Father Heart disease Surgical History (Updated 02/24/21 @ 14:[address] Tia Kelsey MD) H/O Mohs micrographic surgery for skin cancer Hx of umbilical hernia repair S/P TURP Status post coronary artery stent placement Social History (Updated 02/24/21 @ 14:[address] Tia Kelsey MD) household members: spouse Smoking Status: Former smoker quit date: 02/18/18 how long ago did patient quit smoking: Quit 02/18/18, smoked 1 ppd since teen until quit. alcohol intake: current alcohol intake frequency: 0-2 drinks per day Alcohol type: wine substance use type: does not use ROS ROS Narrative Admission Review of Systems: CONSTITUTIONAL: No weight loss, fever, + chills, weakness or fatigue. HEENT: + Headache, sore throat. Eyes: No visual loss, blurred vision, double vision or yellow sclerae. Ears, Nose, Throat: No hearing loss, sneezing. SKIN: No rash or itching, lesions, wounds. CARDIOVASCULAR: No chest pain, chest pressure or chest discomfort, palpitations, edema, orthopnea, syncopal events. RESPIRATORY: + shortness of breath, cough, No marked sputum, wheezing, hemoptysis. GASTROINTESTINAL: + anorexia, nausea without vomiting, diarrhea, No abdominal pain, melena, BRBPR. GENITOURINARY: No dysuria, frequency, urgency or retention. NEUROLOGICAL: + headache, No dizziness, syncope, paralysis, ataxia, numbness or tingling in the extremities, focal weakness, change in bowel or bladder control, seizure. MUSCULOSKELETAL: No marked muscle, back pain, joint pain or stiffness. HEMATOLOGIC: No anemia, bleeding or bruising. LYMPHATICS: No enlarged nodes. No history of splenectomy. PSYCHIATRIC: No history of depression or anxiety. ENDOCRINOLOGIC: No reports of sweating, cold or heat intolerance. No polyuria or polydipsia. ALLERGIES: No history of asthma, hives, eczema or rhinitis. Vital Signs Vital Signs Vital Signs: 02/24/21 11:27 02/24/21 11:37 02/24/21 12:39 Temperature 97.6 F L 97.6 F L Temperature Source Temporal Temporal Pulse Rate 106 H 87 61 Respiratory Rate 24 H 13 19 H Respiratory Effort Short of Breath Respiratory Depth Normal Respiratory Pattern Normal Blood Pressure 126/82 H 135/92 H 119/65 Blood Pressure Mean 96 106 83 Pulse Ox 83 99 100 Oxygen Delivery Method Room Air Nasal Cannula Oxygen Flow Rate (L/min) 3 Weight Weight: 195 lb Body Mass Index (BMI) 26.4 Physical Exam Narrative Physical Examination: General: Awake, alert, oriented x 3 and cooperative, seated upright in the ED bed, fatigued and ill-appearing, mildly increased respiratory rate. Skin: Normal color, normal turgor, no icterus, no cyanosis. HEENT: AT/NC, EOMI, PERRLA, moderately dry MM, no carotid bruits or JVD noted. Lungs: Diffusely diminished, greater bases, mildly increased respiratory rate, coughing elicited with deep inspiratory effort, effort moderate, no rales, ronchi or wheezing. Heart: Regular rate with regular rhythm; no gallop, rub audible. Abdomen: Soft, NTTP, ND, mildly hyperactive bowel sounds, no obvious HSM. Extremities: No cyanosis, clubbing, or edema. Neurological: Patient awake, alert, oriented as noted, cognitive function intact; pupils equally reactive to light and accommodation, cranial nerves II- XII grossly normal, moving all 4 extremities, no focal deficits, strength severely globally decreased secondary to acute presentation. Psychiatric: Affect appears fatigued, ill-appearing, no acute evidence of depressive or anxiety feelings. Results Lab / Micro Data Result Diagrams: 02/24/21 11:45 02/24/21 11:45 Labs: Laboratory Results - last 24 hr 02/24/21 11:45: WBC 3.4 L, RBC 3.55 L, Hgb 11.4 L, Hct 34.5 L, MCV 97.2 H, MCH 32.1 H, MCHC 33.0, RDW Std Deviation 53.1 H, RDW Coeff of Jackelyn 14.6, Plt Count 168, MPV 10.2, Immature Gran % (Auto) 0.300, Neut % (Auto) 64.0, Lymph % (Auto) 22.6, [place] % (Auto) 12.2 H, Eos % (Auto) 0.6, Baso % (Auto) 0.3, Absolute Neuts (auto) 2.2, Absolute Lymphs (auto) 0.76 L, Nucleated RBC % 0 02/24/21 11:45: Sodium 133 L, Potassium 4.2, Chloride 101, Carbon Dioxide 22.0, Anion Gap 10, BUN 23 H, Creatinine 1.78 H, Estim Creat Clear Calc 36.94, Est GFR (MDRD) Af Amer 48 L, Est GFR (MDRD) Non-Af 39 L, BUN/Creatinine Ratio 12.9, Glucose 104, Calcium 8.8, Total Bilirubin 0.50, AST 32, ALT 21, Alkaline Phosphatase 103, Troponin I High Sens 13, Total Protein 7.2, Albumin 3.1 L, Globulin 4.1, Albumin/Globulin Ratio 0.8 L 02/24/21 11:45: Lactic Acid 1.0 Radiology Impression Chest X-Ray 02/24/21 12:00 IMPRESSION: No acute abnormality seen. Electronically Signed: Praveen Oviedo MD at 12:26 EST , Service support , Assessment & Plan Assessment/Plan (1) Hypoxia: (2) COVID-19: PLAN: The patient is a 80 y/o M w/ PMHx: Chronic anemia, Hx AAA, BPH s/p TURP, CAD s/p PCI, GERD, HTN, HLD, Tobacco use, Non-hodgkins lymphoma, Heavier EtOH use, Former Tobacco use who presents to the [facility] ED on 02/24/21 with history of onset COVID type symptoms 5 days prior with confirmed diagnosis 3 days prior to current presentation with ED evaluation with at that time CTA of his chest and abdomen with no evidence of PE with significantly worsening dyspnea, malaise, fatigue, unable to even ambulate secondary to the severity of his shortness of breath with home oxygenation levels noted to be in the low 80s prompting ED evaluation. #1. Acute Hypoxic Respiratory Failure, Debility, FTT Adult secondary to Acute Viral Syndrome, COVID-19: Will admit to the [facility] telemetry, maintain on COVID precautions, will maintain on oxygen with wean as tolerated to room air, PRN albuterol, HOB, IS parameters w/ pending sputum cultures and urine antigens, respiratory panel not available, will obtain D-dimer, procalcitonin, CRP, CPK, Ferritin, LDH and BNP, continue supportive care including q 2 hour turning including prone given no prone bed availability and judicious hydration, closely monitor for worsening status for ARDS and multiorgan failure, will initiate and continue IV decadron x 10 doses, given presentation with current creatinine clearance 36.94 will also initiate IV remdesivir but defer to discretion of Infectious disease and will need to continue to closely monitor as if creatinine clearance falls below 30 we will need to discontinue. If respiratory status worsens and patient requires airvo or BIPAP transition will initiate barcitinib regimen additionally with ID involvement. PT/OT/CM consulted given severity of weakness, fall risk precautions. #2. Acute kidney injury: Secondary to acute presentation as noted #1. Admission BUN/Cr 23/1.7, prior baseline creatinine noted to be 1.0-1.2. Will hydrate judiciously as noted given #1, hold nephrotoxic medications and repeat chemistry in AM. If no improvement would plan FeNa and renal ultrasound assessment if appropriate with close continued monitoring given medications for #1. #3. CAD: Status post PCI, continue home Xarelto, metoprolol, statin therapy, temporarily holding PHOENIX inhibitor given VERONICA. #4. Chronic anemia, mildly macrocytic, vitamin B12 deficiency: Admission hemoglobin 11.4, baseline appears 11-12, stable, trend, continue supplements. #5. Hypertension: We will continue patient home metoprolol regimen with hold parameters as needed, holding lisinopril given VERONICA,. IV hydralazine #6. Hyperlipidemia: We will continue patient on statin therapy. #7. BPH: We will continue patient home Flomax regimen. #8. Gout: We will continue patient on allopurinol regimen. #9. Former tobacco usage: Encourage continued tobacco cessation. #10. GERD: We will continue home PPI. #11. Heavier alcohol use: Patient with 2 large glasses of wine each night, notes he also adds ice to these glasses, no intake x5 days with no withdrawal symptoms and reports he can go periods where he is done without issue. Advised appropriate level of intake for his sex. If concerns may add CIWA. #12. DVT prophylaxis: SCDs, continue home Xarelto regimen. #13. CODE status: Patient SHERICE is his who is present and living will is currently in place. Discussed CODE status at length including difference between FULL code, DNR-CCA and DNR-CC status. Following discussions about the differences in these status, requested Full Code status. Amenable to airvo, BIPAP, remdesivir and barcitinib if needed. Advanced Care Planning Face to Face Time: 16 minutes. Charges/Coding Visit Charges Inpatient E&M: 35668 Init Hosp L3 Procedures Hospitalists Procedures: 41332 Advncd Care Plan 30 Min
[2021-02-24 15:41] LABS: BNP,B-Type NATRIURETIC PEPTIDE 63.4 pg/mL (0-100)
[2021-02-24 15:44] LABS: Ferritin 432 ng/mL (26-388); LDH 216 U/L (87-241)
--- NOTE | 2021-02-24 16:08 | PCS.PANDOC ---
PANDEMIC DOCUMENTATION INITIATED: Date: 10/03/2020 Time: 190
[2021-02-24 16:23] LABS: Procalcitonin 0.07 ng/mL (0.00-0.09)
[2021-02-24] MEDS: 0.9% Saline Lock 10 ML Syringe IV (17:15)
[2021-02-24] MEDS: Metoprolol Tartrate 50 MG Tablet PO (17:16)
[2021-02-24] MEDS: Pantoprazole Sodium 20 MG Tablet PO (17:16)
[2021-02-24] MEDS: NYSTATIN 500,000 UNIT/5 ML UDC 500000 UNIT PO ×2 (17:16→20:53)
[2021-02-24] MEDS: Rivaroxaban 20 MG Tablet PO (17:17)
[2021-02-24] MEDS: Allopurinol 100 MG Tablet PO (17:17)
[2021-02-24] MEDS: Meloxicam 15 MG Tablet PO (17:17)
[2021-02-24] MEDS: Tamsulosin HCl 0.4 MG Capsule PO (17:17)
[2021-02-24] MEDS: 0.9% Normal Saline 1,000 ML 100 ML IV (17:18)
[2021-02-24] MEDS: Atorvastatin Calcium 40 MG Tablet PO (20:53)
[2021-02-25] VITALS (12 sets, daily range): BP systolic 115–125; BP diastolic 57–75; PULSE 41–74; RESP 16–18; TEMP 36.4–36.8; O2SAT 95–99
[2021-02-25] MEDS: 0.9% Normal Saline 1,000 ML 100 ML IV (06:00)
[2021-02-25 07:49] LABS: Absolute Lymphocyte Count 0.48 X10^3/uL (0.83-4.51); Absolute Neutrophil Count 1.3 X10^3/uL (2.0-7.7); Hemoglobin 10.1 g/dL (13.0-16.5); Lymphocyte # 0.48 X10^3/ul (0.83-4.51); Lymphocyte % 22.7 % (19-41); Mean Corp Hgb Conc 32.6 g/dL (32-36); Mean Corpuscular Hgb 32.1 pg (27.0-32.0); Mean Corpuscular Volume 98.4 fL (80-94); Mean Platelet Vol. 10.1 fl (6.2-12.0); Monocyte% 14.2 % (0-10); NRBC Flagged by Analyzer 0 % (0-5); Neutrophil # 1.31 X10^3/uL (2.7-7.7); Neutrophil % 62.2 % (47-70); POSITIVE DIFFERENTIAL YES; Platelet Count 155 K/mm3 (150-450); RBC Distribution Width CV 14.8 % (11.6-14.6); RBC Distribution Width SD 53.8 fl (35.1-43.9); Red Blood Count 3.15 M/mm3 (4.6-6.2); White Blood Count 2.1 K/mm3 (4.4-11.0)
[2021-02-25 07:51] LABS: Differential Indicated SCAN CRITERIA MET
[2021-02-25 08:06] LABS: ALB/GLOB Ratio 0.6 RATIO (0.9-2.4); AST(SGOT) 29 U/L (15-37); Alanine Aminotransfer ALT/SGPT 16 U/L (16-61); Albumin, Serum 2.4 g/dL (3.2-5.0); Alkaline Phosphatase 82 U/L (45-117); Anion Gap 7 (5-15); BUN 25 mg/dL (7-18); BUN/Creat Ratio 18.8 RATIO (10-20); Calcium,Total 8.2 mg/dL (8.5-10.1); Chloride 108 mmol/L (98-107); Creatinine, Serum 1.33 mg/dL (0.70-1.30); EST Glomerular Filtration Rate 55 mL/min (>60); Est Glom Filt Rate - Afr Amer 67 mL/min (>60); Estimated Creatinine Clearance 49.43 ml/min; Globulin 3.7 g/dL (2.2-4.2); Glucose 146 mg/dL (74-106); Potassium 4.9 mmol/L (3.5-5.1); Protein, Total 6.1 g/dL (6.4-8.2); Sodium Level 136 mmol/L (136-145)
[2021-02-25] MEDS: Cyanocobalamin 500 MCG Tablet 1000 MCG PO (09:20)
[2021-02-25] MEDS: Meloxicam 15 MG Tablet PO (09:20)
[2021-02-25] MEDS: Allopurinol 100 MG Tablet PO ×2 (09:20→21:07)
[2021-02-25] MEDS: Pantoprazole Sodium 20 MG Tablet PO (09:20)
[2021-02-25] MEDS: Tamsulosin HCl 0.4 MG Capsule PO (09:20)
--- NOTE | 2021-02-25 09:22 | CASEMGMT ---
FABIO ORELLANA Assessment: Face to Face with pt for initial transition planning/care coordination assessment. FABIO ORELLANA introduced self and role at [facility], pt voices understanding and consents to assessment. Pt is A/O x4 and answers all questions appropriately at this time. Pt sitting up in bed with O2 on in no distress. Nurse at bedside. Care providers, pharmacy, and demographics verified/updated. Admitting Dx: COVID hypoxia PCP: Loc Specialists: Hosea, onc; Kait, cardio; Lsia, uro Preferred [facility]acy:[facility] Insurance: [facility] Prescription Benefit: yes LW/HPOA: Pt reports he has a LW/DPOA and his DPOA is his Fouzia Ying. He is aware this is not on file at [facility] and he may have it brought in to be scanned into his chart. LNOK: Fouzia Ying, Living Arrangements: Pt lives with in a single story house with 4 steps to enter with a rail. Pt reports he is I in ADL's and denies concerns at home. Transportation: Pt drives self and denies concerns with transportation. DME/HHC/SNF: Pt denies having any DME in the home, previous HHC or SNF stays. Pt was tested for COVID with a positive test at [facility]. Pt is waiting results. Pt states he is able to quarantine from his if she is negative by using separate bedrooms and bathrooms. He does have family who can provide him with groceries and supplies while in quarantine. Discussed local in network DME companies should pt need O2 upon dc, pt denies preference. Pt states no concerns with going home at time of dc. Pt states no further concerns/needs. CM to follow. Advised pt to ask CM if any further question/concerns/needs arise, voices understanding. Pt Goal: Home Plan: Home
[2021-02-25] MEDS: dexAMETHasone 10 MG/ML Vial 6 MG IV (10:56)
[2021-02-25] MEDS: 0.9% Saline Lock 10 ML Syringe IV ×3 (10:56→17:52)
[2021-02-25] MEDS: NYSTATIN 500,000 UNIT/5 ML UDC 500000 UNIT PO ×4 (10:56→21:07)
--- NOTE | 2021-02-25 13:36 | PN.HOSP_ITS ---
Subjective Subjective Doing well, maintaining his oxygen saturations with 1.5 to 2 L nasal cannula Objective Data Objective Data Vital Signs: Vital Signs Temp Pulse Resp BP Pulse Ox 97.5 F L 59 L 18 123/57 H 95 02/25/21 13:25 02/25/21 13:25 02/25/21 13:25 02/25/21 13:25 02/25/21 13:25 Oxygen Flow Rate (L/min) 1.5 Oxygen Delivery Method Nasal Cannula Weight: 186 lb 4.65 oz Body Mass Index (BMI) 25.2 Intake & Output: Intake and Output for Last 24 Hours 02/24/21 02/25/21 02/26/21 03:59 03:59 03:59 Intake Total 1115 / 1115 1535 / 1535 Balance 1115 / 1115 1535 / 1535 Medical Nutrition Assessment Dietitian: Malnutrition Criteria Met Start: 02/24/21 16:52 Freq: Status: Active Protocol: Document 02/24/21 16:52 RMA (Rec: 02/24/21 16:52 RMA [id number]) Nutrition Malnutrition Evidence of Malnutrition Exists Yes Malnutrition (severe): Acute Illness/Injury Evidenced By Suboptimal Energy Intake ( Severe),Weight Loss (Severe) Intake Problem Inadequate Oral Intake Etiology related to decreased appetite/ acute illness Signs/Symptoms as evidenced by PO ~50% meals well logging captain mud analysis per pt report Status Active Problem Clinical Problem Acute Disease or Injury Related Malnutrition Etiology Severe protein-calorie malnutrition in the context of acute illness related to inadequate oral intake Signs/Symptoms as evidenced by calculated wt loss ~5% x 1 week and PO meeting less than 50% estimated nutrition needs x past week Status Active Problem Recommendation Dietitian Recommendations/Changes Will liberalize diet to Regular given signs/symptoms of malnutrition. Will offer ensure compact TID w/ meals as tolerated. Monitor weight and adjust ONS as needed to optimize intake and prevent further weight loss. Lab / Micro Data Result Diagrams: 02/25/21 07:33 02/25/21 07:33 Labs: Laboratory Results - last 24 hr 02/24/21 11:45: Ferritin 432 H, Lactate Dehydrogenase 216, C-React Prot Ext Rang e 76.60 H 02/24/21 11:45: B-Natriuretic Peptide 63.4 02/24/21 15:35: Procalcitonin 0.07 02/24/21 15:35: D-Dimer Quant (PE/DVT) 1.50 H* 02/25/21 07:33: WBC 2.1 L, RBC 3.15 L, Hgb 10.1 L, Hct 31.0 L, MCV 98.4 H, MCH 32.1 H, MCHC 32.6, RDW Std Deviation 53.8 H, RDW Coeff of Jackelyn 14.8 H, Plt Count 155, MPV 10.1, Immature Gran % (Auto) 0.900, Neut % (Auto) 62.2, Lymph % (Auto) 22.7, [place] % (Auto) 14.2 H, Eos % (Auto) 0.0, Baso % (Auto) 0.0, Absolute Neuts (auto) 1.3 L, Absolute Lymphs (auto) 0.48 L, Nucleated RBC % 0, Differential Comment , Diff Path Review June02/25/21 07:33: Sodium 136, Potassium 4.9, Chloride 108 H, Carbon Dioxide 21.0, Anion Gap 7, BUN 25 H, Creatinine 1.33 H, Estim Creat Clear Calc 49.43, Est GFR (MDRD) Af Amer 67, Est GFR (MDRD) Non-Af 55 L, BUN/Creatinine Ratio 18.8, Glucose 146 H, Calcium 8.2 L, Total Bilirubin 0.30, AST 29, ALT 16, Alkaline Phosphatase 82, Total Protein 6.1 L, Albumin 2.4 L, Globulin 3.7, Albumin/Globulin Ratio 0.6 L Micro: Microbiology 02/24/21 21:00 Urine, Clean Catch Legionella Antigen - Final 02/24/21 21:00 Urine, Clean Catch Streptococcus pneumoniae Antigen (M - Final Physical Exam Const alert, oriented x3 and no apparent distress General Appearance: cooperative HEENT normocephalic and moist oral mucous membranes Eyes PERRL, EOMs intact bilaterally and conjunctivae normal Neck supple and no JVD Resp normal respiratory effort, no retractions and no use of accessory muscles Auscultation: diminished lung sounds; Negative for crackles, rales, rhonchi or wheezes Cardio regular rate, regular rhythm, S1 normal heart sound, S2 normal heart sound and no murmurs GI soft to palpation, non-tender and non-distended; Negative for hepatosplenomegaly Extremity no clubbing, cyanosis or edema Skin no rashes or lesions noted Neuro no focal motor deficits and no sensory deficits noted Psych affect normal Appearance: appropriate Assessment & Plan Assessment/Plan (1) Hypoxia: (2) COVID-19: PLAN: 1. Acute hypoxic respiratory failure and VERONICA secondary to COVID-19 pneumonia ? Continue with Decadron and remdesivir ? This is complicated by the fact that he completed chemotherapy for lymphoma about 2 to 3 weeks ago ? He is vaccinated received 2 doses of Pfizer but has not received a booster shot ? Admission creatinine was 1.78, down to 1.33 today. Baseline creatinine is around 1.2 ? Given his age and his chemotherapy, will be cautious with discharge planning 2. CAD status post stent/HTN/HLD ? Blood pressure stable ? Continue with his home blood pressure medications ? Continue with statin ? Continue with Xarelto ? We will hold his PHOENIX inhibitor secondary to his kidney disease 3. BPH ? Stable ? Continue with Flomax 4. Gout ? Stable ? Continue allopurinol 5. GERD ? Stable ? Continue with PPI DVT: Xarelto Charges/Coding Visit Charges Inpatient E&M: 04367 Subs Hosp L2
[2021-02-25] MEDS: Rivaroxaban 20 MG Tablet PO (17:52)
[2021-02-25] MEDS: Atorvastatin Calcium 40 MG Tablet PO (21:07)
[2021-02-25] MEDS: MELATONIN 3 MG TABLET PO (21:14)
[2021-02-26] VITALS (12 sets, daily range): BP systolic 121–134; BP diastolic 78–85; PULSE 40–60; RESP 18; TEMP 36.4–36.6; O2SAT 95–99
[2021-02-26 07:03] LABS: Absolute Lymphocyte Count 0.55 X10^3/uL (0.83-4.51); Absolute Neutrophil Count 2.9 X10^3/uL (2.0-7.7); Hematocrit 31.7 % (40-54); Hemoglobin 10.4 g/dL (13.0-16.5); Lymphocyte # 0.55 X10^3/ul (0.83-4.51); Lymphocyte % 13.9 % (19-41); Mean Corp Hgb Conc 32.8 g/dL (32-36); Mean Corpuscular Hgb 32.4 pg (27.0-32.0); Mean Corpuscular Volume 98.8 fL (80-94); Mean Platelet Vol. 10.4 fl (6.2-12.0); Monocyte# 0.55 X10^3/uL; Monocyte% 13.9 % (0-10); NRBC Flagged by Analyzer 0 % (0-5); Neutrophil # 2.85 X10^3/uL (2.7-7.7); Neutrophil % 71.7 % (47-70); POSITIVE DIFFERENTIAL YES; Platelet Count 181 K/mm3 (150-450); RBC Distribution Width CV 14.7 % (11.6-14.6); Red Blood Count 3.21 M/mm3 (4.6-6.2)
[2021-02-26 07:10] LABS: Differential Indicated SCAN CRITERIA MET
[2021-02-26 07:33] LABS: ALB/GLOB Ratio 0.7 RATIO (0.9-2.4); AST(SGOT) 28 U/L (15-37); Alanine Aminotransfer ALT/SGPT 19 U/L (16-61); Albumin, Serum 2.4 g/dL (3.2-5.0); Alkaline Phosphatase 74 U/L (45-117); Anion Gap 6 (5-15); BUN 29 mg/dL (7-18); Calcium,Total 8.7 mg/dL (8.5-10.1); Chloride 110 mmol/L (98-107); Creatinine, Serum 1.16 mg/dL (0.70-1.30); EST Glomerular Filtration Rate 65 mL/min (>60); Est Glom Filt Rate - Afr Amer 78 mL/min (>60); Estimated Creatinine Clearance 56.68 ml/min; Globulin 3.5 g/dL (2.2-4.2); Glucose 116 mg/dL (74-106); Potassium 4.7 mmol/L (3.5-5.1); Protein, Total 5.9 g/dL (6.4-8.2); Sodium Level 140 mmol/L (136-145)
[2021-02-26] MEDS: Cyanocobalamin 500 MCG Tablet 1000 MCG PO (11:10)
[2021-02-26] MEDS: Allopurinol 100 MG Tablet PO (11:10)
[2021-02-26] MEDS: Tamsulosin HCl 0.4 MG Capsule PO (11:10)
[2021-02-26] MEDS: dexAMETHasone 10 MG/ML Vial 6 MG IV (11:10)
[2021-02-26] MEDS: Meloxicam 15 MG Tablet PO (11:11)
[2021-02-26] MEDS: Pantoprazole Sodium 20 MG Tablet PO (11:11)
[2021-02-26] MEDS: NYSTATIN 500,000 UNIT/5 ML UDC 500000 UNIT PO (11:12)
[2021-02-26] MEDS: Metoprolol Tartrate 50 MG Tablet PO (11:15)
[2021-02-26] MEDS: 0.9% Saline Lock 10 ML Syringe IV ×2 (11:18→11:22)
--- NOTE | 2021-02-26 13:32 | PCM.DC ---
Discharge Instructions Diet Discharge Diet: No restrictions Activity Discharge Activity: Return to Normal Activity Additional Activity Instructions:: Quarantine for a total of 20 days from the time of your symptom onset from COVID-19 Follow Up Care Test Results: Test results from this visit will be discussed in further detail at your follow-up appointment, if applicable. Discharge Plan Admission Admit Date/Time: 02/24/21 14:16 Primary Reason for Your Visit: Acute hypoxic respiratory failure, COVID-19 infection Attending Provider: Vincent Kinsey Primary Care Provider: Jaden Monterroso Instructions Additional Instructions / Restrictions: Quarantine at home for a total of 20 days after COVID-19 symptoms started Discharge Orders/Prescriptions Prescriptions: New dexamethasone 2 mg tablet 6 mg PO DAILY Qty: 24 RF: 0 Continued nitroglycerin 0.4 mg tablet, sublingual 0.4 mg SUBLINGUAL Q5-15M RF: 0 rosuvastatin 20 mg tablet 20 mg PO DAILY Qty: 90 RF: 1 flunisolide 25 ML spray,non-aerosol 2 spry NASAL DAILY RF: 0 metoprolol tartrate 50 MG tablet 50 mg PO DAILY RF: 0 lisinopril 5 MG tablet 2.5 mg PO BID RF: 0 nystatin 100,000 unit/mL Suspension 500,000 unit PO 4X/DAY 7 Days Qty: 140 RF: 0 tamsulosin 0.4 mg Capsule 0.4 mg PO DAILY@1730 30 Days Qty: 30 RF: 0 icosapent ethyl [Vascepa] 1 gram capsule 2 g PO BID Qty: 120 RF: 3 omeprazole 20 mg capsule,delayed release(DR/EC) 20 mg PO DAILY Qty: 90 RF: 3 meloxicam 15 mg tablet 15 mg PO DAILY Qty: 90 RF: 1 allopurinol 100 mg tablet 100 mg PO BID Qty: 60 RF: 4 Xarelto 20 mg tablet 20 mg PO DAILY Qty: 90 RF: 2 cyanocobalamin (vitamin B-12) 1,000 mcg capsule 1,000 mcg PO DAILY Qty: 90 RF: 1 Referrals / Follow Up: Jaden Monterroso DO [Primary Care Provider] - See Referral Note (in three weeks ) Disposition Disposition (needs filled in before D/C Order can be placed): Home, Self Care
--- NOTE | 2021-02-26 15:32 | PCM.DC.SUM ---
Providers Date of Admission: 02/24/21 Date of Discharge: 02/26/21 Primary Care Physician: Dr. Jaden Monterroso DO Reason For Visit: COVID HYPOXIA Diagnosis Discharge Diagnosis (1) Hypoxia: Status: Resolved Code(s): R09.02 - Hypoxemia (2) COVID-19: Status: Resolved Code(s): U07.1 - COVID-19 Plan: 1. COVID-19 pneumonia #2 acute hypoxic respiratory failure secondary to COVID-19 pneumonia #3 Dehydration #4 severe protein and caloric malnutrition in the context of acute illness related to inadequate oral intake as evidenced by calculated weight loss approximately 5% x 1 week and p.o. meeting less than 50% of estimated nutritional needs x1 week-patient's diet was liberalized, he was offered Ensure compact 3 times daily with meals as tolerated, weight was monitored #5 non-Hodgkin's lymphoma #6 coronary artery disease No firm documentation for acute kidney injury Medications at Discharge Home Medications flunisolide 2 spry NASAL DAILY 04/23/15 lisinopril 2.5 mg PO BID 04/23/15 metoprolol tartrate 50 mg PO DAILY 04/23/15 nitroglycerin 0.4 mg sublingual tablet 0.4 mg SUBLINGUAL Q5-15M 10/06/18 icosapent ethyl 1 gram capsule 2 g PO BID #120 cap 04/20/20 rosuvastatin 20 mg tablet 20 mg PO DAILY #90 tab 06/22/20 omeprazole 20 mg capsule,delayed release 20 mg PO DAILY #90 cap 06/23/20 meloxicam 15 mg tablet 15 mg PO DAILY #90 tab 11/09/20 nystatin 500,000 unit PO 4X/DAY 7 Days #140 ml 12/30/20 tamsulosin 0.4 mg PO DAILY@1730 30 Days #30 cap 12/30/20 allopurinol 100 mg tablet 100 mg PO BID #60 tab 01/09/21 rivaroxaban 20 mg tablet 20 mg PO DAILY #90 tab 01/17/21 cyanocobalamin (vitamin B-12) 1,000 mcg capsule 1,000 mcg PO DAILY #90 cap 02/02/21 dexamethasone 6 mg PO DAILY #24 tab 02/26/21 Hospital Course Operations None Procedures None Summary of Care Provided Minutes Spent on Discharge: 32 Hospital Course: This 80-year-old white male was seen in the emergency room at [facility] with complaints of dyspnea, cough, fatigue, and malaise. Patient had been diagnosed 3 days prior in the emergency room with COVID-19 (positive test) but he had been symptomatic for approximately 5 days. Work-up in the emergency room revealed the patient to require 3 L of oxygen via nasal cannula to maintain his pulse ox above 90%, white blood cell count was 3.4, BUN was 23 and creatinine was 1.78. Chest x-ray showed no acute cardiopulmonary findings. Patient was admitted to [place] [address] for clinical COVID-19 pneumonia, he was placed on dexamethasone and remdesivir, he was seen by nutritional services. Patient improved during his hospital course, on 02/26/2021, patient was seen and examined: On examination he appeared in good health and spirits. Vital signs as documented. Skin warm and dry and without overt rashes. Neck without JVD, neck was supple, trachea midline, thyroid was normal. Lungs clear bilaterally, normal air movement was noted. Heart exam notable for regular rhythm, normal sounds and absence of murmurs, rubs or gallops. Abdomen unremarkable and without evidence of organomegaly, masses, or abdominal aortic enlargement. Bowel sounds are present, abdomen is not distended. Extremities nonedematous, no cyanosis was noted, no clubbing was noted. Neuro: Cranial nerves II through XII are grossly intact, no focal motor deficits were noted, sensation to light touch and pinprick intact, motor exam 5/5 throughout. Psych: Patient is alert and oriented x3, he does not appear anxious or depressed, he does not appear agitated. Patient appears stable for discharge on 02/26/21. Weight / BMI Weight Weight: 84.6 kg Body Mass Index (BMI) 25.2 ABG / Lab / Microbiology Data Result Diagrams: 02/26/21 06:02 02/26/21 06:02 Laboratory: Laboratory Results - last 24 hr 02/26/21 06:02: WBC 4.0 L, RBC 3.21 L, Hgb 10.4 L, Hct 31.7 L, MCV 98.8 H, MCH 32.4 H, MCHC 32.8, RDW Std Deviation 54.0 H, RDW Coeff of Jackelyn 14.7 H, Plt Count 181, MPV 10.4, Immature Gran % (Auto) 0.500, Neut % (Auto) 71.7 H, Lymph % (Auto) 13.9 L, [place] % (Auto) 13.9 H, Eos % (Auto) 0.0, Baso % (Auto) 0.0, Absolute Neuts (auto) 2.9, Absolute Lymphs (auto) 0.55 L, Nucleated RBC % 0, Diff Path Review June02/26/21 06:02: Sodium 140, Potassium 4.7, Chloride 110 H, Carbon Dioxide 24.0, Anion Gap 6, BUN 29 H, Creatinine 1.16, Estim Creat Clear Calc 56.68, Est GFR (MDRD) Af Amer 78, Est GFR (MDRD) Non-Af 65, BUN/Creatinine Ratio 25.0 H, Glucose 116 H, Calcium 8.7, Total Bilirubin 0.30, AST 28, ALT 19, Alkaline Phosphatase 74, Total Protein 5.9 L, Albumin 2.4 L, Globulin 3.5, Albumin/Globulin Ratio 0.7 L Microbiology: Microbiology 02/24/21 21:00 Urine, Clean Catch Legionella Antigen - Final 02/24/21 21:00 Urine, Clean Catch Streptococcus pneumoniae Antigen (M - Final D/C Instructions Discharge Diet: No restrictions Additional Activity Instructions: Quarantine for a total of 20 days from the time of your symptom onset from COVID-19 Meaningful Use Info Meaningful Use Diagnoses (Choose all that apply): None applicable Discharge Plan Admission Admit Date/Time: 02/24/21 14:16 Primary Reason for Your Visit: Acute hypoxic respiratory failure, COVID-19 infection Attending Provider: Vincent Kinsey Primary Care Provider: Jaden Monterroso Instructions Additional Instructions / Restrictions: Quarantine at home for a total of 20 days after COVID-19 symptoms started Discharge Orders/Prescriptions Prescriptions: New dexamethasone 2 mg tablet 6 mg PO DAILY Qty: 24 RF: 0 Continued nitroglycerin 0.4 mg tablet, sublingual 0.4 mg SUBLINGUAL Q5-15M RF: 0 rosuvastatin 20 mg tablet 20 mg PO DAILY Qty: 90 RF: 1 flunisolide 25 ML spray,non-aerosol 2 spry NASAL DAILY RF: 0 metoprolol tartrate 50 MG tablet 50 mg PO DAILY RF: 0 lisinopril 5 MG tablet 2.5 mg PO BID RF: 0 nystatin 100,000 unit/mL Suspension 500,000 unit PO 4X/DAY 7 Days Qty: 140 RF: 0 tamsulosin 0.4 mg Capsule 0.4 mg PO DAILY@1730 30 Days Qty: 30 RF: 0 icosapent ethyl [Vascepa] 1 gram capsule 2 g PO BID Qty: 120 RF: 3 omeprazole 20 mg capsule,delayed release(DR/EC) 20 mg PO DAILY Qty: 90 RF: 3 meloxicam 15 mg tablet 15 mg PO DAILY Qty: 90 RF: 1 allopurinol 100 mg tablet 100 mg PO BID Qty: 60 RF: 4 Xarelto 20 mg tablet 20 mg PO DAILY Qty: 90 RF: 2 cyanocobalamin (vitamin B-12) 1,000 mcg capsule 1,000 mcg PO DAILY Qty: 90 RF: 1 Referrals / Follow Up: Jaden Monterroso DO [Primary Care Provider] - See Referral Note (in three weeks ) Disposition Disposition (needs filled in before D/C Order can be placed): Home, Self Care Charges/Coding Visit Charges Inpatient E&M: 25883 Disch Hosp
[2021-02-27 13:42] LABS: Pathologist Review Reviewed
[2021-02-27 13:49] LABS: Pathologist Review Reviewed
== END 2021-02-26 15:19 | disposition home or self-care (01) | DRG 177 ==
LOC: ED 14:20 → MS3 14:37
PROVIDERS: Family Medicine; Admitting Provider Family Medicine; Emergency Provider Emergency Medicine; PCP Family Medicine; Visit Provider Internal Medicine
DX: U07.1 COVID-19 (principal); J12.82 Pneumonia due to coronavirus disease 2019; J96.01 Acute respiratory failure with hypoxia; N17.9 Acute kidney failure, unspecified; C85.90 Non-Hodgkin lymphoma, unspecified, unspecified site; D51.3 Other dietary vitamin B12 deficiency anemia; K21.9 Gastro-esophageal reflux disease without esophagitis; I25.10 Atherosclerotic heart disease of native coronary artery without angina pectoris; I10 Essential (primary) hypertension; E78.5 Hyperlipidemia, unspecified; M10.9 Gout, unspecified; N40.0 Benign prostatic hyperplasia without lower urinary tract symptoms; Z79.01 Long term (current) use of anticoagulants; Z79.1 Long term (current) use of non-steroidal anti-inflammatories (NSAID); Z79.899 Other long term (current) drug therapy; Z87.891 Personal history of nicotine dependence; Z85.828 Personal history of other malignant neoplasm of skin; Z95.5 Presence of coronary angioplasty implant and graft
CPT/HCPCS: 36415; 71045; 71275; 74174; 80048; 80053; 82728; 83605; 83615; 83880; 84145; 84484; 85025; 85379; 86140; 87426; 87449; 93005; 94760; 97162; 97165; 97802; 99251; 99283; 99284; J7030; J7050; Q9967; A4216; G0463; J0248

== ENCOUNTER 2021-05-01 18:02 | Emergency (ER) | payer MEDICARE, OTHER, SELFPAY ==
[2021-05-01 18:03] VITALS: BP 117/78; PULSE 61; RESP 7; TEMP 36.3; O2SAT 97; BMI 25.4
[2021-05-01 18:48] VITALS: BP 116/64; PULSE 66; RESP 14; O2SAT 98
--- NOTE | 2021-05-01 19:16 | EDS_ITS ---
HPI HPI - GI History of Present Illness Chief Complaint: GI Bleed Informant: patient and spouse/S.O. Narrative Narrative: It takes some time to get the details of the history from patient and his . He does present with dark stools. He has had black stools for about a week. He is on Xarelto. His med list shows aspirin but is not on that now. He is on meloxicam. He also admits to taking a couple Motrin maybe twice a week. He has reflux but does not having symptoms of it. He states he sometimes gets some cramping in his abdomen but has had it only once over the last week and that is not uncommon for him. He feels slightly less energy but has not been syncopal or presyncopal. No chest pain or shortness of breath. Patient also has a history of a abdominal aortic aneurysm that was last about 5.3 cm. He saw his surgeon out 2 months ago and was told to follow-up in about 6 months. They may do surgery in the future but he also has non-Hodgkin's lymphoma with a lot of involvement around the aneurysm and they would like to hold off doing surgery if possible. Although he is seen black stools he has not seen any red blood. Nothing seems to make this better or worse. He is on Xarelto for what sounds like prior PE diagnosed about 6 months ago. [facility] Medical History Abdominal aortic aneurysm Acute pancreatitis Alcohol abuse Bilateral lower extremity edema BPH (benign prostatic hyperplasia) CAD (coronary artery disease) Dental infection Gastrocnemius tear GERD (gastroesophageal reflux disease) Gout Heavy alcohol consumption Hyperlipidemia Hypertension Hypertriglyceridemia Hypomagnesemia Hypophosphatemia Ileus Impacted cerumen of both ears Lymphoma Nicotine dependence Non Hodgkin's lymphoma Sacro-iliac pain Venous stasis dermatitis of both lower extremities Home Medications lisinopril 2.5 mg PO BID 04/23/15 [History Last Taken 02/23/21] metoprolol tartrate 50 mg PO DAILY 04/23/15 [History Last Taken 02/23/21] nitroglycerin 0.4 mg sublingual tablet 0.4 mg SUBLINGUAL Q5-15M 10/06/18 [History Last Taken Unknown] icosapent ethyl 1 gram capsule 2 g PO BID #120 cap 04/20/20 [Rx Last Taken 02/23/21] rosuvastatin 20 mg tablet 20 mg PO DAILY #90 tab 06/22/20 [Rx Last Taken Unknown] omeprazole 20 mg capsule,delayed release 20 mg PO DAILY #90 cap 06/23/20 [Rx Last Taken Unknown] tamsulosin 0.4 mg PO DAILY@1730 30 Days #30 cap 12/30/20 [Rx Last Taken Unknown] allopurinol 100 mg tablet 100 mg PO BID #60 tab 01/09/21 [Rx Last Taken 02/23/21] rivaroxaban 20 mg tablet 20 mg PO DAILY #90 tab 01/17/21 [Rx Last Taken Unknown] cyanocobalamin (vitamin B-12) 1,000 mcg capsule 1,000 mcg PO DAILY #90 cap 02/02/21 [Rx Last Taken 02/23/21] flunisolide 25 mcg (0.025 %) nasal spray 2 spray NASAL DAILY #25 ml 03/28/21 [Rx Last Taken Unknown] hydrocortisone 2.5 % topical cream 1 applic TOPICAL BID PRN #30 g 03/28/21 [Rx Last Taken Unknown] meloxicam 15 mg tablet 15 mg PO DAILY #90 tab 04/10/21 [Rx Last Taken Unknown] Allergy/AdvReac Type Severity Reaction Status Date / Time erythromycin base Allergy Hives Verified 05/01/21 18:02 Sulfa (Sulfonamide Allergy Hives Verified 05/01/21 18:02 Antibiotics) Family History Brother CAD (coronary artery disease) Mother Heart disease Father Heart disease Surgical History H/O Mohs micrographic surgery for skin cancer Hx of umbilical hernia repair S/P TURP Status post coronary artery stent placement Social History household members: spouse Smoking Status: Former smoker quit date: 02/18/18 how long ago did patient quit smoking: Quit 02/18/18, smoked 1 ppd since teen until quit. alcohol intake: current alcohol intake frequency: 0-2 drinks per day Alcohol type: wine substance use type: does not use ROS ROS ED Constitutional Constitutional ED: Denies chills or fever(s) ENT ENT ED: Denies rhinorrhea or sore throat Cardiovascular Cardiovascular: Denies chest pain, palpitations or racing heartbeat Respiratory/Chest Respiratory/Chest: Denies cough or dyspnea Gastrointestinal Gastrointestinal: Reports abdominal pain, diarrhea and melena; Denies constipation, nausea or vomiting Genitourinary Genitourinary ED: Denies dysuria or hematuria Musculoskeletal Musculoskeletal: Denies arthralgias or myalgias Integumentary Denies rash Neurologic Neurologic: Denies paresthesias or weakness Endocrine Endocrinology: Denies polydipsia or polyuria Hematologic/Lymphatic Hematologic/Lymphatic: Reports easy bleeding and easy bruising Allergic/Immunologic Allergic/Immunologic ED: Denies urticaria EXAM Physical Exam Const Vital Signs: 05/01/21 18:03 05/01/21 18:48 05/01/21 20:26 Temperature 97.4 F L Temperature Source Temporal Pulse Rate 61 66 65 Pulse Rate [Lying] Pulse Rate [Sitting (for 1 minute prior to obtaining)] Pulse Rate [Standing (for 1 minute prior to obtaining)] Respiratory Rate 7 L 14 16 Blood Pressure 117/78 116/64 122/64 H Blood Pressure [Lying] Blood Pressure [Sitting (for 1 minute prior to obtaining)] Blood Pressure [Standing (for 1 minute prior to obtaining)] Blood Pressure Mean 91 81 83 Blood Pressure Mean [Lying] Blood Pressure Mean [Sitting (for 1 minute prior to obtaining)] Blood Pressure Mean [Standing (for 1 minute prior to obtaining)] Pulse Ox 97 98 98 Oxygen Delivery Method Room Air Room Air Room Air 05/01/21 20:48 05/01/21 22:09 Temperature 98.7 F Temperature Source Temporal Pulse Rate 66 Pulse Rate [Lying] 60 Pulse Rate [Sitting (for 1 minute prior to obtaining)] 57 L Pulse Rate [Standing (for 1 minute prior to obtaining)] 67 Respiratory Rate 14 Blood Pressure 122/78 H Blood Pressure [Lying] 117/75 Blood Pressure [Sitting (for 1 minute prior to obtaining)] 118/78 Blood Pressure [Standing (for 1 minute prior to obtaining)] 107/81 H Blood Pressure Mean 92 Blood Pressure Mean [Lying] 89 Blood Pressure Mean [Sitting (for 1 minute prior to obtaining)] 91 Blood Pressure Mean [Standing (for 1 minute prior to obtaining)] 89 Pulse Ox 98 Oxygen Delivery Method Room Air Positive well nourished and well developed General Appearance ED: well developed and NAD HEENT Reports moist mucous membranes normocephalic and atraumatic Eyes PERRL and EOMs intact bilaterally General Eye ED: Negative for pale conjunctiva Neck no JVD Resp normal respiratory effort and clear to auscultation bilaterally Auscultation: Negative for rales, rhonchi or wheezes Cardio regular rate, regular rhythm and no murmurs GI non-tender, non-distended and no masses Auscultation: normoactive bowel sounds Palpation: soft; Negative for tender or guarding Back/Spine no CVA tenderness Extremity full ROM General Extremety ED: Negative for edema or tenderness General Extremity: Negative for edema Neuro Sensorium / Orientation: alert Psych mental status grossly normal Skin Rashes: no rashes MDM MDM MDM Narrative Medical decision making narrative: Patient CBC shows some mild anemia but it is higher hemoglobin than his normal. Electrolytes show minimal elevation in the creatinine but his BUN is normal. Lactate is normal. Liver function test are normal. CT scan of the abdomen shows no acute process. This patient had a bowel movement here. I looked at it. It was a medium to may be slightly dark brown. It was Hemoccult positive but no gross blood and it was not melena. We will have him stop his meloxicam and stop taking ibuprofen. Ingrid calzada also states that he has been getting diarrhea but that started a week ago after he ate a [employer] quarter pounder that did not taste right. Diarrhea is getting better. He has not been on any antibiotics within the last few months that he knows of. He was on Flomax but he was getting dizziness so he stopped that a few days ago. The dizziness seems better. 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 His last colonoscopy was 1 year ago. If he sees black blood in the stool, develops pain, weakness or any other symptoms he needs to return. I think this is uncommonly patient on anticoagulation that is able to go home. His stool is grossly negative, his hemoglobin is rising. He is clinically fine and walks around the department without any lightheadedness. Lab Data Attestation: I reviewed the patient's lab results. Labs: Laboratory Results - last 24 hr 05/01/21 05/01/21 05/01/21 19:35 19:35 19:35 WBC 5.2 RBC 3.66 L Hgb 12.2 L Hct 36.1 L MCV 98.6 H MCH 33.3 H MCHC 33.8 RDW Std Deviation 53.1 H RDW Coeff of Jackelyn 14.6 Plt Count 263 MPV 9.6 Immature Gran % (Auto) 0.800 Neut % (Auto) 66.4 Lymph % (Auto) 19.7 [place] % (Auto) 10.2 H Eos % (Auto) 2.3 Baso % (Auto) 0.6 Absolute Neuts (auto) 3.4 Absolute Lymphs (auto) 1.02 Nucleated RBC % 0 Sodium 140 Potassium 4.2 Chloride 110 H Carbon Dioxide 25.0 Anion Gap 5 BUN 15 Creatinine 1.57 H Estim Creat Clear Calc 41.88 Est GFR (MDRD) Af Amer 55 L Est GFR (MDRD) Non-Af 46 L BUN/Creatinine Ratio 9.6 L Glucose 106 Lactic Acid 1.0 Calcium 8.9 Total Bilirubin 0.30 AST 22 ALT 17 Alkaline Phosphatase 96 Total Protein 7.4 Albumin 3.6 Globulin 3.8 Albumin/Globulin Ratio 0.9 Radiography Diagnostic Testing: Clinical Impression(s) from Imaging Studies Abdomen/Pelvis CT 05/01/21 20:45 IMPRESSION: No acute intra-abdominal pathology. Stable 5.5 x 5.4 cm, aortic aneurysm with unchanged periaortic soft tissue density which may represent fibrosis or chronic leak. No extravasation. Diverticulosis without diverticulitis. Distended urinary bladder. Electronically Signed: Elvin Lazaro DO at 21:31 EDT , Discharge Plan Triage Chief Complaint: GI Bleed ED Provider: Xiang Acosta Dx/Rx/DC Orders Clinical Impression: Diarrhea Instructions: ED Diarrhea, Unknown Cause Prescriptions: No Action nitroglycerin 0.4 mg tablet, sublingual 0.4 mg SUBLINGUAL Q5-15M RF: 0 rosuvastatin 20 mg tablet 20 mg PO DAILY Qty: 90 RF: 1 hydrocortisone 2.5 % cream 1 applic topical BID PRN (Reason: skin irritation) Qty: 30 RF: 3 flunisolide 25 mcg (0.025 %) spray,non-aerosol 2 spray NASAL DAILY Qty: 25 RF: 1 metoprolol tartrate 50 MG tablet 50 mg PO DAILY RF: 0 lisinopril 5 MG tablet 2.5 mg PO BID RF: 0 tamsulosin 0.4 mg Capsule 0.4 mg PO DAILY@1730 30 Days Qty: 30 RF: 0 icosapent ethyl [Vascepa] 1 gram capsule 2 g PO BID Qty: 120 RF: 3 omeprazole 20 mg capsule,delayed release(DR/EC) 20 mg PO DAILY Qty: 90 RF: 3 allopurinol 100 mg tablet 100 mg PO BID Qty: 60 RF: 4 Xarelto 20 mg tablet 20 mg PO DAILY Qty: 90 RF: 2 cyanocobalamin (vitamin B-12) 1,000 mcg capsule 1,000 mcg PO DAILY Qty: 90 RF: 1 meloxicam 15 mg tablet 15 mg PO DAILY Qty: 90 RF: 1 Primary Care Provider: Jaden Monterroso Referrals: Jaden Monterroso, DO [Primary Care Provider] - As soon as possible Activity Restrictions/Additional Instructions: Stop your meloxicam and stop taking Motrin/ibuprofen/Aleve for now. Do continue your omeprazole. Disposition Disposition: Home, Self Care
[2021-05-01 19:47] LABS: Absolute Lymphocyte Count 1.02 X10^3/uL (0.83-4.51); Absolute Neutrophil Count 3.4 X10^3/uL (2.0-7.7); Basophil# 0.03 X10^3/uL; Basophil% 0.6 % (0-1); Eosinophil# 0.12 X10^3/uL; Eosinophils% 2.3 % (0-5); Hematocrit 36.1 % (40-54); Hemoglobin 12.2 g/dL (13.0-16.5); Lymphocyte # 1.02 X10^3/ul (0.83-4.51); Lymphocyte % 19.7 % (19-41); Mean Corp Hgb Conc 33.8 g/dL (32-36); Mean Corpuscular Hgb 33.3 pg (27.0-32.0); Mean Corpuscular Volume 98.6 fL (80-94); Mean Platelet Vol. 9.6 fl (6.2-12.0); Monocyte# 0.53 X10^3/uL; Monocyte% 10.2 % (0-10); NRBC Flagged by Analyzer 0 % (0-5); Neutrophil # 3.44 X10^3/uL (2.7-7.7); Neutrophil % 66.4 % (47-70); Platelet Count 263 K/mm3 (150-450); RBC Distribution Width CV 14.6 % (11.6-14.6); RBC Distribution Width SD 53.1 fl (35.1-43.9); Red Blood Count 3.66 M/mm3 (4.6-6.2); White Blood Count 5.2 K/mm3 (4.4-11.0)
[2021-05-01 20:07] LABS: ALB/GLOB Ratio 0.9 RATIO (0.9-2.4); AST(SGOT) 22 U/L (15-37); Alanine Aminotransfer ALT/SGPT 17 U/L (16-61); Albumin, Serum 3.6 g/dL (3.2-5.0); Alkaline Phosphatase 96 U/L (45-117); Anion Gap 5 (5-15); BUN 15 mg/dL (7-18); BUN/Creat Ratio 9.6 RATIO (10-20); Calcium,Total 8.9 mg/dL (8.5-10.1); Chloride 110 mmol/L (98-107); Creatinine, Serum 1.57 mg/dL (0.70-1.30); EST Glomerular Filtration Rate 46 mL/min (>60); Est Glom Filt Rate - Afr Amer 55 mL/min (>60); Estimated Creatinine Clearance 41.88 ml/min; Globulin 3.8 g/dL (2.2-4.2); Glucose 106 mg/dL (74-106); Potassium 4.2 mmol/L (3.5-5.1); Protein, Total 7.4 g/dL (6.4-8.2); Sodium Level 140 mmol/L (136-145)
[2021-05-01 20:26] VITALS: BP 122/64; PULSE 65; RESP 16; O2SAT 98
--- NOTE | 2021-05-01 20:45 | CT_ITS ---
INDICATION: abd pain -- IV PO Contrast EXAMINATION: CT ABDOMEN AND PELVIS WITH CONTRAST - CT Abdomen And Pelvis W/ Contrast Injection TECHNIQUE: Helically acquired images were obtained of the abdomen and pelvis following IV contrast. A radiation dose optimization technique was used for this scan. IV Contrast dosage and agent: 100 mL of ISOVUE-300. Oral contrast: Other GASTROGRAFIN. COMPARISON: CT angiography chest and abdomen 02/21/[address] abdomen 12/27/2020 FINDINGS: LOWER CHEST: New right lower lobe and reticular opacities compared to prior imaging. There are moderate centrilobular emphysematous changes. No cardiomegaly or pericardial effusion. LIVER: 7 mm peripheral hypodensity posterior segment of the right hepatic lobe is unchanged most likely representing cyst or other benign finding. No other or suspicious mass. GALLBLADDER AND BILIARY TREE: No calcified gallstones. No gallbladder distension or wall edema. No intra- or extrahepatic biliary ductal dilation. PANCREAS: No focal cystic or solid mass. SPLEEN: Normal size without focal cystic or solid mass. ADRENAL GLANDS: No nodules. KIDNEYS, URETERS and BLADDER: Normal renal size and position. No mass. No hydronephrosis. Distended. PERITONEUM: No ascites or free air. No other fluid collection. BOWEL: No evidence of acute appendicitis. No abnormally distended bowel loops or air fluid levels. No wall thickening or mass. No focal inflammatory changes. Few scattered diverticuli sigmoid colon. LYMPH NODES: No enlarged mesenteric or retroperitoneal lymph nodes. VESSELS: Aorta is non-dilated. REPRODUCTIVE ORGANS: Normal size prostate gland. ABDOMINAL WALL: Unchanged, 5.5 x 5.4 cm infrarenal abdominal aortic aneurysm previously measuring 5.4 x 5.4 cm. The surrounding area of periaortic soft tissue thickening measuring roughly 45 [place] units, is unchanged compared to prior exams. BONES: T10 compression fracture with almost 50% vertebral body height loss, unchanged. There is advanced L2-3 level degenerative disc and endplate changes with significant endplate sclerosis. Significant L4-5 facet arthropathy. There is sacralization of L5 on the right. No fracture or focal osseous lesion. CT/Abdomen/Pelvis WITH Contrast IMPRESSION: No acute intra-abdominal pathology. Stable 5.5 x 5.4 cm, aortic aneurysm with unchanged periaortic soft tissue density which may represent fibrosis or chronic leak. No extravasation. Diverticulosis without diverticulitis. Distended urinary bladder. Electronically Signed: Elvin Lazaro DO at 21:31 EDT ,
[2021-05-01 20:48] VITALS: BP 107/81; BP 117/75; BP 118/78; PULSE 57; PULSE 60; PULSE 67
[2021-05-01 22:09] VITALS: BP 122/78; PULSE 66; RESP 14; TEMP 37.1; O2SAT 98
== END 2021-05-01 23:15 | disposition home or self-care (01) ==
PROVIDERS: Emergency Provider Emergency Medicine; PCP Family Medicine; Visit Provider Emergency Medicine
DX: R19.7 Diarrhea, unspecified (principal); I25.10 Atherosclerotic heart disease of native coronary artery without angina pectoris; Z87.891 Personal history of nicotine dependence; Z79.01 Long term (current) use of anticoagulants; Z95.5 Presence of coronary angioplasty implant and graft
CPT/HCPCS: 74177; 80053; 82274; 83605; 85025; 99284; Q9967

== ENCOUNTER 2021-06-21 14:31 | Inpatient (IN) | payer MEDICARE, OTHER, SELFPAY ==
[2021-06-21] VITALS (11 sets, daily range): BP systolic 110–149; BP diastolic 74–98; PULSE 55–113; RESP 15–27; TEMP 36.3–36.6; O2SAT 96–100; BMI 24.2; BMI 24.0
--- NOTE | 2021-06-21 14:57 | EKG12_ITS ---
Test Reason : TACHY Blood Pressure : / mmHG Vent. Rate : 114 BPM Atrial Rate : 114 BPM P-R Int : 164 ms QRS Dur : 072 ms QT Int : 348 ms P-R-T Axes : 042 -08 111 degrees QTc Int : 479 ms Sinus tachycardia Septal infarct , age undetermined Abnormal ECG Confirmed by TARA BILLINGSLEY, RELL ([id number]), videotape editor DEL REY ([id number]) on 06/23/2021 8:13:01 AM Referred By: ADILENE/SHERMAN Confirmed By:NEVILLE PACHECO MD
--- NOTE | 2021-06-21 15:15 | EX.ED.DYSGE1 ---
HPI History of Present Illness Chief Complaint: Shortness of Breath Detail of Chief Complaint: Constellation of symptoms after receiving Evusheld Informant: patient and spouse/S.O. Onset/Context/Timing Onset: Days (Per onset of symptoms Saturday. Significantly more concerning today) Context: Gradual Onset Timing: Continuous Quality: Headache, paresthesia, shortness of breath, lightheadedness and see HPI Location: Generalized Current Severity: Mild Maximum Severity: Moderate Worsened by: Concerned reaction to medication patient received to treat COVID-19 Relieved by: Nothing Associated Symptoms Associated Symptoms: Per HPI Narrative Narrative: Patient is a 80-year-old male with history of lymphoma. He received EVUSHELD on Saturday to treat COVID. He was diagnosed with COVID and February. states he got 2 injections in each buttocks. She states his symptoms started Saturday. Patient did acknowledge he had minimal symptoms on Saturday. His contacted his doctor, Dr. Joce Jc, who recommended he come to the emergency room. handed me a sheet of paper with all the possible reactions due to the medication. He complained of notable headache that was frontal yesterday. He also had a persistent headache today. He did take Tylenol with improvement yesterday. He denies double vision, blurred vision loss of vision. He denies chronic tinnitus. He denies decreased hearing from baseline. He denies drainage from his ears. He denies rhinorrhea, congestion or postnasal drainage. Nuys sore throat. Nuys change in voice, difficulty speaking or's swallowing. He denies chest discomfort. He does report shortness of breath. He denies pleuritic pain. He denies cough. He denies leg pain, swelling or discoloration. He does report tingling in his upper and lower extremities. He states he has chronic diarrhea and is scheduled for colonoscopy. He also endorses nausea without vomiting. He denies black or maroon-colored stool. When I looked at patient's legs states he has a rash which he has not had in the past. Prior similar symptoms: No Recent Illness/Hospitalization: Yes [facility] Medical History Abdominal aortic aneurysm Acute pancreatitis Alcohol abuse Bilateral lower extremity edema BPH (benign prostatic hyperplasia) CAD (coronary artery disease) Dental infection Gastrocnemius tear GERD (gastroesophageal reflux disease) Gout Heavy alcohol consumption Hyperlipidemia Hypertension Hypertriglyceridemia Hypomagnesemia Hypophosphatemia Ileus Impacted cerumen of both ears Lymphoma Nicotine dependence Non Hodgkin's lymphoma Sacro-iliac pain Venous stasis dermatitis of both lower extremities Home Medications lisinopril 10 mg PO BID 04/23/15 [History Last Taken 02/23/21] metoprolol tartrate 50 mg PO DAILY 04/23/15 [History Last Taken 02/23/21] nitroglycerin 0.4 mg sublingual tablet 0.4 mg SUBLINGUAL Q5-15M 10/06/18 [History Last Taken Unknown] rosuvastatin 20 mg tablet 20 mg PO DAILY #90 tab 06/22/20 [Rx Last Taken Unknown] omeprazole 20 mg capsule,delayed release 20 mg PO DAILY #90 cap 06/23/20 [Rx Last Taken Unknown] rivaroxaban 20 mg tablet 20 mg PO DAILY #90 tab 01/17/21 [Rx Last Taken Unknown] cyanocobalamin (vitamin B-12) 1,000 mcg capsule 1,000 mcg PO DAILY #90 cap 02/02/21 [Rx Last Taken 02/23/21] meloxicam 15 mg tablet 15 mg PO DAILY #90 tab 04/10/21 [Rx Last Taken Unknown] diphenoxylate-atropine 2.5 mg-0.025 mg tablet See Rx Instructions PO .COMPLEX #45 tab 05/05/21 [Rx Last Taken Unknown] allopurinol 100 mg tablet 100 mg PO BID #60 tab 05/12/21 [Rx Last Taken Unknown] Allergy/AdvReac Type Severity Reaction Status Date / Time erythromycin base Allergy Hives Verified 06/21/21 14:41 Sulfa (Sulfonamide Allergy Hives Verified 06/21/21 14:41 Antibiotics) Family History Brother CAD (coronary artery disease) Mother Heart disease Father Heart disease Surgical History H/O Mohs micrographic surgery for skin cancer Hx of umbilical hernia repair S/P TURP Status post coronary artery stent placement Social History household members: spouse Smoking Status: Former smoker quit date: 01/01/19 how long ago did patient quit smoking: Quit 02/18/18, smoked 1 ppd since teen until quit. alcohol intake: current alcohol intake frequency: 0-2 drinks per day Alcohol type: wine substance use type: does not use ROS ROS ED Constitutional Constitutional ED: Denies chills, fever(s), subjective, sweats or weight loss Eyes Eyes: Denies blurry vision, change in vision or diplopia ENT ENT ED: Denies ear pain, rhinorrhea or sore throat Cardiovascular Cardiovascular: Denies chest pain, orthopnea, palpitations, paroxysmal nocturnal dyspnea or racing heartbeat Respiratory/Chest Respiratory/Chest: Reports dyspnea and dyspnea on exertion; Denies cough, orthopnea, paroxysmal nocturnal dyspnea or sputum Gastrointestinal Gastrointestinal: Reports diarrhea and nausea; Denies abdominal pain, melena or vomiting Genitourinary Genitourinary ED: Denies dysuria, hematuria or urinary frequency Musculoskeletal Musculoskeletal: Denies arthralgias, back pain, myalgias or neck pain Integumentary Reports rash; Denies abscess or Abrasions Neurologic Neurologic: Reports headache(s), paresthesias, weakness and other Details: Headache is bifrontal and described as dull. There is no radiation. Endocrine Endocrinology: Denies polydipsia, polyphagia or polyuria Hematologic/Lymphatic Hematologic/Lymphatic: Denies anemia, easy bleeding or easy bruising Allergic/Immunologic Allergic/Immunologic ED: Denies mouth swelling, tongue swelling or urticaria EXAM Physical Exam Const Vital Signs: 06/21/21 14:36 06/21/21 15:30 06/21/21 15:37 Temperature 97.7 F L Temperature Source Oral Pulse Rate 113 H 71 Respiratory Rate 27 H 23 H Respiratory Effort Short of Breath Respiratory Depth Normal Respiratory Pattern Tachypnea Blood Pressure 149/87 H 121/91 H Blood Pressure Mean 107 101 Pulse Ox 98 98 Oxygen Delivery Method Room Air Room Air Room Air 06/21/21 16:00 Temperature Temperature Source Pulse Rate 69 Respiratory Rate 17 Respiratory Effort Respiratory Depth Respiratory Pattern Blood Pressure 132/98 H Blood Pressure Mean 109 Pulse Ox 98 Oxygen Delivery Method Room Air Positive well nourished and well developed General Appearance ED: well developed and NAD; Negative for cyanotic or diaphoretic HEENT Reports TM's clear and moist mucous membranes HEENT Narrative: Uvula midline. There is no erythema exudate. There is no angioedema. Patient has bilateral's Chvostek sign Negative for trauma or tenderness Tympanic Membrane ED: Yes TM's clear Eyes PERRL and EOMs intact bilaterally General Eye ED: Negative for pale conjunctiva or scleral icterus Neck no lymphadenopathy, supple and no JVD Neck Narrative: Trachea is midline. There is no inspiratory stridor. Resp normal respiratory effort and clear to auscultation bilaterally Cardio regular rhythm, S1 normal heart sound, S2 normal heart sound and no murmurs Rate: tachycardic GI normal to inspection, nondistended, normoactive bowel sounds and non-tender Palpation: soft Back/Spine no CVA tenderness Thoracic Spine / Upper Back: Negative for thoracic spinal tenderness or paraspinal muscle tenderness Extremity normal to inspection General Extremety ED: Negative for edema or tenderness General Extremity: Negative for edema Neuro oriented x3, CN's II-XII intact bilaterally and no sensory deficits noted Neuro Narrative: DTR symmetric 2+ with no clonus or Babinski sign. Sensorium / Orientation: alert Motor Exam: strength 5/5 throughout Psych mental status grossly normal Skin Skin Narrative: Patient may have petechiae. There is also evidence of dry skin. MDM MDM MDM Narrative Medical decision making narrative: This may represent a allergic reaction to the medication was administered to treat COVID. This also may represent pneumonia versus cardiac versus other causes. EKG, chest x-ray and appropriate blood work was ordered. Discussed patient's presentation with Dr. Joce Jc. He has not received any medication that would explain his hypocalcemia. Would explain a lot of his symptoms. Magnesium was ordered. Magnesium is 0.3. Magnesium infusion was ordered. Patient will require admission. Lab Data Attestation: I reviewed the patient's lab results. Lab results narrative: Patient has hypocalcemia with a normal albumin. Magnesium was ordered. He will receive 1 g of calcium chloride over 1 hour. CBC was ordered because of interpretation by radiologist. White counts normal with a normal differential doubt this is pneumonia and is the pectoralis muscles as previously documented. Labs: Laboratory Results - last 24 hr 06/21/21 06/21/21 06/21/21 15:15 15:15 16:00 WBC 6.5 RBC 3.84 L Hgb 12.3 L Hct 36.6 L MCV 95.3 H MCH 32.0 MCHC 33.6 RDW Std Deviation 52.7 H RDW Coeff of Jackelyn 15.0 H Plt Count 313 MPV 10.4 Immature Gran % (Auto) 0.600 Neut % (Auto) 75.8 H Lymph % (Auto) 15.7 L [place] % (Auto) 6.9 Eos % (Auto) 0.5 Baso % (Auto) 0.5 Absolute Neuts (auto) 4.9 Absolute Lymphs (auto) 1.02 Nucleated RBC % 0 Sodium 141 Potassium 3.4 L Chloride 107 Carbon Dioxide 25.0 Anion Gap 9 BUN 11 Creatinine 1.35 H Estim Creat Clear Calc 48.70 Est GFR (MDRD) Af Amer 66 Est GFR (MDRD) Non-Af 54 L BUN/Creatinine Ratio 8.1 L Glucose 122 H Calcium 6.4 L* Magnesium 0.3 L* Total Bilirubin 0.30 AST 22 ALT 14 L Alkaline Phosphatase 67 Total Protein 6.7 Albumin 3.3 Globulin 3.4 Albumin/Globulin Ratio 1.0 Radiography Chest X-Ray - ED: 2 View, Read by ED Physician (Interpreted by me at 1530), Unchanged, Normal, Heart, Mediastinum, Bony Structures, No Acute Disease and Chronic Changes Diagnostic Testing: Clinical Impression(s) from Imaging Studies Chest X-Ray 06/21/21 15:20 IMPRESSION: Findings suggestive of early bilateral peripheral based infiltrates worse in the left lung. Radiographic follow-up is recommended. Electronically Signed: Praveen Oviedo MD at 15:36 EDT , The radiologist interpretation was read. The x-ray was reviewed again by me. I am in disagreement that the patient has bilateral peripheral base infiltrates. In my opinion this represents patient's pectoralis major muscle. EKG Initial EKG: Attestation: I personally reviewed and interpreted this EKG as follows: Interpretation: Sinus Tachycardia (Ventricular rate is 114. There is decreased anterior force. MT interval is 164 ms. QRS duration 72 ms. QT duration 348 ms. [place] is normal.) Discharge Plan Triage Chief Complaint: Shortness of Breath Other Complaint: Allergic Reaction ED Provider: Florentino Giles Dx/Rx/DC Orders Clinical Impression: Hypocalcemia syndrome, Hypomagnesemia, Adverse effect of drug therapy Prescriptions: No Action nitroglycerin 0.4 mg tablet, sublingual 0.4 mg SUBLINGUAL Q5-15M RF: 0 rosuvastatin 20 mg tablet 20 mg PO DAILY Qty: 90 RF: 1 diphenoxylate-atropine 2.5-0.025 mg tablet See Rx Instructions PO .COMPLEX Qty: 45 RF: 0 metoprolol tartrate 50 MG tablet 50 mg PO DAILY RF: 0 lisinopril 5 MG tablet 10 mg PO BID RF: 0 omeprazole 20 mg capsule,delayed release(DR/EC) 20 mg PO DAILY Qty: 90 RF: 3 Xarelto 20 mg tablet 20 mg PO DAILY Qty: 90 RF: 2 cyanocobalamin (vitamin B-12) 1,000 mcg capsule 1,000 mcg PO DAILY Qty: 90 RF: 1 meloxicam 15 mg tablet 15 mg PO DAILY Qty: 90 RF: 1 allopurinol 100 mg tablet 100 mg PO BID Qty: 60 RF: 4 Primary Care Provider: Jaden Monterroso Referrals: Jaden Monterroso, DO [Primary Care Provider] - Disposition Disposition: Acute Care Hospital [facility]
--- NOTE | 2021-06-21 15:20 | RAD_ITS ---
STUDY: X-RAY CHEST REASON FOR EXAM: Male, 80 years old. Dyspnea. History of lymphoma. TECHNIQUE: PA and lateral views of the chest. COMPARISON: Comparison is made with prior study dated 02/24/2021. FINDINGS: EKG electrodes are seen. There are now measurements of the subtle bilateral infiltrates in both lungs in a peripheral distribution slightly worse on the left side. Early infiltration be ruled out. Follow-up is recommended. There is no demonstrated pleural abnormality. Normal size heart. Normal mediastinum and thuy. Normal visualized pulmonary arteries. There is atherosclerotic calcification of the aortic arch with tortuosity. There is demineralization of the osseous structures. Normal visualized ribs, clavicles, and shoulders. There is no demonstrated abnormality of the visualized soft tissue structures of the upper abdomen. RAD/Chest PA and Lateral IMPRESSION: Findings suggestive of early bilateral peripheral based infiltrates worse in the left lung. Radiographic follow-up is recommended. Electronically Signed: Praveen Oviedo MD at 15:36 EDT ,
[2021-06-21 15:38] LABS: AST(SGOT) 22 U/L (15-37); Alanine Aminotransfer ALT/SGPT 14 U/L (16-61); Albumin, Serum 3.3 g/dL (3.2-5.0); Alkaline Phosphatase 67 U/L (45-117); Anion Gap 9 (5-15); BUN 11 mg/dL (7-18); BUN/Creat Ratio 8.1 RATIO (10-20); Calcium,Total 6.4 mg/dL (8.5-10.1); Chloride 107 mmol/L (98-107); Creatinine, Serum 1.35 mg/dL (0.70-1.30); EST Glomerular Filtration Rate 54 mL/min (>60); Est Glom Filt Rate - Afr Amer 66 mL/min (>60); Globulin 3.4 g/dL (2.2-4.2); Glucose 122 mg/dL (74-106); Potassium 3.4 mmol/L (3.5-5.1); Protein, Total 6.7 g/dL (6.4-8.2); Sodium Level 141 mmol/L (136-145)
[2021-06-21 16:16] LABS: Magnesium 0.3 mg/dL (1.6-2.6)
[2021-06-21 16:25] LABS: Absolute Lymphocyte Count 1.02 X10^3/uL (0.83-4.51); Absolute Neutrophil Count 4.9 X10^3/uL (2.0-7.7); Basophil# 0.03 X10^3/uL; Basophil% 0.5 % (0-1); Eosinophil# 0.03 X10^3/uL; Eosinophils% 0.5 % (0-5); Hematocrit 36.6 % (40-54); Hemoglobin 12.3 g/dL (13.0-16.5); Lymphocyte # 1.02 X10^3/ul (0.83-4.51); Lymphocyte % 15.7 % (19-41); Mean Corp Hgb Conc 33.6 g/dL (32-36); Mean Corpuscular Volume 95.3 fL (80-94); Mean Platelet Vol. 10.4 fl (6.2-12.0); Monocyte# 0.45 X10^3/uL; Monocyte% 6.9 % (0-10); NRBC Flagged by Analyzer 0 % (0-5); Neutrophil # 4.91 X10^3/uL (2.7-7.7); Neutrophil % 75.8 % (47-70); Platelet Count 313 K/mm3 (150-450); RBC Distribution Width SD 52.7 fl (35.1-43.9); Red Blood Count 3.84 M/mm3 (4.6-6.2); White Blood Count 6.5 K/mm3 (4.4-11.0)
--- NOTE | 2021-06-21 16:50 | NURSING ---
DR ELMA QUEVEDO
[2021-06-21] MEDS: Magnesium Sulfate 4gm/100mL 4 GM/100 ML IV.SOLN. IV (16:58)
--- NOTE | 2021-06-21 17:01 | NURSING ---
PCU ELMA SYMPTOMATIC HYPOCALCEMIA, HYPOMAGNESEMIA, AND ADVERSE DRUG REACTION
[2021-06-21 17:34] LABS: Phosphorus 2.8 mg/dL (2.5-4.9)
--- NOTE | 2021-06-21 18:11 | HP.PCM.HOS_ITS ---
HPI - General General Date of Admission: 06/21/21 Date of Service: 06/21/21 Chief Complaint: Multiple symptoms started after Evusheld injection on Saturday HPI Narrative DOUGIE COOPER, is a 80 M who was sent to ED by Dr. Jc after he had Evusheld injection on Saturday as preventative measure for COVID-19 infection. 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 After he had continued growth of lymph node in the neck, he was started on R-CVP, for cycle in November 2020. He also had 4 cycles of weekly rituximab. On Saturday patient tested negative for rapid antigen and then he had Evusheld injection on Saturday in [facility]. After the injection in afternoon he was feeling loss of appetite, mild headache 5-6/10 intensity. On Saturday symptoms got worse with more headache, dizziness, numbness and tingling in hands and feet but no chest pain or tightness. Normally does not have shortness of breath at rest. He felt his hands were also swollen but no lip throat or mouth swelling. He denies any fever but he had chills. No bleeding. The symptoms got worse and he was sent to ED by Dr. Jc. He denies blurry vision, loss of vision or double vision. He had Tylenol for persistent headache but did not get better. No hallucinations or delusions. No one-sided weakness or focal symptoms of a stroke, dysphagia or dysarthria. No rash. In ED, patient had blood work which showed severe hypomagnesemia and hypocalcemia. Triage vitals in ED shows tachycardia 113 beats per 1, respiratory rate 23-27 but no hypoxia. Blood pressure in normal range. After few hours in the ER, his sinus tachycardia resolved. Patient on magnesium and calcium replacement and further admitted. ER physician talked with Dr. Jc. [facility] Medical History Abdominal aortic aneurysm Acute pancreatitis Alcohol abuse Bilateral lower extremity edema BPH (benign prostatic hyperplasia) CAD (coronary artery disease) Dental infection Gastrocnemius tear GERD (gastroesophageal reflux disease) Gout Heavy alcohol consumption Hyperlipidemia Hypertension Hypertriglyceridemia Hypomagnesemia Hypophosphatemia Ileus Impacted cerumen of both ears Lymphoma Nicotine dependence Non Hodgkin's lymphoma Sacro-iliac pain Venous stasis dermatitis of both lower extremities Home Medications lisinopril 10 mg PO BID 04/23/15 [History Last Taken 06/21/21] metoprolol tartrate 50 mg PO DAILY 04/23/15 [History Last Taken 06/20/21] nitroglycerin 0.4 mg sublingual tablet 0.4 mg SUBLINGUAL Q5-15M 10/06/18 [History Last Taken Unknown] rosuvastatin 20 mg tablet 20 mg PO DAILY #90 tab 06/22/20 [Rx Last Taken ] omeprazole 20 mg capsule,delayed release 20 mg PO DAILY #90 cap 06/23/20 [Rx Last Taken 06/20/21] rivaroxaban 20 mg tablet 20 mg PO DAILY #90 tab 01/17/21 [Rx Last Taken 06/21/21] allopurinol 100 mg PO BID 06/21/21 [History Last Taken 06/21/21] cyanocobalamin (vitamin B-12) 1,000 mcg PO DAILY 06/21/21 [History Last Taken 06/20/21] meloxicam 15 mg PO DAILY 06/21/21 [History Last Taken 06/21/21] Allergy/AdvReac Type Severity Reaction Status Date / Time erythromycin base Allergy Hives Verified 06/21/21 14:41 Sulfa (Sulfonamide Allergy Hives Verified 06/21/21 14:41 Antibiotics) Family History Brother CAD (coronary artery disease) Mother Heart disease Father Heart disease Surgical History H/O Mohs micrographic surgery for skin cancer Hx of umbilical hernia repair S/P TURP Status post coronary artery stent placement Social History household members: spouse Smoking Status: Former smoker quit date: 02/18/18 how long ago did patient quit smoking: Quit 02/18/18, smoked 1 ppd since teen until quit. alcohol intake: current alcohol intake frequency: 0-2 drinks per day Alcohol type: wine substance use type: does not use ROS ROS Narrative Constitutional: Reports fatigue and weakness, loss of appetite. No fever HEENT: Reports systems reviewed and no addt'l complaints, except as documented Respiratory/Chest: Denies chest pain. Rest admission HPI Gastrointestinal: Denies coffee ground emesis, hematemesis or vomiting Genitourinary: Denies burning urination or new urinary tract symptoms Musculoskeletal: Chronic joint pain and limited range of motion Neurologic: Denies seizure-like activity skin: No ulcer. No rash Endocrinology: Reports systems reviewed and no addt'l complaints, except as documented Hematologic/Lymphatic: B-cell NHL. History of PE. Reports systems reviewed and no addt'l complaints, except as documented Rest 14 ROS are negative except as mentioned in HPI Vital Signs Vital Signs Vital Signs: 06/21/21 14:36 06/21/21 15:30 06/21/21 15:37 Temperature 97.7 F L Temperature Source Oral Pulse Rate 113 H 71 Respiratory Rate 27 H 23 H Respiratory Effort Short of Breath Respiratory Depth Normal Respiratory Pattern Tachypnea Blood Pressure 149/87 H 121/91 H Blood Pressure Mean 107 101 Blood Pressure Source Blood Pressure Position Blood Pressure Location Pulse Ox 98 98 Oxygen Delivery Method Room Air Room Air Room Air 06/21/21 16:00 06/21/21 17:00 06/21/21 17:31 Temperature 97.4 F L Temperature Source Temporal Pulse Rate 69 63 63 Respiratory Rate 17 15 15 Respiratory Effort Respiratory Depth Respiratory Pattern Blood Pressure 132/98 H 136/94 H 136/94 H Blood Pressure Mean 109 108 108 Blood Pressure Source Blood Pressure Position Blood Pressure Location Pulse Ox 98 98 98 Oxygen Delivery Method Room Air Room Air Room Air 06/21/21 17:54 Temperature 97.9 F Temperature Source Oral Pulse Rate 55 L Respiratory Rate 16 Respiratory Effort Respiratory Depth Respiratory Pattern Blood Pressure 147/90 H Blood Pressure Mean 109 Blood Pressure Source Monitor Blood Pressure Position Semi-Fowlers Blood Pressure Location Left Arm Pulse Ox 100 Oxygen Delivery Method Room Air Weight Weight: 177 lb 11.081 oz Body Mass Index (BMI) 24.0 Physical Exam Narrative General: Alert, Oriented x3, Cooperative HEENT: Atraumatic, PERRLA, EOMI, Normocephalic Oral: No Gingival or Mucosal Lesions/ Ulcerations Neck: Supple, No JVD, Negative Carotid Bruits Lungs: Air entry diminished in bilateral lung bases. No crepitation/rhonchi Cardiovascular: Regular rate, Regular Rhythm, Normal S1, Normal S2, No murmurs Abdomen: Bowel Sounds Present, Soft, Non Tender, Non-Distended : No renal angle tenderness. No suprapubic tenderness. Extremities: No edema, Capillary Refill Less than 3 Seconds Skin: Dry skin. No rash Musculoskeletal: No Tenderness to Palpation of Joints or Extremities Neurological: Cranial nerves II-XII grossly intact, DTR 2+/4, muscle strength 5/5 at major joints of lower extremities. Mild headache Psych/Mental Status: Flat affect. Results Lab / Micro Data Result Diagrams: 06/21/21 16:00 06/21/21 15:15 Labs: Laboratory Results - last 24 hr 06/21/21 15:15: Sodium 141, Potassium 3.4 L, Chloride 107, Carbon Dioxide 25.0, Anion Gap 9, BUN 11, Creatinine 1.35 H, Estim Creat Clear Calc 48.70, Est GFR (MDRD) Af Amer 66, Est GFR (MDRD) Non-Af 54 L, BUN/Creatinine Ratio 8.1 L, Glucose 122 H, Calcium 6.4 L*, Total Bilirubin 0.30, AST 22, ALT 14 L, Alkaline Phosphatase 67, Total Protein 6.7, Albumin 3.3, Globulin 3.4, Albumin/Globulin Ratio 1.0 06/21/21 15:15: Magnesium 0.3 L* 06/21/21 15:15: Phosphorus 2.8 06/21/21 16:00: WBC 6.5, RBC 3.84 L, Hgb 12.3 L, Hct 36.6 L, MCV 95.3 H, MCH 32.0, MCHC 33.6, RDW Std Deviation 52.7 H, RDW Coeff of Jackelyn 15.0 H, Plt Count 313, MPV 10.4, Immature Gran % (Auto) 0.600, Neut % (Auto) 75.8 H, Lymph % (Auto) 15.7 L, [place] % (Auto) 6.9, Eos % (Auto) 0.5, Baso % (Auto) 0.5, Absolute Neuts (auto) 4.9, Absolute Lymphs (auto) 1.02, Nucleated RBC % 0 Radiology Impression Chest X-Ray 06/21/21 15:20 IMPRESSION: Findings suggestive of early bilateral peripheral based infiltrates worse in the left lung. Radiographic follow-up is recommended. Electronically Signed: Praveen Oviedo MD at 15:36 EDT , Assessment & Plan Assessment/Plan (1) Hypocalcemia syndrome: (2) Hypomagnesemia: (3) Adverse effect of drug therapy: PLAN: 1. Adversely effects of medication Evusheld: Patient is being admitted in PCU. IV fluid normal saline. Serum calcium is 6.4, magnesium 0.3. Phosphorus 2.8. Sodium 141. Mild hypokalemia potassium 3.4. Electrolytes are getting replaced. Dr. Jc consult. [facility] need to be notified about the adverse effect of medication and I think Dr. Jc's nurse already notified as the medical record corroborates that. Currently patient does not have any itching or rash. Benadryl as needed for rash. Hydrocortisone 50 mg IV as needed for angioedema symptoms 2. CKD stage IIIa: Patient creatinine runs around 1.2-1.4. Currently 1.35. BUN 11. IV fluid normal saline. 3. 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 Started on treatment in November 2020. Medical record from [facility] reviewed. Patient has CT chest abdomen and PET scan and biopsy. Dr. Jc is consulted for further information. 5. History of COVID-19 infection in February 2020: Bedside patient had preventative medication had EVusheld. COVID-19 PCR ordered. Patient was admitt ed in February 2020 here with acute hypoxic respiratory failure that has resolved. 6. Coronary artery status post stents: Home medications continued 7. BPH: On Flomax 8. Gout: On allopurinol 9. GERD: PPI 10. History of DVT/PE on Xarelto. Living will/advanced directive/end of life care: Patient does have living will or advanced directive. His is power of state's attorney for health after discussion of benefits/risks procedures involved with full code, DNR CC arrest and DNR CC, the patient opted for full code. Patient does want artificial life support including intubation, tube feed, ventilator and/chest compression, central venous catheter, vasopressor and DC shock if needed Total time spent in [id number] encounter in discussion of advanced directive 16 minutes. Charges/Coding Visit Charges Inpatient E&M: 52931 Init Hosp L3 Procedures Hospitalists Procedures: 55492 Advncd Care Plan 30 Min
[2021-06-21] MEDS: 0.9% Normal Saline 1,000 ML 75 ML IV (18:23)
[2021-06-21] MEDS: Lisinopril 10 MG Tablet PO (20:33)
[2021-06-21] MEDS: Allopurinol 100 MG Tablet PO (20:33)
[2021-06-21] MEDS: Atorvastatin Calcium 40 MG Tablet PO (20:33)
--- NOTE | 2021-06-21 20:33 | NURSING ---
Oral meds given 30minutes early, at time of potassium hung due to COVID precautions
[2021-06-21 22:35] LABS: Specimen Processing Control PASS
[2021-06-21 22:36] LABS: Probe Check PASS
[2021-06-22 02:17] VITALS: BP 132/88; PULSE 73; RESP 16; TEMP 36.5; O2SAT 93
[2021-06-22 03:38] VITALS: PULSE 70
[2021-06-22 04:17] VITALS: BP 138/84; PULSE 67; RESP 16; TEMP 36.7; O2SAT 96
[2021-06-22 05:49] LABS: Absolute Lymphocyte Count 0.78 X10^3/uL (0.83-4.51); Absolute Neutrophil Count 3.8 X10^3/uL (2.0-7.7); Basophil# 0.03 X10^3/uL; Basophil% 0.6 % (0-1); Hematocrit 31.3 % (40-54); Hemoglobin 10.5 g/dL (13.0-16.5); Lymphocyte # 0.78 X10^3/ul (0.83-4.51); Lymphocyte % 15.4 % (19-41); Mean Corp Hgb Conc 33.5 g/dL (32-36); Mean Corpuscular Volume 95.4 fL (80-94); Mean Platelet Vol. 9.7 fl (6.2-12.0); Monocyte# 0.37 X10^3/uL; Monocyte% 7.3 % (0-10); NRBC Flagged by Analyzer 0 % (0-5); Neutrophil # 3.77 X10^3/uL (2.7-7.7); Neutrophil % 74.5 % (47-70); Platelet Count 266 K/mm3 (150-450); RBC Distribution Width CV 14.9 % (11.6-14.6); Red Blood Count 3.28 M/mm3 (4.6-6.2); White Blood Count 5.1 K/mm3 (4.4-11.0)
[2021-06-22 06:54] LABS: Phosphorus 4.9 mg/dL (2.5-4.9)
[2021-06-22 06:55] LABS: Anion Gap 6 (5-15); BUN 12 mg/dL (7-18); BUN/Creat Ratio 11.3 RATIO (10-20); Calcium,Total 6.7 mg/dL (8.5-10.1); Chloride 113 mmol/L (98-107); Creatinine, Serum 1.06 mg/dL (0.70-1.30); EST Glomerular Filtration Rate 72 mL/min (>60); Est Glom Filt Rate - Afr Amer 87 mL/min (>60); Estimated Creatinine Clearance 62.02 ml/min; Glucose 85 mg/dL (74-106); Magnesium 1.3 mg/dL (1.6-2.6); Potassium 3.9 mmol/L (3.5-5.1); Sodium Level 143 mmol/L (136-145)
[2021-06-22 07:13] VITALS: PULSE 71
[2021-06-22] MEDS: 0.9% Normal Saline 1,000 ML 75 ML IV (07:43)
[2021-06-22 09:37] VITALS: BP 144/88; PULSE 72; RESP 16; TEMP 36.7; O2SAT 96
[2021-06-22 09:42] VITALS: BP 144/88; PULSE 742
[2021-06-22] MEDS: Pantoprazole Sodium 20 MG Tablet PO (09:42)
[2021-06-22] MEDS: Meloxicam 15 MG Tablet PO (09:42)
[2021-06-22] MEDS: Allopurinol 100 MG Tablet PO (09:42)
[2021-06-22] MEDS: Lisinopril 10 MG Tablet PO (09:42)
[2021-06-22] MEDS: Cyanocobalamin 500 MCG Tablet 1000 MCG PO (09:42)
[2021-06-22] MEDS: Metoprolol Tartrate 50 MG Tablet PO (09:42)
--- NOTE | 2021-06-22 10:09 | PCM.DC ---
Discharge Instructions Diet Discharge Diet: 2000 mg Sodium Diet Activity Discharge Activity: Return to Normal Activity and May Not Drive Dressing / Incision Call your doctor if you observe: Fever of 101 or Higher, Coldness, Increased Pain, Numbness or Tingling, Change in Color, Inability to urinate, Inability to have a bowel movement, Shortness of breath, Dizziness, Fainting spells, Swelling in the ankles, Chest pain, Prolonged hiccupping, Increased palpitations (irregular heartbeat), Calf discomfort and Uncontrolled pain Follow Up Care Test Results: Test results from this visit will be discussed in further detail at your follow-up appointment, if applicable. Discharge Plan Admission Admit Date/Time: 06/21/21 16:50 Primary Reason for Your Visit: Adverse effect of medication, Evusheld, hypomagnesemia and hypocalcemia Attending Provider: Luciano Barton Primary Care Provider: Jaden Monterroso Discharge Orders/Prescriptions Prescriptions: New magnesium oxide 400 mg (241.3 mg magnesium) tablet 400 mg PO BID Qty: 6 RF: 0 Continued nitroglycerin 0.4 mg tablet, sublingual 0.4 mg SUBLINGUAL Q5-15M RF: 0 rosuvastatin 20 mg tablet 20 mg PO DAILY Qty: 90 RF: 1 metoprolol tartrate 50 MG tablet 50 mg PO DAILY RF: 0 lisinopril 5 MG tablet 10 mg PO BID RF: 0 allopurinol 100 mg tablet 100 mg PO BID RF: 0 cyanocobalamin (vitamin B-12) 1,000 mcg capsule 1,000 mcg PO DAILY RF: 0 omeprazole 20 mg capsule,delayed release(DR/EC) 20 mg PO DAILY Qty: 90 RF: 3 Xarelto 20 mg tablet 20 mg PO DAILY Qty: 90 RF: 2 Changed meloxicam 15 mg tablet 15 mg PO DAILY PRN (Reason: arthritis pain) Qty: 0 RF: 0 Referrals / Follow Up: Jaden Monterroso DO [Primary Care Provider] - Within 1 Week Joce Jc DO [STAFF PHYSICIAN] - Within 2 Weeks Disposition Disposition (needs filled in before D/C Order can be placed): Home, Self Care
[2021-06-22] MEDS: Acetaminophen 325 MG Tablet 650 MG PO (10:13)
--- NOTE | 2021-06-22 11:10 | CASEMGMT ---
RN CM Face to Face with patient for initial transition planning/care coordination assessment. RN CM introduced self and role at [facility]. Patient sitting in chair, alert and oriented. Patient willing to participate in assessment and is able to answer all questions appropriately. Care providers, pharmacy, and demographics verified. Patient wishes to discharge home, denies need for home health at this time. Patient states he has no further needs or concerns at this time. CM to follow for discharge planning needs that may arise. PCP: [facility] Specialists: Hosea, oncologist; DEMARCO Carballo windows deployment technician Preferred Pharmacy: [facility] Insurance: [employer] Prescription Benefit: yes Living Will/HPOA: yes, Fouzia Ying LNOK: Living Arrangements: Patient lives with in a single story home with 4 steps and railing to enter the home. Patient state he is independent at home. Transportation: self, DME/HHC: Patient has raised toilet, cane, walker at home. Patient denies previous HHC or SNF Disposition Plan: Patient to discharge home with family support and follow-up plans in place. Jordyn TAVERAS, RN, CM
--- NOTE | 2021-06-22 11:17 | PCM.DC.SUM ---
Providers Date of Admission: 06/21/21 Date of Discharge: 06/22/21 Primary Care Physician: Dr. Jaden Monterroso, Reason For Visit: HYPOCALCEMIA AND HYPOCMAGNESEMIA Diagnosis Discharge Diagnosis (1) Hypocalcemia syndrome: Status: Acute Code(s): E83.51 - Hypocalcemia (2) Hypomagnesemia: Status: Acute Code(s): E83.42 - Hypomagnesemia (3) Adverse effect of drug therapy: Status: Acute Code(s): T50.905A - Adverse effect of unspecified drugs, medicaments and biological substances, initial encounter Medications at Discharge Home Medications lisinopril 10 mg PO BID 04/23/15 metoprolol tartrate 50 mg PO DAILY 04/23/15 nitroglycerin 0.4 mg sublingual tablet 0.4 mg SUBLINGUAL Q5-15M 10/06/18 rosuvastatin 20 mg tablet 20 mg PO DAILY #90 tab 06/22/20 omeprazole 20 mg capsule,delayed release 20 mg PO DAILY #90 cap 06/23/20 rivaroxaban 20 mg tablet 20 mg PO DAILY #90 tab 01/17/21 allopurinol 100 mg PO BID 06/21/21 cyanocobalamin (vitamin B-12) 1,000 mcg PO DAILY 06/21/21 magnesium oxide 400 mg PO BID #6 tab 06/22/21 meloxicam 15 mg PO DAILY PRN #0 tab 06/22/21 Hospital Course Summary of Care Provided Hospital Course: This is a 80-year-old question gentleman who was admitted for headache, dizziness, tingling and numbness in hands and feet most probably related to adverse effect of new investigational medication Evusheld, which is a combination of 2 monoclonal antibodies given for preventative major for COVID-19 infection as an outpatient in [facility] on 06/19/2021. Patient had COVID-19 infection pneumonia in February 2020 which she was admitted here. The medication is giving her patient who has B-cell depletion or cannot mount an immune response and patient for further criteria. 1. Adversely effects of medication Evusheld: Patient was being admitted in PCU. IV fluid normal saline. Serum calcium is 6.4, magnesium 0.3. Phosphorus 2.8. Sodium 141. Mild hypokalemia potassium 3.4. Electrolytes are getting replaced. Dr. Jc consult. [facility] need to be notified about the adverse effect of medication and I think Dr. Jc's nurse already notified as the medical record corroborates that. 06/22/2021: I talked with Dr. cJ on 07/01 detail regarding his history of B-cell non-Hodgkin lymphoma, this investigational medication Evusheld its indication. This is an investigational medication combination of 2 monoclonal antibodies. There is no literature about its adverse effect but it is being studied. We agreed that patient does not have any acute hematology oncology indication to require consult but the patient will follow with him in 2 weeks. Currently patient does not have any itching or rash, oropharyngeal swelling, dysphagia, dysphonia or dysarthria. Patient did not require Benadryl or hydrocortisone during hospital stay. Patient has severe hypomagnesemia and hypocalcemia and electrolyte replaced. Patient discharged home on magnesium oxide prescription. Follow-up with Dr. Jc in about 2 weeks. 2. CKD stage IIIa: Patient creatinine runs around 1.2-1.4. Currently 1.35. BUN 11. IV fluid normal saline. 3. 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 Patient was followed for 5 6 years without indication of oncologic treatment but after he had continued growth of lymph node in the neck, he was started on R-CVP, for cycle in November 2020. He also had 4 cycles of weekly rituximab.started on treatment in November 2020. Medical record from [facility] reviewed. Patient has CT chest abdomen and PET scan and lymph node biopsy. 5. History of COVID-19 infection in February 2020: Bedside patient had preventative medication had EVusheld. COVID-19 PCR negative. Patient was admitted in February 2020 here with acute hypoxic respiratory failure that has resolved. 6. Coronary artery status post stents: Home medications continued 7. BPH: On Flomax 8. Gout: On allopurinol 9. GERD: PPI 10. History of DVT/PE on Xarelto. Discharge medication reconciliation done. Discharge follow-up instructions completed. Discharge process discussed with the patient and all questions were answered to patient's satisfaction. Total time spent, exact 35 minutes on discharge meds reconciliation, examination, coordination of care with nurses and ancillary staff, review of imaging and blood test and discussion with the patient on follow-up instructions. Living will/advanced directive/end of life care: Patient does have living will or advanced directive. 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 Patient does want artificial life support including intubation, tube feed, ventilator and/chest compression, central venous catheter, vasopressor and DC shock if needed Physical Exam Narrative Seen and examined on the day of discharge. Patient headache is much better. Has mild headache, 2-3/10, mainly frontal region. Patient on Tylenol. Physical exam General: Alert, Oriented x3, Cooperative HEENT: Atraumatic, PERRLA, EOMI, Normocephalic Oral: No Gingival or Mucosal Lesions/ Ulcerations Neck: Supple, No JVD, Negative Carotid Bruits Lungs: Air entry diminished in bilateral lung bases. No crepitation/rhonchi Cardiovascular: Regular rate, Regular Rhythm, Normal S1, Normal S2, No murmurs Abdomen: Bowel Sounds Present, Soft, Non Tender, Non-Distended : No renal angle tenderness. No suprapubic tenderness. Extremities: No edema, Capillary Refill Less than 3 Seconds Skin: Dry skin. No rash Musculoskeletal: No Tenderness to Palpation of Joints or Extremities Neurological: Cranial nerves II-XII grossly intact, DTR 2+/4, muscle strength 5/5 at major joints of lower extremities. No focal weakness or strokelike findings. Psych/Mental Status: Flat affect. Weight / BMI Weight Weight: 177 lb 11.081 oz Body Mass Index (BMI) 24.0 ABG / Lab / Microbiology Data Result Diagrams: 06/22/21 05:19 06/22/21 05:19 Laboratory: Laboratory Results - last 24 hr 06/21/21 15:15: Sodium 141, Potassium 3.4 L, Chloride 107, Carbon Dioxide 25.0, Anion Gap 9, BUN 11, Creatinine 1.35 H, Estim Creat Clear Calc 48.70, Est GFR (MDRD) Af Amer 66, Est GFR (MDRD) Non-Af 54 L, BUN/Creatinine Ratio 8.1 L, Glucose 122 H, Calcium 6.4 L*, Total Bilirubin 0.30, AST 22, ALT 14 L, Alkaline Phosphatase 67, Total Protein 6.7, Albumin 3.3, Globulin 3.4, Albumin/Globulin Ratio 1.0 06/21/21 15:15: Magnesium 0.3 L* 06/21/21 15:15: Phosphorus 2.8 06/21/21 16:00: WBC 6.5, RBC 3.84 L, Hgb 12.3 L, Hct 36.6 L, MCV 95.3 H, MCH 32.0, MCHC 33.6, RDW Std Deviation 52.7 H, RDW Coeff of Jackelyn 15.0 H, Plt Count 313, MPV 10.4, Immature Gran % (Auto) 0.600, Neut % (Auto) 75.8 H, Lymph % (Auto) 15.7 L, [place] % (Auto) 6.9, Eos % (Auto) 0.5, Baso % (Auto) 0.5, Absolute Neuts (auto) 4.9, Absolute Lymphs (auto) 1.02, Nucleated RBC % 0 06/21/21 19:46: COVID-19 (ELVA) Negative 06/22/21 05:19: WBC 5.1, RBC 3.28 L, Hgb 10.5 L, Hct 31.3 L, MCV 95.4 H, MCH 32.0, MCHC 33.5, RDW Std Deviation 53.0 H, RDW Coeff of Jackelyn 14.9 H, Plt Count 266, MPV 9.7, Immature Gran % (Auto) 0.200, Neut % (Auto) 74.5 H, Lymph % (Auto) 15.4 L, [place] % (Auto) 7.3, Eos % (Auto) 2.0, Baso % (Auto) 0.6, Absolute Neuts (auto) 3.8, Absolute Lymphs (auto) 0.78 L, Nucleated RBC % 0 06/22/21 05:19: Sodium 143, Potassium 3.9, Chloride 113 H, Carbon Dioxide 24.0, Anion Gap 6, BUN 12, Creatinine 1.06, Estim Creat Clear Calc 62.02, Est GFR (MDRD) Af Amer 87, Est GFR (MDRD) Non-Af 72, BUN/Creatinine Ratio 11.3, Glucose 85, Calcium 6.7 L, Magnesium 1.3 L 06/22/21 05:19: Phosphorus 4.9 Radiography Diagnostic Testing: Radiology Impression Chest X-Ray 06/21/21 15:20 IMPRESSION: Findings suggestive of early bilateral peripheral based infiltrates worse in the left lung. Radiographic follow-up is recommended. Electronically Signed: Praveen Oviedo MD at 15:36 EDT , D/C Instructions Discharge Diet: 2000 mg Sodium Diet Call your doctor if you observe: Fever of 101 or Higher, Coldness, Increased Pain, Numbness or Tingling, Change in Color, Inability to urinate, Inability to have a bowel movement, Shortness of breath, Dizziness, Fainting spells, Swelling in the ankles, Chest pain, Prolonged hiccupping, Increased palpitations (irregular heartbeat), Calf discomfort and Uncontrolled pain Meaningful Use Info Meaningful Use Diagnoses (Choose all that apply): None applicable Discharge Plan Admission Admit Date/Time: 06/21/21 16:50 Primary Reason for Your Visit: Adverse effect of medication, Evusheld, hypomagnesemia and hypocalcemia Attending Provider: Luciano Barton Primary Care Provider: Jaden Monterroso Discharge Orders/Prescriptions Prescriptions: New magnesium oxide 400 mg (241.3 mg magnesium) tablet 400 mg PO BID Qty: 6 RF: 0 Continued nitroglycerin 0.4 mg tablet, sublingual 0.4 mg SUBLINGUAL Q5-15M RF: 0 rosuvastatin 20 mg tablet 20 mg PO DAILY Qty: 90 RF: 1 metoprolol tartrate 50 MG tablet 50 mg PO DAILY RF: 0 lisinopril 5 MG tablet 10 mg PO BID RF: 0 allopurinol 100 mg tablet 100 mg PO BID RF: 0 cyanocobalamin (vitamin B-12) 1,000 mcg capsule 1,000 mcg PO DAILY RF: 0 omeprazole 20 mg capsule,delayed release(DR/EC) 20 mg PO DAILY Qty: 90 RF: 3 Xarelto 20 mg tablet 20 mg PO DAILY Qty: 90 RF: 2 Changed meloxicam 15 mg tablet 15 mg PO DAILY PRN (Reason: arthritis pain) Qty: 0 RF: 0 Referrals / Follow Up: Jaden Monterroso DO [Primary Care Provider] - Within 1 Week Joce Jc DO [STAFF PHYSICIAN] - Within 2 Weeks Disposition Disposition (needs filled in before D/C Order can be placed): Home, Self Care Charges/Coding Visit Charges Inpatient E&M: 82393 Disch Hosp
== END 2021-06-22 14:01 | disposition home or self-care (01) | DRG 641 ==
LOC: ED 16:54 → PCU 16:59
PROVIDERS: Admitting Provider Internal Medicine; Emergency Provider Emergency Medicine; PCP Family Medicine; Visit Provider Internal Medicine
DX: E83.51 Hypocalcemia (principal); C85.10 Unspecified B-cell lymphoma, unspecified site; N18.31 Chronic kidney disease, stage 3a; K21.9 Gastro-esophageal reflux disease without esophagitis; E78.5 Hyperlipidemia, unspecified; E87.6 Hypokalemia; M10.9 Gout, unspecified; E83.42 Hypomagnesemia; I25.10 Atherosclerotic heart disease of native coronary artery without angina pectoris; I12.9 Hypertensive chronic kidney disease with stage 1 through stage 4 chronic kidney disease, or unspecified chronic kidney disease; N40.0 Benign prostatic hyperplasia without lower urinary tract symptoms; T50.995A Adverse effect of other drugs, medicaments and biological substances, initial encounter; Z87.891 Personal history of nicotine dependence; Z86.16 Personal history of COVID-19; Z79.899 Other long term (current) drug therapy; Z79.01 Long term (current) use of anticoagulants
CPT/HCPCS: 36415; 71046; 80048; 80053; 83735; 84100; 85025; 87635; 93005; 99251; 99285; J7030; J7040; A4216; G0463; U0003; U0005

== ENCOUNTER → 2021-06-28 | Outpatient (CLI) | payer MEDICARE, OTHER, SELFPAY ==
[2021-06-28 12:30] LABS: Absolute Lymphocyte Count 0.75 X10^3/uL (0.83-4.51); Absolute Neutrophil Count 5.8 X10^3/uL (2.0-7.7); Basophil# 0.03 X10^3/uL; Basophil% 0.4 % (0-1); Eosinophil# 0.09 X10^3/uL; Eosinophils% 1.3 % (0-5); Hematocrit 37.3 % (40-54); Hemoglobin 11.7 g/dL (13.0-16.5); Lymphocyte # 0.75 X10^3/ul (0.83-4.51); Lymphocyte % 10.5 % (19-41); Mean Corp Hgb Conc 31.4 g/dL (32-36); Mean Corpuscular Hgb 31.2 pg (27.0-32.0); Mean Corpuscular Volume 99.5 fL (80-94); Mean Platelet Vol. 10.3 fl (6.2-12.0); Monocyte# 0.47 X10^3/uL; Monocyte% 6.6 % (0-10); NRBC Flagged by Analyzer 0 % (0-5); Neutrophil % 80.8 % (47-70); Platelet Count 307 K/mm3 (150-450); RBC Distribution Width CV 14.9 % (11.6-14.6); RBC Distribution Width SD 54.7 fl (35.1-43.9); Red Blood Count 3.75 M/mm3 (4.6-6.2); White Blood Count 7.2 K/mm3 (4.4-11.0)
[2021-06-28 12:39] LABS: AST(SGOT) 25 U/L (15-37); Alanine Aminotransfer ALT/SGPT 18 U/L (16-61); Albumin, Serum 3.3 g/dL (3.2-5.0); Alkaline Phosphatase 78 U/L (45-117); Anion Gap 6 (5-15); BUN 13 mg/dL (7-18); BUN/Creat Ratio 9.5 RATIO (10-20); Calcium,Total 9.7 mg/dL (8.5-10.1); Chloride 104 mmol/L (98-107); Cholesterol 115 mg/dL (200); Creatinine, Serum 1.37 mg/dL (0.70-1.30); EST Glomerular Filtration Rate 53 mL/min (>60); Est Glom Filt Rate - Afr Amer 64 mL/min (>60); Globulin 3.3 g/dL (2.2-4.2); Glucose 124 mg/dL (74-106); High Density Lipoprotein 39 mg/dL; Magnesium 1.5 mg/dL (1.6-2.6); Potassium 4.4 mmol/L (3.5-5.1); Protein, Total 6.6 g/dL (6.4-8.2); Sodium Level 137 mmol/L (136-145); Triglycerides 230 mg/dL; Troponin-I HS 9 pg/mL (3.0-78.0); Very Low Density Lipoprotein 46 mg/dL (5-40)
[2021-06-28 12:45] LABS: Vitamin B12 701 pg/mL (211-911)
== END | disposition home or self-care (01) ==
LOC: BIMLAB 09:54
PROVIDERS: Physician Assistant; PCP Family Medicine; Referring Provider Nurse Practitioner Family; Visit Provider Nurse Practitioner Family
DX: D51.8 Other vitamin B12 deficiency anemias (principal); E83.51 Hypocalcemia; E83.42 Hypomagnesemia; E78.1 Pure hyperglyceridemia; R07.89 Other chest pain
CPT/HCPCS: 36415; 80053; 80061; 82607; 83735; 84484; 85025

== ENCOUNTER 2021-12-13 21:59 | Emergency (ER) | payer MEDICARE, OTHER, SELFPAY ==
[2021-12-13 21:59] VITALS: BP 136/78; PULSE 58; RESP 18; TEMP 36.4; O2SAT 100; BMI 25.7
[2021-12-13 22:03] VITALS: O2SAT 98
--- NOTE | 2021-12-13 22:03 | EKG12_ITS ---
Test Reason : SYNCOPE Blood Pressure : / mmHG Vent. Rate : 056 BPM Atrial Rate : 056 BPM P-R Int : 176 ms QRS Dur : 078 ms QT Int : 434 ms P-R-T Axes : 039 -11 061 degrees QTc Int : 418 ms Sinus bradycardia Septal infarct , age undetermined Abnormal ECG Confirmed by TARA BILLINGSLEY, RELL ([id number]), metropolitan editor DEL REY ([id number]) on 12/15/2021 2:14:26 P M Referred By: Confirmed By:NEVILLE PACHECO MD
[2021-12-13 22:18] LABS: Absolute Lymphocyte Count 0.75 X10^3/uL (0.83-4.51); Absolute Neutrophil Count 4.5 X10^3/uL (2.0-7.7); Basophil# 0.02 X10^3/uL; Basophil% 0.4 % (0-1); Eosinophil# 0.03 X10^3/uL; Eosinophils% 0.5 % (0-5); Hematocrit 33.8 % (40-54); Hemoglobin 11.3 g/dL (13.0-16.5); Lymphocyte # 0.75 X10^3/ul (0.83-4.51); Lymphocyte % 13.1 % (19-41); Mean Corp Hgb Conc 33.4 g/dL (32-36); Mean Corpuscular Hgb 35.4 pg (27.0-32.0); Mean Platelet Vol. 9.1 fl (6.2-12.0); Monocyte# 0.37 X10^3/uL; Monocyte% 6.5 % (0-10); NRBC Flagged by Analyzer 0 % (0-5); Neutrophil # 4.52 X10^3/uL (2.7-7.7); Neutrophil % 79.1 % (47-70); Platelet Count 286 K/mm3 (150-450); RBC Distribution Width CV 14.6 % (11.6-14.6); RBC Distribution Width SD 57.7 fl (35.1-43.9); Red Blood Count 3.19 M/mm3 (4.6-6.2); White Blood Count 5.7 K/mm3 (4.4-11.0)
[2021-12-13 22:29] LABS: International Normalized Ratio 2.1; Prothrombin Time (Protime)PT. 23.1 SECONDS (11.7-14.9)
[2021-12-13 22:30] LABS: Partial Thromboplast Time 46.6 Seconds (24.1-36.2)
[2021-12-13 22:32] LABS: Anion Gap 4 (5-15); BUN 23 mg/dL (7-18); BUN/Creat Ratio 13.9 RATIO (10-20); Calcium,Total 9.1 mg/dL (8.5-10.1); Chloride 108 mmol/L (98-107); Creatinine, Serum 1.65 mg/dL (0.70-1.30); EST Glomerular Filtration Rate 43 mL/min (>60); Est Glom Filt Rate - Afr Amer 52 mL/min (>60); Estimated Creatinine Clearance 39.85 ml/min; Glucose 142 mg/dL (74-106); Potassium 4.8 mmol/L (3.5-5.1); Sodium Level 138 mmol/L (136-145)
--- NOTE | 2021-12-13 22:35 | RAD_ITS ---
EXAM: XR CHEST, 1 VIEW CLINICAL INDICATION: Stroke TECHNIQUE: Frontal view of the chest. This report was created using [employer] report generation technology. COMPARISON: 06/21/2021. FINDINGS: LUNGS AND PLEURAL SPACES: Subsegmental atelectasis in the lung bases bilaterally. Low lung volumes limit the exam. No consolidations. No pneumothorax. No effusion. HEART: Unremarkable. Cardiac silhouette not enlarged. MEDIASTINUM: Central airways and mediastinal contour are unremarkable. BONES/JOINTS: Unremarkable. SOFT TISSUES: Unremarkable. RAD/Chest 1 View (Portable) IMPRESSION: 1. Subsegmental atelectasis in the lung bases bilaterally. 2. Low lung volumes limit the exam. No consolidations. 3. No acute cardiopulmonary abnormality. Electronically Signed: Elvin Jackson MD at 23:15 EDT ,
[2021-12-13] MEDS: 0.9% Normal Saline 1,000 ML 50 ML IV (22:54)
--- NOTE | 2021-12-13 22:56 | EDS_ITS ---
HPI History of Present Illness Chief Complaint: Syncope Narrative Narrative: Patient presents with his because of left-sided rib pain that he sustained from a syncopal episode on Saturday, 5 days ago. He has past medical history of pulmonary emboli and is on Xarelto. He states that on Saturday, he got up and felt lightheaded and dizzy. He had a brief syncopal episode that lasted a few seconds and fell onto carpeted floor onto his left side. He sustained a skin tear to his back. He now has left posterior to lateral rib pain that is worse with breathing. He states that he has been lightheaded for a few days to weeks and today his systolic blood pressure was only 94. He denies any nausea or vomiting. No fevers or chills. No diarrhea. He was going to wait to see his filling machine operator on Saturday but he is complaining more of left-sided rib pain. [facility] Medical History Abdominal aortic aneurysm Acute pancreatitis Adverse effect of drug therapy Alcohol abuse Bilateral lower extremity edema BPH (benign prostatic hyperplasia) CAD (coronary artery disease) Dental infection Gastrocnemius tear GERD (gastroesophageal reflux disease) Gout Heavy alcohol consumption Hyperlipidemia Hypertension Hypertriglyceridemia Hypomagnesemia Hypophosphatemia Ileus Impacted cerumen of both ears Lymphoma Nicotine dependence Non Hodgkin's lymphoma Sacro-iliac pain Venous stasis dermatitis of both lower extremities Home Medications lisinopril 5 mg tablet 10 mg PO BID BP 04/23/15 [History Last Taken 06/21/21] metoprolol tartrate 50 mg tablet 50 mg PO DAILY BP 04/23/15 [History Last Taken 06/20/21] nitroglycerin 0.4 mg sublingual tablet 0.4 mg sublingual Q5-15M Chest pain 10/06/18 [History Last Taken Unknown] rosuvastatin 20 mg tablet 20 mg PO DAILY #90 tabs 06/22/20 [Rx Last Taken 06/21/21] cyanocobalamin (vitamin B-12) 1,000 mcg capsule 1,000 mcg PO DAILY supplement 06/21/21 [History Last Taken 06/20/21] magnesium oxide 400 mg (241.3 mg magnesium) tablet 400 mg PO BID #30 tabs 06/28/21 [Rx Last Taken Unknown] omeprazole 20 mg capsule,delayed release 20 mg PO DAILY #90 caps 06/28/21 [Rx Last Taken Unknown] allopurinol 100 mg tablet 100 mg PO BID gout #60 tabs 07/20/21 [Rx Last Taken Unknown] safety shower #1 ea 08/01/21 [Rx Last Taken Unknown] rivaroxaban 20 mg tablet (Xarelto) 20 mg PO DAILY #90 tabs 08/29/21 [Rx Last Taken Unknown] meloxicam 15 mg tablet 15 mg PO DAILY PRN arthritis pain #90 tabs 11/08/21 [Rx Last Taken Unknown] tramadol 50 mg tablet 50 mg PO Q6H PRN pain 3 days #12 tabs 12/14/21 [Rx Last Taken Unknown] Allergy/AdvReac Type Severity Reaction Status Date / Time erythromycin base Allergy Hives Verified 12/13/21 22:02 Sulfa (Sulfonamide Allergy Hives Verified 12/13/21 22:02 Antibiotics) Family History Brother CAD (coronary artery disease) Mother Heart disease Father Heart disease Surgical History H/O Mohs micrographic surgery for skin cancer Hx of umbilical hernia repair S/P TURP Status post coronary artery stent placement Social History household members: spouse Smoking Status: Former smoker quit date: 02/18/18 how long ago did patient quit smoking: Quit 02/18/18, smoked 1 ppd since teen until quit. alcohol intake: current alcohol intake frequency: 0-2 drinks per day Alcohol type: wine substance use type: does not use ROS ROS ED ROS Narrative Constitutional: No fever, no chills. HEENT: No sore throat. No neck pain. No loss of vision. No rhinorrhea. Cardiovascular: No chest pain. Left-sided chest pain/posterior rib pain. No palpitations. No pedal edema. Respiratory: No cough, no shortness of breath. Abdominal: No abdominal pain. No nausea. No vomiting. Genitourinary: No dysuria. No hematuria. Musculoskeletal: No myalgias. No arthralgias. Neurologic: No headaches. Positive dizziness. Positive lightheadedness. Sometimes worse with standing. Skin: No rash. No change in color. Skin tear on left posterior shoulder/scapula. Psychiatric: No depression. No anxiety. EXAM Physical Exam Narrative Exam Narrative: Afebrile. Vital signs noted. HEENT: Normocephalic. Atraumatic. PERRL, EOMI. Neck soft and supple. No point tenderness or step off. Cardiovascular: Regular rate and rhythm. No murmurs, rubs, or gallops appreciated. Left posterior to axillary midline rib tenderness. No crepitance. No noted ecchymosis. Respiratory: No tachypnea. Lungs clear to auscultation bilaterally. Gastrointestinal: Abdomen soft, nontender, with normoactive bowel sounds. No rebound or guarding. Neurological: Awake. Alert. Nonfocal, nonlateralizing. Skin: No rash. Normal color. No pallor. Musculoskeletal: No pedal edema. Full range of motion extremities. Const Vital Signs: 12/13/21 21:59 12/13/21 22:03 12/13/21 22:55 Temperature 97.6 F L Temperature Source Temporal Pulse Rate 58 L Pulse Rate [Lying] Pulse Rate [Sitting (for 1 minute prior to obtaining)] Pulse Rate [Standing (for 1 minute prior to obtaining)] Respiratory Rate 18 Respiratory Pattern Normal Blood Pressure 136/78 H Blood Pressure [Lying] Blood Pressure [Sitting (for 1 minute prior to obtaining)] Blood Pressure [Standing (for 1 minute prior to obtaining)] Blood Pressure Mean 97 Blood Pressure Mean [Lying] Blood Pressure Mean [Sitting (for 1 minute prior to obtaining)] Blood Pressure Mean [Standing (for 1 minute prior to obtaining)] Pulse Ox 100 98 Oxygen Delivery Method Room Air Room Air 12/13/21 23:33 12/13/21 23:34 Temperature Temperature Source Pulse Rate 49 L Pulse Rate [Lying] 55 L Pulse Rate [Sitting (for 1 minute prior to obtaining)] 54 L Pulse Rate [Standing (for 1 minute prior to obtaining)] 70 Respiratory Rate 23 H Respiratory Pattern Blood Pressure 139/83 H Blood Pressure [Lying] 121/75 H Blood Pressure [Sitting (for 1 minute prior to obtaining)] 126/73 H Blood Pressure [Standing (for 1 minute prior to obtaining)] 117/80 Blood Pressure Mean 101 Blood Pressure Mean [Lying] 90 Blood Pressure Mean [Sitting (for 1 minute prior to obtaining)] 90 Blood Pressure Mean [Standing (for 1 minute prior to obtaining)] 92 Pulse Ox 99 Oxygen Delivery Method Room Air MDM MDM MDM Narrative Medical decision making narrative: His syncopal episode was 5 days ago. RN ordered protocol orders including chest x-ray. I will add dedicated rib x-rays in 2 views. CBC shows white count of 5.7, hemoglobin stable at 11.3 with hematocrit 33.8. Platelet count normal at 286. INR was obtained which is slightly elevated at 2.1. BMP shows sodium of 138, chloride elevated at 108, BUN of 23 with a creatinine of 1.65 consistent with mild dehydration. He will be bolused normal saline 1 L intravenously. Blood glucose 142 with a normal anion gap/low at 4. EKG demonstrates sinus bradycardia at 56 bpm and it was interpreted by myself. No evidence of STEMI. His orthostatics were positive in the sense that upon st anding he had mild dizziness with a blood pressure of 117, and pulse increased to 70. His chest x-ray interpreted by myself shows mild atelectasis but no evidence of rib fracture. I did obtain dedicated rib films on the left which I interpreted and shows no evidence of a displaced fracture. He will be treated as a rib contusion. He states he has an incentive spirometer at home that he will use 10 times an hour while awake. I gave him an Ultram tablet here and wrote him prescription for 12 tablets for the next 3 days. He will follow-up with his primary care physician. At this point in time, I feel he can be discharged safely home with follow-up. He did have an increase in his blood pressure to 147 systolic after IV fluids. Disposition is discharged home in stable condition. He will follow-up with his filling machine operator on Saturday as scheduled. Lab Data Attestation: I reviewed the patient's lab results. Labs: Laboratory Results - last 24 hr 12/13/21 12/13/21 12/13/21 22:10 22:10 22:10 WBC 5.7 RBC 3.19 L Hgb 11.3 L Hct 33.8 L MCV 106.0 H MCH 35.4 H MCHC 33.4 RDW Std Deviation 57.7 H RDW Coeff of Jackelyn 14.6 Plt Count 286 MPV 9.1 Immature Gran % (Auto) 0.400 Neut % (Auto) 79.1 H Lymph % (Auto) 13.1 L [place] % (Auto) 6.5 Eos % (Auto) 0.5 Baso % (Auto) 0.4 Absolute Neuts (auto) 4.5 Absolute Lymphs (auto) 0.75 L Nucleated RBC % 0 PT 23.1 H INR 2.1 APTT 46.6 H Sodium 138 Potassium 4.8 Chloride 108 H Carbon Dioxide 26.0 Anion Gap 4 L BUN 23 H Creatinine 1.65 H Estim Creat Clear Calc 39.85 Est GFR (MDRD) Af Amer 52 L Est GFR (MDRD) Non-Af 43 L BUN/Creatinine Ratio 13.9 Glucose 142 H Calcium 9.1 Radiography Diagnostic Testing: Clinical Impression(s) from Imaging Studies Chest X-Ray 12/13/21 22:35 IMPRESSION: 1. Subsegmental atelectasis in the lung bases bilaterally. 2. Low lung volumes limit the exam. No consolidations. 3. No acute cardiopulmonary abnormality. Electronically Signed: Elvin Jackson MD at 23:15 EDT , Ribs X-Ray 12/13/21 23:19 IMPRESSION: No definite left rib fracture identified. If there is still high clinical suspicion consider CT of the chest. Electronically Signed: Elvin Jackson MD at 0:11 EDT , Discharge Plan Triage Chief Complaint: Syncope ED Provider: Igor Allison Dx/Rx/DC Orders Clinical Impression: Fall, Syncope, Contusion of rib on left side Instructions: ED Chest Wall Contusion, ED Fainting, Uncertain Cause Prescriptions: New tramadol 50 mg tablet 50 mg PO Q6H PRN (Reason: pain) 3 Days Qty: 12 0RF No Action nitroglycerin 0.4 mg tablet, sublingual 0.4 mg SUBLINGUAL Q5-15M rosuvastatin 20 mg tablet 20 mg PO DAILY Qty: 90 1RF magnesium oxide 400 mg (241.3 mg magnesium) tablet 400 mg PO BID Qty: 30 0RF omeprazole 20 mg capsule,delayed release(DR/EC) 20 mg PO DAILY Qty: 90 3RF metoprolol tartrate 50 MG tablet 50 mg PO DAILY Label Comments: lisinopril 5 MG tablet 10 mg PO BID Label Comments: cyanocobalamin (vitamin B-12) 1,000 mcg capsule 1,000 mcg PO DAILY allopurinol 100 mg tablet 100 mg PO BID Qty: 60 4RF (DME) safety shower See Rx Instructions .Route .MEDSUPPLY Qty: 1 0RF Rx Instructions: As directed Xarelto 20 mg tablet 20 mg PO DAILY Qty: 90 2RF Rx Instructions: must administer with evening meal meloxicam 15 mg tablet 15 mg PO DAILY PRN (Reason: arthritis pain) Qty: 90 0RF Primary Care Provider: Jaden Monterroso Referrals: Jaden Monterroso, [Primary Care Provider] - 2 Days Disposition Disposition: Home, Self Care
--- NOTE | 2021-12-13 23:19 | RAD_ITS ---
EXAM: XR LEFT RIBS, 2 VIEWS CLINICAL INDICATION: Pain, fall TECHNIQUE: Frontal and oblique views of the left ribs. This report was created using [employer] report generation technology. COMPARISON: None. FINDINGS: LUNGS AND PLEURAL SPACES: Unremarkable. No consolidation or edema. No pneumothorax. No effusion. BONES/JOINTS: No definite left rib fracture identified. No sclerotic or destructive changes observed. SOFT TISSUES: Unremarkable. No soft tissue swelling or gas. RAD/Ribs Unil 2V No CXR IMPRESSION: No definite left rib fracture identified. If there is still high clinical suspicion consider CT of the chest. Electronically Signed: Elvin Jackson MD at 0:11 EDT ,
[2021-12-13] MEDS: 0.9% Normal Saline 1,000 ML 999 ML IV (23:32)
[2021-12-13 23:33] VITALS: BP 139/83; PULSE 49; RESP 23; O2SAT 99
[2021-12-13 23:34] VITALS: BP 117/80; BP 121/75; BP 126/73; PULSE 54; PULSE 55; PULSE 70
[2021-12-14 01:28] VITALS: BP 137/86
[2021-12-14] MEDS: traMADol 50 MG Tablet PO (01:46)
== END 2021-12-14 02:21 | disposition home or self-care (01) ==
PROVIDERS: Emergency Provider Emergency Medicine; PCP Family Medicine; Visit Provider Emergency Medicine
DX: S20.212A Contusion of left front wall of thorax, initial encounter (principal); R55 Syncope and collapse; E78.5 Hyperlipidemia, unspecified; I10 Essential (primary) hypertension; R00.1 Bradycardia, unspecified; I25.10 Atherosclerotic heart disease of native coronary artery without angina pectoris; Z86.711 Personal history of pulmonary embolism; Z79.01 Long term (current) use of anticoagulants; Z87.891 Personal history of nicotine dependence; W18.30XA Fall on same level, unspecified, initial encounter
CPT/HCPCS: 71045; 71100; 80048; 85025; 85610; 85730; 93005; 96360; 99285; A4216

== ENCOUNTER 2022-01-04 12:52 | Emergency (ER) | payer MEDICARE, OTHER, SELFPAY ==
[2022-01-04 12:55] VITALS: BP 127/102; PULSE 119; RESP 18; TEMP 36.7; O2SAT 98; BMI 25.7
--- NOTE | 2022-01-04 13:19 | EDS_ITS ---
HPI History of Present Illness Chief Complaint: Wound Narrative Narrative: 81-year-old male presents with his because of skin tears to his bilateral upper extremities that he sustained 4 days ago. He states that he was having problems regulating his blood pressure and he had forgotten to have his medications/antihypertensives as recommended by his pie bottomer. His blood pressure was too low and he had a syncopal episode on Saturday. He sustained skin tears to his left forearm and 1 to his right upper arm. His has been treating them with Neosporin and nonadherent dressings. He states his tetanus immunization is up-to-date. They state that he had continued bleeding because he is on Xarelto for blood clots in his upper extremities. They present him for a wound check because of his reported continued bleeding. [facility] Medical History Abdominal aortic aneurysm Acute pancreatitis Adverse effect of drug therapy Alcohol abuse Bilateral lower extremity edema BPH (benign prostatic hyperplasia) CAD (coronary artery disease) Dental infection Gastrocnemius tear GERD (gastroesophageal reflux disease) Gout Heavy alcohol consumption Hyperlipidemia Hypertension Hypertriglyceridemia Hypomagnesemia Hypophosphatemia Ileus Impacted cerumen of both ears Lymphoma Nicotine dependence Non Hodgkin's lymphoma Sacro-iliac pain Venous stasis dermatitis of both lower extremities Home Medications lisinopril 5 mg tablet 10 mg PO BID BP 04/23/15 [History Last Taken 06/21/21] metoprolol tartrate 50 mg tablet 50 mg PO DAILY BP 04/23/15 [History Last Taken 06/20/21] nitroglycerin 0.4 mg sublingual tablet 0.4 mg sublingual Q5-15M Chest pain 10/06/18 [History Last Taken Unknown] rosuvastatin 20 mg tablet 20 mg PO DAILY #90 tabs 06/22/20 [Rx Last Taken 06/21/21] cyanocobalamin (vitamin B-12) 1,000 mcg capsule 1,000 mcg PO DAILY supplement 06/21/21 [History Last Taken 06/20/21] magnesium oxide 400 mg (241.3 mg magnesium) tablet 400 mg PO BID #30 tabs 06/28/21 [Rx Last Taken Unknown] omeprazole 20 mg capsule,delayed release 20 mg PO DAILY #90 caps 06/28/21 [Rx Last Taken Unknown] allopurinol 100 mg tablet 100 mg PO BID gout #60 tabs 07/20/21 [Rx Last Taken Unknown] safety shower #1 ea 08/01/21 [Rx Last Taken Unknown] rivaroxaban 20 mg tablet (Xarelto) 20 mg PO DAILY #90 tabs 08/29/21 [Rx Last Taken Unknown] meloxicam 15 mg tablet 15 mg PO DAILY PRN arthritis pain #90 tabs 11/08/21 [Rx Last Taken Unknown] tramadol 50 mg tablet 50 mg PO Q6H PRN pain 3 days #12 tabs 12/14/21 [Rx Last Taken Unknown] Allergy/AdvReac Type Severity Reaction Status Date / Time erythromycin base Allergy Hives Verified 01/04/22 12:54 Sulfa (Sulfonamide Allergy Hives Verified 01/04/22 12:54 Antibiotics) Family History Brother CAD (coronary artery disease) Mother Heart disease Father Heart disease Surgical History H/O Mohs micrographic surgery for skin cancer Hx of umbilical hernia repair S/P TURP Status post coronary artery stent placement Social History household members: spouse Smoking Status: Former smoker quit date: 02/18/18 how long ago did patient quit smoking: Quit 02/18/18, smoked 1 ppd since teen until quit. alcohol intake: current alcohol intake frequency: 0-2 drinks per day Alcohol type: wine substance use type: does not use ROS ROS ED ROS Narrative Constitutional: No fever, no chills. HEENT: No sore throat. No neck pain. No loss of vision. No rhinorrhea. Cardiovascular: No chest pain. No palpitations. No pedal edema. Respiratory: No cough, no shortness of breath. Abdominal: No abdominal pain. No nausea. No vomiting. Genitourinary: No dysuria. No hematuria. Musculoskeletal: No myalgias. No arthralgias. Neurologic: No headaches. No dizziness. No lightheadedness. Skin: No rash. No change in color. Skin tears x2 to left forearm and 1 to right upper arm. Psychiatric: No depression. No anxiety. EXAM Physical Exam Narrative Exam Narrative: Afebrile. Vital signs noted. HEENT: Normocephalic. Atraumatic. PERRL, EOMI. Neck soft and supple. No point tenderness or step off. Cardiovascular: Regular rate and rhythm. No murmurs, rubs, or gallops appreciated. Respiratory: No tachypnea. Lungs clear to auscultation bilaterally. Gastrointestinal: Abdomen soft, nontender, with normoactive bowel sounds. No rebound or guarding. Neurological: Awake. Alert. Nonfocal, nonlateralizing. Skin: No rash. Normal color. No pallor. 2 moderately sized skin tears, irregular, left forearm. 1 moderately sized skin tear to right upper arm. Neurovascular intact bilaterally with palpable radial pulses. Musculoskeletal: No pedal edema. Full range of motion extremities and joints of bilateral upper extremities. Const Vital Signs: 01/04/22 12:55 Temperature 98.1 F Temperature Source Temporal Pulse Rate 119 H Respiratory Rate 18 Blood Pressure 127/102 H Blood Pressure Mean 110 Pulse Ox 98 Oxygen Delivery Method Room Air MDM MDM MDM Narrative Medical decision making narrative: His dressings were removed using normal saline. There is no active bleeding noted. These are not amenable to repair with sutures or Steri-Strips. Bacitracin and petroleum gauze dressings were applied. They will continue to change his dressings at least once a day and follow-up with his primary care provider. They were told to look for signs of infection. Return instructions were reviewed. With his recent dressing change and no signs of infection, I do feel he can be discharged safely home. Disposition is discharged home in stable condition. Discharge Plan Triage Chief Complaint: Wound ED Provider: Igor Allison Dx/Rx/DC Orders Clinical Impression: Multiple skin tears, Fall Instructions: ED Skin Avulsion, ED Wound Check (No Infection) Prescriptions: No Action nitroglycerin 0.4 mg tablet, sublingual 0.4 mg SUBLINGUAL Q5-15M rosuvastatin 20 mg tablet 20 mg PO DAILY Qty: 90 1RF magnesium oxide 400 mg (241.3 mg magnesium) tablet 400 mg PO BID Qty: 30 0RF omeprazole 20 mg capsule,delayed release(DR/EC) 20 mg PO DAILY Qty: 90 3RF metoprolol tartrate 50 MG tablet 50 mg PO DAILY Label Comments: lisinopril 5 MG tablet 10 mg PO BID Label Comments: cyanocobalamin (vitamin B-12) 1,000 mcg capsule 1,000 mcg PO DAILY tramadol 50 mg tablet 50 mg PO Q6H PRN (Reason: pain) 3 Days Qty: 12 0RF allopurinol 100 mg tablet 100 mg PO BID Qty: 60 4RF (DME) safety shower See Rx Instructions .Route .MEDSUPPLY Qty: 1 0RF Rx Instructions: As directed Xarelto 20 mg tablet 20 mg PO DAILY Qty: 90 2RF Rx Instructions: must administer with evening meal meloxicam 15 mg tablet 15 mg PO DAILY PRN (Reason: arthritis pain) Qty: 90 0RF Primary Care Provider: Jaden Monterroso Referrals: Jaden Monterroso, DO [Primary Care Provider] - 1 Week if not improving Disposition Disposition: Home, Self Care
[2022-01-04 13:27] VITALS: BP 118/78; PULSE 78; RESP 16; TEMP 36.6; O2SAT 100
== END 2022-01-04 13:31 | disposition home or self-care (01) ==
PROVIDERS: Emergency Provider Emergency Medicine; PCP Family Medicine; Visit Provider Emergency Medicine
DX: S51.812A Laceration without foreign body of left forearm, initial encounter (principal); I10 Essential (primary) hypertension; E78.5 Hyperlipidemia, unspecified; I25.10 Atherosclerotic heart disease of native coronary artery without angina pectoris; S51.811A Laceration without foreign body of right forearm, initial encounter; Z87.891 Personal history of nicotine dependence; X58.XXXA Exposure to other specified factors, initial encounter
CPT/HCPCS: 99283

== ENCOUNTER 2022-01-30 16:25 | Inpatient (IN) | payer MEDICARE, OTHER, SELFPAY ==
[2022-01-30] VITALS (15 sets, daily range): BP systolic 112–215; BP diastolic 62–168; PULSE 78–153; RESP 16–29; TEMP 37.3–39.7; O2SAT 83–98; BMI 26.4; BMI 25.7
--- NOTE | 2022-01-30 16:37 | EKG12_ITS ---
Test Reason : HIGH HR Blood Pressure : / mmHG Vent. Rate : 147 BPM Atrial Rate : 147 BPM P-R Int : 098 ms QRS Dur : 104 ms QT Int : 320 ms P-R-T Axes : 086 050 110 degrees QTc Int : 500 ms Sinus tachycardia with short NC ST & T wave abnormality, consider lateral ischemia Abnormal ECG Confirmed by ARTHUR BILLINGSLEY, SUSHMA ([id number]), editor trade journal DEL REY ([id number]) on 01/31/2022 12:00:41 PM Referred By: NATE Confirmed By:SUSHMA GIBSON MD
--- NOTE | 2022-01-30 17:01 | EX.ED.DYSGE1 ---
HPI History of Present Illness Chief Complaint: Shortness of Breath Detail of Chief Complaint: Shaking and chills and shortness of breath since last night Informant: patient Narrative Narrative: Patient presents the emergency department complaining of shaking chills since last night. Patient describes some mild shortness of breath. Patient states that just a week ago today he had a repair of an aortic aneurysm in his abdomen at the [facility]. Patient is denying any chest pain. Patient states he had a Webber catheter in place but was just taken out yesterday and is just dribbling small amounts of urine. Patient denies significant cough. Patient has some mild abdominal discomfort. Prior similar symptoms: No PFSH PFSH Medical History Abdominal aortic aneurysm Acute pancreatitis Adverse effect of drug therapy Alcohol abuse Bilateral lower extremity edema BPH (benign prostatic hyperplasia) CAD (coronary artery disease) Dental infection Gastrocnemius tear GERD (gastroesophageal reflux disease) Gout Heavy alcohol consumption Hyperlipidemia Hypertension Hypertriglyceridemia Hypomagnesemia Hypophosphatemia Ileus Impacted cerumen of both ears Lymphoma Nicotine dependence Non Hodgkin's lymphoma Sacro-iliac pain Venous stasis dermatitis of both lower extremities Home Medications lisinopril 5 mg tablet 10 mg PO BID BP 04/23/15 [History Last Taken 06/21/21] metoprolol tartrate 50 mg tablet 50 mg PO DAILY BP 04/23/15 [History Last Taken 06/20/21] nitroglycerin 0.4 mg sublingual tablet 0.4 mg sublingual Q5-15M Chest pain 10/06/18 [History Last Taken Unknown] rosuvastatin 20 mg tablet 20 mg PO DAILY #90 tabs 06/22/20 [Rx Last Taken 06/21/21] cyanocobalamin (vitamin B-12) 1,000 mcg capsule 1,000 mcg PO DAILY supplement 06/21/21 [History Last Taken 06/20/21] magnesium oxide 400 mg (241.3 mg magnesium) tablet 400 mg PO BID #30 tabs 06/28/21 [Rx Last Taken Unknown] omeprazole 20 mg capsule,delayed release 20 mg PO DAILY #90 caps 06/28/21 [Rx Last Taken Unknown] safety shower #1 ea 08/01/21 [Rx Last Taken Unknown] rivaroxaban 20 mg tablet (Xarelto) 20 mg PO DAILY #90 tabs 08/29/21 [Rx Last Taken Unknown] meloxicam 15 mg tablet 15 mg PO DAILY PRN arthritis pain #90 tabs 11/08/21 [Rx Last Taken Unknown] tramadol 50 mg tablet 50 mg PO Q6H PRN pain 3 days #12 tabs 12/14/21 [Rx Last Taken Unknown] allopurinol 100 mg tablet 100 mg PO BID gout #60 tabs 01/30/22 [Rx Last Taken Unknown] Allergy/AdvReac Type Severity Reaction Status Date / Time erythromycin base Allergy Hives Verified 01/30/22 16:25 Sulfa (Sulfonamide Allergy Hives Verified 01/30/22 16:25 Antibiotics) Family History Brother CAD (coronary artery disease) Mother Heart disease Father Heart disease Surgical History H/O Mohs micrographic surgery for skin cancer Hx of umbilical hernia repair S/P TURP Status post coronary artery stent placement Social History household members: spouse Smoking Status: Former smoker quit date: 02/18/18 how long ago did patient quit smoking: Quit 02/18/18, smoked 1 ppd since teen until quit. alcohol intake: current alcohol intake frequency: 0-2 drinks per day Alcohol type: wine substance use type: does not use ROS ROS ED Review of Systems ROS Unobtainable: other Constitutional Constitutional ED: Reports chills, fever(s) and lethargy; Denies sweats or weight loss Eyes Eyes: Denies blurry vision, change in vision or diplopia ENT ENT ED: Denies rhinorrhea or sore throat Cardiovascular Cardiovascular: Reports racing heartbeat; Denies chest pain or orthopnea Respiratory/Chest Respiratory/Chest: Reports dyspnea and dyspnea on exertion; Denies cough, orthopnea or sputum Gastrointestinal Gastrointestinal: Denies abdominal pain, diarrhea, nausea or vomiting Genitourinary Genitourinary ED: Denies dysuria, hematuria or urinary frequency Musculoskeletal Musculoskeletal: Denies arthralgias, back pain, myalgias or neck pain Integumentary Denies abscess, Abrasions or rash Neurologic Neurologic: Denies headache(s) or weakness Psychiatric Psychiatric: Denies anxiety, depression or suicidal thoughts Endocrine Endocrinology: Denies polydipsia, polyphagia or polyuria Hematologic/Lymphatic Hematologic/Lymphatic: Denies easy bleeding, easy bruising or lymphadenopathy Allergic/Immunologic Allergic/Immunologic ED: Denies mouth swelling, tongue swelling or urticaria EXAM Physical Exam Const Vital Signs: 01/30/22 16:26 01/30/22 16:50 01/30/22 16:50 Temperature 99.2 F H 99.8 F H Temperature Source Temporal Temporal Pulse Rate 153 H 147 H 146 H Respiratory Rate 18 18 26 H Respiratory Effort Respiratory Depth Respiratory Pattern Blood Pressure 215/168 H 116/90 H 116/92 H Blood Pressure Mean 183 98 100 Pulse Ox 96 97 98 Oxygen Delivery Method Room Air Room Air Room Air 01/30/22 16:50 01/30/22 17:25 01/30/22 17:33 Temperature 99.9 F H 99.9 F H Temperature Source Temporal Temporal Pulse Rate 78 142 H Respiratory Rate 16 18 Respiratory Effort Short of Breath Respiratory Depth Shallow Respiratory Pattern Tachypnea Blood Pressure 154/78 H 152/64 H Blood Pressure Mean 103 93 Pulse Ox 98 96 Oxygen Delivery Method Room Air Room Air Room Air 01/30/22 18:00 Temperature 99.8 F H Temperature Source Temporal Pulse Rate 91 Respiratory Rate 18 Respiratory Effort Respiratory Depth Respiratory Pattern Blood Pressure 153/86 H Blood Pressure Mean 108 Pulse Ox 94 Oxygen Delivery Method Room Air Positive well nourished and well developed General Appearance ED: well developed and NAD HEENT Reports TM's clear and moist mucous membranes normocephalic and atraumatic; Negative for trauma or tenderness Tympanic Membrane ED: Yes TM's clear Eyes PERRL and EOMs intact bilaterally General Eye ED: Negative for pale conjunctiva or scleral icterus Neck no lymphadenopathy, supple and no JVD General: Negative for tenderness Chest Wall inspection of chest normal and palpation of chest normal Chest: Negative for tenderness Resp normal respiratory effort and clear to auscultation bilaterally Effort and Inspection: Negative for respiratory distress or pain with movement Auscultation: Negative for rhonchi, wheezes or diminished lung sounds Cardio regular rhythm, S1 normal heart sound, S2 normal heart sound and no murmurs Rate: tachycardic Peripheral Pulses: pulses 2+ throughout GI normal to inspection, nondistended, normoactive bowel sounds, soft to palpation, non-tender, non-distended and no masses Back/Spine no CVA tenderness and no thoracic nor lumbar tenderness Extremity normal to inspection General Extremety ED: Negative for edema General Extremity: Negative for edema Neuro oriented x3, CN's II-XII intact bilaterally, no sensory deficits noted and gait normal Sensorium / Orientation: awake, alert, oriented to person, oriented to place and oriented to time Motor Exam: strength 5/5 throughout and strength abnormal Psych mental status grossly normal Skin no rashes or lesions noted and no wounds MDM MDM MDM Narrative Medical decision making narrative: IV line established on arrival. I did obtain a bladder scan after evaluated the patient and this showed greater than 1000 cc of urine therefore Webber catheter was placed and immediately over 1400 cc of urine was obtained. Urinalysis was positive for infection. Blood cultures ordered. Urine culture ordered. Lactate was elevated 3.3. White count was elevated at 12.5. Patient was ordered a liter normal same fluid bolus followed by second liter. Case discussed with hospitalist will evaluate patient for admission. Patient was started on Rocephin 1 g IV. Lab Data Attestation: I reviewed the patient's lab results. Labs: Laboratory Results - last 24 hr 01/30/22 01/30/22 01/30/22 16:54 16:54 16:54 WBC 12.5 H RBC 3.24 L Hgb 10.4 L Hct 33.1 L MCV 102.2 H MCH 32.1 H MCHC 31.4 L RDW Std Deviation 53.3 H RDW Coeff of Jackelyn 14.1 Plt Count 303 MPV 9.2 Immature Gran % (Auto) 0.400 Neut % (Auto) 82.8 H Lymph % (Auto) 9.5 L [place] % (Auto) 6.4 Eos % (Auto) 0.6 Baso % (Auto) 0.3 Absolute Neuts (auto) 10.4 H Absolute Lymphs (auto) 1.19 Nucleated RBC % 0 Sodium 134 L Potassium 4.4 Chloride 102 Carbon Dioxide 23.0 Anion Gap 9 BUN 20 H Creatinine 1.69 H Estim Creat Clear Calc 38.26 Est GFR (MDRD) Af Amer 50 L Est GFR (MDRD) Non-Af 42 L BUN/Creatinine Ratio 11.8 Glucose 148 H Lactic Acid 3.3 H* Calcium 9.4 Total Bilirubin 0.50 AST 12 L ALT 16 Alkaline Phosphatase 87 Troponin I High Sens 7 Total Protein 7.3 Albumin 3.3 Globulin 4.0 Albumin/Globulin Ratio 0.8 L Urine Color Urine Clarity Urine pH Ur Specific [place] Urine Protein Urine Glucose (UA) Urine Ketones Urine Occult Blood Urine Nitrite Urine Bilirubin Urine Urobilinogen Ur Leukocyte Esterase Urine RBC Urine WBC Ur Squamous Epith Cells Urine Bacteria Urine Mucus 01/30/22 17:22 WBC RBC Hgb Hct MCV MCH MCHC RDW Std Deviation RDW Coeff of Jackelyn Plt Count MPV Immature Gran % (Auto) Neut % (Auto) Lymph % (Auto) [place] % (Auto) Eos % (Auto) Baso % (Auto) Absolute Neuts (auto) Absolute Lymphs (auto) Nucleated RBC % Sodium Potassium Chloride Carbon Dioxide Anion Gap BUN Creatinine Estim Creat Clear Calc Est GFR (MDRD) Af Amer Est GFR (MDRD) Non-Af BUN/Creatinine Ratio Glucose Lactic Acid Calcium Total Bilirubin AST ALT Alkaline Phosphatase Troponin I High Sens Total Protein Albumin Globulin Albumin/Globulin Ratio Urine Color Yellow Urine Clarity Cloudy Urine pH 7.0 Ur Specific [place] 1.005 Urine Protein 15 H Urine Glucose (UA) Normal Urine Ketones Negative Urine Occult Blood 150 H Urine Nitrite Negative Urine Bilirubin Negative Urine Urobilinogen Normal Ur Leukocyte Esterase 500 H Urine RBC 0-5 SEEN Urine WBC >100 SEEN Ur Squamous Epith Cells 0 SEEN Urine Bacteria 4+ Urine Mucus 0 SEEN Radiography Chest X-Ray - ED: 1 View Diagnostic Testing: Clinical Impression(s) from Imaging Studies Chest X-Ray 01/30/22 17:35 IMPRESSION: No radiographic evidence of acute cardiopulmonary disease. Electronically Signed: Corey Pino MD at 18:07 EST Reading Location ID and State: [facility] / [place] Tel , Service support , 1 view chest are obtained interpreted by myself no acute disease process. Radiology in agreement. EKG Initial EKG: Attestation: I personally reviewed and interpreted this EKG as follows: Comments: Sinus tachycardia with a ventricular rate of [address] changes Discharge Plan Triage Chief Complaint: Shortness of Breath ED Provider: Fiorella Dillard Dx/Rx/DC Orders Clinical Impression: Acute UTI, Acute urinary retention, Sepsis, Acidosis, lactic, Leukocytosis Prescriptions: No Action nitroglycerin 0.4 mg tablet, sublingual 0.4 mg SUBLINGUAL Q5-15M rosuvastatin 20 mg tablet 20 mg PO DAILY Qty: 90 1RF magnesium oxide 400 mg (241.3 mg magnesium) tablet 400 mg PO BID Qty: 30 0RF omeprazole 20 mg capsule,delayed release(DR/EC) 20 mg PO DAILY Qty: 90 3RF metoprolol tartrate 50 MG tablet 50 mg PO DAILY Label Comments: lisinopril 5 MG tablet 10 mg PO BID Label Comments: cyanocobalamin (vitamin B-12) 1,000 mcg capsule 1,000 mcg PO DAILY tramadol 50 mg tablet 50 mg PO Q6H PRN (Reason: pain) 3 Days Qty: 12 0RF (DME) safety shower See Rx Instructions .Route .MEDSUPPLY Qty: 1 0RF Rx Instructions: As directed Xarelto 20 mg tablet 20 mg PO DAILY Qty: 90 2RF Rx Instructions: must administer with evening meal meloxicam 15 mg tablet 15 mg PO DAILY PRN (Reason: arthritis pain) Qty: 90 0RF allopurinol 100 mg tablet 100 mg PO BID Qty: 60 4RF Primary Care Provider: Jaden Monterroso Referrals: Jaden Monterroso DO [Primary Care Provider] - Disposition Disposition: Acute Care Hospital [facility]
[2022-01-30 17:16] LABS: Absolute Lymphocyte Count 1.19 X10^3/uL (0.83-4.51); Absolute Neutrophil Count 10.4 X10^3/uL (2.0-7.7); Basophil# 0.04 X10^3/uL; Basophil% 0.3 % (0-1); Eosinophil# 0.07 X10^3/uL; Eosinophils% 0.6 % (0-5); Hematocrit 33.1 % (40-54); Hemoglobin 10.4 g/dL (13.0-16.5); Lymphocyte # 1.19 X10^3/ul (0.83-4.51); Lymphocyte % 9.5 % (19-41); Mean Corp Hgb Conc 31.4 g/dL (32-36); Mean Corpuscular Hgb 32.1 pg (27.0-32.0); Mean Corpuscular Volume 102.2 fL (80-94); Mean Platelet Vol. 9.2 fl (6.2-12.0); Monocyte% 6.4 % (0-10); NRBC Flagged by Analyzer 0 % (0-5); Neutrophil # 10.36 X10^3/uL (2.7-7.7); Neutrophil % 82.8 % (47-70); Platelet Count 303 K/mm3 (150-450); RBC Distribution Width CV 14.1 % (11.6-14.6); RBC Distribution Width SD 53.3 fl (35.1-43.9); Red Blood Count 3.24 M/mm3 (4.6-6.2); White Blood Count 12.5 K/mm3 (4.4-11.0)
[2022-01-30] MEDS: 0.9% Normal Saline 1,000 ML 1000 ML IV (17:28)
[2022-01-30 17:32] LABS: Mucous, Urine 0 SEEN /hpf (<or=2+); Squamous Epithelial Cells - UA 0 SEEN /hpf (0-5)
--- NOTE | 2022-01-30 17:35 | RAD_ITS ---
INDICATION: dyspnea EXAMINATION/TECHNIQUE: X-RAY - portable upright AP chest x-ray COMPARISON: 12/13/2021 FINDINGS: LINES/DEVICES: None. LUNGS: No consolidation, edema or effusion. No pneumothorax. MEDIASTINUM AND CARDIOVASCULAR STRUCTURES: Cardiac silhouette not enlarged. Central airways and mediastinal contour are unremarkable. BONES AND SOFT TISSUES: Unremarkable. RAD/Chest 1 View (Portable) IMPRESSION: No radiographic evidence of acute cardiopulmonary disease. Electronically Signed: Corey Pino MD at 18:07 EST ,
[2022-01-30 17:36] LABS: Color, Urine Yellow (Yellow); Glucose, Dipstick Normal (Normal); Ketone-Dipstick Negative (Negative); Leukocyte Esterase-Dipstick 500 /ul (Negative); Nitrite-Dipstick Negative (Negative); Occult Blood-Urine 150 /ul (Negative); Protein-Dipstick 15 mg/dl (Negative); Specific Gravity, Urine 1.005 (1.002-1.030); Urine Bilirubin Dipstick Negative (Negative); Urine Clarity Cloudy (Clear); Urine Urobilinogen Normal (Normal)
[2022-01-30 17:40] LABS: Lactic Acid 3.3 mmol/L (0.4-1.9)
[2022-01-30 17:44] LABS: ALB/GLOB Ratio 0.8 RATIO (0.9-2.4); AST(SGOT) 12 U/L (15-37); Alanine Aminotransfer ALT/SGPT 16 U/L (16-61); Albumin, Serum 3.3 g/dL (3.2-5.0); Alkaline Phosphatase 87 U/L (45-117); Anion Gap 9 (5-15); BUN 20 mg/dL (7-18); BUN/Creat Ratio 11.8 RATIO (10-20); Calcium,Total 9.4 mg/dL (8.5-10.1); Chloride 102 mmol/L (98-107); Creatinine, Serum 1.69 mg/dL (0.70-1.30); EST Glomerular Filtration Rate 42 mL/min (>60); Est Glom Filt Rate - Afr Amer 50 mL/min (>60); Estimated Creatinine Clearance 38.26 ml/min; Glucose 148 mg/dL (74-106); Potassium 4.4 mmol/L (3.5-5.1); Protein, Total 7.3 g/dL (6.4-8.2); Sodium Level 134 mmol/L (136-145); Troponin-I HS 7 pg/mL (3.0-78.0)
[2022-01-30 18:08] LABS: Bacteria 4+ /hpf (None Seen); Red Blood Cells-Urine 0-5 SEEN /hpf (0-5); White Blood Cells >100 SEEN /hpf (0-5)
--- NOTE | 2022-01-30 18:13 | NURSING ---
DR DELVIS CALDERÓN
--- NOTE | 2022-01-30 18:20 | HP.PCM.HOS_ITS ---
HPI - General General Date of Admission: 01/30/22 Date of Service: 01/30/22 Chief Complaint: Shaking and chills HPI Narrative DOUGIE COOPER, is a 81 M who presented to the emergency department [facility] on 01/30/2022 with shaking and chills that started last evening. The patient reports that he recently had an aortic aneurysm repair at [facility] at which time he had a Webber catheter in place. He saw Dr. Gonzalez yesterday and Webber was removed and he was started on Flomax. Last evening he began having urinary frequency with dysuria. He states he urinated 5 times overnight and never felt completely empty and then 3 more times this morning before coming to the hospital. He developed rigors last night as well. He is complained of associated shortness of breath and chills with fever documented at home. He denies any nausea or vomiting, chest congestion, pharyngitis, diarrhea or constipation, tingling or numbness. He does have some nasal congestion and a headache at this time and some generalized weakness but no focal complaints. His spouse is at the bedside and reports that he has had s ome intermittent confusion. Vital signs on presentation showed a temperature of 99.2 with a T-max in the emergency department of 100.9, heart rate of 153, blood pressure of 150/87, respiratory rate of 26, oxygen saturation was 98% on room air. CBC shows a leukocytosis with a white count of 12.5 and a left shift with 82.8% neutrophilia, a chronic stable anemia that is macrocytic in nature and normal platelet count. His chemistry panel shows mild hyponatremia with a sodium of 134, stable BUN and creatinine at 20 and 1.69 respectively, serum glucose of 148 and normal LFTs. Initial troponin was 7. Lactic acid was 3.3. X-ray is negative for any acute cardiopulmonary disease. His UA shows some protein, 150 of occult blood, leuk esterase and greater than 100 white cells per high-powered field as well as 4+ bacteria suggestive of a acute urinary tract infection. In the emergency department Webber was replaced with 1400 cc immediate return, blood and urine cultures were sent, and the patient was started on IV ceftriaxone. Request for admission was made. FOR[facility]LY [facility] Medical History Abdominal aortic aneurysm Acute pancreatitis Adverse effect of drug therapy Alcohol abuse Bilateral lower extremity edema BPH (benign prostatic hyperplasia) CAD (coronary artery disease) Dental infection Gastrocnemius tear GERD (gastroesophageal reflux disease) Gout Heavy alcohol consumption Hyperlipidemia Hypertension Hypertriglyceridemia Hypomagnesemia Hypophosphatemia Ileus Impacted cerumen of both ears Lymphoma Nicotine dependence Non Hodgkin's lymphoma Sacro-iliac pain Venous stasis dermatitis of both lower extremities Home Medications nitroglycerin 0.4 mg sublingual tablet 0.4 mg sublingual Q5-15M Chest pain 10/06/18 [History Last Taken Unknown] cyanocobalamin (vitamin B-12) 1,000 mcg capsule 1,000 mcg PO DAILY supplement 06/21/21 [History Last Taken 01/28/22] safety shower #1 ea 08/01/21 [Rx Last Taken Unknown] meloxicam 15 mg tablet 15 mg PO DAILY PRN arthritis pain #90 tabs 11/08/21 [Rx Last Taken 01/28/22] tramadol 50 mg tablet 50 mg PO Q6H PRN pain 3 days #12 tabs 12/14/21 [Rx Last Taken Unknown] acetaminophen 500 mg tablet 1,000 mg PO Q8H PRN Pain 01/30/22 [History Last Taken 01/30/22] allopurinol 100 mg tablet 100 mg PO BID gout #60 tabs 01/30/22 [Rx Last Taken 01/28/22] budesonide 3 mg capsule,delayed,extended release 6 mg PO DAILY ASTHMA 01/30/22 [History Last Taken 01/28/22] diphenhydramine HCl 25 mg tablet (Benadryl Allergy) 50 mg PO DAILY PRN ALLERGIES 01/30/22 [History Last Taken 01/30/22] magnesium oxide 400 mg (241.3 mg magnesium) tablet 400 mg PO BID supplement 01/30/22 [History Last Taken 01/28/22] metoprolol succinate 25 mg tablet,extended release 24 hr 25 mg PO DAILY blood pressure 01/30/22 [History Last Taken 01/28/22] multivitamin 1 tab PO DAILY SUPPLEMENT 01/30/22 [History Last Taken 01/28/22] omeprazole 20 mg capsule,delayed release 20 mg PO DAILY acid reflux 01/30/22 [History Last Taken 01/28/22] rivaroxaban 20 mg tablet (Xarelto) 20 mg PO QPM blood thinner 01/30/22 [History Last Taken 01/29/22] rosuvastatin 20 mg tablet 20 mg PO QHS cholesterol 01/30/22 [History Last Taken 01/29/22] tamsulosin 0.4 mg capsule 0.4 mg PO DAILY PROSTATE 01/30/22 [History Last Taken 01/28/22] Allergy/AdvReac Type Severity Reaction Status Date / Time cephalexin Allergy Hives Verified 01/30/22 19:09 erythromycin base Allergy Hives Verified 01/30/22 16:25 fexofenadine Allergy Other Verified 01/30/22 19:09 Sulfa (Sulfonamide Allergy Hives Verified 01/30/22 16:25 Antibiotics) Family History Brother CAD (coronary artery disease) Mother Heart disease Father Heart disease Surgical History (Updated 01/30/22 @ 19:[address] Nai Vital DO) H/O Mohs micrographic surgery for skin cancer History of endovascular stent graft for abdominal aortic aneurysm (AAA) Hx of umbilical hernia repair S/P TURP Status post coronary artery stent placement Social History household members: spouse Smoking Status: Former smoker quit date: 02/18/18 how long ago did patient quit smoking: Quit 02/18/18, smoked 1 ppd since teen until quit. alcohol intake: current alcohol intake frequency: 0-2 drinks per day Alcohol type: wine substance use type: does not use ROS Constitutional Constitutional: Reports chills, fatigue, fever(s), malaise and weakness; Denies anorexia, change in weight, night sweats or other Eyes Eyes: Denies blurry vision, change in eye color, change in vision, discharge from eye(s), double vision, erythema, eye pain, loss of vision or other ENT HEENT: Reports headache(s) and nasal congestion; Denies abnormal hearing, dysphagia, ear pain, epistaxis, hearing loss, nasal discharge, post nasal drip, sinus pressure, sore throat or other Cardiovascular Cardiovascular: Denies chest pain, claudication, dyspnea on exertion, edema, lightheadedness, orthopnea, palpitations, paroxysmal nocturnal dyspnea, rapid heart rate, syncope or other Respiratory/Chest Respiratory/Chest: Reports shortness of breath at rest; Denies cough, dyspnea, excessive phlegm production, hemoptysis, productive cough, shortness of breath with exertion, wheezing or other Gastrointestinal Gastrointestinal: Denies abdominal pain, coffee ground emesis, constipation, diarrhea, dyspepsia, hematemesis, hematochezia, loose stools, melena, nausea, vomiting or other Genitourinary Genitourinary: Reports burning urination, difficulty urinating, dysuria, nocturia, urinary frequency, urinary hesitancy, urinary urgency and other Details: Dribbling Musculoskeletal Musculoskeletal: Reports back pain; Denies arthralgias, joint pain, joint stiffness, joint swelling, myalgias, neck pain or other Neurologic Neurologic: Reports confusion; Denies abnormal gait, abnormal speech, disequilibrium, dizziness, focal weakness, headache(s), numbness, paresthesias, seizure-like activity, seizures, syncope, tingling, tremor(s) or other Psychiatric Psychiatric: Denies anxiety, depression, homicidal ideation, suicidal ideation or other Endocrine Endocrinology: Denies change in body appearance, cold intolerance, excessive sweating, heat intolerance, polydipsia, polyuria or other Hematologic/Lymphatic Hematologic/Lymphatic: Denies anemia, easy bleeding, easy bruising, lymphadenopathy or other Allergic/Immunologic Allergic/Immunologic: Denies rhinitis, hives, eczemia, asthma or other Vital Signs Vital Signs Vital Signs: 01/30/22 16:26 01/30/22 16:50 01/30/22 16:50 Temperature 99.2 F H 99.8 F H Temperature Source Temporal Temporal Pulse Rate 153 H 147 H 146 H Respiratory Rate 18 18 26 H Respiratory Effort Respiratory Depth Respiratory Pattern Blood Pressure 215/168 H 116/90 H 116/92 H Blood Pressure Mean 183 98 100 Pulse Ox 96 97 98 Oxygen Delivery Method Room Air Room Air Room Air 01/30/22 16:50 01/30/22 17:25 01/30/22 17:33 Temperature 99.9 F H 99.9 F H Temperature Source Temporal Temporal Pulse Rate 78 142 H Respiratory Rate 16 18 Respiratory Effort Short of Breath Respiratory Depth Shallow Respiratory Pattern Tachypnea Blood Pressure 154/78 H 152/64 H Blood Pressure Mean 103 93 Pulse Ox 98 96 Oxygen Delivery Method Room Air Room Air Room Air 01/30/22 18:00 Temperature 99.8 F H Temperature Source Temporal Pulse Rate 91 Respiratory Rate 18 Respiratory Effort Respiratory Depth Respiratory Pattern Blood Pressure 153/86 H Blood Pressure Mean 108 Pulse Ox 94 Oxygen Delivery Method Room Air Weight Weight: 88.451 kg Body Mass Index (BMI) 26.4 Physical Exam Const alert and oriented x3 Constitutional Narrative: Older white male sitting up in bed, currently having rigors but alert and oriented x3, appears ill General Appearance: cooperative HEENT normocephalic, head/scalp atraumatic and moist oral mucous membranes HEENT Narrative: Moderate hearing loss, dentures in place, Mallampati 2, no thrush Eyes PERRL, EOMs intact bilaterally and conjunctivae normal Eyes Narrative: No scleral icterus Neck no lymphadenopathy, supple, no JVD and no carotid bruits Neck Narrative: Trachea midline, no thyroid lodgment Resp normal respiratory effort, no retractions, no use of accessory muscles and clear to auscultation bilaterally Resp Narrative: Diffusely diminished but clear Auscultation: Negative for crackles, rhonchi or wheezes Cardio regular rhythm, S1 normal heart sound, S2 normal heart sound, no murmurs, no rub, no gallops and no clicks Cardio Narrative: Tachycardia GI normal to inspection, nondistended, normoactive bowel sounds, soft to palpation and non-tender Extremity no clubbing, cyanosis or edema Extremity Narrative: 2+ pedal pulses Skin No no rashes or lesions noted, no wounds, skin turgor normal, no jaundice, no petechiae and no mottling Skin Narrative: Evidence of previous skin cancers as well as scattered actinic keratoses as well as seborrheic keratoses Neuro oriented x3, CN's II-XII intact bilaterally, moves all extremities and no focal motor deficits Neuro Narrative: Significant generalized weakness with no focal deficits Speech: speech normal Psych affect normal Psych Narrative: Very pleasant and appropriate Results Lab / Micro Data Attestation: I reviewed the patient's lab results. Result Diagrams: 01/30/22 16:54 01/30/22 16:54 Labs: Laboratory Results - last 24 hr 01/30/22 16:54: WBC 12.5 H, RBC 3.24 L, Hgb 10.4 L, Hct 33.1 L, MCV 102.2 H, MCH 32.1 H, MCHC 31.4 L, RDW Std Deviation 53.3 H, RDW Coeff of Jackelyn 14.1, Plt Count 303, MPV 9.2, Immature Gran % (Auto) 0.400, Neut % (Auto) 82.8 H, Lymph % (Auto) 9.5 L, [place] % (Auto) 6.4, Eos % (Auto) 0.6, Baso % (Auto) 0.3, Absolute Neuts (auto) 10.4 H, Absolute Lymphs (auto) 1.19, Nucleated RBC % 0 01/30/22 16:54: Sodium 134 L, Potassium 4.4, Chloride 102, Carbon Dioxide 23.0, Anion Gap 9, BUN 20 H, Creatinine 1.69 H, Estim Creat Clear Calc 38.26, Est GFR (MDRD) Af Amer 50 L, Est GFR (MDRD) Non-Af 42 L, BUN/Creatinine Ratio 11.8, Glucose 148 H, Calcium 9.4, Total Bilirubin 0.50, AST 12 L, ALT 16, Alkaline Phosphatase 87, Troponin I High Sens 7, Total Protein 7.3, Albumin 3.3, Globulin 4.0, Albumin/Globulin Ratio 0.8 L 01/30/22 16:54: Lactic Acid 3.3 H* 01/30/22 17:22: Urine Color Yellow, Urine Clarity Cloudy, Urine pH 7.0, Ur Specific [place] 1.005, Urine Protein 15 H, Urine Glucose (UA) Normal, Urine Ketones Negative, Urine Occult Blood 150 H, Urine Nitrite Negative, Urine Bilirubin Negative, Urine Urobilinogen Normal, Ur Leukocyte Esterase 500 H, Urine RBC 0-5 SEEN, Urine WBC >100 SEEN, Ur Squamous Epith Cells 0 SEEN, Urine Bacteria 4+, Urine Mucus 0 SEEN Micro: Microbiology 01/30/22 17:08 Nasal Secretion SARS-CoV-2 & FLU Antigen (Rapid) - Final Radiology Impression Chest X-Ray 01/30/22 17:35 IMPRESSION: No radiographic evidence of acute cardiopulmonary disease. Electronically Signed: Corey Pino MD at 18:07 EST , Assessment & Plan Assessment/Plan (1) Acute UTI: (2) Acute urinary retention: (3) Sepsis: (4) Acidosis, lactic: (5) Leukocytosis: PLAN: Plan Sepsis secondary to urinary tract infection -Patient meets sepsis criteria with tachycardia, leukocytosis, fever and suspected and infection -Likely nosocomial with recent Webber and extended stay at [facility] status post AAA stenting -We will cover with Zosyn/vancomycin for now given nosocomial infection -Narrow as able once culture and sensitivities have resulted -Blood and urine cultures pending -No current need for fluid boluses as patient is hypertensive however once antibiotics are initiated this may change with gram-negative sepsis suspected Lactic acidosis -Secondary to the above -Repeat per protocol with sepsis Leukocytosis -Likely related to acute infection -Repeat CBC in a.m. Acute urinary retention/BPH -Continue Webber -Continue Flomax -Suspect patient may need to go home with Webber and follow-up with urology as an outpatient however could trial Webber out in a day or 2 to see how he tolerates with bladder scan after Recent AAA stenting -Stable -Monitor clinically CKD stage IIIb -Serum creatinine is at baseline at 1.69 -Avoid nephrotoxins -Hold home meloxicam and would recommend discontinuation on discharge -Repeat BMP in a.m. Hyperlipidemia/Hypertension/CAD -Continue home rosuvastatin -Continue home metoprolol -History of stent placement--> no current coronary symptoms History of B cell non-Hodgkin's lymphoma -Follows as an outpatient with Dr. Jc History of DVT/PE -Continue home Xarelto History of gout -Continue home allopurinol GERD -continue PPI COPD -Continue home inhalers -As needed nebulizers History of tobacco abuse -Quit smoking 02/18/2018 -Recommend continued cessation History of alcohol abuse -Used to drink very heavy -Currently drinks 0-2 drinks daily -No previous withdrawal DVT prophylaxis -Continue home Xarelto CODE STATUS -Full code is verified prior to admission emergency department Sepsis Attestation Sepsis Alert: Yes Sepsis Attestation: Agree w/Sepsis Date exam was performed: 01/30/22 Time exam was performed: 18:21 Possible Source of Sepsis: Genitourinary Sepsis Organ Dysfunction Criteria Present: Lactic Acid > 2 mmol/L Supportive Findings: Patient with leukocytosis, tachycardia, and fever as well Fluid Resuscitation Fluid resuscitation indicated?: Yes Fluid Resuscitation ordered: Fluids not indicated (Patient is not hypotensive at this time we will monitor for needs once antibiotic starts) Charges/Coding Visit Charges Inpatient E&M: 77640 Init Hosp L3
[2022-01-30] MEDS: 0.9% Normal Saline 1,000 ML 999 ML IV (18:22)
[2022-01-30] MEDS: Ceftriaxone 1 GM/50 ML BAG IV (18:22)
[2022-01-30] MEDS: Acetaminophen 500 MG Tablet 1000 MG PO ×2 (18:35→23:57)
[2022-01-30] MEDS: Lactated Ringers 1,000 ML 75 ML IV (20:06)
[2022-01-30] MEDS: Metoprolol(XL)Succ 25 MG Tablet PO (20:10)
[2022-01-30] MEDS: Rivaroxaban 20 MG Tablet PO (20:37)
[2022-01-30] MEDS: Magnesium Chloride 64 MG Delay Rel.Tablet 128 MG PO (20:38)
[2022-01-30] MEDS: Tamsulosin HCl 0.4 MG Capsule PO (20:38)
[2022-01-30] MEDS: MELATONIN 10 MG TABLET PO (20:38)
[2022-01-30] MEDS: Atorvastatin Calcium 40 MG Tablet PO (20:38)
--- NOTE | 2022-01-30 21:01 | PCM.RX.CS ---
Consult Pharmacy has been consulted to manage selected antiobiotic: Vancomycin Type of Consult: New start Suspected Infection: Sepsis, Other Labs: Sodium 134 mmol/L (136-145) L 01/30/22 16:54 Potassium 4.4 mmol/L (3.5-5.1) 01/30/22 16:54 Chloride 102 mmol/L (98-107) 01/30/22 16:54 Carbon Dioxide 23.0 mmol/L (21.0-32.0) 01/30/22 16:54 Anion Gap 9 (5-15) 01/30/22 16:54 BUN 20 mg/dL (7-18) H 01/30/22 16:54 Creatinine 1.69 mg/dL (0.70-1.30) H 01/30/22 16:54 Est GFR (MDRD) Af Amer 50 mL/min (>60) L 01/30/22 16:54 Est GFR (MDRD) Non-Af 42 mL/min (>60) L 01/30/22 16:54 BUN/Creatinine Ratio 11.8 RATIO (10-20) 01/30/22 16:54 Glucose 148 mg/dL (74-106) H 01/30/22 16:54 Microbiology: Microbiology 01/30/22 17:08 Nasal Secretion SARS-CoV-2 & FLU Antigen (Rapid) - Final Goal Trough: 15-20 mcg/mL Pharmacy Plan for Drug Dosing: NEW START IV VANCOMYCIN Consulting Physician: Dr. Sepideh Vital Indication: Sepsis/UTI Goal Trough: 15-20 SrCr: 1.69 CrCl: 38 mls/min Comments: pt received a x1 dose of 1250mg on 01/30/22 at 2006 Vancomycin Dose: based on pts weight and renal function, recommend an initial dose of 1250mg q24h starting 24 hours after the loading dose. trough before the 3rd dose Pending Level: 02/01/22 at 1930 Pharmacy Service will continue to monitor and adjust dosing as required. Follow-Up Labs: Trough Vancomycin - 02/01/22 at 1930
[2022-01-30 21:02] LABS: Reflex Lactate? Y
[2022-01-30 21:35] LABS: Bedside Glucose 113 mg/dL (74-106)
[2022-01-30] MEDS: 0.9% Normal Saline 1,000 ML 75 ML IV (21:59)
[2022-01-31] VITALS (25 sets, daily range): BP systolic 95–139; BP diastolic 61–82; PULSE 72–125; RESP 17–29; TEMP 36.7–39.5; O2SAT 95–100
[2022-01-31 05:37] LABS: Absolute Lymphocyte Count 0.51 X10^3/uL (0.83-4.51); Basophil# 0.04 X10^3/uL; Basophil% 0.5 % (0-1); Eosinophil# 0.01 X10^3/uL; Eosinophils% 0.1 % (0-5); Hematocrit 27.3 % (40-54); Hemoglobin 8.6 g/dL (13.0-16.5); Lymphocyte # 0.51 X10^3/ul (0.83-4.51); Lymphocyte % 6.2 % (19-41); Mean Corp Hgb Conc 31.5 g/dL (32-36); Mean Corpuscular Hgb 32.2 pg (27.0-32.0); Mean Corpuscular Volume 102.2 fL (80-94); Mean Platelet Vol. 9.1 fl (6.2-12.0); Monocyte# 0.59 X10^3/uL; Monocyte% 7.2 % (0-10); NRBC Flagged by Analyzer 0 % (0-5); Neutrophil # 6.97 X10^3/uL (2.7-7.7); POSITIVE DIFFERENTIAL YES; Platelet Count 209 K/mm3 (150-450); RBC Distribution Width CV 14.4 % (11.6-14.6); Red Blood Count 2.67 M/mm3 (4.6-6.2); White Blood Count 8.2 K/mm3 (4.4-11.0)
[2022-01-31 05:40] LABS: Differential Indicated SCAN CRITERIA MET
[2022-01-31 06:01] LABS: Macrocytosis 2+
[2022-01-31 06:04] LABS: ALB/GLOB Ratio 0.7 RATIO (0.9-2.4); AST(SGOT) 11 U/L (15-37); Alanine Aminotransfer ALT/SGPT 12 U/L (16-61); Albumin, Serum 2.4 g/dL (3.2-5.0); Alkaline Phosphatase 67 U/L (45-117); Anion Gap 6 (5-15); BUN 19 mg/dL (7-18); BUN/Creat Ratio 12.8 RATIO (10-20); Calcium,Total 8.6 mg/dL (8.5-10.1); Chloride 111 mmol/L (98-107); Creatinine, Serum 1.48 mg/dL (0.70-1.30); EST Glomerular Filtration Rate 49 mL/min (>60); Est Glom Filt Rate - Afr Amer 59 mL/min (>60); Estimated Creatinine Clearance 43.69 ml/min; Globulin 3.3 g/dL (2.2-4.2); Glucose 116 mg/dL (74-106); Magnesium 1.9 mg/dL (1.6-2.6); Phosphorus 4.6 mg/dL (2.5-4.9); Potassium 4.1 mmol/L (3.5-5.1); Protein, Total 5.7 g/dL (6.4-8.2); Sodium Level 140 mmol/L (136-145)
--- NOTE | 2022-01-31 07:17 | PN.HOSP_ITS ---
Subjective Subjective Patient is an 81-year-old male admitted with fever chills and shortness of breath. An assessment of sepsis secondary to acute cystitis made admitted to a monitored bed for further management Objective Data Objective Data Vital Signs: Vital Signs Temp Pulse Resp BP Pulse Ox O2 Del Method O2 Flow Rate 98.1 F 78 22 H 134/63 H 97 Nasal Cannula 3 01/31/22 06:00 01/31/22 06:00 01/31/22 06:00 01/31/22 06:00 01/31/22 06:00 01/31/22 06:00 01/31/22 06:00 Oxygen Flow Rate (L/min) 3 Oxygen Delivery Method Nasal Cannula Weight: 86.1 kg Body Mass Index (BMI) 25.7 Intake & Output: Intake and Output for Last 24 Hours 01/29/22 01/30/22 01/31/22 23:59 23:59 23:59 Intake Total 2465.00 / 2585.00 170 / 170 Output Total 1300 / 1900 1400 / 1400 Balance 1165.00 / 685.00 -1230 / -1230 Lab / Micro Data Result Diagrams: 01/31/22 05:22 01/31/22 05:22 Labs: Laboratory Results - last 24 hr 01/30/22 16:54: WBC 12.5 H, RBC 3.24 L, Hgb 10.4 L, Hct 33.1 L, MCV 102.2 H, MCH 32.1 H, MCHC 31.4 L, RDW Std Deviation 53.3 H, RDW Coeff of Jackelyn 14.1, Plt Count 303, MPV 9.2, Immature Gran % (Auto) 0.400, Neut % (Auto) 82.8 H, Lymph % (Auto) 9.5 L, [place] % (Auto) 6.4, Eos % (Auto) 0.6, Baso % (Auto) 0.3, Absolute Neuts (auto) 10.4 H, Absolute Lymphs (auto) 1.19, Nucleated RBC % 0 01/30/22 16:54: Sodium 134 L, Potassium 4.4, Chloride 102, Carbon Dioxide 23.0, Anion Gap 9, BUN 20 H, Creatinine 1.69 H, Estim Creat Clear Calc 38.26, Est GFR (MDRD) Af Amer 50 L, Est GFR (MDRD) Non-Af 42 L, BUN/Creatinine Ratio 11.8, Glucose 148 H, Calcium 9.4, Total Bilirubin 0.50, AST 12 L, ALT 16, Alkaline Phosphatase 87, Troponin I High Sens 7, Total Protein 7.3, Albumin 3.3, Globulin 4.0, Albumin/Globulin Ratio 0.8 L 01/30/22 16:54: Lactic Acid 3.3 H* 01/30/22 17:08: Ur Drug Screen Comment 01/30/22 17:22: Urine Color Yellow, Urine Clarity Cloudy, Urine pH 7.0, Ur Specific [place] 1.005, Urine Protein 15 H, Urine Glucose (UA) Normal, Urine Ketones Negative, Urine Occult Blood 150 H, Urine Nitrite Negative, Urine Bilirubin Negative, Urine Urobilinogen Normal, Ur Leukocyte Esterase 500 H, Urine RBC 0-5 SEEN, Urine WBC >100 SEEN, Ur Squamous Epith Cells 0 SEEN, Urine Bacteria 4+, Urine Mucus 0 SEEN 01/30/22 21:18: POC Glucose 113 H 01/30/22 22:15: Lactic Acid 1.0 01/31/22 05:22: WBC 8.2, RBC 2.67 L, Hgb 8.6 L, Hct 27.3 L, MCV 102.2 H, MCH 32.2 H, MCHC 31.5 L, RDW Std Deviation 54.0 H, RDW Coeff of Jackelyn 14.4, Plt Count 209, MPV 9.1, Immature Gran % (Auto) 1.000 H, Neut % (Auto) 85.0 H, Lymph % (Auto) 6.2 L, [place] % (Auto) 7.2, Eos % (Auto) 0.1, Baso % (Auto) 0.5, Absolute Neuts (auto) 7.0, Absolute Lymphs (auto) 0.51 L, Nucleated RBC % 0, Macrocytosis 2+ 01/31/22 05:22: Sodium 140, Potassium 4.1, Chloride 111 H, Carbon Dioxide 23.0, Anion Gap 6, BUN 19 H, Creatinine 1.48 H, Estim Creat Clear Calc 43.69, Est GFR (MDRD) Af Amer 59 L, Est GFR (MDRD) Non-Af 49 L, BUN/Creatinine Ratio 12.8, Glucose 116 H, Calcium 8.6, Phosphorus 4.6, Magnesium 1.9, Total Bilirubin 0.40, AST 11 L, ALT 12 L, Alkaline Phosphatase 67, Total Protein 5.7 L, Albumin 2.4 L, Globulin 3.3, Albumin/Globulin Ratio 0.7 L Micro: Microbiology 01/30/22 17:08 Nasal Secretion SARS-CoV-2 & FLU Antigen (Rapid) - Final Radiography Diagnostic Testing: Radiology Impression Chest X-Ray 01/30/22 17:35 IMPRESSION: No radiographic evidence of acute cardiopulmonary disease. Electronically Signed: Corey Pino MD at 18:07 EST , Physical Exam Narrative GENERAL: cooperative HEENT: Atraumatic; normocephalic EYES; Anicteric, Normal Conjunctiva NECK; supple, normal thyroid, RESPIRATORY: Diminished to auscultation CARDIOVASCULAR: Regular S1 S2, GI: soft, normoactive bowel sounds, : No Renal angle tenderness; EXTREMITIES: No edema, no clubbing, MUSCULOSKELETAL: no muscle wasting NEURO: Awake; no lateralizing signs. SKIN: No Rash PSYCH; Flat affect Assessment & Plan Assessment/Plan (1) Acute UTI: (2) Acute urinary retention: (3) Sepsis: (4) Acidosis, lactic: (5) Leukocytosis: PLAN: Plan Patient is an 81-year-old male admitted with fever chills and shortness of br eath. An assessment of sepsis secondary to acute cystitis made admitted to a monitored bed for further management 1. Sepsis secondary to acute cystitis ? Patient was managed with broad-spectrum antibiotic therapy given recent stay at [facility]. Was also resuscitated with IV fluid cultures sent plan is to adjust antibiotic therapy based on culture result 2. Urinary retention ? Secondary to BPH Webber catheter was placed patient was started on Flomax 3. Chronic kidney disease stage IIIb ? Kidney function at baseline 4. Recent AAA repair ? Clinically stable 5. Hypertension - Blood pressure controlled, home medications continued with dose adjustment as needed 6. Dyslipidemia -Patient is on statin therapy, continued at home dose 7. Coronary artery disease ? Per history 8. History of B cell non-Hodgkin's lymphoma -Follows as an outpatient with Dr. Jc 9. History of DVT/PE -Continue home Xarelto 10. History of gout -Continue home allopurinol 11. GERD -continue PPI 12. COPD exacerbation - did continue patient bronchodilator treatment regimen 13. Chronic alcohol dependence ? Currently not in withdrawal will monitor 14. DVT prophylaxis ? Patient is on Xarelto Charges/Coding Visit Charges Inpatient E&M: 34941 Subs Hosp L2
[2022-01-31] MEDS: Cyanocobalamin 500 MCG Tablet 1000 MCG PO (07:55)
[2022-01-31] MEDS: Budesonide 3 MG CAPSULE.EC 6 MG PO (07:55)
[2022-01-31] MEDS: Allopurinol 100 MG Tablet PO ×2 (07:55→16:49)
[2022-01-31] MEDS: Magnesium Chloride 64 MG Delay Rel.Tablet 128 MG PO ×2 (07:55→21:35)
[2022-01-31] MEDS: Metoprolol(XL)Succ 25 MG Tablet PO (07:56)
[2022-01-31] MEDS: Pantoprazole Sodium 20 MG Tablet PO (07:56)
[2022-01-31] MEDS: 0.9% Normal Saline 1,000 ML 75 ML IV (09:58)
[2022-01-31] MEDS: Multivitamins,Therapeutic Tablet 1 TABLET PO (11:46)
--- NOTE | 2022-01-31 13:00 | CASEMGMT ---
RN?CM?RESERVATION SALES AGENT?CM?to room to meet with patient for initial transition planning/care coordination?assessment.?RN?CM?introduced self and role at [facility].? Pt voices understanding and consents to?assessment?at this time.? Pt sitting up in chair in room in no distress at this time.? @ bedside. Pt is A/O at this time and answers all questions appropriately.?? Care providers, pharmacy, and demographics verified/updated at this time. PCP: Dr Jaden Monterroso Specialists: Dr Jc-oncology, Dr Carballo--[facility] cardiology, Dr Gonzalez-urology, Dr Rodriguez Martinez-[facility] surgeon @ [facility], [facility], Dr Chan-dermatology @ [facility] main [facility] Pharmacy: [facility] Benefit:?Yes Living Will/HPOA:?Has both LW and HCPOA, who is his , Fouzia. LNOK: , Fouzia Living Arrangements: Lives w/ in one-story home w/basement w/4 steps to enter and railing to enter the home. Independent w/ADL's and IADL's and does yardwork. Transportation:?Pt states drives self and states no transportation concerns at this time.? also drives. DME: ?States has the following DME:?Has a cane and walker available, but does not use. Has a pulse ox and BP machine. Comfort height commode. ?Pt states no need for further DME at this time.? HHC/SNF: No hx of either. No needs identified. Pt wishes to return home and states has no concerns with going home at time of discharge.??CM?to follow for any discharge planning/needs.? Pt and voice no concerns/needs at this time.? Advised them to ask for?CM?if any questions/concerns/needs arise.? They voice understanding. PLAN:??Home w/spousal support and discharge plans in place. Liz SANTIZON?RN?CM
[2022-01-31] MEDS: Acetaminophen 325 MG Tablet 650 MG PO (19:09)
[2022-01-31] MEDS: Rivaroxaban 20 MG Tablet PO (21:34)
[2022-01-31] MEDS: Atorvastatin Calcium 40 MG Tablet PO (21:34)
[2022-01-31] MEDS: Tamsulosin HCl 0.4 MG Capsule PO (21:34)
[2022-01-31] MEDS: MELATONIN 10 MG TABLET PO (21:35)
[2022-02-01] VITALS (19 sets, daily range): BP systolic 108–154; BP diastolic 71–89; PULSE 62–98; RESP 16–18; TEMP 36.6–37.1; O2SAT 92–98
[2022-02-01] MEDS: 0.9% Normal Saline 1,000 ML 75 ML IV ×2 (05:39→18:20)
[2022-02-01] MEDS: Budesonide 3 MG CAPSULE.EC 6 MG PO (08:26)
[2022-02-01] MEDS: Pantoprazole Sodium 20 MG Tablet PO (08:27)
[2022-02-01] MEDS: Allopurinol 100 MG Tablet PO ×2 (08:27→17:37)
[2022-02-01] MEDS: Cyanocobalamin 500 MCG Tablet 1000 MCG PO (08:27)
[2022-02-01] MEDS: Metoprolol(XL)Succ 25 MG Tablet PO (08:28)
[2022-02-01] MEDS: Magnesium Chloride 64 MG Delay Rel.Tablet 128 MG PO ×2 (08:28→21:39)
--- NOTE | 2022-02-01 09:51 | PN.HOSP_ITS ---
Subjective Subjective Patient seen clinical condition improving. Urine culture still pending Objective Data Objective Data Vital Signs: Vital Signs Temp Pulse Resp BP Pulse Ox O2 Del Method O2 Flow Rate 97.8 F 76 18 136/81 H 92 Room Air 3 02/01/22 07:27 02/01/22 08:28 02/01/22 07:27 02/01/22 08:28 02/01/22 07:30 02/01/22 08:12 02/01/22 07:27 Oxygen Flow Rate (L/min) 3 Oxygen Delivery Method Room Air Weight: 86.1 kg Body Mass Index (BMI) 25.7 Intake & Output: Intake and Output for Last 24 Hours 01/30/22 01/31/22 02/01/22 23:59 23:59 23:59 Intake Total 2465.00 / 2585.00 2563.75 / 2563.75 50 / 50 Output Total 1300 / 1900 2200 / 3000 1100 / 1100 Balance 1165.00 / 685.00 363.75 / -436.25 -1050 / -1050 Lab / Micro Data Result Diagrams: 01/31/22 05:22 01/31/22 05:22 Micro: Microbiology 01/30/22 17:08 Nasal Secretion SARS-CoV-2 & FLU Antigen (Rapid) - Final Physical Exam Narrative GENERAL: cooperative HEENT: Atraumatic; normocephalic EYES; Anicteric, Normal Conjunctiva NECK; supple, normal thyroid, RESPIRATORY: Diminished to auscultation CARDIOVASCULAR: Regular S1 S2, GI: soft, normoactive bowel sounds, : No Renal angle tenderness; EXTREMITIES: No edema, no clubbing, MUSCULOSKELETAL: no muscle wasting NEURO: Awake; no lateralizing signs. SKIN: No Rash PSYCH; Flat affect Assessment & Plan Assessment/Plan (1) Acute UTI: (2) Acute urinary retention: (3) Sepsis: (4) Acidosis, lactic: (5) Leukocytosis: PLAN: Plan Patient is an 81-year-old male admitted with fever chills and shortness of breath. An assessment of sepsis secondary to acute cystitis made admitted to a monitored bed for further management 1. Sepsis secondary to acute cystitis ? Patient was managed with broad-spectrum antibiotic therapy given recent stay at [facility]. Was also resuscitated with IV fluid cultures sent plan is to adjust antibiotic therapy based on culture result ? 02/01/2022; Patient seen clinical condition improving. Urine culture still pending 2. Urinary retention ? Secondary to BPH Webber catheter was placed patient was started on Flomax ? 02/01/2022; plan is for patient to be discharged home with a Webber catheter when ready and for patient to follow-up with Dr. Gonzalez for subsequent follow-up 3. Chronic kidney disease stage IIIb ? Kidney function at baseline 4. Recent AAA repair ? Clinically stable 5. Hypertension - Blood pressure controlled, home medications continued with dose adjustment as needed 6. Dyslipidemia -Patient is on statin therapy, continued at home dose 7. Coronary artery disease ? Per history 8. History of B cell non-Hodgkin's lymphoma -Follows as an outpatient with Dr. Jc 9. History of DVT/PE -Continue home Xarelto 10. History of gout -Continue home allopurinol 11. GERD -continue PPI 12. COPD exacerbation - did continue patient bronchodilator treatment regimen 13. Chronic alcohol dependence ? Currently not in withdrawal will monitor 14. DVT prophylaxis ? Patient is on Xarelto Charges/Coding Visit Charges Inpatient E&M: 98072 Subs Hosp L2
[2022-02-01] MEDS: Multivitamins,Therapeutic Tablet 1 TABLET PO (11:57)
[2022-02-01] MEDS: Acetaminophen 325 MG Tablet 650 MG PO (14:59)
--- NOTE | 2022-02-01 19:50 | NURSING ---
spoke to pharmacy about patients vanco trough. pharmacy stated to hang this dose and they would mix up new dose for next dose
[2022-02-01 19:53] LABS: Vancomycin, Trough Level 7.6 ug/mL (5.0-15.0)
--- NOTE | 2022-02-01 21:06 | PCM.RX.CS ---
Consult Pharmacy has been consulted to manage selected antiobiotic: Vancomycin Type of Consult: Follow-up Prior Doses of Antibiotics Received/Current Regimen: Medications Vancomycin HCl 1,250 mg/ (Sodium Chloride) 275 mls @ 167 mls/hr IV Q24H GLENN Last Admin: 02/01/22 20:21 Dose: 167 mls/hr Labs: Sodium 140 mmol/L (136-145) 01/31/22 05:22 Potassium 4.1 mmol/L (3.5-5.1) 01/31/22 05:22 Chloride 111 mmol/L (98-107) H 01/31/22 05:22 Carbon Dioxide 23.0 mmol/L (21.0-32.0) 01/31/22 05:22 Anion Gap 6 (5-15) 01/31/22 05:22 BUN 19 mg/dL (7-18) H 01/31/22 05:22 Creatinine 1.48 mg/dL (0.70-1.30) H 01/31/22 05:22 Est GFR (MDRD) Af Amer 59 mL/min (>60) L 01/31/22 05:22 Est GFR (MDRD) Non-Af 49 mL/min (>60) L 01/31/22 05:22 BUN/Creatinine Ratio 12.8 RATIO (10-20) 01/31/22 05:22 Glucose 116 mg/dL (74-106) H 01/31/22 05:22 Vancomycin Trough 7.6 ug/mL (5.0-15.0) 02/01/22 19:05 Microbiology: Microbiology 01/30/22 17:22 Urine, Catheterized Urine Culture - Preliminary Presumptive E. coli 01/30/22 23:38 Urine, Clean Catch Urine Culture - Final Mixed Gram Positive Organisms 01/30/22 17:08 Nasal Secretion SARS-CoV-2 & FLU Antigen (Rapid) - Final Weight used for dosin kg Goal Trough: 15-20 mcg/mL Pharmacy Plan for Drug Dosing: Trough below goal. Dose after trough already given. Change to 750mg IV q12h starting tomorrow with trough prior to 4th dose. Pharmacy Service will continue to monitor and adjust dosing as required. Follow-Up Labs: Trough Vancomycin - 02/03 @ 0930
[2022-02-01] MEDS: Tamsulosin HCl 0.4 MG Capsule PO (21:38)
[2022-02-01] MEDS: Rivaroxaban 20 MG Tablet PO (21:38)
[2022-02-01] MEDS: MELATONIN 10 MG TABLET PO (21:39)
[2022-02-01] MEDS: Atorvastatin Calcium 40 MG Tablet PO (21:39)
[2022-02-02] VITALS (9 sets, daily range): BP systolic 135–148; BP diastolic 72–85; PULSE 54–76; RESP 14–18; TEMP 36.6–36.8; O2SAT 93–98
--- NOTE | 2022-02-02 02:00 | NURSING ---
CIWA scale not done for patient at 0200. Pt reesting comfortably with eyes closed. call light within reach
[2022-02-02] MEDS: Acetaminophen 325 MG Tablet 650 MG PO (03:47)
[2022-02-02] MEDS: 0.9% Normal Saline 1,000 ML 75 ML IV (06:22)
--- NOTE | 2022-02-02 07:33 | PCM.DC.SUM ---
Providers Date of Admission: 01/30/22 Date of Discharge: 02/02/22 Primary Care Physician: Dr. Jaden Monterroso, DO Reason For Visit: SEPSIS 2/2 UTI Diagnosis Discharge Diagnosis (1) Acute UTI: Status: Acute Code(s): N39.0 - Urinary tract infection, site not specified (2) Acute urinary retention: Status: Acute Code(s): R33.8 - Other retention of urine (3) Sepsis: Status: Acute Code(s): A41.9 - Sepsis, unspecified organism (4) Acidosis, lactic: Status: Acute Code(s): E87.20 - Acidosis, unspecified (5) Leukocytosis: Status: Acute Code(s): D72.829 - Elevated white blood cell count, unspecified Plan Patient is an 81-year-old male admitted with fever chills and shortness of breath. An assessment of sepsis secondary to acute cystitis made admitted to a monitored bed for further management 1. Sepsis secondary to acute cystitis with E. coli ? Patient was managed with broad-spectrum antibiotic therapy given recent stay at [facility]. Was also resuscitated with IV fluid cultures sent plan is to adjust antibiotic therapy based on culture result ? 02/01/2022; Patient seen clinical condition improving. Urine culture still pending ? 02/02/2022 urine cultures came back positive for E. coli patient discharged on Cipro 2. Urinary retention ? Secondary to BPH Webber catheter was placed patient was started on Flomax ? 02/01/2022; plan is for patient to be discharged home with a Webber catheter when ready and for patient to follow-up with Dr. Gonzalez for subsequent follow-up 3. Chronic kidney disease stage IIIb ? Kidney function at baseline 4. Recent AAA repair ? Clinically stable 5. Hypertension - Blood pressure controlled, home medications continued with dose adjustment as needed 6. Dyslipidemia -Patient is on statin therapy, continued at home dose 7. Coronary artery disease ? Per history 8. History of B cell non-Hodgkin's lymphoma -Follows as an outpatient with Dr. Jc 9. History of DVT/PE -Continue home Xarelto 10. History of gout -Continue home allopurinol 11. GERD -continue PPI 12. COPD exacerbation - did continue patient bronchodilator treatment regimen 13. Chronic alcohol dependence ? Currently not in withdrawal will monitor 14. DVT prophylaxis ? Patient is on Xarelto Medications at Discharge Home Medications nitroglycerin 0.4 mg sublingual tablet 0.4 mg sublingual Q5-15M Chest pain 10/06/18 cyanocobalamin (vitamin B-12) 1,000 mcg capsule 1,000 mcg PO DAILY supplement 06/21/21 safety shower #1 ea 08/01/21 meloxicam 15 mg tablet 15 mg PO DAILY PRN arthritis pain #90 tabs 11/08/21 tramadol 50 mg tablet 50 mg PO Q6H PRN pain 3 days #12 tabs 12/14/21 acetaminophen 500 mg tablet 1,000 mg PO Q8H PRN Pain 01/30/22 allopurinol 100 mg tablet 100 mg PO BID gout #60 tabs 01/30/22 budesonide 3 mg capsule,delayed,extended release 6 mg PO DAILY ASTHMA 01/30/22 diphenhydramine HCl 25 mg tablet (Benadryl Allergy) 50 mg PO DAILY PRN ALLERGIES 01/30/22 magnesium oxide 400 mg (241.3 mg magnesium) tablet 400 mg PO BID supplement 01/30/22 metoprolol succinate 25 mg tablet,extended release 24 hr 25 mg PO DAILY blood pressure 01/30/22 multivitamin 1 tab PO DAILY SUPPLEMENT 01/30/22 omeprazole 20 mg capsule,delayed release 20 mg PO DAILY acid reflux 01/30/22 rivaroxaban 20 mg tablet (Xarelto) 20 mg PO QPM blood thinner 01/30/22 rosuvastatin 20 mg tablet 20 mg PO QHS cholesterol 01/30/22 tamsulosin 0.4 mg capsule 0.4 mg PO DAILY PROSTATE 01/30/22 ciprofloxacin HCl 500 mg tablet (Cipro) 500 mg PO BID #20 tabs 02/02/22 Hospital Course Summary of Care Provided Minutes Spent on Discharge: 35 Physical Exam Narrative GENERAL: cooperative HEENT: Atraumatic; normocephalic EYES; Anicteric, Normal Conjunctiva NECK; supple, normal thyroid, RESPIRATORY: Diminished to auscultation CARDIOVASCULAR: Regular S1 S2, GI: soft, normoactive bowel sounds, : No Renal angle tenderness; EXTREMITIES: No edema, no clubbing, MUSCULOSKELETAL: no muscle wasting NEURO: Awake; no lateralizing signs. SKIN: No Rash PSYCH; Flat affect Weight / BMI Weight Weight: 86.1 kg Body Mass Index (BMI) 25.7 ABG / Lab / Microbiology Data Result Diagrams: 01/31/22 05:22 01/31/22 05:22 Laboratory: Laboratory Results - last 24 hr 01/30/22 17:08: Urine Opiates Screen Cancelled, Urine Methadone Screen Cancelled, Ur Barbiturates Screen Cancelled, Ur Phencyclidine Scrn Cancelled, Ur Amphetamines Screen Cancelled, MDMA (Ecstasy) Screen Cancelled, U Benzodiazepines Scrn Cancelled, Urine Cocaine Screen Cancelled, U Cannabinoids Screen Cancelled, Ur Drug Screen Comment Cancelled 02/01/22 19:05: Vancomycin Trough 7.6 Microbiology: Microbiology 01/30/22 17:22 Urine, Catheterized Urine Culture - Preliminary Presumptive E. coli 01/30/22 23:38 Urine, Clean Catch Urine Culture - Final Mixed Gram Positive Organisms 01/30/22 17:08 Nasal Secretion SARS-CoV-2 & FLU Antigen (Rapid) - Final D/C Instructions Discharge Diet: No restrictions Discharge Activity: Return to Normal Activity Call your doctor if you observe: Fever of 101 or Higher, Shortness of breath, Fainting spells and Chest pain Meaningful Use Info Meaningful Use Diagnoses (Choose all that apply): None applicable Discharge Plan Admission Admit Date/Time: 01/30/22 18:15 Attending Provider: Darek Kilpatrick Primary Care Provider: Jaden Monterroso Consulting Providers: Nai Vital Discharge Orders/Prescriptions Prescriptions: New ciprofloxacin HCl [Cipro] 500 mg tablet 500 mg PO BID Qty: 20 0RF No Action nitroglycerin 0.4 mg tablet, sublingual 0.4 mg SUBLINGUAL Q5-15M cyanocobalamin (vitamin B-12) 1,000 mcg capsule 1,000 mcg PO DAILY tramadol 50 mg tablet 50 mg PO Q6H PRN (Reason: pain) 3 Days Qty: 12 0RF multivitamin Tablet 1 tab PO DAILY acetaminophen 500 mg Tablet 1,000 mg PO Q8H PRN (Reason: Pain) tamsulosin 0.4 mg capsule 0.4 mg PO DAILY diphenhydramine HCl [Benadryl Allergy] 25 mg Tablet 50 mg PO DAILY PRN (Reason: ALLERGIES) metoprolol succinate 25 mg Tablet Extended Release 24 Hr 25 mg PO DAILY budesonide 3 mg capsule,delayed,extend.release 6 mg PO DAILY magnesium oxide 400 mg (241.3 mg magnesium) tablet 400 mg PO BID omeprazole 20 mg capsule,delayed release(/EC) 20 mg PO DAILY rosuvastatin 20 mg tablet 20 mg PO QHS Xarelto 20 mg tablet 20 mg PO QPM (DME) safety shower See Rx Instructions .Route .MEDSUPPLY Qty: 1 0RF Rx Instructions: As directed meloxicam 15 mg tablet 15 mg PO DAILY PRN (Reason: arthritis pain) Qty: 90 0RF allopurinol 100 mg tablet 100 mg PO BID Qty: 60 4RF Referrals / Follow Up: Jaden Monterroso DO [Primary Care Provider] - In 1 Week Dung Gonzalez MD [Med Staff - Active Staff] - Within 1 Week (For care of Webber catheter) Disposition Disposition (needs filled in before D/C Order can be placed): Home, Self Care Charges/Coding Visit Charges Inpatient E&M: 01347 Disch Hosp
[2022-02-02] MEDS: Magnesium Chloride 64 MG Delay Rel.Tablet 128 MG PO (09:13)
[2022-02-02] MEDS: Metoprolol(XL)Succ 25 MG Tablet PO (09:13)
[2022-02-02] MEDS: Cyanocobalamin 500 MCG Tablet 1000 MCG PO (09:13)
[2022-02-02] MEDS: Pantoprazole Sodium 20 MG Tablet PO (09:13)
[2022-02-02] MEDS: Multivitamins,Therapeutic Tablet 1 TABLET PO (09:13)
[2022-02-02] MEDS: Budesonide 3 MG CAPSULE.EC 6 MG PO (09:13)
[2022-02-02] MEDS: Allopurinol 100 MG Tablet PO (09:13)
[2022-02-02] MEDS: FLU VACC QS2022-23(6MOS UP)/PF 60 MCG/0.5 ML SYRINGE IM (09:18)
== END 2022-02-02 10:57 | disposition home or self-care (01) | DRG 872 ==
LOC: ED 18:20 → PCU 18:30
PROVIDERS: Admitting Provider Internal Medicine; Emergency Provider Emergency Medicine; PCP Family Medicine; Visit Provider Internal Medicine
DX: A41.9 Sepsis, unspecified organism (principal); E87.20 Acidosis, unspecified; J44.1 Chronic obstructive pulmonary disease with (acute) exacerbation; N30.00 Acute cystitis without hematuria; J44.9 Chronic obstructive pulmonary disease, unspecified; N18.32 Chronic kidney disease, stage 3b; K21.9 Gastro-esophageal reflux disease without esophagitis; I25.10 Atherosclerotic heart disease of native coronary artery without angina pectoris; I12.9 Hypertensive chronic kidney disease with stage 1 through stage 4 chronic kidney disease, or unspecified chronic kidney disease; E78.5 Hyperlipidemia, unspecified; Z87.891 Personal history of nicotine dependence; R33.9 Retention of urine, unspecified; I71.40 Abdominal aortic aneurysm, without rupture, unspecified; N40.0 Benign prostatic hyperplasia without lower urinary tract symptoms; Z86.718 Personal history of other venous thrombosis and embolism; Z85.72 Personal history of non-Hodgkin lymphomas; B96.20 Unspecified Escherichia coli [E. coli] as the cause of diseases classified elsewhere; Z23 Encounter for immunization
CPT/HCPCS: 36415; 71045; 80053; 80202; 80307; 81001; 82962; 83605; 83735; 84100; 84484; 85025; 87040; 87086; 87088; 87186; 87428; 93005; 94762; 97162; 97166; 97530; 97802; 99285; G0008; J7030; J7050; J7120; 90686

== ENCOUNTER → 2022-02-14 | Outpatient (CLI) | payer MEDICARE, OTHER, SELFPAY ==
[2022-02-14 15:39] LABS: Bacteria 0 SEEN /hpf (None Seen); Mucous, Urine 0 SEEN /hpf (<or=2+); Red Blood Cells-Urine 0 SEEN /hpf (0-5)
[2022-02-14 16:50] LABS: Color, Urine Yellow (Yellow); Glucose, Dipstick Normal (Normal); Ketone-Dipstick Negative (Negative); Leukocyte Esterase-Dipstick 25 /ul (Negative); Nitrite-Dipstick Negative (Negative); Occult Blood-Urine Negative /ul (Negative); Protein-Dipstick Negative (Negative); Urine Bilirubin Dipstick Negative (Negative); Urine Clarity Clear (Clear); Urine Urobilinogen Normal (Normal)
[2022-02-14 17:18] LABS: Squamous Epithelial Cells - UA 0-5 SEEN /hpf (0-5); White Blood Cells 0-5 SEEN /hpf (0-5)
== END | disposition home or self-care (01) ==
LOC: LABSPEC 15:30
PROVIDERS: PCP Family Medicine; Referring Provider Family Medicine; Visit Provider Family Medicine
DX: R33.8 Other retention of urine (principal)
CPT/HCPCS: 81001

== ENCOUNTER → 2022-02-28 | Outpatient (CLI) | payer MEDICARE, OTHER, SELFPAY ==
[2022-02-28 13:02] LABS: Mucous, Urine 0 SEEN /hpf (<or=2+); Red Blood Cells-Urine 0 SEEN /hpf (0-5); Squamous Epithelial Cells - UA 0 SEEN /hpf (0-5)
[2022-02-28 15:42] LABS: Color, Urine Yellow (Yellow); Glucose, Dipstick Normal (Normal); Ketone-Dipstick Negative (Negative); Leukocyte Esterase-Dipstick 500 /ul (Negative); Nitrite-Dipstick Positive (Negative); Occult Blood-Urine 25 /ul (Negative); Protein-Dipstick 30 mg/dl (Negative); Urine Bilirubin Dipstick Negative (Negative); Urine Clarity Cloudy (Clear); Urine Urobilinogen Normal (Normal)
[2022-02-28 15:48] LABS: Bacteria 1+ /hpf (None Seen); White Blood Cells >100 SEEN /hpf (0-5)
== END | disposition home or self-care (01) ==
LOC: LABSPEC 13:01
PROVIDERS: PCP Family Medicine; Referring Provider Family Medicine; Visit Provider Family Medicine
DX: R33.8 Other retention of urine (principal)
CPT/HCPCS: 81001

== ENCOUNTER → 2022-03-21 | Outpatient (CLI) | payer MEDICARE, OTHER, SELFPAY ==
[2022-03-21 12:10] LABS: Bacteria 0 SEEN /hpf (None Seen); Mucous, Urine 0 SEEN /hpf (<or=2+); Red Blood Cells-Urine 0 SEEN /hpf (0-5); Squamous Epithelial Cells - UA 0 SEEN /hpf (0-5); White Blood Cells 0 SEEN /hpf (0-5)
[2022-03-21 14:58] LABS: Color, Urine Yellow (Yellow); Glucose, Dipstick Normal (Normal); Ketone-Dipstick Negative (Negative); Leukocyte Esterase-Dipstick 25 /ul (Negative); Nitrite-Dipstick Negative (Negative); Occult Blood-Urine Negative /ul (Negative); Protein-Dipstick Negative (Negative); Specific Gravity, Urine 1.015 (1.002-1.030); Urine Bilirubin Dipstick Negative (Negative); Urine Clarity Clear (Clear); Urine Urobilinogen Normal (Normal)
== END | disposition home or self-care (01) ==
LOC: LABSPEC 12:05
PROVIDERS: PCP Family Medicine; Referring Provider Family Medicine; Visit Provider Family Medicine
DX: R33.8 Other retention of urine (principal)
CPT/HCPCS: 81001

== ENCOUNTER 2022-03-29 15:18 | Emergency (ER) | payer MEDICARE, OTHER, SELFPAY ==
[2022-03-29 15:21] VITALS: BP 125/79; PULSE 106; RESP 16; TEMP 36.7; O2SAT 96; BMI 27.8
--- NOTE | 2022-03-29 15:30 | EKG12_ITS ---
Test Reason : Blood Pressure : / mmHG Vent. Rate : 108 BPM Atrial Rate : 108 BPM P-R Int : 180 ms QRS Dur : 062 ms QT Int : 328 ms P-R-T Axes : 023 -29 006 degrees QTc Int : 439 ms Sinus tachycardia Inferior infarct , age undetermined Anteroseptal infarct , age undetermined Abnormal ECG Confirmed by ARTHUR BILLINGSLEY, SUSHMA ([id number]), index editor DEL REY ([id number]) on 03/30/2022 9:58:57 AM Referred By: BB Confirmed By:SUSHMA GIBSON MD
[2022-03-29 15:46] LABS: Absolute Lymphocyte Count 0.61 X10^3/uL (0.83-4.51); Absolute Neutrophil Count 9.2 X10^3/uL (2.0-7.7); Basophil# 0.03 X10^3/uL; Basophil% 0.3 % (0-1); Eosinophil# 0.05 X10^3/uL; Eosinophils% 0.5 % (0-5); Hematocrit 24.5 % (40-54); Hemoglobin 7.2 g/dL (13.0-16.5); Lymphocyte # 0.61 X10^3/ul (0.83-4.51); Lymphocyte % 5.7 % (19-41); Mean Corp Hgb Conc 29.4 g/dL (32-36); Mean Corpuscular Hgb 25.5 pg (27.0-32.0); Mean Corpuscular Volume 86.9 fL (80-94); Mean Platelet Vol. 9.8 fl (6.2-12.0); Monocyte# 0.79 X10^3/uL; Monocyte% 7.3 % (0-10); NRBC Flagged by Analyzer 0 % (0-5); Neutrophil # 9.22 X10^3/uL (2.7-7.7); Neutrophil % 85.4 % (47-70); Platelet Count 218 K/mm3 (150-450); RBC Distribution Width CV 16.6 % (11.6-14.6); RBC Distribution Width SD 52.4 fl (35.1-43.9); Red Blood Count 2.82 M/mm3 (4.6-6.2); White Blood Count 10.8 K/mm3 (4.4-11.0)
--- NOTE | 2022-03-29 15:55 | RAD_ITS ---
INDICATION: chest pain EXAMINATION/TECHNIQUE: X-RAY - XR Chest 1 View COMPARISON: 01/30/2022. FINDINGS: LINES/DEVICES: None. LUNGS: No consolidation, edema or effusion. No pneumothorax. MEDIASTINUM AND CARDIOVASCULAR STRUCTURES: Cardiac silhouette not enlarged. Central airways and mediastinal contour are unremarkable. BONES AND SOFT TISSUES: Unremarkable. RAD/Chest 1 View (Portable) IMPRESSION: No radiographic evidence of acute cardiopulmonary disease. Electronically Signed: Gayle Alcocer MD at 16:40 EST Reading Location ID and State: [id number] / Tel , Service support ,
--- NOTE | 2022-03-29 15:59 | EDS_ITS ---
HPI History of Present Illness Chief Complaint: Palpitations Informant: patient, spouse/S.O., EMS and other Narrative Narrative: History is from patient and . We also were contacted by the surgical center and it was discussed with them. Evidently this patient was there for an EGD. He did get 50 mg of fentanyl and 3 mg of Versed. 3 minutes later he got 25 mg of fentanyl and 1 mg of Versed. 1 minute after that he had a change on the monitor. It went into a wider complex. I do have an EKG that looked like a sinus tachycardia at 106 with a left bundle branch block. There is either motion artifact or possibly a fusion complex. But there does appear to be a P wave associated with each QRS. I do not have any rhythm strips but evidently this was the rhythm that was of concern. Patient does not recall any symptoms with this. Patient was not sure if he had gotten fentanyl and Versed yet or not. He did state that he has not taken any of his medicine since 8 PM last night. He did not have any chest pain palpitations or any symptoms with this event. He feels at his baseline now. He is a little bit tired but he also has not taken his meds eaten or drank any fluids in approximately 20 hours. He has had stents in the past but that was 15 years ago. He has not been getting chest pain or dyspnea on exertion recently. Occasionally gets symptoms where he feels just overall weak and a little short of breath. This was thought to be due to overmedication from metoprolol. His blood pressures were running in the 90s. Metoprolol was cut from 50 to 25 mg recently. Patient states his normal heart rate is about 100?5 beats and has been for months. Patient does state that he has new anemia. He has seen Dr. Jc and been worked up for this. He is currently off the Xarelto. He is not having black or bloody stools. He is scheduled to have approximately 10 iron infusions started. His hemoglobin is approximately 7 as an outpatient. [facility] Medical History Abdominal aortic aneurysm Acute pancreatitis Adverse effect of drug therapy Alcohol abuse Bilateral lower extremity edema BPH (benign prostatic hyperplasia) CAD (coronary artery disease) Dental infection Gastrocnemius tear GERD (gastroesophageal reflux disease) Gout Heavy alcohol consumption Hyperlipidemia Hypertension Hypertriglyceridemia Hypomagnesemia Hypophosphatemia Ileus Impacted cerumen of both ears Lymphoma Nicotine dependence Non Hodgkin's lymphoma Sacro-iliac pain Venous stasis dermatitis of both lower extremities Home Medications nitroglycerin 0.4 mg sublingual tablet 0.4 mg sublingual Q5-15M Chest pain 10/06/18 [History Last Taken Unknown] safety shower #1 ea 08/01/21 [Rx Last Taken Unknown] tramadol 50 mg tablet 50 mg PO Q6H PRN pain 3 days #12 tabs 12/14/21 [Rx Last Taken Unknown] acetaminophen 500 mg tablet 1,000 mg PO Q8H PRN Pain 01/30/22 [History Last Taken 01/30/22] allopurinol 100 mg tablet 100 mg PO BID gout #60 tabs 01/30/22 [Rx Last Taken 01/28/22] diphenhydramine HCl 25 mg tablet (Benadryl Allergy) 50 mg PO DAILY PRN ALLERGIES 01/30/22 [History Last Taken 01/30/22] metoprolol succinate 25 mg tablet,extended release 24 hr 25 mg PO DAILY blood pressure 01/30/22 [History Last Taken 01/28/22] multivitamin 1 tab PO DAILY SUPPLEMENT 01/30/22 [History Last Taken 01/28/22] omeprazole 20 mg capsule,delayed release 20 mg PO DAILY acid reflux 01/30/22 [History Last Taken 01/28/22] rosuvastatin 20 mg tablet 20 mg PO QHS cholesterol 01/30/22 [History Last Taken 01/29/22] tamsulosin 0.4 mg capsule 0.4 mg PO DAILY PROSTATE 01/30/22 [History Last Taken 01/28/22] cyanocobalamin (vitamin B-12) 1,000 mcg capsule 3,000 mcg PO DAILY supplement 02/28/22 [History Last Taken Unknown] equate stomach relief PO 4X/DAY 02/28/22 [History Last Taken Unknown] magnesium oxide 400 mg (241.3 mg magnesium) tablet 400 mg PO BID supplement #180 tabs 02/28/22 [Rx Last Taken Unknown] montelukast 10 mg tablet 10 mg PO DAILY #30 tabs 02/28/22 [Rx Last Taken Unknown] Allergy/AdvReac Type Severity Reaction Status Date / Time cephalexin Allergy Hives Verified 03/21/22 11:28 erythromycin base Allergy Hives Verified 03/21/22 11:28 fexofenadine Allergy Other Verified 03/21/22 11:28 Sulfa (Sulfonamide Allergy Hives Verified 03/21/22 11:28 Antibiotics) Family History Brother CAD (coronary artery disease) Mother Heart disease Father Heart disease Surgical History H/O Mohs micrographic surgery for skin cancer History of endovascular stent graft for abdominal aortic aneurysm (AAA) Hx of umbilical hernia repair S/P TURP Status post coronary artery stent placement Social History household members: spouse Smoking Status: Former smoker quit date: 02/18/18 how long ago did patient quit smoking: Quit 02/18/18, smoked 1 ppd since teen until quit. alcohol intake: current alcohol intake frequency: 0-2 drinks per day Alcohol type: wine substance use type: does not use ROS ROS ED Constitutional Constitutional ED: Denies chills or fever(s) Eyes Eyes: Denies blurry vision, change in vision or diplopia ENT ENT ED: Denies rhinorrhea Cardiovascular Cardiovascular: Reports other Details: Patient had no symptoms. ; Denies chest pain, palpitations or racing heartbeat Respiratory/Chest Respiratory/Chest: Denies cough, dyspnea or sputum Gastrointestinal Gastrointestinal: Reports other Details: AAA history but no pain in abdominal or back ; Denies abdominal pain, nausea or vomiting Genitourinary Genitourinary ED: Denies hematuria Musculoskeletal Musculoskeletal: Denies back pain or myalgias Integumentary Denies rash Neurologic Neurologic: Denies headache(s), paresthesias or weakness Hematologic/Lymphatic Hematologic/Lymphatic: Reports other Details: Currently not on his Xarelto. ; Denies easy bleeding or easy bruising EXAM Physical Exam Narrative Exam Narrative: Patient awake alert no acute distress comfortable carries on normal conversation and is nontoxic. HEENT shows mild pallor mucous membranes do seem a little dry. Eyes show normal range of motion. No photophobia. Neck shows no JVD. Heart does sound to be regular but has a rate about 105. He states this is a common rate for him. I do not see ectopy on the monitor. It is a narrow complex. Peripheral pulses are normal. His lungs are clear bilaterally Abdomen is soft and not tender. Extremities show no notable edema or mottling. No tenderness or asymmetry of significance. Skin is not diaphoretic notably pale or cyanotic. No rashes. Const Vital Signs: 03/29/22 15:21 03/29/22 15:25 03/29/22 15:30 Temperature 98.0 F Temperature Source Temporal Pulse Rate 106 H Respiratory Rate 16 Respiratory Effort Normal Non-Labored Respiratory Pattern Normal Blood Pressure 125/79 H Blood Pressure Mean 94 Pulse Ox 96 Oxygen Delivery Method Room Air Room Air 03/29/22 16:19 03/29/22 17:19 03/29/22 18:30 Temperature Temperature Source Pulse Rate 102 H Respiratory Rate 20 H Respiratory Effort Respiratory Pattern Blood Pressure 116/74 118/80 122/79 H Blood Pressure Mean 88 92 93 Pulse Ox 94 Oxygen Delivery Method Room Air MDM MDM MDM Narrative Medical decision making narrative: I did review the papers sent over from his outpatient visit today including their EKG. It did show sinus tach as stated in the history of present illness. Rate was 106. Left bundle branch block. I was able to bring up a prior EKG reviewing our inpatient records from 26 December 2020 that showed a wide-complex tachycardia. Complexes were similar shape to today's EKG but the rate was quicker at 147 then. But those complexes also had P wave prior to them. My independent interpretation of the patient's single view but to image chest x- ray shows no acute process. This was also read as negative by radiology. Patient's blood work does show anemia at 7.2. But he states that it was the same level as an outpatient and he is already set for iron infusions this week. This is a known issue and is not new. He is not having black or bloody stools. He has been off of his Eliquis for about 2 weeks now. Electrolytes showed no marked abnormalities. Creatinine was minimally up at 1.38. His troponin was negative at 14 and the repeat was only 16. He remains asymptomatic. His heart rate is 97 when I go in the room. His narrow complex sinus. This patient has known history of heart rate that runs about 100. He had a heart rate that was about 100 at outpatient endoscopy but he went into a left bundle branch block. This was after receiving meds but there is no indication of acute allergic reaction. Reviewing old EKGs it shows he has had left bundle in the past. This may even be rate dependent. But he is asymptomatic with negative work-up other than known although significant anemia. He will follow- up with his data integration developer, Dr. Carballo at [facility]. 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 Lab Data Labs: Laboratory Results - last 24 hr 03/29/22 03/29/22 03/29/22 15:20 15:20 17:44 WBC 10.8 RBC 2.82 L Hgb 7.2 L Hct 24.5 L MCV 86.9 MCH 25.5 L MCHC 29.4 L RDW Std Deviation 52.4 H RDW Coeff of Jackelyn 16.6 H Plt Count 218 MPV 9.8 Immature Gran % (Auto) 0.800 Neut % (Auto) 85.4 H Lymph % (Auto) 5.7 L [place] % (Auto) 7.3 Eos % (Auto) 0.5 Baso % (Auto) 0.3 Absolute Neuts (auto) 9.2 H Absolute Lymphs (auto) 0.61 L Nucleated RBC % 0 Sodium 141 Potassium 3.9 Chloride 108 H Carbon Dioxide 24.0 Anion Gap 9 BUN 21 H Creatinine 1.38 H Estim Creat Clear Calc 46.86 Est GFR (MDRD) Af Amer 64 Est GFR (MDRD) Non-Af 53 L BUN/Creatinine Ratio 15.2 Glucose 107 H Calcium 9.3 Magnesium 2.0 Troponin I High Sens 14 16 Radiography Diagnostic Testing: Clinical Impression(s) from Imaging Studies Chest X-Ray 03/29/22 15:55 IMPRESSION: No radiographic evidence of acute cardiopulmonary disease. Electronically Signed: Gayle Alcocer MD at 16:40 EST Reading Location ID and State: [id number] / Tel , Service support , EKG Initial EKG: Comments: Laying in bed to rotation of the EKG done for history of dysrhythmia shows a sinus rhythm with slightly tachycardic rate at 108. No ectopy. No acute ST elevation or depression. [place] interval, QRS duration and QTc normal. Discharge Plan Triage Chief Complaint: Palpitations ED Provider: Xiang Acosta Dx/Rx/DC Orders Clinical Impression: Left bundle branch block, Anemia Instructions: Left Bundle Branch Block Prescriptions: No Action nitroglycerin 0.4 mg tablet, sublingual 0.4 mg SUBLINGUAL Q5-15M equate stomach relief 260 mg PO 4X/DAY montelukast 10 mg tablet 10 mg PO DAILY Qty: 30 1RF magnesium oxide 400 mg (241.3 mg magnesium) tablet 400 mg PO BID Qty: 180 2RF cyanocobalamin (vitamin B-12) 1,000 mcg capsule 3,000 mcg PO DAILY tramadol 50 mg tablet 50 mg PO Q6H PRN (Reason: pain) 3 Days Qty: 12 0RF multivitamin Tablet 1 tab PO DAILY acetaminophen 500 mg Tablet 1,000 mg PO Q8H PRN (Reason: Pain) tamsulosin 0.4 mg capsule 0.4 mg PO DAILY diphenhydramine HCl [Benadryl Allergy] 25 mg Tablet 50 mg PO DAILY PRN (Reason: ALLERGIES) metoprolol succinate 25 mg Tablet Extended Release 24 Hr 25 mg PO DAILY omeprazole 20 mg capsule,delayed release(DR/EC) 20 mg PO DAILY rosuvastatin 20 mg tablet 20 mg PO QHS (DME) safety shower See Rx Instructions .Route .MEDSUPPLY Qty: 1 0RF Rx Instructions: As directed allopurinol 100 mg tablet 100 mg PO BID Qty: 60 4RF Primary Care Provider: Jaden Monterroso Referrals: Jaden Monterroso, [Primary Care Provider] - As Needed Activity Restrictions/Additional Instructions: Follow-up with your data integration developer, Dr. Carballo at [facility]. Call this week for an appointment Disposition Disposition: Home, Self Care
[2022-03-29 16:03] LABS: Anion Gap 9 (5-15); BUN 21 mg/dL (7-18); BUN/Creat Ratio 15.2 RATIO (10-20); Calcium,Total 9.3 mg/dL (8.5-10.1); Chloride 108 mmol/L (98-107); Creatinine, Serum 1.38 mg/dL (0.70-1.30); EST Glomerular Filtration Rate 53 mL/min (>60); Est Glom Filt Rate - Afr Amer 64 mL/min (>60); Estimated Creatinine Clearance 46.86 ml/min; Glucose 107 mg/dL (74-106); Potassium 3.9 mmol/L (3.5-5.1); Sodium Level 141 mmol/L (136-145); Troponin-I HS (w/2H Reflex) 14 pg/mL (3.0-78.0)
[2022-03-29 16:19] VITALS: BP 116/74
[2022-03-29] MEDS: Aspirin 81 MG TAB.CHEW 324 MG PO (16:30)
[2022-03-29 17:19] VITALS: BP 118/80
[2022-03-29 17:37] LABS: Reflex Troponin-HS? (from REC) Y
[2022-03-29 18:23] LABS: Troponin-I HS 16 pg/mL (3.0-78.0)
[2022-03-29 18:30] VITALS: BP 122/79; PULSE 102; RESP 20; O2SAT 94
[2022-03-29 19:35] VITALS: RESP 18
== END 2022-03-29 19:35 | disposition home or self-care (01) ==
PROVIDERS: Emergency Provider Emergency Medicine; PCP Family Medicine; Visit Provider Emergency Medicine
DX: I44.7 Left bundle-branch block, unspecified (principal); I47.29 Other ventricular tachycardia; D64.9 Anemia, unspecified; E78.5 Hyperlipidemia, unspecified; Z87.891 Personal history of nicotine dependence; I25.10 Atherosclerotic heart disease of native coronary artery without angina pectoris; R00.2 Palpitations; I10 Essential (primary) hypertension
CPT/HCPCS: 71045; 80048; 83735; 84484; 85025; 93005; 99285; A4216

== ENCOUNTER 2022-03-30 12:58 | Emergency (ER) | payer MEDICARE, OTHER, SELFPAY ==
[2022-03-30] VITALS (10 sets, daily range): BP systolic 112–156; BP diastolic 75–97; PULSE 75–110; RESP 11–21; TEMP 35.7–36.8; O2SAT 97–100; BMI 27.1
--- NOTE | 2022-03-30 13:25 | EKG12_ITS ---
Test Reason : SOB Blood Pressure : / mmHG Vent. Rate : 092 BPM Atrial Rate : 092 BPM P-R Int : 174 ms QRS Dur : 068 ms QT Int : 348 ms P-R-T Axes : 002 -13 021 degrees QTc Int : 430 ms Normal sinus rhythm Septal infarct (cited on or before 29-MAR-2022) Abnormal ECG When compared with ECG of 29-MAR-2022 15:20, Criteria for Inferior infarct are no longer Present Questionable change in initial forces of Anterior leads Confirmed by ARTHUR BILLINGSLEY, SUSHMA ([id number]), design editor DEL REY ([id number]) on 04/03/2022 7:45:47 AM Referred By: Confirmed By:SUSHMA GIBSON MD
[2022-03-30 13:50] LABS: Hemoglobin 7.5 g/dL (13.0-16.5); Mean Corpuscular Hgb 25.6 pg (27.0-32.0); Mean Corpuscular Volume 85.3 fL (80-94); Mean Platelet Vol. 9.5 fl (6.2-12.0); Platelet Count 246 K/mm3 (150-450); Red Blood Count 2.93 M/mm3 (4.6-6.2); White Blood Count 10.9 K/mm3 (4.4-11.0)
--- NOTE | 2022-03-30 14:05 | EDS_ITS ---
HPI History of Present Illness Chief Complaint: General Illness Detail of Chief Complaint: Hypotension in the morning and left bundle branch block Informant: patient and spouse/S.O. Onset/Context/Timing Onset: Days and - (Uncertain) Quality: Hypotension in the morning and improves throughout the day Location: Not applicable Current Severity: Gone Maximum Severity: Severe Worsened by: Unknown Relieved by: Nothing Associated Symptoms Associated Symptoms: Lightheadedness Narrative Narrative: Patient is a 81 old male with history of GERD, microcytic anemia, gout, pernicious anemia and hypotension who recently had his metoprolol decreased from 50 mg to 25 mg. Patient states he had low blood pressure this morning. He has had low blood pressure readings for the past several mornings. His blood pressure improves as the day goes on. He denies black or maroon-colored stool. He denies hematemesis. He does report dyspnea on exertion for the past month. He denies orthopnea or PND. He denies chest discomfort of any type at rest or activity. He denies bruising easily. He denies fever, chills night sweats. He denies headache, visual, ocular auditory symptoms. He denies urologic symptoms. Prior similar symptoms: Yes (Patient was seen yesterday and note from yesterday was reviewed. ) Recent Illness/Hospitalization: No PFSH PFS Medical History Abdominal aortic aneurysm Acute pancreatitis Adverse effect of drug therapy Alcohol abuse Bilateral lower extremity edema BPH (benign prostatic hyperplasia) CAD (coronary artery disease) Dental infection Gastrocnemius tear GERD (gastroesophageal reflux disease) Gout Heavy alcohol consumption Hyperlipidemia Hypertension Hypertriglyceridemia Hypomagnesemia Hypophosphatemia Ileus Impacted cerumen of both ears Lymphoma Nicotine dependence Non Hodgkin's lymphoma Sacro-iliac pain Venous stasis dermatitis of both lower extremities Home Medications nitroglycerin 0.4 mg sublingual tablet 0.4 mg sublingual Q5-15M Chest pain 10/06/18 [History Last Taken Unknown] safety shower #1 ea 08/01/21 [Rx Last Taken Unknown] tramadol 50 mg tablet 50 mg PO Q6H PRN pain 3 days #12 tabs 12/14/21 [Rx Last Taken Unknown] acetaminophen 500 mg tablet 1,000 mg PO Q8H PRN Pain 01/30/22 [History Last Taken 01/30/22] allopurinol 100 mg tablet 100 mg PO BID gout #60 tabs 01/30/22 [Rx Last Taken 01/28/22] diphenhydramine HCl 25 mg tablet (Benadryl Allergy) 50 mg PO DAILY PRN ALLERGIES 01/30/22 [History Last Taken 01/30/22] metoprolol succinate 25 mg tablet,extended release 24 hr 25 mg PO DAILY blood pressure 01/30/22 [History Last Taken 01/28/22] multivitamin 1 tab PO DAILY SUPPLEMENT 01/30/22 [History Last Taken 01/28/22] omeprazole 20 mg capsule,delayed release 20 mg PO DAILY acid reflux 01/30/22 [History Last Taken 01/28/22] rosuvastatin 20 mg tablet 20 mg PO QHS cholesterol 01/30/22 [History Last Taken 01/29/22] tamsulosin 0.4 mg capsule 0.4 mg PO DAILY PROSTATE 01/30/22 [History Last Taken 01/28/22] cyanocobalamin (vitamin B-12) 1,000 mcg capsule 3,000 mcg PO DAILY supplement 02/28/22 [History Last Taken Unknown] equate stomach relief PO 4X/DAY 02/28/22 [History Last Taken Unknown] magnesium oxide 400 mg (241.3 mg magnesium) tablet 400 mg PO BID supplement #180 tabs 02/28/22 [Rx Last Taken Unknown] montelukast 10 mg tablet 10 mg PO DAILY #30 tabs 02/28/22 [Rx Last Taken Unknown] Allergy/AdvReac Type Severity Reaction Status Date / Time cephalexin Allergy Hives Verified 03/21/22 11:28 erythromycin base Allergy Hives Verified 03/21/22 11:28 fexofenadine Allergy Other Verified 03/21/22 11:28 Sulfa (Sulfonamide Allergy Hives Verified 03/21/22 11:28 Antibiotics) Family History Brother CAD (coronary artery disease) Mother Heart disease Father Heart disease Surgical History H/O Mohs micrographic surgery for skin cancer History of endovascular stent graft for abdominal aortic aneurysm (AAA) Hx of umbilical hernia repair S/P TURP Status post coronary artery stent placement Social History household members: spouse Smoking Status: Former smoker quit date: 02/18/18 how long ago did patient quit smoking: Quit 02/18/18, smoked 1 ppd since teen until quit. alcohol intake: current alcohol intake frequency: 0-2 drinks per day Alcohol type: wine substance use type: does not use ROS ROS ED Constitutional Constitutional ED: Denies chills, fever(s), subjective, sweats or weight loss Eyes Eyes: Denies blurry vision, change in vision or diplopia ENT ENT ED: Denies ear pain or rhinorrhea Cardiovascular Cardiovascular: Denies chest pain, orthopnea, palpitations, paroxysmal nocturnal dyspnea or racing heartbeat Respiratory/Chest Respiratory/Chest: Reports dyspnea and dyspnea on exertion; Denies cough, orthopnea or paroxysmal nocturnal dyspnea Gastrointestinal Gastrointestinal: Denies abdominal pain, constipation, diarrhea, melena, nausea or vomiting Genitourinary Genitourinary ED: Denies dysuria, hematuria or urinary frequency Musculoskeletal Musculoskeletal: Denies arthralgias, back pain, myalgias or neck pain Integumentary Denies abscess, Abrasions or rash Neurologic Neurologic: Denies headache(s), paresthesias or weakness Psychiatric Psychiatric: Denies anxiety or depression Endocrine Endocrinology: Denies cold intolerance or heat intolerance Hematologic/Lymphatic Hematologic/Lymphatic: Reports anemia and easy bruising EXAM Physical Exam Const Vital Signs: 03/30/22 13:00 03/30/22 13:47 03/30/22 13:51 Temperature 96.3 F L Temperature Source Temporal Pulse Rate 108 H Pulse Rate [Lying] 89 Pulse Rate [Sitting (for 1 minute prior to obtaining)] 96 Pulse Rate [Standing (for 1 minute prior to obtaining)] 107 H Respiratory Rate 16 Respiratory Effort Normal Non-Labored Respiratory Pattern Normal Blood Pressure 138/78 H Blood Pressure [Lying] 125/82 H Blood Pressure [Sitting (for 1 minute prior to obtaining)] 116/89 H Blood Pressure [Standing (for 1 minute prior to obtaining)] 112/81 H Blood Pressure Mean 98 Blood Pressure Mean [Lying] 96 Blood Pressure Mean [Sitting (for 1 minute prior to obtaining)] 98 Blood Pressure Mean [Standing (for 1 minute prior to obtaining)] 91 Pulse Ox 100 Oxygen Delivery Method Room Air Positive well nourished and well developed Constitutional Narrative: Blood pressure unremarkable. Orthostatic blood pressure negative. General Appearance ED: well developed, NAD and pallor; Negative for cyanotic or diaphoretic HEENT Reports moist mucous membranes HEENT Narrative: Head is atraumatic normocephalic. Ears normal. Nares patent. Conjunctive is pale. Uvula is midline. There is no abnormality of the pulm pharynx. Eyes PERRL and EOMs intact bilaterally General Eye ED: Yes pale conjunctiva; Negative for scleral icterus Neck no lymphadenopathy, supple and no JVD Chest Wall inspection of chest normal and palpation of chest normal Resp normal respiratory effort and clear to auscultation bilaterally Cardio regular rate, regular rhythm, S1 normal heart sound, S2 normal heart sound and no murmurs GI normal to inspection, nondistended, normoactive bowel sounds, non-tender, non- distended and no masses; Negative for hepatosplenomegaly Inspection: abdominal distention Auscultation: hypoactive bowel sounds Palpation: soft Back/Spine no CVA tenderness Cervical Spine: Negative for cervical spine tenderness Thoracic Spine / Upper Back: Negative for thoracic spinal tenderness Extremity General Extremety ED: Yes edema; Negative for tenderness General Extremity: edema Neuro oriented x3, CN's II-XII intact bilaterally and no sensory deficits noted Sensorium / Orientation: alert Motor Exam: strength 5/5 throughout Psych mental status grossly normal Skin no rashes or lesions noted, no wounds and No skin turgor normal General Skin Exam: pallor; Negative for elasticity normal or jaundice MDM MDM MDM Narrative Medical decision making narrative: Patient presents with hypotension in the morning for the past several mornings. Patient underwent colonoscopy yesterday. This was terminated because patient was noted to have a left bundle branch block on his EKG. Review of prior EKG reveals a wide-complex fast rate. Patient had left bundle branch block at that time. Will obtain appropriate studies include EKG, electrolyte panel, CBC and troponin. When I entered the room and the patient and told me that he is to be transferred to [facility]. I got his barrel header name and number. Once laboratory results are back we will contact Dr. Carballo. Graft patient's history, physical, laboratory results and comparison to prior and medications were reviewed. Also discussed prior EKG findings. We are in agreement that the patient has a rate dependent left bundle branch block. Dr. Carballo agrees that his hypotension in the morning is a combination of acute blood loss and use of Flomax for his prostate related issues. Plan is to transfuse 1 unit of blood. If patient feels better after 1 unit of blood he is to be discharged home. If he does not recommendation per patient's barrel header is admission to the hospital. Of note patient is on antiplatelet and anticoagulant. He is on anticoagulant for history of PE. Lab Data Attestation: I reviewed the patient's lab results. Lab results narrative: White count is normal. Hemoglobin is 7.5. Yesterday hemoglobin 7.2. Basic metabolic panel reveals elevated BUN and creatinine at 27 and 1.66 with a GFR of 43. Glucose elevated 138 with a normal CO2 and anion gap. Troponin is 14. Troponin was 16 and 14 yesterday. Labs: Laboratory Results - last 24 hr 03/30/22 03/30/22 13:38 13:38 WBC 10.9 RBC 2.93 L Hgb 7.5 L Hct 25.0 L MCV 85.3 MCH 25.6 L MCHC 30.0 L RDW Std Deviation 53.0 H RDW Coeff of Jackelyn 17.0 H Plt Count 246 MPV 9.5 Sodium 134 L Potassium 4.2 Chloride 103 Carbon Dioxide 24.0 Anion Gap 7 BUN 27 H Creatinine 1.66 H Estim Creat Clear Calc 38.96 Est GFR (MDRD) Af Amer 52 L Est GFR (MDRD) Non-Af 43 L BUN/Creatinine Ratio 16.3 Glucose 138 H Calcium 9.3 Troponin I High Sens 14 EKG Initial EKG: Attestation: I personally reviewed and interpreted this EKG as follows: Interpretation: Sinus Rhythm (Sinus rhythm 83 and EKG is normal. WI interval is 164 ms. QRS duration 76 ms. QT duration 356 ms. [place] is normal.) Discharge Plan Triage Chief Complaint: General Illness ED Provider: Florentino Giles Dx/Rx/DC Orders Clinical Impression: Anemia due to acute blood loss, Venous stasis dermatitis of both lower extremities, Iron deficiency anemia, unspecified, Transient hypotension, Chronic kidney disease (CKD) stage G3a/A2, moderately decreased glomerular filtration rate (GFR) between 45-59 mL/min/1.73 square meter and albuminuria creatinine ratio between 30-299 mg/g, Blood transfusion during current hospitalisation Instructions: ED Anemia, Iron-Deficiency (Adult) Prescriptions: No Action nitroglycerin 0.4 mg tablet, sublingual 0.4 mg SUBLINGUAL Q5-15M equate stomach relief 260 mg PO 4X/DAY montelukast 10 mg tablet 10 mg PO DAILY Qty: 30 1RF magnesium oxide 400 mg (241.3 mg magnesium) tablet 400 mg PO BID Qty: 180 2RF cyanocobalamin (vitamin B-12) 1,000 mcg capsule 3,000 mcg PO DAILY tramadol 50 mg tablet 50 mg PO Q6H PRN (Reason: pain) 3 Days Qty: 12 0RF multivitamin Tablet 1 tab PO DAILY acetaminophen 500 mg Tablet 1,000 mg PO Q8H PRN (Reason: Pain) tamsulosin 0.4 mg capsule 0.4 mg PO DAILY diphenhydramine HCl [Benadryl Allergy] 25 mg Tablet 50 mg PO DAILY PRN (Reason: ALLERGIES) metoprolol succinate 25 mg Tablet Extended Release 24 Hr 25 mg PO DAILY omeprazole 20 mg capsule,delayed release(DR/EC) 20 mg PO DAILY rosuvastatin 20 mg tablet 20 mg PO QHS (DME) safety shower See Rx Instructions .Route .MEDSUPPLY Qty: 1 0RF Rx Instructions: As directed allopurinol 100 mg tablet 100 mg PO BID Qty: 60 4RF Primary Care Provider: Jaden Monterroso Referrals: Jaden Monterroso, [Primary Care Provider] - 5-7 Days Activity Restrictions/Additional Instructions: 1. Follow-up with your barrel header as scheduled 2. Take an iron tablet in the morning and at bedtime 3. The iron tablet may cause constipation recommend Metamucil twice a day. Disposition Disposition: Home, Self Care
[2022-03-30 14:06] LABS: Anion Gap 7 (5-15); BUN 27 mg/dL (7-18); BUN/Creat Ratio 16.3 RATIO (10-20); Calcium,Total 9.3 mg/dL (8.5-10.1); Chloride 103 mmol/L (98-107); Creatinine, Serum 1.66 mg/dL (0.70-1.30); EST Glomerular Filtration Rate 43 mL/min (>60); Est Glom Filt Rate - Afr Amer 52 mL/min (>60); Estimated Creatinine Clearance 38.96 ml/min; Glucose 138 mg/dL (74-106); Potassium 4.2 mmol/L (3.5-5.1); Sodium Level 134 mmol/L (136-145); Troponin-I HS 14 pg/mL (3.0-78.0)
== END 2022-03-30 20:32 | disposition home or self-care (01) ==
PROVIDERS: Emergency Provider Emergency Medicine; PCP Family Medicine; Visit Provider Emergency Medicine
DX: D62 Acute posthemorrhagic anemia (principal); N18.31 Chronic kidney disease, stage 3a; D50.9 Iron deficiency anemia, unspecified; I25.10 Atherosclerotic heart disease of native coronary artery without angina pectoris; I12.9 Hypertensive chronic kidney disease with stage 1 through stage 4 chronic kidney disease, or unspecified chronic kidney disease; E78.5 Hyperlipidemia, unspecified; I44.7 Left bundle-branch block, unspecified; I87.2 Venous insufficiency (chronic) (peripheral); I95.9 Hypotension, unspecified; R42 Dizziness and giddiness; D51.0 Vitamin B12 deficiency anemia due to intrinsic factor deficiency; Z87.891 Personal history of nicotine dependence
CPT/HCPCS: 36430; 80048; 84484; 85027; 86850; 86900; 86901; 86920; 86922; 93005; 99285; J7040; P9016; A4216

== ENCOUNTER → 2022-04-05 | Outpatient (CLI) | payer MEDICARE, OTHER, SELFPAY ==
[2022-04-05 08:30] LABS: Mucous, Urine 0 SEEN /hpf (<or=2+); Squamous Epithelial Cells - UA 0 SEEN /hpf (0-5)
[2022-04-05 12:16] LABS: Color, Urine Yellow (Yellow); Glucose, Dipstick Normal (Normal); Ketone-Dipstick Negative (Negative); Leukocyte Esterase-Dipstick 500 /ul (Negative); Nitrite-Dipstick Negative (Negative); Occult Blood-Urine 50 /ul (Negative); Protein-Dipstick 100 mg/dl (Negative); Urine Bilirubin Dipstick Negative (Negative); Urine Clarity Sl. Cloudy (Clear); Urine Urobilinogen Normal (Normal); Urine pH 6.5 (5.0 - 8.0)
[2022-04-05 12:26] LABS: Bacteria 3+ /hpf (None Seen); Red Blood Cells-Urine 0-5 SEEN /hpf (0-5); White Blood Cells 25-50 SEEN /hpf (0-5)
== END | disposition home or self-care (01) ==
LOC: LABSPEC 08:29
PROVIDERS: PCP Family Medicine; Referring Provider Nurse Practitioner Family; Visit Provider Nurse Practitioner Family
DX: R30.0 Dysuria (principal); R33.8 Other retention of urine
CPT/HCPCS: 81001; 87077; 87086; 87088; 87186

== ENCOUNTER 2022-05-18 12:29 | Observation (INO) | payer MEDICARE, OTHER, SELFPAY ==
[2022-05-18] VITALS (10 sets, daily range): BP systolic 124–168; BP diastolic 78–93; PULSE 60–100; RESP 16–18; TEMP 36.1–36.7; O2SAT 93–96; BMI 27.6
--- NOTE | 2022-05-18 | PROS_PTH ---
PATIENT: DOUGIE COOPER LOC: MS3 U#:[id number] AGE/SX: 81/M [place] [facility] [place]: Dr. Dung Gonzalez MD : 1940 BED: 1 DIS: 05/19/2022 SPEC #: [id number] RECD: 05/18/22 14:18 STATUS: SLY TANNER #: [id number] MORENITA: 05/18/22 00:[address]: Dung Gonzalez DEPT: SURGICAL PATHOLOGY RECD BY: Earl Francisco ENTERED: 05/21/22 09:17 SP TYPE: TURP OTHR DR: Dr. Jaden Monterroso, DO Tissues: Prostate, NOS Procedures: Surgery Specimen Level IV HEADER OPERATION: Cysto, TUR prostate, Olympus PRE-OP DIAGNOSIS: BPH TISSUE SUBMITTED: Prostate chips MICROSCOPIC DIAGNOSIS Prostate, transurethral resection: Benign nodular hyperplasia, glandular and stromal types. Focal chronic inflammation. AM:edward 05/22/2022 MICROSCOPIC DESCRIPTION Slides are reviewed. GROSS DESCRIPTION Received is one container labeled with the patient's name and designated prostate chips. The specimen consists of multiple irregular fragments of pink-davis, rubbery, soft tissue that in aggregate weigh 11.7 gm and measure in aggregate 6.0 x 5.0 x 2.0 cm. Senior Service [employer]ician tissue is submitted in ten cassettes. / SJ:edward 05/21/2022 TC:3 CPT: 47615
[2022-05-18] MEDS: Lactated Ringers 1,000 ML 15 ML IV (10:00)
[2022-05-18 10:39] LABS: Prothrombin Time (Protime)PT. 12.9 SECONDS (11.7-14.9)
[2022-05-18 10:40] LABS: Partial Thromboplast Time 27.7 Seconds (24.1-36.2)
[2022-05-18 10:46] LABS: AST(SGOT) 24 U/L (15-37); Alanine Aminotransfer ALT/SGPT 33 U/L (16-61); Albumin, Serum 3.4 g/dL (3.2-5.0); Alkaline Phosphatase 84 U/L (45-117); Protein, Total 6.4 g/dL (6.4-8.2)
--- NOTE | 2022-05-18 11:50 | PCM.HP.STD ---
HPI - General General Date of Service: 05/18/22 Chief Complaint: BPH with obstruction HPI Narrative DOUGIE COOPER, is a 81 M who presents for transurethral resection of the prostate he has significant obstruction of his prostatic channel and enlarged prostate BPH and has been recently getting recurrent urinary tract infections and bladder infections organ to proceed with transurethral resection of prostate [facility] Medical History (Updated 05/11/22 @ 11:58 by Destiney Zhu) Abdominal aortic aneurysm Acute pancreatitis Adverse effect of drug therapy Alcohol use Arthritis Back pain Bilateral lower extremity edema BPH (benign prostatic hyperplasia) CAD (coronary artery disease) Cancer Cardiology follow-up encounter Colitis Dental infection DVT (deep venous thrombosis) Dysuria Easy bruising Excessive bleeding Former smoker Gastric reflux Gastrocnemius tear GERD (gastroesophageal reflux disease) Gout Heavy alcohol consumption High cholesterol History of echocardiogram History of hiatal hernia History of stress test Hyperlipidemia Hypertension Hypertriglyceridemia Hypomagnesemia Hypophosphatemia Ileus Impacted cerumen of both ears Lymphoma Nicotine dependence Non Hodgkin's lymphoma Sacro-iliac pain Venous stasis dermatitis of both lower extremities Home Medications nitroglycerin 0.4 mg sublingual tablet 0.4 mg sublingual Q5-15M Chest pain 10/06/18 [History Last Taken Unknown] safety shower #1 ea 08/01/21 [Rx Last Taken Unknown] acetaminophen 500 mg tablet 1,000 mg PO Q8H PRN Pain 01/30/22 [History Last Taken 01/30/22] allopurinol 100 mg tablet 100 mg PO BID gout #60 tabs 01/30/22 [Rx Last Taken 01/28/22] diphenhydramine HCl 25 mg tablet (Benadryl Allergy) 50 mg PO DAILY PRN ALLERGIES 01/30/22 [History Last Taken 01/30/22] metoprolol succinate 25 mg tablet,extended release 24 hr 25 mg PO DAILY blood pressure 01/30/22 [History Last Taken 05/18/22 08:00 25 mg] multivitamin 1 tab PO DAILY SUPPLEMENT 01/30/22 [History Last Taken 01/28/22] omeprazole 20 mg capsule,delayed release 40 mg PO DAILY acid reflux 01/30/22 [History Last Taken 05/18/22 08:00 40 MG] rosuvastatin 20 mg tablet 20 mg PO QHS cholesterol 01/30/22 [History Last Taken 01/29/22] tamsulosin 0.4 mg capsule 0.4 mg PO DAILY PROSTATE 01/30/22 [History Last Taken 01/28/22] cyanocobalamin (vitamin B-12) 1,000 mcg capsule 3,000 mcg PO DAILY supplement 02/28/22 [History Last Taken Unknown] equate stomach relief 260 mg PO 4X/DAY 02/28/22 [History Last Taken Unknown] magnesium oxide 400 mg (241.3 mg magnesium) tablet 400 mg PO BID supplement #180 tabs 02/28/22 [Rx Last Taken Unknown] montelukast 10 mg tablet 10 mg PO DAILY #30 tabs 02/28/22 [Rx Last Taken Unknown] budesonide 3 mg capsule,delayed,extended release 6 mg PO DAILY 05/11/22 [History Last Taken Unknown] cholecalciferol (vitamin D3) 25 mcg (1,000 unit) chewable tablet (Vitamin D3) 25 mcg PO DAILY 05/11/22 [History Last Taken Unknown] Allergy/AdvReac Type Severity Reaction Status Date / Time cephalexin Allergy Hives Verified 05/18/22 10:14 erythromycin base Allergy Hives Verified 05/18/22 10:14 fexofenadine Allergy Other Verified 05/18/22 10:14 Sulfa (Sulfonamide Allergy Hives Verified 05/18/22 10:14 Antibiotics) Family History Brother CAD (coronary artery disease) Mother Heart disease Father Heart disease Surgical History (Updated 05/11/22 @ 11:58 by Destiney Zhu) H/O Mohs micrographic surgery for skin cancer History of AAA (abdominal aortic aneurysm) repair History of cardiac catheterization History of coronary artery stent placement History of endovascular stent graft for abdominal aortic aneurysm (AAA) Hx of colonoscopy Hx of eye surgery Hx of hernia repair Hx of knee surgery Hx of left cataract extraction Hx of umbilical hernia repair S/P TURP Status post coronary artery stent placement Social History household members: spouse Smoking Status: Former smoker quit date: 02/18/18 how long ago did patient quit smoking: Quit 02/18/18, smoked 1 ppd since teen until quit. alcohol intake: current alcohol intake frequency: 0-2 drinks per day Alcohol type: wine substance use type: does not use Vital Signs Vital Signs Vital Signs: 05/18/22 10:15 05/18/22 10:15 Temperature 97.2 F L Temperature Source Temporal Pulse Rate 100 Respiratory Rate 16 Respiratory Pattern Normal Blood Pressure 153/87 H Blood Pressure Mean 109 Blood Pressure Source Monitor Blood Pressure Position Semi-Fowlers Blood Pressure Location Left Arm Pulse Ox 95 Oxygen Delivery Method Room Air Weight Weight: 92.6 kg Body Mass Index (BMI) 27.6 Results Lab / Micro Data Labs: Laboratory Results - last 24 hr 05/18/22 10:20: PT 12.9, INR 1.0, APTT 27.7 05/18/22 10:20: Total Bilirubin 0.40, Direct Bilirubin 0.10, AST 24, ALT 33, Alkaline Phosphatase 84, Total Protein 6.4, Albumin 3.4, Globulin 3.0
[2022-05-18] MEDS: Ciprofloxacin 400 MG/200 ML BAG 200 MG IV ×2 (12:17→21:07)
--- NOTE | 2022-05-18 13:08 | DCINST_ITS ---
Discharge Instructions Diet Discharge Diet: No restrictions, Light diet - advance as tolerated and Soft diet Activity Discharge Activity: Return to Normal Activity Follow Up Care Please Follow Up With: Dung Gonzalez MD When: follow up 3 weeks. Test Results: Test results from this visit will be discussed in further detail at your follow- up appointment, if applicable. Discharge Plan Admission Primary Reason for Your Visit: [facility] Attending Provider: Dung Gonzalez Primary Care Provider: Jaden Monterroso Instructions Patient Instructions: [facility] Discharge Orders/Prescriptions Prescriptions: New ciprofloxacin HCl [Cipro] 500 mg tablet 500 mg PO BID Qty: 10 0RF Continued nitroglycerin 0.4 mg tablet, sublingual 0.4 mg SUBLINGUAL Q5-15M equate stomach relief 260 mg 260 mg PO 4X/DAY montelukast 10 mg tablet 10 mg PO DAILY Qty: 30 1RF magnesium oxide 400 mg (241.3 mg magnesium) tablet 400 mg PO BID Qty: 180 2RF cyanocobalamin (vitamin B-12) 1,000 mcg capsule 3,000 mcg PO DAILY multivitamin Tablet 1 tab PO DAILY acetaminophen 500 mg Tablet 1,000 mg PO Q8H PRN (Reason: Pain) tamsulosin 0.4 mg capsule 0.4 mg PO DAILY diphenhydramine HCl [Benadryl Allergy] 25 mg Tablet 50 mg PO DAILY PRN (Reason: ALLERGIES) metoprolol succinate 25 mg Tablet Extended Release 24 Hr 25 mg PO DAILY omeprazole 20 mg capsule,delayed release(DR/EC) 40 mg PO DAILY rosuvastatin 20 mg tablet 20 mg PO QHS budesonide 3 mg capsule,delayed,extend.release 6 mg PO DAILY Label Comments: TAKE 2 CAPSULES BY MOUTH ONCE DAILY cholecalciferol (vitamin D3) [Vitamin D3] 25 mcg (1,000 unit) Tablet,Chewable 25 mcg PO DAILY (DME) safety shower See Rx Instructions .Route .MEDSUPPLY Qty: 1 0RF Rx Instructions: As directed allopurinol 100 mg tablet 100 mg PO BID Qty: 60 4RF Referrals / Follow Up: Jaden Monterroso DO [Primary Care Provider] - Dung Gonzalez MD [Med Staff - Active Staff] - Disposition Disposition (needs filled in before D/C Order can be placed): Home, Self Care
--- NOTE | 2022-05-18 13:08 | OP.PCM_ITS ---
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 duction of general anesthesia he was placed in dorsolithotomy position. The penis and testicles were prepped and draped in usual sterile fashion went into the bladder with a 26 Mohawk continuous-flow resectoscope and inspection of the prostate revealed that he had an obstructive prostate but short in length the verumontanum was intact he did have a stretched out bladder count was smooth looking stretched out bladder. I then resected the median lobe and then started resection of the prostate resected at the floor the prostate right lobe of the prostate all the way to the apex of the prostate resected the anterior roof of the prostate and then with the left side the prostate respect dissected the floor the prostate the left lobe of the prostate and the anterior then very carefully resected the apical tissue identify the sphincter and make sure a resected so there was no flapping tissue obstruction I did a flow test he had a wide open flow we then cauterized the prostate extensively to get obtain hemostasis all the chips were removed out of the bladder both the left and right ureteral orifice were uninjured. The patient's had a 22 Mohawk catheter put in the bladder and continuous irrigation and he was taken back to the PACU in good condition and will remove the catheter tomorrow for voiding trial. Surgeon: Dung Gonzalez Type of Anesthesia: General Drains: [address] Admit VTE Documentation VTE Present on Admission: No VTE Mechan Device Prophylaxis: SCD's VTE Pharm Prophylaxis ordered?: No
[2022-05-18] MEDS: 0.9% Normal Saline 1,000 ML 125 ML IV ×2 (15:23→21:07)
[2022-05-18] MEDS: Docusate Sodium 100 MG Capsule 200 MG PO (21:07)
[2022-05-18] MEDS: Atorvastatin Calcium 40 MG Tablet PO (21:07)
[2022-05-19] MEDS: Acetaminophen 500 MG Tablet 1000 MG PO (02:24)
[2022-05-19 03:00] VITALS: BP 122/65; PULSE 78; RESP 18; TEMP 36.6; O2SAT 97
[2022-05-19 03:55] VITALS: O2SAT 95
[2022-05-19] MEDS: 0.9% Normal Saline 1,000 ML 125 ML IV (06:25)
--- NOTE | 2022-05-19 07:09 | PCM.PN.GU ---
Subjective Subjective Status post transurethral section of the prostate he does have an atonic stretched out bladder so when he urinates he may have a large residual but as long as able is able to go he can go home today without a catheter Objective Data Objective Data Vital Signs: Vital Signs Temp Pulse Resp BP Pulse Ox O2 Del Method O2 Flow Rate 97.8 F 78 18 122/65 H 95 Nasal Cannula 1 05/19/22 03:00 05/19/22 03:00 05/19/22 03:00 05/19/22 03:00 05/19/22 03:55 05/19/22 03:55 05/19/22 03:55 Oxygen Flow Rate (L/min) 1 Oxygen Delivery Method Nasal Cannula Weight: 92.6 kg Body Mass Index (BMI) 27.6 Intake & Output: Intake and Output for Last 24 Hours 05/17/22 05/18/22 05/19/22 23:59 23:59 23:59 Intake Total 1448.67 / 1448.67 1500 / 1500 Output Total 3400 / 3400 6550 / 6550 Balance -1950.33 / -1950.33 -5050 / -5050 Lab / Micro Data Labs: Laboratory Results - last 24 hr 05/18/22 10:20: PT 12.9, INR 1.0, APTT 27.7 05/18/22 10:20: Total Bilirubin 0.40, Direct Bilirubin 0.10, AST 24, ALT 33, Alkaline Phosphatase 84, Total Protein 6.4, Albumin 3.4, Globulin 3.0
[2022-05-19 08:16] VITALS: BP 148/100; PULSE 77; RESP 18; TEMP 36.7; O2SAT 95
[2022-05-19] MEDS: Budesonide 3 MG CAPSULE.EC 6 MG PO (08:21)
[2022-05-19] MEDS: Pantoprazole Sodium 40 MG Tablet PO (08:21)
[2022-05-19] MEDS: Docusate Sodium 100 MG Capsule 200 MG PO (08:22)
[2022-05-19 08:23] VITALS: PULSE 77
[2022-05-19] MEDS: Metoprolol(XL)Succ 25 MG Tablet PO (08:23)
[2022-05-19] MEDS: Montelukast 10 MG Tablet PO (08:23)
[2022-05-19] MEDS: Tamsulosin HCl 0.4 MG Capsule PO (08:24)
[2022-05-19] MEDS: Ciprofloxacin 400 MG/200 ML BAG 200 MG IV (08:31)
--- NOTE | 2022-05-19 12:15 | NURSING ---
Pt walking in [place]. Has not voided yet since lisa came out and pt has had 2 full water jugs thus far.
--- NOTE | 2022-05-19 13:15 | NURSING ---
pt voided 100cc. This RN bladder scanned pt and obtained >994cc. Pt states he does not feel urge to void. Pt is going to walk in halls and then try to void again.
== END 2022-05-19 14:13 | disposition home or self-care (01) ==
LOC: SDC 15:17 → MS3 15:17
PROVIDERS: Anesthesiology; Admitting Provider Urology; PCP Family Medicine; Referring Provider Urology; Visit Provider Urology
PROC: (CPT 52601; principal; 2022-05-18 11:30)
DX: N40.1 Benign prostatic hyperplasia with lower urinary tract symptoms (principal); J44.9 Chronic obstructive pulmonary disease, unspecified; Z87.891 Personal history of nicotine dependence; N13.8 Other obstructive and reflux uropathy; M19.90 Unspecified osteoarthritis, unspecified site; I25.10 Atherosclerotic heart disease of native coronary artery without angina pectoris; K21.9 Gastro-esophageal reflux disease without esophagitis; E78.00 Pure hypercholesterolemia, unspecified; Z79.899 Other long term (current) drug therapy; N31.2 Flaccid neuropathic bladder, not elsewhere classified; R30.0 Dysuria; Z86.718 Personal history of other venous thrombosis and embolism; R19.7 Diarrhea, unspecified; D50.9 Iron deficiency anemia, unspecified; Z86.2 Personal history of diseases of the blood and blood-forming organs and certain disorders involving the immune mechanism
CPT/HCPCS: 52601; 00914; 80076; 85610; 85730; 88305; 96361; 96365; 96366; 99221; J7030; J7120; G0378; J0744; J2405

== ENCOUNTER 2022-05-29 14:11 | Emergency (ER) | payer MEDICARE, OTHER, SELFPAY ==
[2022-05-29 14:12] VITALS: BP 132/105; PULSE 135; RESP 18; TEMP 36.4; O2SAT 98; BMI 27.3
--- NOTE | 2022-05-29 14:27 | EDS_ITS ---
HPI History of Present Illness Chief Complaint: Back Detail of Chief Complaint: Patient presents with bilateral low back pain since TURP performed on April Informant: patient and spouse/S.O. Onset/Context/Timing Onset: Weeks (Onset May 18, 2022) Context: Sudden Onset Timing: Continuous Quality: Pain Location: Lower back bilaterally Current Severity: Mild Maximum Severity: Severe Worsened by: Movement of any type Relieved by: Nothing Associated Symptoms Associated Symptoms: informed that he had swelling of his left leg yesterday. Narrative Narrative: Patient is an 81-year-old male who underwent TURP by Dr. Gonzalez on May 18 for urinary obstruction. The operative note was read. The procedure was without complications or event. Patient states since that time he has had back pain. He has contacted Dr. Gonzalez. Dr. Gonzalez believes this is not related to the surgery. He denies fever, chills night sweats. He denies radicular pain. He denies bowel bladder dysfunction. He initially did have hematuria which cleared. He presently denies dysuria, frequency or urgency. He denies pressure in his pelvic area. He does report diarrhea. Is not noted any blood or mucus in the diarrhea. Has not noted black or maroon-colored stool. He denies orthostatic symptoms. He does endorse dyspnea on exertion since surgery. He does have remote history of PE and was taken off his Xarelto January by Dr. Joce Jc. He denies headache, visual, ocular auditory symptoms. He denies upper respiratory infectious symptoms. He denies history of atrial fibrillation. He presently denies chest discomfort. He does endorse shortness of breath and dyspnea on exertion. He has had dyspnea on exertion for a couple of weeks. He denies abdominal pain or increased abdominal girth. Prior similar symptoms: No Recent Illness/Hospitalization: Yes [facility] Medical History (Updated 05/29/22 @ 21:[address] Florentino Giles MD) Abdominal aortic aneurysm Acute pancreatitis Adverse effect of drug therapy Alcohol use Arthritis Back pain Bilateral lower extremity edema BPH (benign prostatic hyperplasia) CAD (coronary artery disease) Cancer Cardiology follow-up encounter Colitis Dental infection DVT (deep venous thrombosis) Dysuria Easy bruising Excessive bleeding Former smoker Gastric reflux Gastrocnemius tear GERD (gastroesophageal reflux disease) Gout Heavy alcohol consumption High cholesterol History of echocardiogram History of hiatal hernia History of stress test Hyperlipidemia Hypertension Hypertriglyceridemia Hypomagnesemia Hypophosphatemia Ileus Impacted cerumen of both ears Lymphoma Nicotine dependence Non Hodgkin's lymphoma Sacro-iliac pain Venous stasis dermatitis of both lower extremities Home Medications nitroglycerin 0.4 mg sublingual tablet 0.4 mg sublingual Q5-15M Chest pain 10/06/18 [History Last Taken Unknown] safety shower #1 ea 08/01/21 [Rx Last Taken Unknown] acetaminophen 500 mg tablet 1,000 mg PO Q8H PRN Pain 01/30/22 [History Last T aken 01/30/22] allopurinol 100 mg tablet 100 mg PO BID gout #60 tabs 01/30/22 [Rx Last Taken 01/28/22] diphenhydramine HCl 25 mg tablet (Benadryl Allergy) 50 mg PO DAILY PRN ALLERGIES 01/30/22 [History Last Taken 01/30/22] metoprolol succinate 25 mg tablet,extended release 24 hr 25 mg PO DAILY blood pressure 01/30/22 [History Last Taken 05/18/22 08:00 25 mg] multivitamin 1 tab PO DAILY SUPPLEMENT 01/30/22 [History Last Taken 01/28/22] omeprazole 20 mg capsule,delayed release 40 mg PO DAILY acid reflux 01/30/22 [History Last Taken 05/18/22 08:00 40 MG] rosuvastatin 20 mg tablet 20 mg PO QHS cholesterol 01/30/22 [History Last Taken 01/29/22] cyanocobalamin (vitamin B-12) 1,000 mcg capsule 3,000 mcg PO DAILY supplement 02/28/22 [History Last Taken Unknown] equate stomach relief 260 mg PO 4X/DAY 02/28/22 [History Last Taken Unknown] magnesium oxide 400 mg (241.3 mg magnesium) tablet 400 mg PO BID supplement #180 tabs 02/28/22 [Rx Last Taken Unknown] montelukast 10 mg tablet 10 mg PO DAILY #30 tabs 02/28/22 [Rx Last Taken Unknown] budesonide 3 mg capsule,delayed,extended release 6 mg PO DAILY 05/11/22 [History Last Taken Unknown] cholecalciferol (vitamin D3) 25 mcg (1,000 unit) chewable tablet (Vitamin D3) 25 mcg PO DAILY 05/11/22 [History Last Taken Unknown] oxycodone-acetaminophen 5 mg-325 mg tablet 1 tab PO Q6H PRN PRN pain 5 days #20 TABLETS 05/29/22 [Rx Last Taken Unknown] Allergy/AdvReac Type Severity Reaction Status Date / Time cephalexin Allergy Hives Verified 05/29/22 14:13 erythromycin base Allergy Hives Verified 05/29/22 14:13 fexofenadine Allergy Other Verified 05/29/22 14:13 Sulfa (Sulfonamide Allergy Hives Verified 05/29/22 14:13 Antibiotics) Family History Brother CAD (coronary artery disease) Mother Heart disease Father Heart disease Surgical History H/O Mohs micrographic surgery for skin cancer History of AAA (abdominal aortic aneurysm) repair History of cardiac catheterization History of coronary artery stent placement History of endovascular stent graft for abdominal aortic aneurysm (AAA) Hx of colonoscopy Hx of eye surgery Hx of hernia repair Hx of knee surgery Hx of left cataract extraction Hx of umbilical hernia repair S/P TURP Status post coronary artery stent placement Social History household members: spouse Smoking Status: Former smoker quit date: 02/18/18 how long ago did patient quit smoking: Quit 02/18/18, smoked 1 ppd since teen until quit. alcohol intake: current alcohol intake frequency: 0-2 drinks per day Alcohol type: wine substance use type: does not use ROS ROS ED Constitutional Constitutional ED: Denies chills, fever(s), subjective, sweats or weight loss Eyes Eyes: Denies blurry vision, change in vision or diplopia ENT ENT ED: Denies ear pain, rhinorrhea or sore throat Cardiovascular Cardiovascular: Denies chest pain, orthopnea, palpitations, paroxysmal nocturnal dyspnea or racing heartbeat Respiratory/Chest Respiratory/Chest: Reports dyspnea and dyspnea on exertion; Denies cough, orthopnea or paroxysmal nocturnal dyspnea Gastrointestinal Gastrointestinal: Reports diarrhea; Denies abdominal pain, constipation, melena, nausea or vomiting Genitourinary Genitourinary ED: Denies dysuria, hematuria or urinary frequency Musculoskeletal Musculoskeletal: Reports back pain; Denies arthralgias, myalgias or neck pain Integumentary Denies abscess, Abrasions or rash Neurologic Neurologic: Denies headache(s), paresthesias or weakness Endocrine Endocrinology: Denies cold intolerance or heat intolerance Hematologic/Lymphatic Hematologic/Lymphatic: Reports systems reviewed and no addt'l complaints, except as documented EXAM Physical Exam Const Vital Signs: 05/29/22 14:12 05/29/22 15:41 05/29/22 19:20 Temperature 97.6 F L Temperature Source Temporal Pulse Rate 135 H 90 103 H Respiratory Rate 18 20 H 17 Blood Pressure 132/105 H 170/110 H 171/112 H Blood Pressure Mean 114 130 131 Pulse Ox 98 95 93 Oxygen Delivery Method Room Air Room Air Positive well nourished and well developed General Appearance ED: well developed and NAD; Negative for cyanotic, diaphoretic or pallor HEENT Reports moist mucous membranes HEENT Narrative: Head is atraumatic normocephalic. Ears normal. Nares patent. Posterior pharynx without erythema or exudate. Uvula midline. Eyes PERRL and EOMs intact bilaterally Eyes Narrative: Conjunctive a is pink. General Eye ED: Negative for scleral icterus Neck no lymphadenopathy, supple and no JVD Chest Wall inspection of chest normal and palpation of chest normal Resp normal respiratory effort and clear to auscultation bilaterally Cardio regular rate, S1 normal heart sound, S2 normal heart sound and no murmurs Rate: tachycardic GI normal to inspection, nondistended, normoactive bowel sounds, non-tender and no masses; Negative for non-distended or hepatosplenomegaly Inspection: abdominal distention Auscultation: hypoactive bowel sounds Palpation: soft Back/Spine no CVA tenderness Back/Spine Narrative: There is pain outpatient right and left paralumbar region. There is no point tenderness. There are no dermatologic lesions noted to suggest herpes varicella-zoster. Straight leg test is negative right and left. Patella and ankle reflex are symmetric. EHLs intact. Normal sensation over L3, L4, L5 and S1 dermatome. DP and PT pulse are palpable. There is no clonus or Babinski sign noted. Gait was observed and there is no foot drop. Cervical Spine: Negative for cervical spine tenderness Thoracic Spine / Upper Back: Negative for thoracic spinal tenderness or paraspinal muscle tenderness Lumbar Spine / Lower Back: Negative for lumbar spinal tenderness Extremity Extremity Narrative: There is swelling of the left calf compared to the right. There may be slightly prominent leg veins in comparison. There is no tenderness along the distribution deep venous system nor is there any palpable cords. There is no true discoloration of the leg. Neuro oriented x3, CN's II-XII intact bilaterally and no sensory deficits noted Sensorium / Orientation: alert Psych mental status grossly normal Skin No no rashes or lesions noted, no wounds and No skin turgor normal General Skin Exam: Negative for jaundice or pallor MDM MDM MDM Narrative Medical decision making narrative: Back pain is consistent with musculoskeletal back pain. With patient having recent surgery prior history of DVTs and the fact that he is tachycardic complaint of dyspnea [place] exertion with a swollen left leg compared to the right knee due to evaluate for PE and DVT. EKG was obtained to evaluate for any cardiac ischemia and determine rhythm. Suspected sinus tach. CBC was obtained to assess H&H since patient does have history of anemia and required transfusion in March per old records. Basic metabolic panel was obtained to assess renal function and determine risk benefits of CTA if needed. Since patient does have chronic renal insufficiency and there is concern he may have a DVT left lower extremity with an elevated D-dimer will obtain venous duplex study. If venous duplex study is negative will then proceed to CTA. CTA was negative for PE or dissection. Patient has received 3 separate doses of 4 mg of morphine. He was reassessed at 2108. Patient feels comfortable. Will discharge to home. He has an appointment with Dr. Monterroso tomorrow. History & Record Review Discussion w/independent historian: Patient and Significant other Additional record(s) reviewed:: Prior inpatient record (Operative note, most recent admission for sepsis), Prior outpatient record, Prior ED visit (Last ER visit which required transfusion.) and Prior labs Lab Data Attestation: I reviewed the patient's lab results. Lab results narrative: Complement panel reveals a sodium 135 and chloride of 109 which is slightly below normal and above normal and in the sniffing. Creatinine is 1.36 which is patient baseline. CBC is unremarkable. Patient's hemoglobin has normalized since recent transfusion. Labs: Laboratory Results - last 24 hr 05/29/22 05/29/22 05/29/22 14:30 14:30 14:30 WBC 9.3 RBC 4.58 L Hgb 13.9 Hct 44.0 MCV 96.1 H MCH 30.3 MCHC 31.6 L RDW Std Deviation TNP RDW Coeff of Jackelyn TNP Plt Count 261 MPV 9.1 Immature Gran % (Auto) 0.400 Neut % (Auto) 82.1 H Lymph % (Auto) 9.7 L Dickson % (Auto) 6.3 Eos % (Auto) 1.0 Baso % (Auto) 0.5 Absolute Neuts (auto) 7.6 Absolute Lymphs (auto) 0.90 Nucleated RBC % 0 Differential Comment SCANNED D-Dimer Quant (PE/DVT) 2.12 H* Sodium 135 L Potassium 3.9 Chloride 109 H Carbon Dioxide 23.0 Anion Gap 3 L BUN 21 H Creatinine 1.36 H Estim Creat Clear Calc 47.55 Est GFR (MDRD) Af Amer 65 Est GFR (MDRD) Non-Af 54 L BUN/Creatinine Ratio 15.4 Glucose 106 Lactic Acid Calcium 8.6 Total Bilirubin 0.40 AST 19 ALT 20 Alkaline Phosphatase 114 Total Protein 6.7 Albumin 3.2 Globulin 3.5 Albumin/Globulin Ratio 0.9 05/29/22 14:30 WBC RBC Hgb Hct MCV MCH MCHC RDW Std Deviation RDW Coeff of Jackelyn Plt Count MPV Immature Gran % (Auto) Neut % (Auto) Lymph % (Auto) Dickson % (Auto) Eos % (Auto) Baso % (Auto) Absolute Neuts (auto) Absolute Lymphs (auto) Nucleated RBC % Differential Comment D-Dimer Quant (PE/DVT) Sodium Potassium Chloride Carbon Dioxide Anion Gap BUN Creatinine Estim Creat Clear Calc Est GFR (MDRD) Af Amer Est GFR (MDRD) Non-Af BUN/Creatinine Ratio Glucose Lactic Acid 1.0 Calcium Total Bilirubin AST ALT Alkaline Phosphatase Total Protein Albumin Globulin Albumin/Globulin Ratio Radiography Chest X-Ray - ED: 2 View, Read by ED Physician (No acute findings. Pelvis slightly rotated. Cardiac silhouette and size unremarkable. There is what appears to be calcified left perihilar granuloma. Osseous structures are unremarkable. Physical independent reviewed interpreted by me at 1523.) and - (Three-view x-ray of the LS-spine reveals Hays filter in proper position. Stenting for repair of abdominal aortic aneurysm. There is degenerative changes that is multiple levels of the lumbar spine. There is no lytic or blastic lesions noted. This was independently reviewed interpreted by m) Diagnostic Testing: Clinical Impression(s) from Imaging Studies Chest X-Ray 05/29/22 14:50 IMPRESSION: No acute findings in the chest. Electronically Signed: Rodriguez Morales MD at 15:23 EDT , Venous Doppler Study 05/29/22 15:36 Interpretation Summary Deep veins of the left lower extremity are patent and compressible segmentally. There is no evidence of left lower extremity deep vein thrombosis. The left great saphenous vein appears patent and compressible segmentally. Ordering Physician: Florentino Giles Referring Physician: Jay Monterroso M.D. Performed By: Jordyn Myles Torrie Chest CTA 05/29/22 15:54 IMPRESSION: No demonstrated pulmonary embolism or arterial dissection. There are no acute findings. Electronically Signed: Rodriguez Moarles MD at 17:15 EDT , Lumbar Spine X-Ray 05/29/22 17:42 IMPRESSION: Degenerative changes of the spine, as detailed above. Electronically Signed: Rodriguez Morales MD at 18:11 EDT , Rhythm Strip Rhythm Strip: Sinus Tach (Complex is wide suggestive of bundle branch block.) Rate: 122 EKG Initial EKG: Interpretation: Sinus Tachycardia (Rate is 112. There is evidence of a left bundle branch block. IA interval is 154 ms. QRS duration 130 ms. QT duration 366 ms. [place] is normal. There is no acute ischemic changes. We will obtain old EKG for comparison.) Discharge Plan Triage Chief Complaint: Back ED Provider: Florentino Giles Dx/Rx/DC Orders Clinical Impression: DDD (degenerative disc disease), lumbosacral, Venous stasis dermatitis of both lower extremities, Acute bilateral back pain, History of COPD Instructions: ED Degenerative Disk Disease Prescriptions: New oxycodone-acetaminophen [oxycodone-acetaminophen] 5-325 mg tablet 1 tab PO Q6H PRN PRN (Reason: pain) 5 Days Qty: 20 0RF No Action nitroglycerin 0.4 mg tablet, sublingual 0.4 mg SUBLINGUAL Q5-15M equate stomach relief 260 mg 260 mg PO 4X/DAY montelukast 10 mg tablet 10 mg PO DAILY Qty: 30 1RF magnesium oxide 400 mg (241.3 mg magnesium) tablet 400 mg PO BID Qty: 180 2RF cyanocobalamin (vitamin B-12) 1,000 mcg capsule 3,000 mcg PO DAILY multivitamin Tablet 1 tab PO DAILY acetaminophen 500 mg Tablet 1,000 mg PO Q8H PRN (Reason: Pain) diphenhydramine HCl [Benadryl Allergy] 25 mg Tablet 50 mg PO DAILY PRN (Reason: ALLERGIES) metoprolol succinate 25 mg Tablet Extended Release 24 Hr 25 mg PO DAILY omeprazole 20 mg capsule,delayed release(DR/EC) 40 mg PO DAILY rosuvastatin 20 mg tablet 20 mg PO QHS budesonide 3 mg capsule,delayed,extend.release 6 mg PO DAILY Label Comments: TAKE 2 CAPSULES BY MOUTH ONCE DAILY cholecalciferol (vitamin D3) [Vitamin D3] 25 mcg (1,000 unit) Tablet,Chewable 25 mcg PO DAILY (DME) safety shower See Rx Instructions .Route .MEDSUPPLY Qty: 1 0RF Rx Instructions: As directed allopurinol 100 mg tablet 100 mg PO BID Qty: 60 4RF Primary Care Provider: Jaden Monterroso Referrals: Jaden Monterroso, [Primary Care Provider] - Keep Emily appointment Activity Restrictions/Additional Instructions: 1. Apply ice 6-10 times a day to your back Disposition Disposition: Home, Self Care
[2022-05-29] MEDS: Ondansetron 4 MG/2 ML Vial IV (14:31)
[2022-05-29] MEDS: Morphine 4 MG/ML Syringe IV ×4 (14:31→19:17)
--- NOTE | 2022-05-29 14:50 | RAD_ITS ---
EXAM: XR CHEST, 2 VIEWS CLINICAL INDICATION: MEAD TECHNIQUE: Frontal and lateral views of the chest. This report was created using VisCon[employer] report generation technology. COMPARISON: 03.29.22 FINDINGS: LUNGS AND PLEURAL SPACES: Unremarkable. No consolidation or edema. No pneumothorax. No effusion. HEART: Unremarkable. Cardiac silhouette not enlarged. MEDIASTINUM: Central airways and mediastinal contour are unremarkable. BONES/JOINTS: There are compression deformities of the spine. These are age-indeterminate. MRI could further evaluate if of concern. SOFT TISSUES: Unremarkable. RAD/Chest PA and Lateral IMPRESSION: No acute findings in the chest. Electronically Signed: Rodriguez Morales MD at 15:23 EDT ,
[2022-05-29 15:03] LABS: Absolute Neutrophil Count 7.6 X10^3/uL (2.0-7.7); Basophil# 0.05 X10^3/uL; Basophil% 0.5 % (0-1); Eosinophil# 0.09 X10^3/uL; Hemoglobin 13.9 g/dL (13.0-16.5); Lymphocyte % 9.7 % (19-41); Mean Corp Hgb Conc 31.6 g/dL (32-36); Mean Corpuscular Hgb 30.3 pg (27.0-32.0); Mean Corpuscular Volume 96.1 fL (80-94); Mean Platelet Vol. 9.1 fl (6.2-12.0); Monocyte# 0.59 X10^3/uL; Monocyte% 6.3 % (0-10); NRBC Flagged by Analyzer 0 % (0-5); Neutrophil # 7.64 X10^3/uL (2.7-7.7); Neutrophil % 82.1 % (47-70); POSITIVE MORPHOLOGY YES; Platelet Count 261 K/mm3 (150-450); Red Blood Count 4.58 M/mm3 (4.6-6.2); White Blood Count 9.3 K/mm3 (4.4-11.0)
[2022-05-29 15:14] LABS: ALB/GLOB Ratio 0.9 RATIO (0.9-2.4); AST(SGOT) 19 U/L (15-37); Alanine Aminotransfer ALT/SGPT 20 U/L (16-61); Albumin, Serum 3.2 g/dL (3.2-5.0); Alkaline Phosphatase 114 U/L (45-117); Anion Gap 3 (5-15); BUN 21 mg/dL (7-18); BUN/Creat Ratio 15.4 RATIO (10-20); Calcium,Total 8.6 mg/dL (8.5-10.1); Chloride 109 mmol/L (98-107); Creatinine, Serum 1.36 mg/dL (0.70-1.30); EST Glomerular Filtration Rate 54 mL/min (>60); Est Glom Filt Rate - Afr Amer 65 mL/min (>60); Estimated Creatinine Clearance 47.55 ml/min; Globulin 3.5 g/dL (2.2-4.2); Glucose 106 mg/dL (74-106); Potassium 3.9 mmol/L (3.5-5.1); Protein, Total 6.7 g/dL (6.4-8.2); Sodium Level 135 mmol/L (136-145)
[2022-05-29 15:25] LABS: Differential Indicated SCAN CRITERIA MET
[2022-05-29 15:33] LABS: D-Dimer Quantitative (DVT/PE) 2.12 FEU/ug/m (0.27-0.49)
--- NOTE | 2022-05-29 15:36 | VDLE_ITS ---
Reason For Study: Elevated D-dimer Procedure LEFT This is a venous duplex using B-mode, color GSV is normal. flow and spectral Doppler. CFV is compressible, spontaneous, phasic, Exam performed portable in ED. competent, and demonstrates normal A preliminary report was called and/or faxed augmentation. to Dr. Giles. FV is compressible, spontaneous, phasic, competent and demonstrates normal augmentation. POP V is compressible, spontaneous, phasic, competent and demonstrates normal augmentation. T/P Trunk is compressible. PTV is compressible. LT PerV is compressible. VL/Venous Duplex US, Unilateral Interpretation Summary Deep veins of the left lower extremity are patent and compressible segmentally. There is no evidence of left lower extremity deep vein thrombosis. The left great saphenous vein kisha ears patent and compressible segmentally. Ordering Physician: Florentino Giles Referring Physician: Jay Monterroso M.D. Performed By: Jordyn Mlyes RVT
[2022-05-29 15:41] VITALS: BP 170/110; PULSE 90; RESP 20; O2SAT 95
--- NOTE | 2022-05-29 15:54 | CT_ITS ---
STUDY: CTA Chest WO/W Contrast Injection 05/29/2022 5:13 PM REASON FOR EXAM: Male, 81 years old. Moderate pretest probability with positive D-dimer TECHNIQUE: The examination was performed with the intravenous administration of IV 100mL Isovue-370 contrast material. Post-processing of the angiographic images was performed, with axial imaging and 3D reconstruction. MIPS images were obtained. Individualized dose optimization techniques were used for this CT. COMPARISON: 12.23.20. FINDINGS: There are degenerative changes of the shoulders. There is no pneumothorax. There is no demonstrated pleural abnormality. Emphysema changes of the lung. There are calcifications of the coronary arteries. Normal mediastinum. Normal hilar regions. Normal pulmonary arteries. There is atherosclerotic calcification of the aortic arch with tortuosity and elongation of the aortic arch and descending thoracic aorta. There are multi-level degenerative changes of the thoracic spine. There are no acute findings of the upper abdomen. CT/CTA Chest W/WO Contrast IMPRESSION: No demonstrated pulmonary embolism or arterial dissection. There are no acute findings. Electronically Signed: Rodriguez Morales MD at 17:15 EDT ,
[2022-05-29 16:02] LABS: Differential Comment SCANNED
--- NOTE | 2022-05-29 17:42 | RAD_ITS ---
STUDY: X-RAY - LUMBAR SPINE REASON FOR EXAM: Male, 81 years old. Injury/Pain TECHNIQUE: XR Spine Lumbar 2 or 3 Views COMPARISON: None FINDINGS: Normal lumbar lordosis. There is no substantial scoliosis. There is a normal alignment of the vertebrae. There is multilevel endplate spondylosis of the lumbar vertebrae. There is multi-level degenerative disc disease with multi-level disc space narrowing. There are atherosclerotic vascular calcifications. Aortic stent graft. The soft tissue structures are unremarkable. RAD/Lumbar Spine 2 or 3 Views IMPRESSION: Degenerative changes of the spine, as detailed above. Electronically Signed: Rodriguez Morales MD at 18:11 EDT ,
[2022-05-29 19:20] VITALS: BP 171/112; PULSE 103; RESP 17; O2SAT 93
[2022-05-29 21:00] VITALS: BP 170/106; PULSE 96; RESP 17
== END 2022-05-29 22:21 | disposition home or self-care (01) ==
PROVIDERS: Emergency Provider Emergency Medicine; PCP Family Medicine; Visit Provider Emergency Medicine
DX: I25.10 Atherosclerotic heart disease of native coronary artery without angina pectoris (principal); J44.9 Chronic obstructive pulmonary disease, unspecified; I12.9 Hypertensive chronic kidney disease with stage 1 through stage 4 chronic kidney disease, or unspecified chronic kidney disease; Z87.891 Personal history of nicotine dependence; I87.2 Venous insufficiency (chronic) (peripheral); E78.00 Pure hypercholesterolemia, unspecified; N18.9 Chronic kidney disease, unspecified; M51.37 Other intervertebral disc degeneration, lumbosacral region
CPT/HCPCS: 71046; 71275; 72100; 80053; 83605; 85025; 85379; 93005; 93971; 96374; 96375; 96376; 99284; J7030; Q9967; A4216; J2405

== ENCOUNTER 2022-06-10 09:59 | Emergency (ER) | payer MEDICARE, OTHER, SELFPAY ==
[2022-06-10 10:00] VITALS: BP 153/108; PULSE 110; RESP 16; TEMP 36.4; O2SAT 97; BMI 27.8
--- NOTE | 2022-06-10 10:44 | EDS_ITS ---
HPI History of Present Illness Chief Complaint: Back Informant: patient and spouse/S.O. Onset/Context/Timing Onset: Weeks Context: Gradual Onset Timing: Continuous Quality: Dull and Aching Location: Lumbar Current Severity: Moderate Maximum Severity: Moderate Worsened by: improves with Movement Relieved by: Nothing Associated Symptoms Associated Symptoms: Negative for Numbness, Tingling, Radiation to Right Leg, Radiation to Left Leg, Fever, Abdominal Pain, Dysuria, Unable to Ambulate, Unable to Transfer, Urinary Retention, Urinary Incontinence, Constipation or Fecal Incontinence Narrative Narrative: 81-year-old male has had upper lumbar back pain for about 3 weeks. 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 He had other testing done they could not find anything else other than musculoskeletal back pain. He has been on oxycodone intermittently since then. He has issues with NSAIDs due to chronic kidney disease. He has a known AAA repair that is done well since he had it repaired in January of last year. States he has no change other than he is out of his pain meds and he was hoping it that refilled until he sees the orthopedic spine Dr. Sharpe tomorrow. He denies any fever. No incontinence. No leg weakness. No fall or trauma. Prior similar symptoms: Yes Recent Illness/Hospitalization: [facility] Medical History Abdominal aortic aneurysm Acute pancreatitis Adverse effect of drug therapy Alcohol use Arthritis Back pain Bilateral lower extremity edema BPH (benign prostatic hyperplasia) CAD (coronary artery disease) Cancer Cardiology follow-up encounter Colitis Degenerative disk disease Dental infection DVT (deep venous thrombosis) Dysuria Easy bruising Excessive bleeding Former smoker Gastric reflux Gastrocnemius tear GERD (gastroesophageal reflux disease) Gout Heavy alcohol consumption High cholesterol History of echocardiogram History of hiatal hernia History of stress test Hyperlipidemia Hypertension Hypertriglyceridemia Hypomagnesemia Hypophosphatemia Ileus Impacted cerumen of both ears Lymphoma Nicotine dependence Non Hodgkin's lymphoma Sacro-iliac pain Venous stasis dermatitis of both lower extremities Home Medications nitroglycerin 0.4 mg sublingual tablet 0.4 mg sublingual Q5-15M Chest pain 10/06/18 [History Last Taken Unknown] safety shower #1 ea 08/01/21 [Rx Last Taken Unknown] acetaminophen 500 mg tablet 1,000 mg PO Q8H PRN Pain 12/13/22 [History Last Taken 01/30/22] allopurinol 100 mg tablet 100 mg PO BID gout #60 tabs 01/30/22 [Rx Last Taken 01/28/22] diphenhydramine HCl 25 mg tablet (Benadryl Allergy) 50 mg PO DAILY PRN ALLERGIES 01/30/22 [History Last Taken 01/30/22] metoprolol succinate 25 mg tablet,extended release 24 hr 25 mg PO DAILY blood pressure 01/30/22 [History Last Taken 05/18/22 08:00 25 mg] multivitamin 1 tab PO DAILY SUPPLEMENT 01/30/22 [History Last Taken 01/28/22] cyanocobalamin (vitamin B-12) 1,000 mcg capsule 3,000 mcg PO DAILY supplement 02/28/22 [History Last Taken Unknown] equate stomach relief 260 mg PO 4X/DAY 02/28/22 [History Last Taken Unknown] magnesium oxide 400 mg (241.3 mg magnesium) tablet 400 mg PO BID supplement #180 tabs 02/28/22 [Rx Last Taken Unknown] budesonide 3 mg capsule,delayed,extended release 6 mg PO DAILY 05/11/22 [History Last Taken Unknown] cholecalciferol (vitamin D3) 25 mcg (1,000 unit) chewable tablet (Vitamin D3) 25 mcg PO DAILY 05/11/22 [History Last Taken Unknown] aspirin 81 mg chewable tablet 81 mg PO DAILY 05/30/22 [History Last Taken Unknown] omeprazole 20 mg capsule,delayed release See Rx Instructions .Route .COMPLEX #90 CAPSULES 05/30/22 [Rx Last Taken Unknown] rosuvastatin 20 mg tablet 20 mg PO QHS cholesterol #90 tabs 05/30/22 [Rx Last Taken Unknown] oxycodone-acetaminophen 5 mg-325 mg tablet 1 tab PO Q6H PRN PRN pain 5 days #20 TABLETS 06/02/22 [Rx Last Taken Unknown] prednisone 20 mg tablet 20 mg PO BID #20 tabs 06/05/22 [Rx Last Taken Unknown] oxycodone 5 mg capsule 5 mg PO Q4H PRN pain 5 days #20 caps 06/10/22 [Rx Last Taken Unknown] Allergy/AdvReac Type Severity Reaction Status Date / Time cephalexin Allergy Hives Verified 06/10/22 10:02 erythromycin base Allergy Hives Verified 06/10/22 10:02 fexofenadine Allergy Other Verified 06/10/22 10:02 Sulfa (Sulfonamide Allergy Hives Verified 06/10/22 10:02 Antibiotics) Family History Brother CAD (coronary artery disease) Mother Heart disease Father Heart disease Surgical History H/O Mohs micrographic surgery for skin cancer History of AAA (abdominal aortic aneurysm) repair History of cardiac catheterization History of coronary artery stent placement History of endovascular stent graft for abdominal aortic aneurysm (AAA) History of prostate surgery Hx of colonoscopy Hx of eye surgery Hx of hernia repair Hx of knee surgery Hx of left cataract extraction Hx of umbilical hernia repair S/P TURP Status post coronary artery stent placement Social History household members: spouse Smoking Status: Former smoker quit date: 02/18/18 how long ago did patient quit smoking: Quit 02/18/18, smoked 1 ppd since teen until quit. alcohol intake: current alcohol intake frequency: 0-2 drinks per day Alcohol type: wine substance use type: does not use ROS ROS ED ROS Narrative Denies. Back pain. Review of Systems ROS Unobtainable: Denies due to encephalopathy Constitutional Constitutional ED: Denies chills or fever(s) Eyes Eyes: Denies blurry vision ENT ENT ED: Denies ear pain Cardiovascular Cardiovascular: Denies chest pain or palpitations Respiratory/Chest Respiratory/Chest: Denies dyspnea Gastrointestinal Gastrointestinal: Denies abdominal pain or constipation Genitourinary Genitourinary ED: Denies dysuria or hematuria Musculoskeletal Musculoskeletal: Reports back pain; Denies arthralgias, myalgias or neck pain Integumentary Denies abscess or Abrasions Neurologic Neurologic: Denies headache(s) Psychiatric Psychiatric: Denies anxiety or depression Endocrine Endocrinology: Denies cold intolerance Hematologic/Lymphatic Hematologic/Lymphatic: Denies easy bleeding Allergic/Immunologic Allergic/Immunologic ED: Denies mouth swelling EXAM Physical Exam Narrative Exam Narrative: 81-year-old male no acute distress sitting upright in bed. at bedside. H EENT exam unremarkable. Neck nontender. Lungs clear to auscultation bilaterally. Heart regular rhythm rate about 100 no murmur. Chest wall nontender. Abdomen soft nontender. No peritoneal signs. Moving all 4 extremities. 5 out of 5 feeder associate strength. Dorsi plantarflexion intact. No cauda equina or saddle anesthesia. Normal medial thigh sensation. Back José Miguel L1-3 tenderness. Also over the spine. No trauma. No bruising. No redness or warmth. Neurologically is awake and alert with no focal motor deficits. Const Vital Signs: 06/10/22 10:00 Temperature 97.5 F L Temperature Source Temporal Pulse Rate 110 H Respiratory Rate 16 Blood Pressure 153/108 H Blood Pressure Mean 123 Pulse Ox 97 Oxygen Delivery Method Room Air Positive well nourished and well developed; Negative for obese, cachectic, contractures or unkempt General Appearance ED: well developed and NAD; Negative for unkempt, cachectic, contractures or pallor Nutritional Appearance: Negative for cachectic or obese HEENT Reports moist mucous membranes; Denies dry mucous membranes Negative for trauma or tenderness Mouth ED: No dry mucous membranes Mouth: No dry mucous membranes Eyes PERRL and EOMs intact bilaterally General Eye ED: Negative for pale conjunctiva Neck no lymphadenopathy, supple and no JVD General: Negative for tenderness Thyroid: Negative for other Chest Wall Chest: Negative for other Resp normal respiratory effort and clear to auscultation bilaterally Effort and Inspection: Negative for pain with movement Auscultation: Negative for rales, rhonchi or wheezes Cardio regular rate, regular rhythm, S1 normal heart sound, S2 normal heart sound and no murmurs Palpation: Negative for palpable S3 Rate: Negative for bradycardia Rhythm: Negative for abnormal rhythm Bruits: Negative for other GI normal to inspection, nondistended, normoactive bowel sounds, soft to palpation, non-tender, non-distended and no masses Inspection: Negative for abdominal distention Auscultation: Negative for hyperactive bowel sounds Palpation: Negative for tender or guarding Back/Spine normal to inspection; Negative for no thoracic nor lumbar tenderness Back/Spine Narrative: Mild tenderness to the L1-L2 region of the spine. No signs of trauma. General Back: Negative for CVA tenderness Cervical Spine: Negative for cervical spine tenderness and Negative for paracervical muscle tenderness Thoracic Spine / Upper Back: Negative for paraspinal muscle tenderness Lumbar Spine / Lower Back: ROM limited Extremity normal to inspection and no clubbing, cyanosis or edema General Extremety ED: Negative for edema or tenderness General Extremity: Negative for edema Neuro oriented x3 and no sensory deficits noted Sensorium / Orientation: alert; Negative for confused or lethargic Motor Exam: strength 5/5 throughout Psych mental status grossly normal Appearance: Negative for unkempt Attitude: No agitated Mood & Affect: Negative for depressed, sad or tearful Skin no rashes or lesions noted and no wounds General Skin Exam: Negative for jaundice or pallor Lesions: No lesion noted Rashes: No rashes noted Trauma: Negative for abrasion or puncture Wounds: Negative for wounds noted MDM MDM MDM Narrative Medical decision making narrative: 81-year-old male with known lumbar back pain. Out of his pain medication. Exam otherwise is benign. There is no signs of a cord compressing lesion. No sciatica. No cauda equina. Will be given a dose of IM morphine. P.o. Zofran. Prescription for oxycodone 5 mg as needed #20 no refill. He has a appointment with a learning technologies specialist tomorrow. In my opinion this gentleman needs an MRI. History & Record Review Discussion w/independent historian: Patient and Family Discharge Plan Triage Chief Complaint: Back ED Provider: Denny Davis Dx/Rx/DC Orders Clinical Impression: Back pain, Degenerative disc disease, History of chronic kidney disease, History of COPD Instructions: ED Degenerative Disk Disease Prescriptions: New oxycodone 5 mg capsule 5 mg PO Q4H PRN (Reason: pain) 5 Days Qty: 20 0RF No Action nitroglycerin 0.4 mg tablet, sublingual 0.4 mg SUBLINGUAL Q5-15M equate stomach relief 260 mg 260 mg PO 4X/DAY magnesium oxide 400 mg (241.3 mg magnesium) tablet 400 mg PO BID Qty: 180 2RF aspirin 81 mg tablet,chewable 81 mg PO DAILY rosuvastatin 20 mg tablet 20 mg PO QHS Qty: 90 2RF cyanocobalamin (vitamin B-12) 1,000 mcg capsule 3,000 mcg PO DAILY multivitamin Tablet 1 tab PO DAILY acetaminophen 500 mg Tablet 1,000 mg PO Q8H PRN (Reason: Pain) diphenhydramine HCl [Benadryl Allergy] 25 mg Tablet 50 mg PO DAILY PRN (Reason: ALLERGIES) metoprolol succinate 25 mg Tablet Extended Release 24 Hr 25 mg PO DAILY budesonide 3 mg capsule,delayed,extend.release 6 mg PO DAILY Label Comments: TAKE 2 CAPSULES BY MOUTH ONCE DAILY cholecalciferol (vitamin D3) [Vitamin D3] 25 mcg (1,000 unit) Tablet,Chewable 25 mcg PO DAILY (DME) safety shower See Rx Instructions .Route .MEDSUPPLY Qty: 1 0RF Rx Instructions: As directed allopurinol 100 mg tablet 100 mg PO BID Qty: 60 4RF omeprazole 20 mg capsule,delayed release(DR/EC) See Rx Instructions .ROUTE .COMPLEX Qty: 90 0RF Dose Instruction: TAKE 1 CAPSULE EVERY DAY Rx Instructions: TAKE 1 CAPSULE EVERY DAY oxycodone-acetaminophen 5-325 mg tablet 1 tab PO Q6H PRN PRN (Reason: pain) 5 Days Qty: 20 0RF prednisone 20 mg tablet 20 mg PO BID Qty: 20 1RF Primary Care Provider: Jaden Monterroso Referrals: Jaden Monterroso DO [Primary Care Provider] - Arnel Sharpe DO [Med Staff - Active Staff] - Keep Emily appointment Activity Restrictions/Additional Instructions: Oxycodone for pain. Plenty of fluids, fruits and vegetables and fiber to prevent constipation. Follow-up with your back physician as scheduled. In my opinion you need an MRI as soon as possible. Disposition Disposition: Home, Self Care
[2022-06-10] MEDS: Ondansetron ODT 4 MG Tablet PO (11:04)
[2022-06-10] MEDS: morphine 10 MG/ML Syringe 8 MG IM (11:04)
== END 2022-06-10 11:25 | disposition home or self-care (01) ==
PROVIDERS: Emergency Provider Emergency Medicine; PCP Family Medicine; Visit Provider Emergency Medicine
DX: M47.816 Spondylosis without myelopathy or radiculopathy, lumbar region (principal); J44.9 Chronic obstructive pulmonary disease, unspecified; I12.9 Hypertensive chronic kidney disease with stage 1 through stage 4 chronic kidney disease, or unspecified chronic kidney disease; I25.10 Atherosclerotic heart disease of native coronary artery without angina pectoris; Z87.891 Personal history of nicotine dependence; E78.00 Pure hypercholesterolemia, unspecified; N18.9 Chronic kidney disease, unspecified; Z79.82 Long term (current) use of aspirin; Z79.52 Long term (current) use of systemic steroids
CPT/HCPCS: 96372; 99283

== ENCOUNTER → 2022-06-12 | Outpatient (CLI) | payer MEDICARE, OTHER, SELFPAY ==
[2022-06-12 13:11] LABS: Erythrocyte Sedimentation Rate 16 mm/hr (0-20)
--- NOTE | 2022-06-12 15:34 | MRI_ITS ---
STUDY: MRI LUMBAR SPINE WITHOUT CONTRAST REASON FOR EXAM: Male, 81 years old. pain -- rule out discitis; low back pain, right side worse than left TECHNIQUE: Standardized fat and water weighted pulse sequences were obtained in the sagittal and axial planes. COMPARISON: None FINDINGS: There are 6 nonrib-bearing lumbar vertebrae the transitional segment being designated as S1 There is compression of the superior endplate of L1 with retropulsion of posterior superior endplate creating mild spinal stenosis at T12-L1. There is intramedullary bone marrow edema consistent with acute fracture. T12-L1: Normal disc height, hydration and morphology. Normal bilateral facet joints. Mildly narrowed central canal. Normal bilateral lateral recesses. Normal bilateral intervertebral neural foramina. Normal lumbar lordosis. There is no substantial scoliosis. Normal conus medullaris that terminates at T12 L1-2: Normal endplates. Normal disc height, desiccation and normal morphology. Normal bilateral facet joints. Normal central canal and bilateral lateral recesses. Normal bilateral intervertebral neural foramina. L2-3: Normal endplates. Normal disc height, desiccation and minimal annular bulge.. Normal bilateral facet joints. Normal central canal and bilateral lateral recesses. Normal bilateral intervertebral neural foramina. L3-4: Narrowed disc space with degenerative endplate changes. Desiccation of the disc and minimal bulging disc osteophyte complex. Facet arthropathy and thickening of ligamenta flava. Mild narrowing of the central canal and bilateral lateral recesses. Moderate bilateral neural foraminal stenosis L4-5: Normal endplates. Normal disc height, hydration and mild annular bulge.. Mild facet arthropathy and thickening of ligamenta flava.. Normal central canal and bilateral lateral recesses. Mild to moderate bilateral neural foraminal stenosis.. L5-S1: Grade 1 spondylolisthesis Normal endplates. Normal disc height, desiccation and mild bulging disc osteophyte complex.. Facet arthropathy and thickening of ligamenta flava.. Normal central canal and bilateral lateral recesses. Mild bilateral neural foraminal stenosis S1-2: Normal disc space height hydration and morphology. No central canal and bilateral lateral recesses. Normal bilateral neuroforamina Normal visualized sacral ala. Incidental finding of aortic aneurysm measuring approximately 5.1 x 4.35 cm status post grafting. MRI/Spine Lumbar (Routine) IMPRESSION: Acute compression fracture of L1 with retropulsion of posterior superior endplate creating mild spinal stenosis at T12-L1 Multilevel disc degeneration and spinal stenosis secondary to bulging annuli and facet arthropathy. Findings as above. Electronically Signed: Garfield Allison MD at 17:03 EDT ,
== END | disposition home or self-care (01) ==
LOC: MRI 15:34
PROVIDERS: PCP Family Medicine; Referring Provider Orthopaedic Surgery; Visit Provider Orthopaedic Surgery
DX: M46.46 Discitis, unspecified, lumbar region (principal); M48.00 Spinal stenosis, site unspecified
CPT/HCPCS: 36415; 72148; 85652; 86140

== ENCOUNTER → 2022-06-23 | Outpatient (CLI) | payer MEDICARE, OTHER, SELFPAY ==
--- NOTE | 2022-06-23 10:38 | MRI_ITS ---
STUDY: MRI THORACIC SPINE WITHOUT CONTRAST REASON FOR EXAM: Male, 81 years old. pain, F/U FROM 06/12/22 TECHNIQUE: Standardized fat and water weighted pulse sequences were obtained in the sagittal and axial planes. COMPARISON: CTA of the chest dated May 29, 2022. MRI of the lumbar spine dated June 12, 2022 FINDINGS: Redemonstration of a subacute compression fracture deformity of the L1 vertebral body with approximately 30% loss of height and minimal retropulsion. Persistent diffuse edema is present throughout the L1 vertebral body extending into the pedicles, which is unchanged from June 12, 2022 study with no demonstrated additional loss of height or instability of the L1 vertebral body. There is however new Schmorl''s node or stress edema in the anterior inferior aspect of the T12 vertebral body, which was not seen on June 12, 2022 study. A nondisplaced hairline fracture is seen in the anterior inferior aspect of the L1 vertebral body as well. Redemonstration of chronic compression deformities of the T7 and T11 vertebral bodies. The remaining thoracic bony structures are unremarkable and without evidence of acute edema or other abnormalities. The continued edema in the L1 vertebral body compression fracture could be expected at 30 days from the initial injury but could also be related to poor mineralization or slow healing of the vertebral body. I do not see an aggressive primary or metastatic abnormality within the L1 vertebral body on the current study. And there are no suspicious abnormalities and remaining bony structures. Normal kyphosis of the thoracic spine. There is no substantial scoliosis. T1-2, T2-3, T3-4, T4-5, T5-6, T6-7, T7-8, T8-9, T9-10, T10-11, T11-12: Redemonstration of multilevel disc desiccation with mild disc space narrowing and endplate spurring throughout the thoracic spine. Some small disc protrusions and bulges persists at the T6-T7, T7-T8, and T10-T11 levels. Mild mass effect and focal central canal stenosis is present at the T7-T8 level. Normal central canal at the remaining corresponding levels. Multilevel foraminal stenosis is present. Normal visualized thoracic cord. Normal conus medullaris that terminates at the . The soft tissue structures are unremarkable. MRI/Spine Thoracic (Routine) IMPRESSION: 1. Redemonstration of a subacute compression fracture deformity of the L1 vertebral body with approximately 30% loss of height and minimal retropulsion. Persistent diffuse edema is present throughout the L1 vertebral body extending into the pedicles, which is unchanged from June 12, 2022 study with no demonstrated additional loss of height or instability of the L1 vertebral body. 2. There is however new Schmorl''s node or stress edema in the anterior inferior aspect of the T12 vertebral body, which was not seen on June 12, 2022 study. A nondisplaced hairline fracture is seen in the anterior inferior aspect of the L1 vertebral body as well. 3. The continued edema in the L1 vertebral body compression fracture could be expected at 30 days from the initial injury but could also be related to poor mineralization or slow healing of the vertebral body. 4. The patient''s spinal alignment has not changed since the prior study. Electronically Signed: Giorgi Geronimo MD at 11:07 EDT ,
== END | disposition home or self-care (01) ==
LOC: MRI 10:48
PROVIDERS: PCP Family Medicine; Referring Provider Orthopaedic Surgery; Visit Provider Orthopaedic Surgery
DX: S22.080A Wedge compression fracture of T11-T12 vertebra, initial encounter for closed fracture (principal); X58.XXXA Exposure to other specified factors, initial encounter
CPT/HCPCS: 72146

== ENCOUNTER → 2022-07-17 | Outpatient (CLI) | payer MEDICARE, OTHER, SELFPAY ==
--- NOTE | 2022-07-17 10:55 | BD_ITS ---
STUDY: DUAL ENERGY X-RAY ABSORPTIOMETRY / DXA REASON FOR EXAM: Male, 81 years old. T12 TECHNIQUE: Bone Mineral Density (BMD) measurements of lumbar spine and bilateral hips were obtained. COMPARISON: Comparison is made with prior study dated June 25, 2012. FINDINGS: Lumbar Spine (L1-L4): g/cm2 (1.109) / T-score (0.5) / Z-score (1.7) Findings are suggestive of normal bone density with a low fracture risk. Left Femur Total: g/cm2 (0.840) / T-score (-1.3) / Z-score (-0.2) Left Femoral Neck: g/cm2 (0.687) / T-score (-1.8) / Z-score (-0.2) Right Femur Total: g/cm2 (0.800) / T-score (-1.5) / Z-score (-0.5) Right Femoral Neck: g/cm2 (0.639) / T-score (-2.1) / Z-score (-0.6) The T-Scores on the most recent prior examination were: Lumbar Spine (L1-L4): There has been improvement of bone density since the previous examination. Left Femur Total: which represents a worsening of 5.5%. Right Femur Total: which represents a worsening of 9.7%. BD/Dexa Bone Density Study IMPRESSION: The patient is considered osteopenic as outlined below according to World Bin Organization (WHO) criteria with a moderate fracture risk. There has been worsening of bone density since the previous examination. Reference Information: The T-score is the number of standard deviations above or below the standard which is normal for young adults at their peak bone mineral density. The World Health Organization (WHO) interprets the T-scores as follows: Above -1 Normal bone density Between -1 and -2.5 Osteopenia Equal to / or below -2.5 Osteoporosis As a practical clinical guideline, osteopenia may be graded as follows: Mild -1 through -1.5 Moderate -1.6 through -2.0 Severe -2.1 through -2.4 The Z-score is the number of standard deviations above or below age-matched controls. A Z-score of less than -1.5 would be considered abnormal. References: 1. NIH Osteoporosis and Related Bone Diseases www osteo.org 2. International Society for Clinical Densitometry www iscd.org 3. National Osteoporosis Foundation www nof.org Electronically Signed: Praveen Oviedo MD at 14:11 EDT ,
== END | disposition home or self-care (01) ==
LOC: OPBD 10:45
PROVIDERS: PCP Family Medicine; Referring Provider Orthopaedic Surgery; Visit Provider Orthopaedic Surgery
DX: S22.080A Wedge compression fracture of T11-T12 vertebra, initial encounter for closed fracture (principal)
CPT/HCPCS: 77080

== ENCOUNTER → 2022-08-13 | Outpatient (CLI) | payer MEDICARE, OTHER, SELFPAY ==
[2022-08-13 13:17] LABS: Amphetamine Urine VISTA NEGATIVE (<1000 ng/mL); Barbiturate Urine VISTA NEGATIVE (< 200 ng/mL); Benzodiazepine Urine VISTA NEGATIVE (< 200 ng/mL); Cocaine Urine VISTA NEGATIVE (< 300 ng/mL); Ecstacy Urine VISTA NEGATIVE (< 500 ng/mL); Methadone Urine VISTA NEGATIVE (< 300 ng/mL); PCP Urine VISTA NEGATIVE (< 25 ng/mL); THC Urine VISTA NEGATIVE (< 50 ng/mL); Vista UDS pH Range 6
== END | disposition home or self-care (01) ==
LOC: LAB 12:29
PROVIDERS: PCP Family Medicine; Referring Provider Anesthesiology Pain Medicine; Visit Provider Anesthesiology Pain Medicine
DX: F11.20 Opioid dependence, uncomplicated (principal)
CPT/HCPCS: 80307

== ENCOUNTER → 2023-05-09 | Outpatient (CLI) | payer MEDICARE, OTHER, SELFPAY ==
[2023-05-09 15:16] LABS: Absolute Lymphocyte Count 1.43 X10^3/uL (0.83-4.51); Absolute Neutrophil Count 5.5 X10^3/uL (2.0-7.7); Basophil# 0.03 X10^3/uL; Basophil% 0.4 % (0-1); Eosinophil# 0.08 X10^3/uL; Eosinophils% 1.1 % (0-5); Hematocrit 39.8 % (40-54); Hemoglobin 12.9 g/dL (13.0-16.5); Lymphocyte # 1.43 X10^3/ul (0.83-4.51); Lymphocyte % 18.8 % (19-41); Mean Corp Hgb Conc 32.4 g/dL (32-36); Mean Corpuscular Hgb 34.4 pg (27.0-32.0); Mean Corpuscular Volume 106.1 fL (80-94); Mean Platelet Vol. 9.7 fl (6.2-12.0); Monocyte# 0.51 X10^3/uL; Monocyte% 6.7 % (0-10); NRBC Flagged by Analyzer 0 % (0-5); Neutrophil # 5.52 X10^3/uL (2.7-7.7); Neutrophil % 72.6 % (47-70); Platelet Count 223 K/mm3 (150-450); RBC Distribution Width CV 14.1 % (11.6-14.6); RBC Distribution Width SD 55.6 fl (35.1-43.9); Red Blood Count 3.75 M/mm3 (4.6-6.2); White Blood Count 7.6 K/mm3 (4.4-11.0)
[2023-05-09 15:40] LABS: ALB/GLOB Ratio 1.1 RATIO (0.9-2.4); AST(SGOT) 32 U/L (15-37); Alanine Aminotransfer ALT/SGPT 44 U/L (16-61); Albumin, Serum 3.7 g/dL (3.2-5.0); Alkaline Phosphatase 90 U/L (45-117); Anion Gap 5 (5-15); BUN 19 mg/dL (7-18); BUN/Creat Ratio 14.3 RATIO (10-20); Calcium,Total 9.5 mg/dL (8.5-10.1); Chloride 106 mmol/L (98-107); Creatinine, Serum 1.33 mg/dL (0.70-1.30); EST Glomerular Filtration Rate 55 mL/min (>60); Est Glom Filt Rate - Afr Amer 66 mL/min (>60); Globulin 3.4 g/dL (2.2-4.2); Glucose 90 mg/dL (74-106); Potassium 4.1 mmol/L (3.5-5.1); Protein, Total 7.1 g/dL (6.4-8.2); Sodium Level 139 mmol/L (136-145)
== END | disposition home or self-care (01) ==
LOC: BIMLAB 13:42
PROVIDERS: PCP Family Medicine; Referring Provider Family Medicine; Visit Provider Family Medicine
DX: M48.00 Spinal stenosis, site unspecified (principal); C85.90 Non-Hodgkin lymphoma, unspecified, unspecified site; J44.9 Chronic obstructive pulmonary disease, unspecified; D50.9 Iron deficiency anemia, unspecified; N18.9 Chronic kidney disease, unspecified
CPT/HCPCS: 36415; 80053; 85025

== ENCOUNTER 2024-05-25 12:55 | Outpatient (RCR) | payer MEDICARE, OTHER, SELFPAY ==
--- NOTE | 2024-05-25 13:52 | HP.PTEVAL_ITS ---
Patient's Visit Information Visit Information Visit Information: DOUGIE COOPER is a 83 year old M referred to Physical Therapy by Dr. Jaden Monterroso, DO with a diagnosis of Unsteady gait. Date of Evaluation: 05/25/24 Physical Therapist: Selvin Villalobos, DPT, OCS, CSCS Visit Plan Plan: No further therapy desired or computerized test desired at this point. Given HEP of: tandem stance ec 2-3 min, heel raises, chair squats and FW weight shifts 3x10 al l daily with pics and balance safety HO Subjective Subjective: made appointment. having problems with balance. Standing with eyes closed makes him wobbly. Has walk in shower and holding on when doing hair and feels OK. Getting on step stool make denton feel unstable. Regular ladder is OK. Not holding on is the problem. No falls. No spinning, no neuropathy, no DM. No AD needed. Sleep is OK, stressed over stock market. Not employed. Spends day on computer and works outside in the summer. Watches movies in winter adn runs around to medical appointments after a fall she had. Doing housework and laundry and no problem with balance. Activities are mostly normal at home. No regular exercises. Golfs in season and no worries with that. Objective Objective: Walks into PT I without deviations or problems, transfers bed and chair I. Steps reciprocal with one rail. reflexes 2/3 patella and achilles B. Sensation LE WNL to gross light touch B LE coordination to reciprocal toe and heel tap is good AROM and flexibility WFL but HS and gastroc mod tight at -30 90/90 test adn 2 degree B DF. Forward weight shift is hesitant. wobbly on rombrg ec conditions but not enough to lose points, feels more unsteady than he is, also walking ec was noticably harder. strngth hips 4- and core 4-, knee sand ankles 4/5. See funcitonal testing. Balance/Special Test Scores Functional Gait Assessment Score: 26 % Disability: 13.3400 CATSIB Score (Max score 120 seconds): 120 Lower Extremity Functional Score: 66 TUG Test Time Seconds: 8 30 Second Chair Rise Test Seconds: 11 Rehabilitation Potential Physical Therapy Diagnosis: Some weakness coming out of winter and sedentairsm and worries about balance psychosocially with 's complications but doing well overall Anticipated Interventions Text: Thank you for the opportunity to evaluate your patient. For Medicare and Medicare HMO plans, please review the plan of care and approve it. It will need to be FAXED BACK to us at [phone] for Medicare purposes. For Medicare only, by signing this I certify the plan of care. Please let me know if there are questions or concerns regarding this plan of care. Physician Signature: Date:
== END 2024-05-25 19:00 | disposition home or self-care (01) ==
LOC: PT 12:55
PROVIDERS: PCP Family Medicine; Visit Provider Family Medicine
DX: R26.81 Unsteadiness on feet (principal)
CPT/HCPCS: 97110; 97161

== ENCOUNTER 2024-12-07 14:14 | Emergency (ER) | payer MEDICARE, OTHER, SELFPAY ==
[2024-12-07 14:16] VITALS: BP 148/109; PULSE 103; RESP 18; TEMP 36; O2SAT 98; BMI 23.8
--- NOTE | 2024-12-07 15:55 | CT_ITS ---
PROCEDURE: CHEST WITHOUT CONTRAST 12/07/2024 REASON FOR EXAM: RIGHT RIB PAIN, CONCERN FOR FRACTURE TECHNIQUE: Chest CT without contrast. Coronal and Sagittal reconstruction series were provided. One or more dose reduction techniques were used (e.g., Automated exposure control, adjustment of the mA and/or kV according to patient size, use of iterative reconstruction technique RADIATION DOSE SUMMARY: CTDlvol: 12 mGy DLP: 514 mGycm FINDINGS: There is diffuse centrilobular emphysema, which is an independent risk factor for lung cancer. In the medial aspect of the right lower lobe on image 101, there is a small area of lucency which contains an air-fluid level which could represent a small fluid-filled cyst. This has a benign appearance. Inspection of the mediastinum demonstrates no aortic aneurysm or pericardial fluid. The upper abdomen demonstrates an aortic endograft and pancreatic calcifications. Inspection of the ribs demonstrates a mild degree of motion artifact. Nondisplaced fractures of the right 9th, 8th ribs are identified. There is no pneumothorax. No left-sided rib deformity is noted. There is no pneumothorax CT/Chest without Contrast IMPRESSION: Coronary artery calcification (CAC) is present Fractures of the distal right ribs as mentioned above Reading [facility]
--- NOTE | 2024-12-07 15:56 | ED.VIS.FALL ---
HPI HPI - Fall History of Present Illness Chief Complaint: Fall Narrative Narrative: Chief complaint and HPI: 83-year-old male with past medical history of CKD, COPD, HTN, HLD presents for right sided rib pain after a fall. Patient states she had a mechanical fall on Saturday when he accidentally tripped on a lawn flowerpot. States he fell backwards onto his right side. States since the fall he has been having pain in his right lower lateral ribs. He also obtained skin abrasions to the right upper extremity. He was seen at urgent care prior to arrival who repaired the skin tears with Steri-Strips. They recommended him be seen in the emergency department. No LOC. Not on blood thinners. Denies any pain elsewhere. Review of systems: See HPI Medications: As listed on the chart Allergies: As listed on the chart PFSH: Per chart Vital signs: As listed on the chart. Reviewed. Physical exam: Gen: A&O x3, NAD Head: Normocephalic, atraumatic Eyes: No sclera icterus, conjunctiva clear ENT: Moist mucous membranes, atraumatic Neck: Trachea midline, full range of motion, nontender CV: RRR, no murmurs, mild tenderness to palpation of the right lower lateral ribs without external signs of trauma Resp: Lungs CTA BL, no w/r/c GI: Abd soft, non-distended, non-tender, no r/r/g Musc: Full ROM, no deformity, no spinal TTP, no cassidy step-offs Skin: Warm, dry, skin tears and abrasions to the right upper extremity with Steri-Strips Neuro: Alert, oriented, grossly intact, sensation intact, GCS 15 Psych: Cooperative, appropriate mood and affect [facility] History Degenerative disk disease Cancer Alcohol use Arthritis High cholesterol DVT (deep venous thrombosis) Easy bruising Excessive bleeding Back pain History of hiatal hernia Colitis Gastric reflux Former smoker Cardiology follow-up encounter History of stress test History of echocardiogram Dysuria Adverse effect of drug therapy Bilateral lower extremity edema Venous stasis dermatitis of both lower extremities Lymphoma Gastrocnemius tear Ileus BPH (benign prostatic hyperplasia) Hypertriglyceridemia Dental infection Impacted cerumen of both ears Sacro-iliac pain Gout Non Hodgkin's lymphoma GERD (gastroesophageal reflux disease) Nicotine dependence Abdominal aortic aneurysm Heavy alcohol consumption Hypophosphatemia Hypomagnesemia Hyperlipidemia Hypertension CAD (coronary artery disease) Acute pancreatitis Home Medications ?Medication ?Instructions ?Recorded ?Last Taken ?Type safety shower #1 ea 08/01/21 Unknown Rx acetaminophen 500 mg tablet 1,000 mg PO Q8H PRN Pain 01/30/22 12/06/24 History diphenhydramine HCl 25 mg tablet 50 mg PO DAILY PRN ALLERGIES 01/30/22 12/06/24 History (Benadryl Allergy) multivitamin 1 tab PO DAILY SUPPLEMENT 01/30/22 12/07/24 History cyanocobalamin (vitamin B-12) 3,000 mcg PO DAILY supplement 02/28/22 12/07/24 History 1,000 mcg capsule cholecalciferol (vitamin D3) 25 25 mcg PO DAILY 05/11/22 12/06/24 History mcg (1,000 unit) chewable tablet (Vitamin D3) aspirin 81 mg chewable tablet 81 mg PO DAILY 05/30/22 12/07/24 History meloxicam 15 mg tablet 15 mg PO DAILY #60 TABLETS 05/12/24 12/06/24 Rx nitroglycerin 0.4 mg sublingual 0.4 mg sublingual UD for angina 05/12/24 Unknown Rx tablet #25 TABLETS omeprazole 20 mg capsule,delayed See Rx Instructions .Route 07/14/24 12/06/24 Rx release .COMPLEX #90 CAPSULES allopurinol 100 mg tablet 100 mg PO BID for gout pain #180 12/01/24 12/07/24 Rx TABLETS magnesium oxide 400 mg (241.3 mg 400 mg PO BID supplement 90 days 12/01/24 12/07/24 Rx magnesium) tablet #180 tabs metoprolol succinate 25 mg 25 mg PO DAILY for blood pressure 12/01/24 12/07/24 Rx tablet,extended release 24 hr #90 TABLETS rosuvastatin 20 mg tablet 20 mg PO QHS cholesterol #90 tabs 12/03/24 12/06/24 Rx erythromycin 5 mg/gram (0.5 %) eye 1 applic ophthalmic (eye) DAILY EYE 12/07/24 12/06/24 History ointment Allergy/AdvReac Type Severity Reaction Status Date / Time cephalexin Allergy Hives Verified 12/07/24 14:16 erythromycin base Allergy Hives Verified 12/07/24 14:16 fexofenadine Allergy Other Verified 12/07/24 14:16 Sulfa (Sulfonamide Allergy Hives Verified 12/07/24 14:16 Antibiotics) Family History Brother CAD (coronary artery disease) Mother Heart disease Father Heart disease Surgical History History of prostate surgery Hx of left cataract extraction Hx of hernia repair Hx of eye surgery History of cardiac catheterization History of AAA (abdominal aortic aneurysm) repair Hx of colonoscopy History of coronary artery stent placement Hx of knee surgery History of endovascular stent graft for abdominal aortic aneurysm (AAA) Hx of umbilical hernia repair H/O Mohs micrographic surgery for skin cancer S/P TURP Status post coronary artery stent placement Social History household members: spouse Smoking Status: Current every day smoker tobacco type: cigarettes how long ago did patient quit smoking: Quit 02/18/18, smoked 1 ppd since teen until quit. alcohol intake: current alcohol intake frequency: 0-2 drinks per day Alcohol type: wine substance use type: does not use EXAM Physical Exam Const Vital Signs: 12/07/24 14:16 12/07/24 15:46 Temperature 96.8 F L Temperature Source Temporal Pulse Rate 103 H Respiratory Rate 18 Respiratory Effort Normal Non-Labored Respiratory Depth Normal Respiratory Pattern Normal Blood Pressure 148/109 H Blood Pressure Mean 122 Pulse Ox 98 Oxygen Delivery Method Room Air Room Air MDM MDM MDM Narrative Medical decision making narrative: 83-year-old male with past medical history of CKD, COPD, HTN, HLD presents for right sided rib pain after a fall. Patient states she had a mechanical fall on Saturday when he accidentally tripped on a [employer] flowerpot. States he fell backwards onto his right side. States since the fall he has been having pain in his right lower lateral ribs. He also obtained skin abrasions to the right upper extremity. He was seen at urgent care prior to arrival who repaired the skin tears with Steri-Strips. See physical exam findings. Differential diagnosis includes but is not limited to rib contusion versus fracture. CT of the chest ordered without contrast. CT of the chest shows nondisplaced fractures of the right 9 and 8 ribs. May have a small fluid-filled cyst on the right. No pneumothorax. He is not requiring oxygen. He states his pain is mostly controlled. He will be given an incentive spirometer to discharge home with to prevent pneumonia. He was educated that if he develops pneumonia type symptoms he need to be seen by a care provider. Tylenol as needed for pain as well as lidocaine patches. Lidocaine patch placed here. Oxycodone for severe pain. Was educated that this can cause confusion, weakness, falls in the elderly and to be careful. Do not drive or operate heavy machinery while taking these. Can cause constipation to recommend [id number] stool softener. He confirmed understand the plan. Patient stable to discharge home. Follow-up with primary care physician. Impression: 1. Right 9th and 8th rib fracture 2. Mechanical fall Radiography Diagnostic Testing: Clinical Impression(s) from Imaging Studies Chest CT 12/07/24 15:55 IMPRESSION: Coronary artery calcification (CAC) is present Fractures of the distal right ribs as mentioned above Reading [facility] Triage Chief Complaint: Fall ED Provider: Remington Mehta Dx/Rx/DC Orders Prescriptions: No Action aspirin 81 mg tablet,chewable 81 mg PO DAILY omeprazole 20 mg capsule,delayed release(DR/EC) See Rx Instructions .ROUTE .COMPLEX Qty: 90 1RF Dose Instruction: TAKE 1 CAPSULE EVERY DAY Rx Instructions: TAKE 1 CAPSULE EVERY DAY cyanocobalamin (vitamin B-12) 1,000 mcg capsule 3,000 mcg PO DAILY multivitamin Tablet 1 tab PO DAILY acetaminophen 500 mg Tablet 1,000 mg PO Q8H PRN (Reason: Pain) diphenhydramine HCl [Benadryl Allergy] 25 mg Tablet 50 mg PO DAILY PRN (Reason: ALLERGIES) cholecalciferol (vitamin D3) [Vitamin D3] 25 mcg (1,000 unit) Tablet,Chewable 25 mcg PO DAILY erythromycin 5 mg/gram (0.5 %) ointment 1 applic ophthalmic (eye) DAILY Patient Comments: [NO ORIGINAL SIG] (DME) safety shower See Rx Instructions .Route .MEDSUPPLY Qty: 1 0RF Rx Instructions: As directed nitroglycerin 0.4 mg tablet, sublingual 0.4 mg sublingual UD Qty: 25 11RF meloxicam 15 mg tablet 15 mg PO DAILY Qty: 60 5RF metoprolol succinate 25 mg tablet extended release 24 hr 25 mg PO DAILY Qty: 90 1RF allopurinol 100 mg tablet 100 mg PO BID Qty: 180 1RF magnesium oxide 400 mg (241.3 mg magnesium) tablet 400 mg PO BID 90 Days Qty: 180 1RF rosuvastatin 20 mg tablet 20 mg PO QHS Qty: 90 2RF Primary Care Provider: Jaden Monterroso Referrals: Jaden Monterroso, [Primary Care Provider, Internal Medicine] Print Language: Indonesian
--- NOTE | 2024-12-07 17:01 | CM.ED ---
Social Work Reason for visit: Advanced Directive Verification SW introduced self to patient, explained role with [facility] and reason for visit. Patient stated he thought he had something completed when he has his will done but now he thinks it may be a POA versus a HCPOA. SW spoke to patient regarding difference of the two, asked for patient to check to see which one he had completed, and educated that staff at [facility] could complete HPOA and LW if patient does not have them done. Patient appreciative of information. Rachel Castro, HOME ENERGY RATER, [employer]IVER
[2024-12-07] MEDS: Lidocaine 5% Patch 1 PATCH TOPICAL (18:29)
== END 2024-12-07 18:32 | disposition home or self-care (01) ==
PROVIDERS: Emergency Provider Surgery; PCP Family Medicine; Visit Provider Surgery
DX: S22.41XA Multiple fractures of ribs, right side, initial encounter for closed fracture (principal); J44.9 Chronic obstructive pulmonary disease, unspecified; N18.9 Chronic kidney disease, unspecified; I12.9 Hypertensive chronic kidney disease with stage 1 through stage 4 chronic kidney disease, or unspecified chronic kidney disease; F17.210 Nicotine dependence, cigarettes, uncomplicated; I25.10 Atherosclerotic heart disease of native coronary artery without angina pectoris; E78.00 Pure hypercholesterolemia, unspecified; W01.0XXA Fall on same level from slipping, tripping and stumbling without subsequent striking against object, initial encounter; K21.9 Gastro-esophageal reflux disease without esophagitis; Z79.82 Long term (current) use of aspirin; Z79.899 Other long term (current) drug therapy
CPT/HCPCS: 71250; 99282